=== PATIENT | male | born 1960 | race Caucasian/White ===

== ENCOUNTER 2020-05-31 16:30 | Inpatient (IN) | payer MEDICAID, SELFPAY ==
[2020-05-31] VITALS (10 sets, daily range): BP systolic 100–115; BP diastolic 76–90; PULSE 117–142; RESP 16–27; TEMP 36.3–36.6; O2SAT 93–97; BMI 29.7
--- NOTE | 2020-05-31 17:10 | W.ED.EPISTAX ---
Documented by User: MARIANELA Teran 05/31/20 21:16 HPI - Epistaxis General: Chief complaint: Epistaxis Stated complaint: EPISTAXIS Time Seen by Provider: 05/31/20 16:52 History of Present Illness: HPI Narrative: Patient is a 59-year-old male who comes to the ED with epistaxis. Patient has a past medical history of COPD, hypertension, hyperlipidemia. Patient is on oxygen 2 L at home as needed. Patient says he has been dealing with this nosebleed for little over 2 days. He saw his PCP 2 days ago and they put a nasal packing. He then went back to the PCP yesterday and had nasal packing removed and bleeding continued. He has been able to get the bleeding to stop momentarily but then it starts back up again. Denies any head injury or trauma to cause nosebleed. Patient says bleeding just occurred randomly. Denies any history of bleeding disorders and patient is not on a blood thinner and takes a daily aspirin. Patient is also having tremors in both right and left upper extremities that started today. Patient did say that he is a daily alcohol drinker and says that he has not had any alcohol today. He usually has over 3 mixed drinks with vodka daily. Patient says he has never tried to detox from alcohol in the past so he is never experienced withdrawal symptoms. Patient is also complaining of having some shortness of breath that started within the last 2 days as well. Denies any chest pain, fevers, chills, abdominal pain, vomiting, bladder or bowel symptoms. Associated symptoms: Deny fever(s), headache(s) or vomiting Review of Systems Const: Denies: fever(s), chills or fatigue Eyes: Denies: change in vision or eye discomfort ENMT: Reports: epistaxis; Denies: throat pain, odynophagia, nasal discharge or nasal congestion Card: Denies: chest pain, palpitations, edema, swelling of feet/ankles, dyspnea on exertion or orthopnea Resp: Reports: dyspnea; Denies: productive cough or non-productive cough GI: Denies: abdominal pain, nausea, vomiting, diarrhea, constipation or hematochezia : Denies: flank pain, difficulty urinating, dysuria or hematuria Musc: Denies: neck pain, back pain or extremity swelling Skin/Breast: Denies: rash or new lesions Neuro: Reports: involuntary movements (Tremors in upper extremities bilaterally.); Denies: headache(s), numbness in extremities or weakness in extremities PFSH ED PFSH: Medical History COPD (chronic obstructive pulmonary disease) Coronary artery disease Heart failure HTN (hypertension) Hyperlipidemia PVD (peripheral vascular disease) Surgical History S/P coronary angioplasty Coronary disease 2 stents, 2015 S/P hernia repair Family History Father Cancer Mother Cancer Other CAD (coronary artery disease) Social History (Updated 05/31/20 @ 22:33 by Zoe Platt MD) Smoking and tobacco status: current every day smoker cigarettes [ Other cigarette details: Half a pack a day ] Alcohol intake: current Alcohol use comment: Half a pint of vodka every day Household members: spouse Housing: House History of recent travel: No Physical Exam Const: COMMON NORMALS: no acute distress, patient oriented x3 and alert GENERAL APPEARANCE: cooperative and comfortable HENMT: COMMON NORMALS: normocephalic HEAD & SCALP: normocephalic NOSE: Epistaxis present bilaterally (No septal hematoma seen. Bleeding source is septum. No active bleeding upon exam.) anterior source, dried blood present and clots present MOUTH: Normal oral and palatal mucosa present THROAT: posterior oropharynx normal and uvula midline OTHER: After I performed exam approximately 2 to 3 minutes later patient started bleeding out of left nare again. Clamp was placed back on. Neck/C-Spine: COMMON NORMALS: supple GENERAL: Yes normal visual inspection Resp: COMMON NORMALS: normal respiratory effort, No retractions and No use of accessory muscles AUSCULTATION: wheezes expiratory wheezes, inspiratory wheezes and throughout Cardio: COMMON NORMALS: regular rate, regular rhythm, S1 normal heart sound present, S2 normal heart sound present, No gallops present (Cardio), No clicks present (Cardio), No murmurs present (Cardio) and Peripheral pulses 2+ throughout RATE: regular rate RHYTHM: regular rhythm HEART SOUNDS: S1 normal heart sound present and S2 normal heart sound present PERIPHERAL PULSES: Peripheral pulses 2+ throughout GI: COMMON NORMALS: Normal to inspection, nondistended, normoactive bowel sounds present, Soft to palpation, non-tender and no masses PALPATION: Yes Soft to palpation : COMMON NORMALS: Yes no CVA tenderness BLADDER/KIDNEY EXAM: Yes no CVA tenderness Back/Pelvis: COMMON NORMALS: no CVA tenderness Extremity: COMMON NORMALS: normal to inspection Neuro: COMMON NORMALS: patient oriented x3 and moves all extremities SENSORIUM/ORIENTATION: Yes alert SPEECH: speech normal MOTOR EXAM: Tremors during motor activity present intention tremor bialteral upper extremity Skin: OTHER: Patient skin was moist and clammy. Course ED course: I talked with Dr. Johnston and he will be taking over patient case due to acuity. Patient has been tachycardic and tachypnea upon arrival. Nosebleed still not controlled. Patient's lungs had inspiratory and expiratory wheezing throughout. Patient also is a heavy daily alcohol user states he has not had any alcohol today and has started developing bilateral upper extremity tremors, anxiety and skin was moist and clammy. Patient was given IV fluids and then a dose of Ativan due to patient's withdrawal symptoms. Patient care transferred over to Dr. Johnston. Reevaluation(s): Reevaluation #1: After I performed exam approximately 2 to 3 minutes later patient started bleeding out of left nare again. Clamp was placed back on. Vital Signs: Vital signs: Vital Signs Temperature 97.8 F 06/03/20 18:35 Pulse Rate 98 06/03/20 18:35 Respiratory Rate 17 06/03/20 18:35 Blood Pressure 125/83 06/03/20 18:35 Pulse Oximetry 93 06/03/20 18:35 MDM - Epistaxis Lab Data: Attestation: I reviewed the patient's lab results. Labs: Lab Results 05/31/20 05/31/20 05/31/20 Range/Units 17:45 17:45 17:45 WBC 10.7 H (4.0-10.0) 10^3/ uL RBC 2.81 L (4.1-5.3) 10^6/u L Hgb 10.4 L (11.7-16.6) g/dL Hct 30.4 L (42.0-52.0) % MCV 108.2 H (80-94) fL MCH 37.0 H (28.0-34.0) pg MCHC 34.2 (30.0-36.0) g/dL RDW 12.1 (12.1-15.1) % Plt Count 268 (130-400) 10^3/c mm MPV 9.0 (7.4-10.4) fL Neut % (Auto) 71.2 % Lymph % (Auto) 17.8 % [place] % (Auto) 9.3 % Eos % (Auto) 0.4 % Baso % (Auto) 0.6 % Neut # (Auto) 7.63 (1.8-7.7) 10^3/u L Lymph # (Auto) 1.9 (0.8-4.8) 10^3/u L [place] # (Auto) 1.0 H (0.2-0.9) 10^3/u L Eos # (Auto) 0.0 (0.0-0.8) 10^3/u L Baso # (Auto) 0.1 (0.0-0.1) 10^3/u L Nucleated RBC % (a uto) 0 % Nucleated RBCs # 0.0 /100WBC PT 13.50 (12.1-14.9) SECO NDS INR 1.00 (0.8-1.2) APTT 29.1 (23.9-36.7) SECO NDS Specimen Type Sample Site ABG pH (7.35-7.45) ABG pCO2 (35-45) mmHg ABG pO2 (80.0-100.0) mmH g ABG HCO3 (22-26) mmol/L ABG O2 Saturation ABG Base Excess (-2.0-2.0) mmol/ L Pato Test A-a O2 Gradient (5-10) mmHg Hematocrit (42-52) % Hgb O2 Saturation (95-100) % Carboxyhemoglobin (0.4-20.1) %THgb Methemoglobin (0.4-1.5) % Total Hemoglobin (14-18) g/dL Ionized Calcium (1.1-1.4) mmol/L O2 Delivery Device O2 Liters/Min % Manager [employer] ID Sodium 142 (136-145) mmol/L Potassium 3.6 (3.5-5.1) mmol/L Chloride 103 (98-107) mmol/L Carbon Dioxide 27 (22-29) mmol/L Anion Gap 15.6 (5-19) BUN 10 (8-23) mg/dL Creatinine 0.3 L (0.7-1.2) mg/dL GFR Calculation 305.8 H (90-130) mL/min Glucose 118 H (65-115) mg/dL Calculated Osmolal ity 294 (285-295) mOsm/k g Calcium 8.7 (8.5-10.5) mg/dL Phosphorus (2.5-4.5) mg/dL Magnesium (1.7-2.3) mg/dL Total Bilirubin 0.2 (0.15-1.2) mg/dL AST 47 H (0-40) U/L ALT 22 (0-41) U/L Alkaline Phosphata se 89 (40-130) IU/L Troponin T Baselin e (0-15) ng/L Troponin T 120 Min [place] (0-15) ng/L Delta Troponin T (0-10) ABS# Troponin T Hi Sens 6Hr (0-15) ng/L Troponin T Hi Sens 6Hr Delta (0-12) ng/L NT-Pro-B Natriuret Pep (0-125) pg/mL Total Protein 6.2 L (6.6-8.7) g/dL Albumin 3.8 (3.5-5.2) g/dL Globulin 2.4 (1.3-4.6) g/dL Urine Opiates Scre en (Negative) ng/mL Ur Barbiturates Sc reen (Negative) ng/mL Ur Phencyclidine S crn (Negative) ng/mL Ur Amphetamines Sc reen (Negative) ng/mL U Benzodiazepines Scrn (Negative) ng/mL Urine Cocaine Scre en (Negative) ng/mL U Marijuana (THC) Screen (Negative) ng/mL Ethyl Alcohol (0-10) mg/dL 05/31/20 05/31/20 05/31/20 Range/Units 17:45 17:45 17:45 WBC (4.0-10.0) 10^3/ uL RBC (4.1-5.3) 10^6/u L Hgb (11.7-16.6) g/dL Hct (42.0-52.0) % MCV (80-94) fL MCH (28.0-34.0) pg MCHC (30.0-36.0) g/dL RDW (12.1-15.1) % Plt Count (130-400) 10^3/c mm MPV (7.4-10.4) fL Neut % (Auto) % Lymph % (Auto) % [place] % (Auto) % Eos % (Auto) % Baso % (Auto) % Neut # (Auto) (1.8-7.7) 10^3/u L Lymph # (Auto) (0.8-4.8) 10^3/u L [place] # (Auto) (0.2-0.9) 10^3/u L Eos # (Auto) (0.0-0.8) 10^3/u L Baso # (Auto) (0.0-0.1) 10^3/u L Nucleated RBC % (a uto) % Nucleated RBCs # /100WBC PT (12.1-14.9) SECO NDS INR (0.8-1.2) APTT (23.9-36.7) SECO NDS Specimen Type Sample Site ABG pH (7.35-7.45) ABG pCO2 (35-45) mmHg ABG pO2 (80.0-100.0) mmH g ABG HCO3 (22-26) mmol/L ABG O2 Saturation ABG Base Excess (-2.0-2.0) mmol/ L Pato Test A-a O2 Gradient (5-10) mmHg Hematocrit (42-52) % Hgb O2 Saturation (95-100) % Carboxyhemoglobin (0.4-20.1) %THgb Methemoglobin (0.4-1.5) % Total Hemoglobin (14-18) g/dL Ionized Calcium (1.1-1.4) mmol/L O2 Delivery Device O2 Liters/Min % Manager [employer] ID Sodium (136-145) mmol/L Potassium (3.5-5.1) mmol/L Chloride (98-107) mmol/L Carbon Dioxide (22-29) mmol/L Anion Gap (5-19) BUN (8-23) mg/dL Creatinine (0.7-1.2) mg/dL GFR Calculation (90-130) mL/min Glucose (65-115) mg/dL Calculated Osmolal ity (285-295) mOsm/k g Calcium (8.5-10.5) mg/dL Phosphorus (2.5-4.5) mg/dL Magnesium (1.7-2.3) mg/dL Total Bilirubin (0.15-1.2) mg/dL AST (0-40) U/L ALT (0-41) U/L Alkaline Phosphata se (40-130) IU/L Troponin T Baselin e 15 (0-15) ng/L Troponin T 120 Min [place] 12.06 (0-15) ng/L Delta Troponin T -2.94 L (0-10) ABS# Troponin T Hi Sens 6Hr (0-15) ng/L Troponin T Hi Sens 6Hr Delta (0-12) ng/L NT-Pro-B Natriuret Pep 33 (0-125) pg/mL Total Protein (6.6-8.7) g/dL Albumin (3.5-5.2) g/dL Globulin (1.3-4.6) g/dL Urine Opiates Scre en (Negative) ng/mL Ur Barbiturates Sc reen (Negative) ng/mL Ur Phencyclidine S crn (Negative) ng/mL Ur Amphetamines Sc reen (Negative) ng/mL U Benzodiazepines Scrn (Negative) ng/mL Urine Cocaine Scre en (Negative) ng/mL U Marijuana (THC) Screen (Negative) ng/mL Ethyl Alcohol 29 H (0-10) mg/dL 05/31/20 06/01/20 06/01/20 Range/Units 18:36 00:02 01:00 WBC 9.6 (4.0-10.0) 10^3/ uL RBC 2.21 L (4.1-5.3) 10^6/u L Hgb 8.0 L (11.7-16.6) g/dL Hct 24.4 L (42.0-52.0) % MCV 110.4 H (80-94) fL MCH 36.2 H (28.0-34.0) pg MCHC 32.8 (30.0-36.0) g/dL RDW 12.2 (12.1-15.1) % Plt Count 245 (130-400) 10^3/c mm MPV 9.3 (7.4-10.4) fL Neut % (Auto) 64.7 % Lymph % (Auto) 20.4 % [place] % (Auto) 14.0 % Eos % (Auto) 0.1 % Baso % (Auto) 0.5 % Neut # (Auto) 6.23 (1.8-7.7) 10^3/u L Lymph # (Auto) 2.0 (0.8-4.8) 10^3/u L [place] # (Auto) 1.4 H (0.2-0.9) 10^3/u L Eos # (Auto) 0.0 (0.0-0.8) 10^3/u L Baso # (Auto) 0.1 (0.0-0.1) 10^3/u L Nucleated RBC % (a uto) 0 % Nucleated RBCs # 0.0 /100WBC PT (12.1-14.9) SECO NDS INR (0.8-1.2) APTT (23.9-36.7) SECO NDS Specimen Type Arterial Sample Site Radial, right ABG pH 7.44 (7.35-7.45) ABG pCO2 45.3 H (35-45) mmHg ABG pO2 93.1 (80.0-100.0) mmH g ABG HCO3 30.4 H (22-26) mmol/L ABG O2 Saturation 98.4 ABG Base Excess 5.4 H (-2.0-2.0) mmol/ L Pato Test Pos A-a O2 Gradient 0.2 L (5-10) mmHg Hematocrit 31.5 L (42-52) % Hgb O2 Saturation 93.5 L (95-100) % Carboxyhemoglobin 4.0 (0.4-20.1) %THgb Methemoglobin 0.9 (0.4-1.5) % Total Hemoglobin 10.3 L (14-18) g/dL Ionized Calcium 1.2 (1.1-1.4) mmol/L O2 Delivery Device Oxy mask O2 Liters/Min 4.0 % Manager [employer] ID Ed Sodium 143.0 (136-145) mmol/L Potassium 3.6 (3.5-5.1) mmol/L Chloride (98-107) mmol/L Carbon Dioxide (22-29) mmol/L Anion Gap (5-19) BUN (8-23) mg/dL Creatinine (0.7-1.2) mg/dL GFR Calculation (90-130) mL/min Glucose 162.0 H (65-115) mg/dL Calculated Osmolal ity (285-295) mOsm/k g Calcium (8.5-10.5) mg/dL Phosphorus (2.5-4.5) mg/dL Magnesium (1.7-2.3) mg/dL Total Bilirubin (0.15-1.2) mg/dL AST (0-40) U/L ALT (0-41) U/L Alkaline Phosphata se (40-130) IU/L Troponin T Baselin e (0-15) ng/L Troponin T 120 Min [place] (0-15) ng/L Delta Troponin T (0-10) ABS# Troponin T Hi Sens 6Hr (0-15) ng/L Troponin T Hi Sens 6Hr Delta (0-12) ng/L NT-Pro-B Natriuret Pep (0-125) pg/mL Total Protein (6.6-8.7) g/dL Albumin (3.5-5.2) g/dL Globulin (1.3-4.6) g/dL Urine Opiates Scre en Negative (Negative) ng/mL Ur Barbiturates Sc reen Negative (Negative) ng/mL Ur Phencyclidine S crn Negative (Negative) ng/mL Ur Amphetamines Sc reen Negative (Negative) ng/mL U Benzodiazepines Scrn Positive H (Negative) ng/mL Urine Cocaine Scre en Negative (Negative) ng/mL U Marijuana (THC) Screen Negative (Negative) ng/mL Ethyl Alcohol (0-10) mg/dL 06/01/20 06/01/20 Range/Units 01:00 01:00 WBC (4.0-10.0) 10^3/ uL RBC (4.1-5.3) 10^6/u L Hgb (11.7-16.6) g/dL Hct (42.0-52.0) % MCV (80-94) fL MCH (28.0-34.0) pg MCHC (30.0-36.0) g/dL RDW (12.1-15.1) % Plt Count (130-400) 10^3/c mm MPV (7.4-10.4) fL Neut % (Auto) % Lymph % (Auto) % [place] % (Auto) % Eos % (Auto) % Baso % (Auto) % Neut # (Auto) (1.8-7.7) 10^3/u L Lymph # (Auto) (0.8-4.8) 10^3/u L [place] # (Auto) (0.2-0.9) 10^3/u L Eos # (Auto) (0.0-0.8) 10^3/u L Baso # (Auto) (0.0-0.1) 10^3/u L Nucleated RBC % (a uto) % Nucleated RBCs # /100WBC PT (12.1-14.9) SECO NDS INR (0.8-1.2) APTT (23.9-36.7) SECO NDS Specimen Type Sample Site ABG pH (7.35-7.45) ABG pCO2 (35-45) mmHg ABG pO2 (80.0-100.0) mmH g ABG HCO3 (22-26) mmol/L ABG O2 Saturation ABG Base Excess (-2.0-2.0) mmol/ L Pato Test A-a O2 Gradient (5-10) mmHg Hematocrit (42-52) % Hgb O2 Saturation (95-100) % Carboxyhemoglobin (0.4-20.1) %THgb Methemoglobin (0.4-1.5) % Total Hemoglobin (14-18) g/dL Ionized Calcium (1.1-1.4) mmol/L O2 Delivery Device O2 Liters/Min % Manager [employer] ID Sodium 140 (136-145) mmol/L Potassium 4.1 (3.5-5.1) mmol/L Chloride 106 (98-107) mmol/L Carbon Dioxide 27 (22-29) mmol/L Anion Gap 11.1 (5-19) BUN 30 H (8-23) mg/dL Creatinine 0.4 L (0.7-1.2) mg/dL GFR Calculation 219.4 H (90-130) mL/min Glucose 155 H (65-115) mg/dL Calculated Osmolal ity 299 H (285-295) mOsm/k g Calcium 8.3 L (8.5-10.5) mg/dL Phosphorus 1.6 L (2.5-4.5) mg/dL Magnesium 2.1 (1.7-2.3) mg/dL Total Bilirubin (0.15-1.2) mg/dL AST (0-40) U/L ALT (0-41) U/L Alkaline Phosphata se (40-130) IU/L Troponin T Baselin e (0-15) ng/L Troponin T 120 Min [place] (0-15) ng/L Delta Troponin T (0-10) ABS# Troponin T Hi Sens 6Hr 12.86 (0-15) ng/L Troponin T Hi Sens 6Hr Delta -2.14 L (0-12) ng/L NT-Pro-B Natriuret Pep (0-125) pg/mL Total Protein (6.6-8.7) g/dL Albumin (3.5-5.2) g/dL Globulin (1.3-4.6) g/dL Urine Opiates Scre en (Negative) ng/mL Ur Barbiturates Sc reen (Negative) ng/mL Ur Phencyclidine S crn (Negative) ng/mL Ur Amphetamines Sc reen (Negative) ng/mL U Benzodiazepines Scrn (Negative) ng/mL Urine Cocaine Scre en (Negative) ng/mL U Marijuana (THC) Screen (Negative) ng/mL Ethyl Alcohol (0-10) mg/dL Imaging Data^: CXR: Attestation: I personally reviewed and interpreted this imaging study as follows: My impression: Chest x-ray showed possible iniltrates of the right and left lower lobe. Discharge Plan Discharge Patient Disposition: Admitted As Inpatient Admit Provider: Zoe Platt Clinical Impression: Alcohol withdrawal Condition: Stable Discharge Diet: Advance as tolerated and Cardiac Discharge Activity: Increase activity as tolerated Coding Level of Care Code ED Logistics Supervisor for Chg Fwd Exam Comprehensive Documented by User: Jersey Lopez MD 06/04/20 08:25 HPI - Epistaxis General: Chief complaint: Epistaxis Stated complaint: EPISTAXIS Time Seen by Provider: 05/31/20 16:52 PFSH ED PFSH: Medical History COPD (chronic obstructive pulmonary disease) Coronary artery disease Heart failure HTN (hypertension) Hyperlipidemia PVD (peripheral vascular disease) Surgical History S/P coronary angioplasty Coronary disease 2 stents, 2015 S/P hernia repair Family History Father Cancer Mother Cancer Other CAD (coronary artery disease) Social History (Updated 05/31/20 @ 22:33 by Zoe Platt MD) Smoking and tobacco status: current every day smoker cigarettes [ Other cigarette details: Half a pack a day ] Alcohol intake: current Alcohol use comment: Half a pint of vodka every day Household members: spouse Housing: House History of recent travel: No Course Vital Signs: Vital signs: Vital Signs Temperature 97.8 F 06/03/20 18:35 Pulse Rate 98 06/03/20 18:35 Respiratory Rate 17 06/03/20 18:35 Blood Pressure 125/83 06/03/20 18:35 Pulse Oximetry 93 06/03/20 18:35 MDM - Epistaxis Lab Data: Labs: Lab Results 05/31/20 05/31/20 05/31/20 Range/Units 17:45 17:45 17:45 WBC 10.7 H (4.0-10.0) 10^3/ uL RBC 2.81 L (4.1-5.3) 10^6/u L Hgb 10.4 L (11.7-16.6) g/dL Hct 30.4 L (42.0-52.0) % MCV 108.2 H (80-94) fL MCH 37.0 H (28.0-34.0) pg MCHC 34.2 (30.0-36.0) g/dL RDW 12.1 (12.1-15.1) % Plt Count 268 (130-400) 10^3/c mm MPV 9.0 (7.4-10.4) fL Neut % (Auto) 71.2 % Lymph % (Auto) 17.8 % [place] % (Auto) 9.3 % Eos % (Auto) 0.4 % Baso % (Auto) 0.6 % Neut # (Auto) 7.63 (1.8-7.7) 10^3/u L Lymph # (Auto) 1.9 (0.8-4.8) 10^3/u L [place] # (Auto) 1.0 H (0.2-0.9) 10^3/u L Eos # (Auto) 0.0 (0.0-0.8) 10^3/u L Baso # (Auto) 0.1 (0.0-0.1) 10^3/u L Nucleated RBC % (a uto) 0 % Nucleated RBCs # 0.0 /100WBC PT 13.50 (12.1-14.9) SECO NDS INR 1.00 (0.8-1.2) APTT 29.1 (23.9-36.7) SECO NDS Specimen Type Sample Site ABG pH (7.35-7.45) ABG pCO2 (35-45) mmHg ABG pO2 (80.0-100.0) mmH g ABG HCO3 (22-26) mmol/L ABG O2 Saturation ABG Base Excess (-2.0-2.0) mmol/ L Pato Test A-a O2 Gradient (5-10) mmHg Hematocrit (42-52) % Hgb O2 Saturation (95-100) % Carboxyhemoglobin (0.4-20.1) %THgb Methemoglobin (0.4-1.5) % Total Hemoglobin (14-18) g/dL Ionized Calcium (1.1-1.4) mmol/L O2 Delivery Device O2 Liters/Min % Manager [employer] ID Sodium 142 (136-145) mmol/L Potassium 3.6 (3.5-5.1) mmol/L Chloride 103 (98-107) mmol/L Carbon Dioxide 27 (22-29) mmol/L Anion Gap 15.6 (5-19) BUN 10 (8-23) mg/dL Creatinine 0.3 L (0.7-1.2) mg/dL GFR Calculation 305.8 H (90-130) mL/min Glucose 118 H (65-115) mg/dL Calculated Osmolal ity 294 (285-295) mOsm/k g Calcium 8.7 (8.5-10.5) mg/dL Phosphorus (2.5-4.5) mg/dL Magnesium (1.7-2.3) mg/dL Total Bilirubin 0.2 (0.15-1.2) mg/dL AST 47 H (0-40) U/L ALT 22 (0-41) U/L Alkaline Phosphata se 89 (40-130) IU/L Troponin T Baselin e (0-15) ng/L Troponin T 120 Min [place] (0-15) ng/L Delta Troponin T (0-10) ABS# Troponin T Hi Sens 6Hr (0-15) ng/L Troponin T Hi Sens 6Hr Delta (0-12) ng/L NT-Pro-B Natriuret Pep (0-125) pg/mL Total Protein 6.2 L (6.6-8.7) g/dL Albumin 3.8 (3.5-5.2) g/dL Globulin 2.4 (1.3-4.6) g/dL Urine Opiates Scre en (Negative) ng/mL Ur Barbiturates Sc reen (Negative) ng/mL Ur Phencyclidine S crn (Negative) ng/mL Ur Amphetamines Sc reen (Negative) ng/mL U Benzodiazepines Scrn (Negative) ng/mL Urine Cocaine Scre en (Negative) ng/mL U Marijuana (THC) Screen (Negative) ng/mL Ethyl Alcohol (0-10) mg/dL 05/31/20 05/31/20 05/31/20 Range/Units 17:45 17:45 17:45 WBC (4.0-10.0) 10^3/ uL RBC (4.1-5.3) 10^6/u L Hgb (11.7-16.6) g/dL Hct (42.0-52.0) % MCV (80-94) fL MCH (28.0-34.0) pg MCHC (30.0-36.0) g/dL RDW (12.1-15.1) % Plt Count (130-400) 10^3/c mm MPV (7.4-10.4) fL Neut % (Auto) % Lymph % (Auto) % [place] % (Auto) % Eos % (Auto) % Baso % (Auto) % Neut # (Auto) (1.8-7.7) 10^3/u L Lymph # (Auto) (0.8-4.8) 10^3/u L [place] # (Auto) (0.2-0.9) 10^3/u L Eos # (Auto) (0.0-0.8) 10^3/u L Baso # (Auto) (0.0-0.1) 10^3/u L Nucleated RBC % (a uto) % Nucleated RBCs # /100WBC PT (12.1-14.9) SECO NDS INR (0.8-1.2) APTT (23.9-36.7) SECO NDS Specimen Type Sample Site ABG pH (7.35-7.45) ABG pCO2 (35-45) mmHg ABG pO2 (80.0-100.0) mmH g ABG HCO3 (22-26) mmol/L ABG O2 Saturation ABG Base Excess (-2.0-2.0) mmol/ L Pato Test A-a O2 Gradient (5-10) mmHg Hematocrit (42-52) % Hgb O2 Saturation (95-100) % Carboxyhemoglobin (0.4-20.1) %THgb Methemoglobin (0.4-1.5) % Total Hemoglobin (14-18) g/dL Ionized Calcium (1.1-1.4) mmol/L O2 Delivery Device O2 Liters/Min % Manager [employer] ID Sodium (136-145) mmol/L Potassium (3.5-5.1) mmol/L Chloride (98-107) mmol/L Carbon Dioxide (22-29) mmol/L Anion Gap (5-19) BUN (8-23) mg/dL Creatinine (0.7-1.2) mg/dL GFR Calculation (90-130) mL/min Glucose (65-115) mg/dL Calculated Osmolal ity (285-295) mOsm/k g Calcium (8.5-10.5) mg/dL Phosphorus (2.5-4.5) mg/dL Magnesium (1.7-2.3) mg/dL Total Bilirubin (0.15-1.2) mg/dL AST (0-40) U/L ALT (0-41) U/L Alkaline Phosphata se (40-130) IU/L Troponin T Baselin e 15 (0-15) ng/L Troponin T 120 Min [place] 12.06 (0-15) ng/L Delta Troponin T -2.94 L (0-10) ABS# Troponin T Hi Sens 6Hr (0-15) ng/L Troponin T Hi Sens 6Hr Delta (0-12) ng/L NT-Pro-B Natriuret Pep 33 (0-125) pg/mL Total Protein (6.6-8.7) g/dL Albumin (3.5-5.2) g/dL Globulin (1.3-4.6) g/dL Urine Opiates Scre en (Negative) ng/mL Ur Barbiturates Sc reen (Negative) ng/mL Ur Phencyclidine S crn (Negative) ng/mL Ur Amphetamines Sc reen (Negative) ng/mL U Benzodiazepines Scrn (Negative) ng/mL Urine Cocaine Scre en (Negative) ng/mL U Marijuana (THC) Screen (Negative) ng/mL Ethyl Alcohol 29 H (0-10) mg/dL 05/31/20 06/01/20 06/01/20 Range/Units 18:36 00:02 01:00 WBC 9.6 (4.0-10.0) 10^3/ uL RBC 2.21 L (4.1-5.3) 10^6/u L Hgb 8.0 L (11.7-16.6) g/dL Hct 24.4 L (42.0-52.0) % MCV 110.4 H (80-94) fL MCH 36.2 H (28.0-34.0) pg MCHC 32.8 (30.0-36.0) g/dL RDW 12.2 (12.1-15.1) % Plt Count 245 (130-400) 10^3/c mm MPV 9.3 (7.4-10.4) fL Neut % (Auto) 64.7 % Lymph % (Auto) 20.4 % [place] % (Auto) 14.0 % Eos % (Auto) 0.1 % Baso % (Auto) 0.5 % Neut # (Auto) 6.23 (1.8-7.7) 10^3/u L Lymph # (Auto) 2.0 (0.8-4.8) 10^3/u L [place] # (Auto) 1.4 H (0.2-0.9) 10^3/u L Eos # (Auto) 0.0 (0.0-0.8) 10^3/u L Baso # (Auto) 0.1 (0.0-0.1) 10^3/u L Nucleated RBC % (a uto) 0 % Nucleated RBCs # 0.0 /100WBC PT (12.1-14.9) SECO NDS INR (0.8-1.2) APTT (23.9-36.7) SECO NDS Specimen Type Arterial Sample Site Radial, right ABG pH 7.44 (7.35-7.45) ABG pCO2 45.3 H (35-45) mmHg ABG pO2 93.1 (80.0-100.0) mmH g ABG HCO3 30.4 H (22-26) mmol/L ABG O2 Saturation 98.4 ABG Base Excess 5.4 H (-2.0-2.0) mmol/ L [place] Test Pos A-a O2 Gradient 0.2 L (5-10) mmHg Hematocrit 31.5 L (42-52) % Hgb O2 Saturation 93.5 L (95-100) % Carboxyhemoglobin 4.0 (0.4-20.1) %THgb Methemoglobin 0.9 (0.4-1.5) % Total Hemoglobin 10.3 L (14-18) g/dL Ionized Calcium 1.2 (1.1-1.4) mmol/L O2 Delivery Device Oxy mask O2 Liters/Min 4.0 % [employer] Sodium 143.0 (136-145) mmol/L Potassium 3.6 (3.5-5.1) mmol/L Chloride (98-107) mmol/L Carbon Dioxide (22-29) mmol/L Anion Gap (5-19) BUN (8-23) mg/dL Creatinine (0.7-1.2) mg/dL GFR Calculation (90-130) mL/min Glucose 162.0 H (65-115) mg/dL Calculated Osmolal ity (285-295) mOsm/k g Calcium (8.5-10.5) mg/dL Phosphorus (2.5-4.5) mg/dL Magnesium (1.7-2.3) mg/dL Total Bilirubin (0.15-1.2) mg/dL AST (0-40) U/L ALT (0-41) U/L Alkaline Phosphata se (40-130) IU/L Troponin T Baselin e (0-15) ng/L Troponin T 120 Min [place] (0-15) ng/L Delta Troponin T (0-10) ABS# Troponin T Hi Sens 6Hr (0-15) ng/L Troponin T Hi Sens 6Hr Delta (0-12) ng/L NT-Pro-B Natriuret Pep (0-125) pg/mL Total Protein (6.6-8.7) g/dL Albumin (3.5-5.2) g/dL Globulin (1.3-4.6) g/dL Urine Opiates Scre en Negative (Negative) ng/mL Ur Barbiturates Sc reen Negative (Negative) ng/mL Ur Phencyclidine S crn Negative (Negative) ng/mL Ur Amphetamines Sc reen Negative (Negative) ng/mL U Benzodiazepines Scrn Positive H (Negative) ng/mL Urine Cocaine Scre en Negative (Negative) ng/mL U Marijuana (THC) Screen Negative (Negative) ng/mL Ethyl Alcohol (0-10) mg/dL 06/01/20 06/01/20 Range/Units 01:00 01:00 WBC (4.0-10.0) 10^3/ uL RBC (4.1-5.3) 10^6/u L Hgb (11.7-16.6) g/dL Hct (42.0-52.0) % MCV (80-94) fL MCH (28.0-34.0) pg MCHC (30.0-36.0) g/dL RDW (12.1-15.1) % Plt Count (130-400) 10^3/c mm MPV (7.4-10.4) fL Neut % (Auto) % Lymph % (Auto) % [place] % (Auto) % Eos % (Auto) % Baso % (Auto) % Neut # (Auto) (1.8-7.7) 10^3/u L Lymph # (Auto) (0.8-4.8) 10^3/u L [place] # (Auto) (0.2-0.9) 10^3/u L Eos # (Auto) (0.0-0.8) 10^3/u L Baso # (Auto) (0.0-0.1) 10^3/u L Nucleated RBC % (a uto) % Nucleated RBCs # /100WBC PT (12.1-14.9) SECO NDS INR (0.8-1.2) APTT (23.9-36.7) SECO NDS Specimen Type Sample Site ABG pH (7.35-7.45) ABG pCO2 (35-45) mmHg ABG pO2 (80.0-100.0) mmH g ABG HCO3 (22-26) mmol/L ABG O2 Saturation ABG Base Excess (-2.0-2.0) mmol/ L Pato Test A-a O2 Gradient (5-10) mmHg Hematocrit (42-52) % Hgb O2 Saturation (95-100) % Carboxyhemoglobin (0.4-20.1) %THgb Methemoglobin (0.4-1.5) % Total Hemoglobin (14-18) g/dL Ionized Calcium (1.1-1.4) mmol/L O2 Delivery Device O2 Liters/Min % Manager Military ID Sodium 140 (136-145) mmol/L Potassium 4.1 (3.5-5.1) mmol/L Chloride 106 (98-107) mmol/L Carbon Dioxide 27 (22-29) mmol/L Anion Gap 11.1 (5-19) BUN 30 H (8-23) mg/dL Creatinine 0.4 L (0.7-1.2) mg/dL GFR Calculation 219.4 H (90-130) mL/min Glucose 155 H (65-115) mg/dL Calculated Osmolal ity 299 H (285-295) mOsm/k g Calcium 8.3 L (8.5-10.5) mg/dL Phosphorus 1.6 L (2.5-4.5) mg/dL Magnesium 2.1 (1.7-2.3) mg/dL Total Bilirubin (0.15-1.2) mg/dL AST (0-40) U/L ALT (0-41) U/L Alkaline Phosphata se (40-130) IU/L Troponin T Baselin e (0-15) ng/L Troponin T 120 Min [place] (0-15) ng/L Delta Troponin T (0-10) ABS# Troponin T Hi Sens 6Hr 12.86 (0-15) ng/L Troponin T Hi Sens 6Hr Delta -2.14 L (0-12) ng/L NT-Pro-B Natriuret Pep (0-125) pg/mL Total Protein (6.6-8.7) g/dL Albumin (3.5-5.2) g/dL Globulin (1.3-4.6) g/dL Urine Opiates Scre en (Negative) ng/mL Ur Barbiturates Sc reen (Negative) ng/mL Ur Phencyclidine S crn (Negative) ng/mL Ur Amphetamines Sc reen (Negative) ng/mL U Benzodiazepines Scrn (Negative) ng/mL Urine Cocaine Scre en (Negative) ng/mL U Marijuana (THC) Screen (Negative) ng/mL Ethyl Alcohol (0-10) mg/dL Discharge Plan Discharge Patient Disposition: Admitted As Inpatient Admit Provider: Zoe Platt Clinical Impression: Alcohol withdrawal Condition: Stable Discharge Diet: Advance as tolerated and Cardiac Discharge Activity: Increase activity as tolerated Coding Level of Care Code ED Logistics Supervisor for Rachel Fwd Exam Comprehensive
--- NOTE | 2020-05-31 17:30 | XR_ITS ---
WS: [id number] PORTABLE CHEST HISTORY: wheezing COMPARISON: 05/21/2018 Lungs are hyperexpanded. Very slight interstitial thickening in the lower lung low is new, greates t on the RIGHT. No dense consolidations. No pleural effusion or pneumothorax. Cardiac size: Normal. Mediastinum/Aorta: Mild atherosclerosis aorta. No osseous abnormality seen. XR/XR chest 1V portable 32014 IMPRESSION: 1. Moderate to severe chronic emphysema. 2. Slight increased amount of interstitial thickening in the lower lung low , greatest on the RIGHT. Superimposed pneumonitis is thought likely.
[2020-05-31 17:58] LABS: Basophils # 0.1 10^3/uL (0.0-0.1); Basophils % 0.6 %; Eosinophils % 0.4 %; Hematocrit 30.4 % (42.0-52.0); Hemoglobin 10.4 g/dL (11.7-16.6); Lymphocytes # 1.9 10^3/uL (0.8-4.8); Lymphocytes % 17.8 %; Mean Corpuscular HGB Conc 34.2 g/dL (30.0-36.0); Mean Corpuscular Volume 108.2 fL (80-94); Monocytes % 9.3 %; Neutrophils # 7.63 10^3/uL (1.8-7.7); Neutrophils % 71.2 %; Nucleated Red Blood Cells % 0 %; Platelet Count 268 10^3/cmm (130-400); Red Blood Count 2.81 10^6/uL (4.1-5.3); Red Cell Distribution Width 12.1 % (12.1-15.1); White Blood Count 10.7 10^3/uL (4.0-10.0)
[2020-05-31] MEDS: LORazepam 2 mg/mL INJ 1 mL IVP (18:08)
[2020-05-31] MEDS: oxymetazoline 0.05% Nasal Spray 15 mL 2 SPRAY NOSTRIL-B (18:10)
[2020-05-31 18:12] LABS: Partial Thromboplastin Time 29.1 SECONDS (23.9-36.7)
[2020-05-31 18:16] LABS: Alanine Aminotransferase 22 U/L (0-41); Albumin Level 3.8 g/dL (3.5-5.2); Alkaline Phosphatase 89 IU/L (40-130); Aspartate Amino Transferase 47 U/L (0-40); Blood Urea Nitrogen 10 mg/dL (8-23); Calcium 8.7 mg/dL (8.5-10.5); Carbon Dioxide 27 mmol/L (22-29); Chloride 103 mmol/L (98-107); Globulin 2.4 g/dL (1.3-4.6); Glomerular Filtration Rate 305.8 mL/min (90-130); Glucose 118 mg/dL (65-115); Osmolality Calculated 294 mOsm/kg (285-295); Sodium 142 mmol/L (136-145); Total Bilirubin 0.2 mg/dL (0.15-1.2); Total Protein 6.2 g/dL (6.6-8.7)
[2020-05-31 18:18] LABS: Anion Gap 15.6 (5-19); Potassium 3.6 mmol/L (3.5-5.1)
--- NOTE | 2020-05-31 18:26 | PC.NURSE ---
pt given ordered IVP ativan and pt immediately began have lower oxygenation with gurgling respirations. PA at bedside. Pt moved to larger room and placed on threat monitoring analyst. PA and ED physician at bedside
--- NOTE | 2020-05-31 18:41 | ECG_ITS ---
[facility] Test Date: 2020-05-31 Pat Name: John Diaz Department: Room: ICU01 Gender: Male Inspector Conveyor Line: : 1960 Requested By: Jersey Lopez Order Number: [id number] Deanna MD: Mckenna Jefferson M.D. Measurements Intervals [place] Rate: 134 P: 37 GA: 131 QRS: 67 QRSD: 104 T: 32 QT: 315 QTc: 471 Interpretive Statements SINUS TACHYCARDIA INFERIOR MYOCARDIAL INFARCTION , PROBABLY OLD [40+ ms Q WAVE AND/OR ST/T ABNORMALITY IN II/aVF] ANTEROLATERAL MYOCARDIAL INFARCTION , OF INDETERMINATE AGE [40+ ms Q WAVE IN I/aVL/V3-V6] Compared to ECG 05/21/2018 16:54:38 Sinus rhythm no longer present Myocardial infarct finding still present Electronically Signed On 05-31-2020 21:43:36 FRENCH BINDING FOLDER by Mckenna Jefferson M.D. [id number]
[2020-05-31 18:47] LABS: ABG PCO2 45.3 mmHg (35-45); ABG PH Result 7.44 (7.35-7.45); Alveolar-Arterial Oxygen Gradi 0.2 mmHg (5-10); Arterial Blood Gas Hematocrit 31.5 % (42-52); Base Excess ABG 5.4 mmol/L (-2.0-2.0); Blood Gas Allen Test Pos; Blood Gas Operator Identificat ED; Blood Gas Sample Site Radial, right; Blood Gas Sample Type Arterial; HCO3 ABG 30.4 mmol/L (22-26); HGB O2 Sat 93.5 % (95-100); Ionized Calcium Level - ABG 1.2 mmol/L (1.1-1.4); Methemoglobin 0.9 % (0.4-1.5); Oxygen Device OXY MASK; Oxygen Saturation ABG 98.4; PO2 ABG 93.1 mmHg (80.0-100.0); Potassium Level - ABG 3.6 mmol/L (3.5-5.0); Total Hemoglobin 10.3 g/dL (14-18)
[2020-05-31 19:01] LABS: Alcohol Level 29 mg/dL (0-10); NT Pro B Type Natriuretic Pept 33 pg/mL (0-125)
[2020-05-31] MEDS: folic acid 1 MG, multivitamin inj 10 ML, thiamine 100 MG in sodium chloride 0.9% 1,000 ML 252.8 MG IV (19:07)
[2020-05-31 19:38] LABS: Troponin(5th) Baseline 15 ng/L (0-15)
--- NOTE | 2020-05-31 20:01 | PM.HP ---
Providers/Chief Complaint Primary Care Provider: Addison Alcaraz DO Chief Complaint: EPISTAXIS History of Present Illness John Diaz is a 59 year old male who has history of alcohol abuse presented today with chief complaint of epistaxis. Patient is stating that for last 48 hours he has been experiencing multiple episodes of epistaxis. He is denying any recent trauma to his nose. He drinks half a pint of vodka every day along 1 pitcher of water, endorses poor p.o. intake. He was constipated for last few days and recently took lactulose and laxatives and experienced diarrhea afterwards. He is denying fever, chest pain shortness of breath, bleeding in his joints, previous history of bleeding. He denies previous history of withdrawal from alcohol. He is not ready to quit at this point. His last alcoholic drink was yesterday. He came to the ER for evaluation of epistaxis. In total he has had 5-6 episodes of profuse epistaxis. Nasal clamp to stop epistaxis, in the ER he was given 2 mg of Ativan which made him very drowsy, he became hypotensive and tachycardic, 1.5 L normal saline bolus was given to increase his blood pressure, by the time I evaluated him he was awake and alert oriented x3 without any neurological deficit, able to protect airways. Nasal clamps were removed had some crusting around his nares. He was tachycardic 130s and systolic blood pressure was 110/48mmhg, there is also concern of aspiration pneumonitis evident on chest x-ray however no signs of sepsis or pneumonia. Chronic anemia noted on CBC, ABG reveals normal pH, alcohol level 29, EKG shows sinus tachycardia Review of Systems Const: Reports: body aches, change in appetite, fatigue and malaise; Denies: fever(s) or chills Eyes: Denies: change in vision ENMT: Reports: bleeding gums, nasal discharge, nasal obstruction and other (Epistaxis) Card: Denies: chest pain Resp: Denies: dyspnea GI: Reports: diarrhea and constipation; Denies: abdominal pain : Denies: flank pain Musc: Denies: neck pain Skin/Breast: Denies: rash Neuro: Denies: headache(s) Psych: Reports: anxiety and depression Endo: Denies: polyuria Mani/Lymph: Reports: easy bleeding; Denies: easy bruising All/Imm: Denies: urticaria Medications/Allergies Home Medications Medication Instructions Recorded Confirmed Last Taken Type albuterol sulfate 2.5 mg INHALATION Q4H PRN 05/19/19 05/30/20 Unknown History albuterol sulfate 90 mcg/actuation 2 puff INHALATION Q6H PRN 05/19/19 05/30/20 Unknown History aerosol inhaler aspirin 81 mg tablet,delayed 81 mg PO DAILY 05/19/19 05/30/20 05/27/20 16:30 History release folic acid 1 mg tablet 1 mg PO DAILY 05/19/19 05/30/20 Unknown History ipratropium 20 mcg-albuterol 100 1 puff INHALATION BID gm 05/19/19 05/30/20 Unknown History mcg/actuation mist for inhalation metoprolol tartrate 25 mg tablet 12.5 mg PO BID #90 tab 12/09/19 05/30/20 Unknown Rx cilostazol 50 mg tablet 50 mg PO BID #180 tab 12/22/19 05/30/20 Unknown Rx ferrous sulfate 325 mg (65 mg 325 mg PO DAILY PRN 12/22/19 05/30/20 Unknown History iron) tablet magnesium oxide 400 mg PO DAILY PRN 12/22/19 05/30/20 Unknown History multivitamin 1 tab PO DAILY PRN 12/22/19 05/30/20 Unknown History thiamine HCl (vitamin B1) 100 mg 100 mg PO DAILY PRN 12/22/19 05/30/20 Unknown History tablet nitroglycerin 0.4 mg sublingual 0.4 mg SUBLINGUAL Q5M PRN #25 tab 04/05/20 05/30/20 Unknown Rx tablet amoxicillin 500 mg capsule 500 mg PO BID 05/28/20 05/30/20 Unknown History bisacodyl 5 mg tablet,delayed 5 mg PO DAILY 05/28/20 05/30/20 Unknown History release guaifenesin 600 mg tablet, 600 mg PO BID 05/28/20 05/30/20 Unknown History extended release 12 hr Allergies Allergy/AdvReac Type Severity Reaction Status Date / Time No Known Allergies Allergy Verified 05/30/20 11:43 PFSH Acute PFSH: Medical History COPD (chronic obstructive pulmonary disease) Coronary artery disease Heart failure HTN (hypertension) Hyperlipidemia PVD (peripheral vascular disease) Surgical History S/P coronary angioplasty Coronary disease 2 stents, 2015 S/P hernia repair Family History Father Cancer Mother Cancer Other CAD (coronary artery disease) Social History (Updated 05/31/20 @ 22:33 by Zoe Platt MD) Smoking and tobacco status: current every day smoker cigarettes [ Other cigarette details: Half a pack a day ] Alcohol intake: current Alcohol use comment: Half a pint of vodka every day Household members: spouse Housing: House History of recent travel: No Vitals/I&O/Wt Last Vital Signs Temp 97.9 F 05/31/20 16:31 Pulse 142 H 05/31/20 19:17 Resp 23 H 05/31/20 19:17 BP 115/90 05/31/20 19:17 Pulse Ox 93 05/31/20 19:17 Weight last 48 hrs Weight 86.183 kg Physical Exam Narrative: EXAM NARRATIVE: Middle-age male who appears more than stated age Unkept appearance, poor hygiene Has clotted blood around his nose Hyperemia around posterior pharyngeal wall No active bleeding or epistaxis Tachycardic systolic blood pressure 120s he is able to protect his airways His sedation has improved No neurological deficit he is awake alert oriented x3 GCS 15 S1, S2 sinus tachycardia no murmur appreciated Abdomen soft nontender bowel sounds present Lower extremity no edema gangrene ulcer No joint swelling or cellulitis of skin Mild tremors noted of upper extremities, CIWA 3-4 Data : 05/31/20 17:45 05/31/20 17:45 A&P Assessment and plan (1) Epistaxis: Acute episodes of recurrent epistaxis in last 48 hours No trauma to his nose No use of anticoagulation No previous history of joint swelling, bleeding petechia purpura Platelet count normal I do suspect heavy alcohol use to be the cause of epistaxis at this point, no need of ENT consult since his bleeding has stopped with nasal clamps, Status: Acute (2) Alcohol withdrawal: CIWA 4, active alcohol withdrawal with tachycardia and hypertension autonomic dysfunction is evident with heavy alcohol abuse, patient drinks half a pint of vodka every day Became hypotensive after getting Ativan, will monitor in ICU for now, he received 1 banana bag in the ER We will keep him on CIWA protocol Uncertain for aspiration pneumonitis watch closely if he develops systemic signs or fever, chest x-ray shows infiltrate right greater than left Status: Acute Additional A&P Information History of coronary artery disease: No active chest pain, EKG without ischemic or infarct changes sinus tachycardia on EKG Full code DVT prophylaxis SCDs avoid anticoagulating agents Cardiac diet Attestations Medical Necessity Statement*: Anticipating discharge in less than 48 hours overnight ICU monitoring because of mild alcohol withdrawal, he became sedated and hypotensive after getting Ativan Time Spent in Patient Care: (>than 50% of time spent in counselling and/or direct pt care on unit). 45mins Coding Level of Care Code Acute Head Of Transport Logistics for Rachel Machado Diagnoses Epistaxis R04.0 Alcohol withdrawal F10.239
[2020-05-31 20:12] LABS: Troponin 5 2HR 12.06 ng/L (0-15)
[2020-05-31 20:27] LABS: Troponin 5 2HR Delta -2.94 ABS# (0-10)
--- NOTE | 2020-05-31 20:41 | ECG_ITS ---
[facility] Test Date: 2020-05-31 Pat Name: John Diaz Department: Room: ICU01 Gender: Male Beauty Therapist: : 1960 Requested By: Jersey Lopez Order Number: [id number] Deanna MD: Mceknna Jefferson M.D. Measurements Intervals [place] Rate: 138 P: 67 VT: 138 QRS: 77 QRSD: 98 T: 43 QT: 318 QTc: 483 Interpretive Statements SINUS TACHYCARDIA PROBABLE INFERIOR MYOCARDIAL INFARCTION , PROBABLY OLD [35 ms Q WAVE IN II/aVF] PROBABLE ANTEROLATERAL MYOCARDIAL INFARCTION , PROBABLY OLD [35 ms Q WAVE IN I/aVL/V3-V6] Compared to ECG 05/31/2020 18:42:27 No significant changes Electronically Signed On 05-31-2020 21:47:02 CARE CLINICIAN by Mckenna Jefferson M.D. [email or web address] ([id number]
--- NOTE | 2020-05-31 23:35 | PC.NURSE ---
MD aware of patient receiving Banana Bag in ED, hold IM injection for thiamine at this time. Order obtained for cardiac diet
[2020-06-01] VITALS (25 sets, daily range): BP systolic 100–133; BP diastolic 67–96; PULSE 107–135; RESP 16–26; TEMP 36.3–37.3; O2SAT 94–100
--- NOTE | 2020-06-01 00:41 | ECG_ITS ---
[facility] Test Date: 2020-06-01 Pat Name: John Diaz Department: Room: ICU01 Gender: Male Physical Therapy Aid: : 1960 Requested By: Jersey Lopez Order Number: [id number] Huerta MD: Isiodro Dubon M.D. Measurements Intervals [place] Rate: 136 P: 57 DE: 123 QRS: 79 QRSD: 101 T: 52 QT: 301 QTc: 454 Interpretive Statements SINUS TACHYCARDIA PROBABLE INFERIOR MYOCARDIAL INFARCTION [35 ms Q WAVE IN II/aVF], PROBABLY OLD Compared to ECG 05/31/2020 21:28:46 No significant changes Electronically Signed On 06-02-2020 16:43:12 HOT BILLET SHEAR OPERATOR by Isidoro Dubon M.D. [id number]
[2020-06-01] MEDS: oxymetazoline 0.05% Nasal Spray 15 mL 2 SPRAY NOSTRIL-B (01:03)
[2020-06-01 01:27] LABS: Amphetamines Screen Urine Negative (Negative); Barbiturates Screen Urine Negative (Negative); Benzodiazepines Screen Urine Positive (Negative); Cocaine Screen Urine Negative (Negative); Opiate Screen Urine Negative (Negative); PCP Screen Urine Negative (Negative); THC Screen Urine Negative (Negative)
[2020-06-01 01:32] LABS: Basophils # 0.1 10^3/uL (0.0-0.1); Basophils % 0.5 %; Eosinophils % 0.1 %; Hematocrit 24.4 % (42.0-52.0); Lymphocytes % 20.4 %; Mean Corpuscular HGB Conc 32.8 g/dL (30.0-36.0); Mean Corpuscular Hemoglobin 36.2 pg (28.0-34.0); Mean Corpuscular Volume 110.4 fL (80-94); Mean Platelet Volume 9.3 fL (7.4-10.4); Monocytes # 1.4 10^3/uL (0.2-0.9); Neutrophils # 6.23 10^3/uL (1.8-7.7); Neutrophils % 64.7 %; Nucleated Red Blood Cells % 0 %; Platelet Count 245 10^3/cmm (130-400); Red Blood Count 2.21 10^6/uL (4.1-5.3); Red Cell Distribution Width 12.2 % (12.1-15.1); White Blood Count 9.6 10^3/uL (4.0-10.0)
[2020-06-01 01:41] LABS: Anion Gap 11.1 (5-19); Blood Urea Nitrogen 30 mg/dL (8-23); Calcium 8.3 mg/dL (8.5-10.5); Carbon Dioxide 27 mmol/L (22-29); Chloride 106 mmol/L (98-107); Glomerular Filtration Rate 219.4 mL/min (90-130); Glucose 155 mg/dL (65-115); Magnesium 2.1 mg/dL (1.7-2.3); Osmolality Calculated 299 mOsm/kg (285-295); Phosphorus 1.6 mg/dL (2.5-4.5); Potassium 4.1 mmol/L (3.5-5.1); Sodium 140 mmol/L (136-145)
[2020-06-01 01:46] LABS: Troponin 5 6HR 12.86 ng/L (0-15)
[2020-06-01 01:59] LABS: Troponin 5 6HR Delta -2.14 ng/L (0-12)
[2020-06-01] MEDS: tranexamic acid 1,000 mg/10mL SDV 500 MG IRRIGATION (02:43)
--- NOTE | 2020-06-01 02:45 | PC.NURSE ---
Dr. Platt to patient's bedside 2314, 2 rhino orders received for TXA if bleeding persists. Dr. Marquez to patient's bedside and removed b/l rhino rockets and replaced one in the left nares. continued bleeding, replce rhino rocket with new rhino rocket laced in TXA per Dr. Platt.
--- NOTE | 2020-06-01 07:02 | PC.NURSE ---
12 mL of Air in Rhino rocket that was placed in left nares
--- NOTE | 2020-06-01 09:22 | PC.CHAP ---
Pastoral Care Encounter/Spiritual Assessment Type of Contact [] Declined aligning inspector visit [] Patient/Family/Request visit [] Outpatient visit [] Follow-up visit [] Physician referral [] Code/Alert [x] Routine visit [] Staff referral [] Actively dying [] Patient sleeping [] Family support [] [] Out of room [] Palliative care [] [] Receiving care in room [] Pre-surgical visit [] Trauma [] Long length of stay [x] ICU visit [] Other: Relational/Emotional Strength [] Patient feels connected with others/family/visitors/staff [] Distress [] Loneliness/isolation [] Abandonment Spirituality of Patient [] Person of Radha [] Attends Sikh of their Radha [] Believes in Prayer [] Reads Bible or Hoahaoism materials [] There are Spiritual issues to be addressed Chief Technician X Ray Interventions [x] Prayer [] Active listening [] Non-anxious presence [] Spiritual/emotional support [] Crisis/trauma care [] Spiritual counseling [] Bereavement support [] Provided bereavement packet [] Provided Bible/devotional materials [] Provided toy/stuffed animal, coloring book to patient or family member [] Provided Communion [] Anointing/[place] [] Salvation [x] Completed spiritual assessment [] Other: Impact on Illness or Injury [] Angry [] Fearful [] Anxious [] Often cries [] Exhaustion [] Unable to work [] Unable to attend jewish [] Unable to walk/stand [] Unable to read [] Unable to drive [] Unable to eat/drink [] Unable to sleep [] Unable to be with family [] Patient intubated [] Other: Summary Time spent with patient
[2020-06-01] MEDS: thiamine 100 mg Tablet PO (09:42)
[2020-06-01] MEDS: sulfamethoxazole-trimeth DS 160-800 mg Tablet 1 TAB PO ×2 (09:43→17:04)
[2020-06-01] MEDS: folic acid 1 mg Tablet PO (09:43)
[2020-06-01] MEDS: multivitamin therapeutic Tablet 1 TAB PO (09:50)
--- NOTE | 2020-06-01 13:27 | PM.PN ---
Subjective Subjective: Interval history: He is little bit short of breath this morning. Otherwise overall is feeling anxious, but no major complaint at this time. No chest pain or pressure. Is not hallucinating. Vitals/I&O/Wt Last Vital Signs Temp 97.3 F L 06/01/20 13:00 Pulse 115 H 06/01/20 13:00 Resp 19 H 06/01/20 13:00 BP 115/84 06/01/20 13:00 Pulse Ox 98 06/01/20 13:00 05/31/20 06/01/20 06/01/20 22:59 06:59 14:59 Output Total 625 / 625 800 / 800 Balance -625 / -625 -800 / -800 Weight last 48 hrs Weight 86.183 kg Physical Exam Const: COMMON NORMALS: no acute distress and patient oriented x3 GENERAL APPEARANCE: anxious OTHER: tremulous HENMT: COMMON NORMALS: oropharynx normal OTHER: L nostril rhino rocket Neck/C-Spine: COMMON NORMALS: no JVD Resp: COMMON NORMALS: normal respiratory effort AUSCULTATION: wheezes Cardio: COMMON NORMALS: no JVD, regular rhythm, S1 normal heart sound present, S2 normal heart sound present and No murmurs present (Cardio) RHYTHM: regular rhythm HEART SOUNDS: S1 normal heart sound present and S2 normal heart sound present GI: COMMON NORMALS: Normal to inspection, nondistended, normoactive bowel sounds present, Soft to palpation and non-tender PALPATION: Yes Soft to palpation Extremity: COMMON NORMALS: no joint enlargement and no pedal edema Neuro: COMMON NORMALS: patient oriented x3 and moves all extremities Skin: COMMON NORMALS: no rashes or lesions noted GENERAL SKIN EXAM: no rashes or lesions noted Data : 06/01/20 01:00 06/01/20 01:00 Micro: Microbiology 06/01/20 11:00 Occult Blood (FIT) - Final Stool Routine Collection A&P Assessment and plan (1) COPD exacerbation: Reports of shortness of breath, cough today. Wheezing on exam. Coughing up in the middle of phlegm, some of this contaminated with cold blood from epistaxis. Given significant wheezing, dyspnea, productive cough will give prednisone, Levaquin, nebs. Sputum culture. Possible pneumonitis noted on x-ray. Discussed with him. Discussed concern for possibility of aspiration resulting in mild pneumonitis. Status: Acute (2) Alcohol withdrawal: Hypotension after Ativan improved. Continue supportive care with Ativan per CIWA protocol. Stabilized around 9. Active alcohol withdrawal with tachycardia and hypertension autonomic dysfunction is evident with heavy alcohol abuse, patient drinks half a pint of vodka every day Continue supplementation of thiamine, folic acid. Case management may try to provide him with some rehabilitation options for after discharge. Status: Acute (3) Epistaxis: Nasal trumpet in place since 05/31. Hb came down to 8, although epistaxis now appears to be better controlled. Reassess hemoglobin. Continue tamponade for now. No trauma to his nose No use of anticoagulation No previous history of joint swelling, bleeding petechia purpura Platelet count normal After discharge follow-up with ENT in office. Status: Acute Additional A&P Information History of coronary artery disease: No active chest pain, EKG without ischemic or infarct changes sinus tachycardia on EKG Attestations Medical Necessity Statement*: Continue admission for assessment of management of COPD exacerbation, alcohol drawl, epistaxis with acute anemia. Coding Level of Care Code Acute Translation Director for [facility] [place] Diagnoses COPD exacerbation J44.1 Alcohol withdrawal F10.239 Epistaxis R04.0
[2020-06-01] MEDS: levoFLOXacin 750 mg Tablet PO (14:19)
[2020-06-01] MEDS: predniSONE 20 mg Tablet 40 MG PO (14:19)
[2020-06-01] MEDS: pantoprazole DR 40 mg Tablet PO (14:19)
[2020-06-01] MEDS: ipratropium-albuterol 3 mL Neb INHALATION ×2 (14:39→20:29)
--- NOTE | 2020-06-01 15:32 | PC.NURSE ---
1545 Report called to Susan on [facility] floor, transfer via w/c to [facility] with all belongings. No c/os.
[2020-06-01] MEDS: LORazepam 2 mg/mL INJ 1 mL IVP ×2 (18:46→20:31)
[2020-06-02] VITALS (23 sets, daily range): BP systolic 92–136; BP diastolic 66–76; PULSE 76–113; RESP 15–24; TEMP 36.3–37.7; O2SAT 92–98
[2020-06-02] MEDS: ipratropium-albuterol 3 mL Neb INHALATION ×4 (03:14→20:06)
[2020-06-02] MEDS: predniSONE 20 mg Tablet 40 MG PO (08:18)
[2020-06-02] MEDS: sulfamethoxazole-trimeth DS 160-800 mg Tablet 1 TAB PO ×2 (08:19→17:43)
[2020-06-02] MEDS: pantoprazole DR 40 mg Tablet PO ×2 (08:19→21:57)
[2020-06-02] MEDS: multivitamin therapeutic Tablet 1 TAB PO (08:19)
[2020-06-02] MEDS: folic acid 1 mg Tablet PO (08:19)
[2020-06-02] MEDS: thiamine 100 mg Tablet PO (08:19)
[2020-06-02] MEDS: phosphorus 250 mg Tablet PO ×2 (08:26→17:43)
[2020-06-02 09:14] LABS: Basophils % 0.2 %; Eosinophils % 0.1 %; Hematocrit 21.9 % (42.0-52.0); Hemoglobin 7.3 g/dL (11.7-16.6); Lymphocytes # 1.9 10^3/uL (0.8-4.8); Lymphocytes % 20.8 %; Mean Corpuscular HGB Conc 33.3 g/dL (30.0-36.0); Mean Corpuscular Hemoglobin 37.2 pg (28.0-34.0); Mean Corpuscular Volume 111.7 fL (80-94); Mean Platelet Volume 9.4 fL (7.4-10.4); Monocytes # 1.2 10^3/uL (0.2-0.9); Monocytes % 12.6 %; Neutrophils # 6.07 10^3/uL (1.8-7.7); Nucleated Red Blood Cells % 0.2 %; Platelet Count 229 10^3/cmm (130-400); Red Blood Count 1.96 10^6/uL (4.1-5.3); Red Cell Distribution Width 12.7 % (12.1-15.1); White Blood Count 9.2 10^3/uL (4.0-10.0)
[2020-06-02 09:29] LABS: Alanine Aminotransferase 14 U/L (0-41); Albumin Level 3.5 g/dL (3.5-5.2); Alkaline Phosphatase 67 IU/L (40-130); Anion Gap 12.3 (5-19); Aspartate Amino Transferase 21 U/L (0-40); Blood Urea Nitrogen 8 mg/dL (8-23); Calcium 8.2 mg/dL (8.5-10.5); Carbon Dioxide 24 mmol/L (22-29); Chloride 106 mmol/L (98-107); Globulin 2.2 g/dL (1.3-4.6); Glomerular Filtration Rate 169.6 mL/min (90-130); Glucose 138 mg/dL (65-115); Osmolality Calculated 289 mOsm/kg (285-295); Potassium 3.3 mmol/L (3.5-5.1); Sodium 139 mmol/L (136-145); Total Bilirubin 0.4 mg/dL (0.15-1.2); Total Protein 5.7 g/dL (6.6-8.7)
--- NOTE | 2020-06-02 10:41 | PC.CHAP ---
Pastoral Care Encounter/Spiritual Assessment Type of Contact [] Declined breast surgeon visit [] Patient/Family/Request visit [] Outpatient visit [] Follow-up visit [] Physician referral [] Code/Alert [x] Routine visit [] Staff referral [] Actively dying [] Patient sleeping [] Family support [] [] Out of room [] Palliative care [] [] Receiving care in room [] Pre-surgical visit [] Trauma [] Long length of stay [] ICU visit [] Other: Relational/Emotional Strength [] Patient feels connected with others/family/visitors/staff [] Distress [] Loneliness/isolation [] Abandonment Spirituality of Patient [x] Person of Radah [] Attends Scientologist of their Radha [] Believes in Prayer [] Reads Bible or Episcopal materials [] There are Spiritual issues to be addressed Apiarist Interventions [x] Prayer [] Active listening [] Non-anxious presence [] Spiritual/emotional support [] Crisis/trauma care [] Spiritual counseling [] Bereavement support [] Provided bereavement packet [] Provided Bible/devotional materials [] Provided toy/stuffed animal, coloring book to patient or family member [] Provided Communion [] Anointing/[place] [] Salvation [x] Completed spiritual assessment [] Other: Impact on Illness or Injury [] Angry [] Fearful x] Anxious [] Often cries [] Exhaustion [] Unable to work [] Unable to attend yarsanism [] Unable to walk/stand [] Unable to read [] Unable to drive [] Unable to eat/drink [] Unable to sleep [] Unable to be with family [] Patient intubated [] Other: S Time spent with patient 10 min
[2020-06-02 11:23] LABS: Glucose Point of Care 139 mg/dL (70-110)
[2020-06-02] MEDS: levoFLOXacin 750 mg Tablet PO (14:40)
[2020-06-02] MEDS: sodium chloride 0.9% (100 ml) 100 ML 150 ML (17:28)
[2020-06-02 19:30] LABS: Hematocrit 24.1 % (42.0-52.0); Hemoglobin 8.2 g/dL (11.7-16.6)
[2020-06-02] MEDS: lanolin oint 7 gm 1 APPLIC TOPICAL (19:59)
[2020-06-02] MEDS: LORazepam 2 mg/mL INJ 1 mL IVP (20:24)
--- NOTE | 2020-06-02 20:33 | PM.PN ---
Subjective Subjective: Interval history: Anxious, jittery, but overall is looking forward to the time when he is able to return home. Denies chest pain. Breathing gradually improving. Vitals/I&O/Wt Last Vital Signs Temp 97.8 F 06/02/20 19:41 Pulse 79 06/02/20 20:10 Resp 18 06/02/20 20:05 BP 100/67 06/02/20 19:41 Pulse Ox 97 06/02/20 20:05 06/02/20 06/02/20 06/02/20 06:59 14:59 22:59 Intake Total 550 / 550 100 / 650 Output Total 450 / 1250 600 / 600 Balance -450 / -1250 -50 / -50 100 / 50 Physical Exam Const: COMMON NORMALS: no acute distress and patient oriented x3 GENERAL APPEARANCE: anxious OTHER: tremulous HENMT: COMMON NORMALS: oropharynx normal OTHER: L nostril rhino rocket Neck/C-Spine: COMMON NORMALS: no JVD Resp: COMMON NORMALS: normal respiratory effort AUSCULTATION: wheezes (Improving wheezing, but still persistent) Cardio: COMMON NORMALS: no JVD, regular rhythm, S1 normal heart sound present, S2 normal heart sound present and No murmurs present (Cardio) RHYTHM: regular rhythm HEART SOUNDS: S1 normal heart sound present and S2 normal heart sound present GI: COMMON NORMALS: Normal to inspection, nondistended, normoactive bowel sounds present, Soft to palpation and non-tender PALPATION: Yes Soft to palpation Extremity: COMMON NORMALS: no joint enlargement and no pedal edema Neuro: COMMON NORMALS: patient oriented x3 and moves all extremities Skin: COMMON NORMALS: no rashes or lesions noted GENERAL SKIN EXAM: no rashes or lesions noted Data : 06/02/20 19:05 06/02/20 08:50 Micro: Microbiology 06/01/20 10:15 Gram Stain - Final Sputum - Expectorated Sputum Sputum Culture - Preliminary A&P Assessment and plan (1) COPD exacerbation: Gradually improving. Dyspneic. He is requiring 2 L nasal oxygen. Still wheezing, but better. On prednisone. Continue Levaquin, nebs. Gram-negative rods, few gram-positive cocci in pairs Coughing up in the middle of phlegm, some of this contaminated with cold blood from epistaxis. Given significant wheezing, dyspnea, productive cough will give prednisone, Levaquin, nebs. Sputum culture. Possible pneumonitis noted on x-ray. Discussed with him. Discussed concern for possibility of aspiration resulting in mild pneumonitis. Status: Acute (2) Acute anemia: Requiring 1 unit PBC transfusion due to decreasing hemoglobin levels. Suspect combination of epistaxis, possible anemia chronic disease. Hemoccult was secondary to swallowed blood from epistaxis. Discussed with him cannot exclude additional gastrointestinal disease. Possible gastritis or PUD with alcohol intake. This may need additional follow-up and evaluation. For now continue PPI, will change to twice daily. Recheck hemoglobin. Status: Acute (3) Alcohol withdrawal: Continues to have withdrawal with anxiety, tremors. May be showing some improvement. Overall is looking forward to going home soon. If continues to improve, perhaps may be will to return in 1-2 days, if anemia stabilizes. Continue Ativan by [facility] protocol. Active alcohol withdrawal with tachycardia and hypertension autonomic dysfunction is evident with heavy alcohol abuse, patient drinks half a pint of vodka every day Continue supplementation of thiamine, folic acid. Case management may try to provide him with some rehabilitation options for after discharge. Status: Acute (4) Epistaxis: Tomorrow would remove nasal packing. No trauma to his nose No use of anticoagulation No previous history of joint swelling, bleeding petechia purpura Platelet count normal After discharge follow-up with ENT in office. Status: Acute Additional A&P Information History of coronary artery disease: No active chest pain, EKG without ischemic or infarct changes sinus tachycardia on EKG Hypokalemia: Replace. Attestations Medical Necessity Statement*: Continue admission for assessment management of acute anemia, epistaxis, alcohol withdrawal. Coding Level of Care Code Acute Senior Benefits Analyst for [facility] [place] Diagnoses COPD exacerbation J44.1 Acute anemia D64.9 Alcohol withdrawal F10.239 Epistaxis R04.0
[2020-06-02] MEDS: potassium chloride ER 20 mEq Tablet PO (21:56)
[2020-06-03] VITALS (13 sets, daily range): BP systolic 99–125; BP diastolic 72–83; PULSE 87–105; RESP 16–20; TEMP 36.6–36.8; O2SAT 91–98
[2020-06-03] MEDS: ipratropium-albuterol 3 mL Neb INHALATION ×3 (03:27→15:24)
[2020-06-03 06:20] LABS: Basophils % 0.3 %; Eosinophils % 0.3 %; Hematocrit 25.6 % (42.0-52.0); Hemoglobin 8.6 g/dL (11.7-16.6); Lymphocytes # 1.7 10^3/uL (0.8-4.8); Lymphocytes % 26.7 %; Mean Corpuscular HGB Conc 33.6 g/dL (30.0-36.0); Mean Corpuscular Hemoglobin 35.5 pg (28.0-34.0); Mean Corpuscular Volume 105.8 fL (80-94); Mean Platelet Volume 9.4 fL (7.4-10.4); Monocytes # 0.8 10^3/uL (0.2-0.9); Monocytes % 13.2 %; Neutrophils # 3.74 10^3/uL (1.8-7.7); Nucleated Red Blood Cells % 0.3 %; Platelet Count 226 10^3/cmm (130-400); Red Blood Count 2.42 10^6/uL (4.1-5.3); Red Cell Distribution Width 18.8 % (12.1-15.1); White Blood Count 6.3 10^3/uL (4.0-10.0)
--- NOTE | 2020-06-03 06:25 | ED_ITS ---
HPI - General Adult General: Chief complaint: Epistaxis Stated complaint: EPISTAXIS Time Seen by Provider: 05/31/20 16:52 History of Present Illness: HPI narrative: I took over care of this patient from the midlevel practitioner who is seeing him for a nosebleed. He placed a nasal clamp on him and began to aspirate some of the blood. He apparently is a severe chronic alcoholic and had a heart rate of 120 with a low alcohol level. He was concerned for alcohol withdrawal syndrome and gave him 2 mg IV Ativan. I removed the nasal clamp as he was aspirating some of the blood and the bleed had spontaneously stopped. After the IV Ativan he was placed in room 10 and he was extremely lethargic but maintaining his airway. Over the course of the next hour his mental status improved back to his baseline and he continued to be tachycardic and was admitted to the ICU for further monitoring for acute alcohol withdrawal syndrome Associated symptoms: Deny chest pain, confusion, dyspnea, headache(s), rash or palpitations Review of Systems General: Reports: 10 or more systems reviewed and unremarkable except in HPI and below Const: Denies: fatigue Eyes: Denies: change in vision, blurry vision or eye redness ENMT: Reports: epistaxis; Denies: throat pain, swelling of lips/tongue, ear or mastoid pain or nasal congestion Card: Denies: chest pain, palpitations, irregular heart rhythm, edema, dyspnea on exertion or orthopnea Resp: Denies: dyspnea, productive cough or non-productive cough GI: Denies: abdominal pain, diarrhea or GI cramping : Denies: flank pain, urinary frequency or urinary urgency Musc: Denies: neck pain, back pain, extremity pain, joint pain, joint redness, limited range of motion or muscle weakness Skin/Breast: Denies: rash, pruritus, erythema, skin pain or skin tenderness Neuro: Denies: headache(s), numbness in extremities, weakness in extremities, sensory changes, difficulty walking, dizziness, confusion or Slurred speech present Psych: Denies: anxiety or depression Endo: Denies: polyuria All/Imm: Denies: urticaria, throat swelling or tongue swelling PFSH ED PFSH: Medical History COPD (chronic obstructive pulmonary disease) Coronary artery disease Heart failure HTN (hypertension) Hyperlipidemia PVD (peripheral vascular disease) Surgical History S/P coronary angioplasty Coronary disease 2 stents, 2015 S/P hernia repair Family History Father Cancer Mother Cancer Other CAD (coronary artery disease) Social History (Updated 05/31/20 @ 22:33 by Zoe Platt MD) Smoking and tobacco status: current every day smoker cigarettes [ Other cigarette details: Half a pack a day ] Alcohol intake: current Alcohol use comment: Half a pint of vodka every day Household members: spouse Housing: House History of recent travel: No Physical Exam Const: EXAM LIMITATIONS: altered mental status GENERAL APPEARANCE: in distress, lethargic and ill appearing ORIENTATION/CONSCIOUSNESS: Yes lethargic HENMT: COMMON NORMALS: normocephalic, external ears normal and Normal external nose present HEAD & SCALP: normal to inspection and normocephalic NOSE: Normal external nose present EXTERNAL EAR: Yes external ears normal MOUTH: Normal oral and palatal mucosa present THROAT: posterior oropharynx normal Eye: COMMON NORMALS: Equal, round and reactive pupils present and EOMs intact bilaterally GENERAL EYE: appearance normal, both eyes and all related structures PUPIL: Yes Equal, round and reactive pupils present Neck/C-Spine: COMMON NORMALS: full ROM, no lymphadenopathy and no JVD GENERAL: Yes normal visual inspection Lymph: LYMPHATIC: no lymphadenopathy noted Chest: COMMONS NORMALS: normal inspection of the chest and normal palpation of entire chest wall Resp: COMMON NORMALS: normal respiratory effort, No retractions and No use of accessory muscles EFFORT & INSPECTION: Yes able to speak in complete sentences OTHER: Mild rhonchi in bilateral lung low. Mild increased work of breathing but no significant respiratory distress. Cardio: COMMON NORMALS: no JVD, regular rate, regular rhythm, S1 normal heart sound present, S2 normal heart sound present and Peripheral pulses 2+ throughout RATE: regular rate RHYTHM: regular rhythm HEART SOUNDS: S1 normal heart sound present and S2 normal heart sound present PERIPHERAL PULSES: Peripheral pulses 2+ throughout GI: COMMON NORMALS: Normal to inspection, nondistended, normoactive bowel sounds present, Soft to palpation, non-tender and no masses INSPECTION: Yes normal to inspection PALPATION: Yes Soft to palpation : COMMON NORMALS: Yes no CVA tenderness BLADDER/KIDNEY EXAM: Yes no CVA tenderness Back/Pelvis: COMMON NORMALS: no CVA tenderness, thoracic and lumbar spine normal to inspection, no thoracic nor lumbar tenderness and thoraco-lumbar ROM normal Extremity: COMMON NORMALS: normal to inspection, full ROM, capillary refill normal, no joint enlargement and no pedal edema GENERAL: Yes normal exam except as noted Neuro: COMMON NORMALS: CN's II-XII intact bilaterally, moves all extremities, no focal motor deficits and no sensory deficits noted SENSORIUM/ORIENTATION: Yes lethargic OTHER: He is lethargic after the Ativan. 1 hour later he is alert and oriented x4 answering questions appropriately. Psych: COMMON NORMALS: mental status grossly normal, Normal thought process present, cooperative, normal affect and speech normal ATTITUDE: Yes calm SPEECH: Yes normal speech THOUGHT PROCESS: Normal thought process present Skin: COMMON NORMALS: no rashes or lesions noted GENERAL SKIN EXAM: no rashes or lesions noted Course Vital Signs: Vital signs: Vital Signs Temperature 98 F 06/03/20 04:00 Pulse Rate 98 06/03/20 04:00 Respiratory Rate 18 06/03/20 04:00 Blood Pressure 99/72 06/03/20 04:00 Pulse Oximetry 91 06/03/20 04:00 MDM - General Adult MDM Narrative: Medical decision making narrative: I took over care of this patient after he was given Ativan for his acute alcohol withdrawal. He became lethargic and was monitored in the ER with improvement of his condition. He was admitted to the ICU for further monitoring. Lab Data: Labs: Lab Results 05/31/20 05/31/20 05/31/20 Range/Units 17:45 17:45 17:45 WBC 10.7 H (4.0-10.0) 10^3/ uL RBC 2.81 L (4.1-5.3) 10^6/u L Hgb 10.4 L (11.7-16.6) g/dL Hct 30.4 L (42.0-52.0) % MCV 108.2 H (80-94) fL MCH 37.0 H (28.0-34.0) pg MCHC 34.2 (30.0-36.0) g/dL RDW 12.1 (12.1-15.1) % Plt Count 268 (130-400) 10^3/c mm MPV 9.0 (7.4-10.4) fL Neut % (Auto) 71.2 % Lymph % (Auto) 17.8 % [place] % (Auto) 9.3 % Eos % (Auto) 0.4 % Baso % (Auto) 0.6 % Neut # (Auto) 7.63 (1.8-7.7) 10^3/u L Lymph # (Auto) 1.9 (0.8-4.8) 10^3/u L [place] # (Auto) 1.0 H (0.2-0.9) 10^3/u L Eos # (Auto) 0.0 (0.0-0.8) 10^3/u L Baso # (Auto) 0.1 (0.0-0.1) 10^3/u L Nucleated RBC % (a uto) 0 % Nucleated RBCs # 0.0 /100WBC PT 13.50 (12.1-14.9) SECO NDS INR 1.00 (0.8-1.2) APTT 29.1 (23.9-36.7) SECO NDS Specimen Type Sample Site ABG pH (7.35-7.45) ABG pCO2 (35-45) mmHg ABG pO2 (80.0-100.0) mmH g ABG HCO3 (22-26) mmol/L ABG O2 Saturation ABG Base Excess (-2.0-2.0) mmol/ L [place] Test A-a O2 Gradient (5-10) mmHg Hematocrit (42-52) % Hgb O2 Saturation (95-100) % Carboxyhemoglobin (0.4-20.1) %THgb Methemoglobin (0.4-1.5) % Total Hemoglobin (14-18) g/dL Ionized Calcium (1.1-1.4) mmol/L O2 Delivery Device O2 Liters/Min % Hemodialysis Lab Technician ID Sodium 142 (136-145) mmol/L Potassium 3.6 (3.5-5.1) mmol/L Chloride 103 (98-107) mmol/L Carbon Dioxide 27 (22-29) mmol/L Anion Gap 15.6 (5-19) BUN 10 (8-23) mg/dL Creatinine 0.3 L (0.7-1.2) mg/dL GFR Calculation 305.8 H (90-130) mL/min Glucose 118 H (65-115) mg/dL Calculated Osmolal ity 294 (285-295) mOsm/k g Calcium 8.7 (8.5-10.5) mg/dL Phosphorus (2.5-4.5) mg/dL Magnesium (1.7-2.3) mg/dL Total Bilirubin 0.2 (0.15-1.2) mg/dL AST 47 H (0-40) U/L ALT 22 (0-41) U/L Alkaline Phosphata se 89 (40-130) IU/L Troponin T Baselin e (0-15) ng/L Troponin T 120 Min [place] (0-15) ng/L Delta Troponin T (0-10) ABS# Troponin T Hi Sens 6Hr (0-15) ng/L Troponin T Hi Sens 6Hr Delta (0-12) ng/L NT-Pro-B Natriuret Pep (0-125) pg/mL Total Protein 6.2 L (6.6-8.7) g/dL Albumin 3.8 (3.5-5.2) g/dL Globulin 2.4 (1.3-4.6) g/dL Urine Opiates Scre en (Negative) ng/mL Ur Barbiturates Sc reen (Negative) ng/mL Ur Phencyclidine S crn (Negative) ng/mL Ur Amphetamines Sc reen (Negative) ng/mL U Benzodiazepines Scrn (Negative) ng/mL Urine Cocaine Scre en (Negative) ng/mL U Marijuana (THC) Screen (Negative) ng/mL Ethyl Alcohol (0-10) mg/dL 05/31/20 05/31/20 05/31/20 Range/Units 17:45 17:45 17:45 WBC (4.0-10.0) 10^3/ uL RBC (4.1-5.3) 10^6/u L Hgb (11.7-16.6) g/dL Hct (42.0-52.0) % MCV (80-94) fL MCH (28.0-34.0) pg MCHC (30.0-36.0) g/dL RDW (12.1-15.1) % Plt Count (130-400) 10^3/c mm MPV (7.4-10.4) fL Neut % (Auto) % Lymph % (Auto) % [place] % (Auto) % Eos % (Auto) % Baso % (Auto) % Neut # (Auto) (1.8-7.7) 10^3/u L Lymph # (Auto) (0.8-4.8) 10^3/u L [place] # (Auto) (0.2-0.9) 10^3/u L Eos # (Auto) (0.0-0.8) 10^3/u L Baso # (Auto) (0.0-0.1) 10^3/u L Nucleated RBC % (a uto) % Nucleated RBCs # /100WBC PT (12.1-14.9) SECO NDS INR (0.8-1.2) APTT (23.9-36.7) SECO NDS Specimen Type Sample Site ABG pH (7.35-7.45) ABG pCO2 (35-45) mmHg ABG pO2 (80.0-100.0) mmH g ABG HCO3 (22-26) mmol/L ABG O2 Saturation ABG Base Excess (-2.0-2.0) mmol/ L [place] Test A-a O2 Gradient (5-10) mmHg Hematocrit (42-52) % Hgb O2 Saturation (95-100) % Carboxyhemoglobin (0.4-20.1) %THgb Methemoglobin (0.4-1.5) % Total Hemoglobin (14-18) g/dL Ionized Calcium (1.1-1.4) mmol/L O2 Delivery Device O2 Liters/Min % Hemodialysis Lab Technician ID Sodium (136-145) mmol/L Potassium (3.5-5.1) mmol/L Chloride (98-107) mmol/L Carbon Dioxide (22-29) mmol/L Anion Gap (5-19) BUN (8-23) mg/dL Creatinine (0.7-1.2) mg/dL GFR Calculation (90-130) mL/min Glucose (65-115) mg/dL Calculated Osmolal ity (285-295) mOsm/k g Calcium (8.5-10.5) mg/dL Phosphorus (2.5-4.5) mg/dL Magnesium (1.7-2.3) mg/dL Total Bilirubin (0.15-1.2) mg/dL AST (0-40) U/L ALT (0-41) U/L Alkaline Phosphata se (40-130) IU/L Troponin T Baselin e 15 (0-15) ng/L Troponin T 120 Min [place] 12.06 (0-15) ng/L Delta Troponin T -2.94 L (0-10) ABS# Troponin T Hi Sens 6Hr (0-15) ng/L Troponin T Hi Sens 6Hr Delta (0-12) ng/L NT-Pro-B Natriuret Pep 33 (0-125) pg/mL Total Protein (6.6-8.7) g/dL Albumin (3.5-5.2) g/dL Globulin (1.3-4.6) g/dL Urine Opiates Scre en (Negative) ng/mL Ur Barbiturates Sc reen (Negative) ng/mL Ur Phencyclidine S crn (Negative) ng/mL Ur Amphetamines Sc reen (Negative) ng/mL U Benzodiazepines Scrn (Negative) ng/mL Urine Cocaine Scre en (Negative) ng/mL U Marijuana (THC) Screen (Negative) ng/mL Ethyl Alcohol 29 H (0-10) mg/dL 05/31/20 06/01/20 06/01/20 Range/Units 18:36 00:02 01:00 WBC 9.6 (4.0-10.0) 10^3/ uL RBC 2.21 L (4.1-5.3) 10^6/u L Hgb 8.0 L (11.7-16.6) g/dL Hct 24.4 L (42.0-52.0) % MCV 110.4 H (80-94) fL MCH 36.2 H (28.0-34.0) pg MCHC 32.8 (30.0-36.0) g/dL RDW 12.2 (12.1-15.1) % Plt Count 245 (130-400) 10^3/c mm MPV 9.3 (7.4-10.4) fL Neut % (Auto) 64.7 % Lymph % (Auto) 20.4 % [place] % (Auto) 14.0 % Eos % (Auto) 0.1 % Baso % (Auto) 0.5 % Neut # (Auto) 6.23 (1.8-7.7) 10^3/u L Lymph # (Auto) 2.0 (0.8-4.8) 10^3/u L [place] # (Auto) 1.4 H (0.2-0.9) 10^3/u L Eos # (Auto) 0.0 (0.0-0.8) 10^3/u L Baso # (Auto) 0.1 (0.0-0.1) 10^3/u L Nucleated RBC % (a uto) 0 % Nucleated RBCs # 0.0 /100WBC PT (12.1-14.9) SECO NDS INR (0.8-1.2) APTT (23.9-36.7) SECO NDS Specimen Type Arterial Sample Site Radial, right ABG pH 7.44 (7.35-7.45) ABG pCO2 45.3 H (35-45) mmHg ABG pO2 93.1 (80.0-100.0) mmH g ABG HCO3 30.4 H (22-26) mmol/L ABG O2 Saturation 98.4 ABG Base Excess 5.4 H (-2.0-2.0) mmol/ L [place] Test Pos A-a O2 Gradient 0.2 L (5-10) mmHg Hematocrit 31.5 L (42-52) % Hgb O2 Saturation 93.5 L (95-100) % Carboxyhemoglobin 4.0 (0.4-20.1) %THgb Methemoglobin 0.9 (0.4-1.5) % Total Hemoglobin 10.3 L (14-18) g/dL Ionized Calcium 1.2 (1.1-1.4) mmol/L O2 Delivery Device Oxy mask O2 Liters/Min 4.0 % Hemodialysis Lab Technician ID Ed Sodium 143.0 (136-145) mmol/L Potassium 3.6 (3.5-5.1) mmol/L Chloride (98-107) mmol/L Carbon Dioxide (22-29) mmol/L Anion Gap (5-19) BUN (8-23) mg/dL Creatinine (0.7-1.2) mg/dL GFR Calculation (90-130) mL/min Glucose 162.0 H (65-115) mg/dL Calculated Osmolal ity (285-295) mOsm/k g Calcium (8.5-10.5) mg/dL Phosphorus (2.5-4.5) mg/dL Magnesium (1.7-2.3) mg/dL Total Bilirubin (0.15-1.2) mg/dL AST (0-40) U/L ALT (0-41) U/L Alkaline Phosphata se (40-130) IU/L Troponin T Baselin e (0-15) ng/L Troponin T 120 Min [place] (0-15) ng/L Delta Troponin T (0-10) ABS# Troponin T Hi Sens 6Hr (0-15) ng/L Troponin T Hi Sens 6Hr Delta (0-12) ng/L NT-Pro-B Natriuret Pep (0-125) pg/mL Total Protein (6.6-8.7) g/dL Albumin (3.5-5.2) g/dL Globulin (1.3-4.6) g/dL Urine Opiates Scre en Negative (Negative) ng/mL Ur Barbiturates Sc reen Negative (Negative) ng/mL Ur Phencyclidine S crn Negative (Negative) ng/mL Ur Amphetamines Sc reen Negative (Negative) ng/mL U Benzodiazepines Scrn Positive H (Negative) ng/mL Urine Cocaine Scre en Negative (Negative) ng/mL U Marijuana (THC) Screen Negative (Negative) ng/mL Ethyl Alcohol (0-10) mg/dL 06/01/20 06/01/20 Range/Units 01:00 01:00 WBC (4.0-10.0) 10^3/ uL RBC (4.1-5.3) 10^6/u L Hgb (11.7-16.6) g/dL Hct (42.0-52.0) % MCV (80-94) fL MCH (28.0-34.0) pg MCHC (30.0-36.0) g/dL RDW (12.1-15.1) % Plt Count (130-400) 10^3/c mm MPV (7.4-10.4) fL Neut % (Auto) % Lymph % (Auto) % [place] % (Auto) % Eos % (Auto) % Baso % (Auto) % Neut # (Auto) (1.8-7.7) 10^3/u L Lymph # (Auto) (0.8-4.8) 10^3/u L [place] # (Auto) (0.2-0.9) 10^3/u L Eos # (Auto) (0.0-0.8) 10^3/u L Baso # (Auto) (0.0-0.1) 10^3/u L Nucleated RBC % (a uto) % Nucleated RBCs # /100WBC PT (12.1-14.9) SECO NDS INR (0.8-1.2) APTT (23.9-36.7) SECO NDS Specimen Type Sample Site ABG pH (7.35-7.45) ABG pCO2 (35-45) mmHg ABG pO2 (80.0-100.0) mmH g ABG HCO3 (22-26) mmol/L ABG O2 Saturation ABG Base Excess (-2.0-2.0) mmol/ L [place] Test A-a O2 Gradient (5-10) mmHg Hematocrit (42-52) % Hgb O2 Saturation (95-100) % Carboxyhemoglobin (0.4-20.1) %THgb Methemoglobin (0.4-1.5) % Total Hemoglobin (14-18) g/dL Ionized Calcium (1.1-1.4) mmol/L O2 Delivery Device O2 Liters/Min % Hemodialysis Lab Technician ID Sodium 140 (136-145) mmol/L Potassium 4.1 (3.5-5.1) mmol/L Chloride 106 (98-107) mmol/L Carbon Dioxide 27 (22-29) mmol/L Anion Gap 11.1 (5-19) BUN 30 H (8-23) mg/dL Creatinine 0.4 L (0.7-1.2) mg/dL GFR Calculation 219.4 H (90-130) mL/min Glucose 155 H (65-115) mg/dL Calculated Osmolal ity 299 H (285-295) mOsm/k g Calcium 8.3 L (8.5-10.5) mg/dL Phosphorus 1.6 L (2.5-4.5) mg/dL Magnesium 2.1 (1.7-2.3) mg/dL Total Bilirubin (0.15-1.2) mg/dL AST (0-40) U/L ALT (0-41) U/L Alkaline Phosphata se (40-130) IU/L Troponin T Baselin e (0-15) ng/L Troponin T 120 Min [place] (0-15) ng/L Delta Troponin T (0-10) ABS# Troponin T Hi Sens 6Hr 12.86 (0-15) ng/L Troponin T Hi Sens 6Hr Delta -2.14 L (0-12) ng/L NT-Pro-B Natriuret Pep (0-125) pg/mL Total Protein (6.6-8.7) g/dL Albumin (3.5-5.2) g/dL Globulin (1.3-4.6) g/dL Urine Opiates Scre en (Negative) ng/mL Ur Barbiturates Sc reen (Negative) ng/mL Ur Phencyclidine S crn (Negative) ng/mL Ur Amphetamines Sc reen (Negative) ng/mL U Benzodiazepines Scrn (Negative) ng/mL Urine Cocaine Scre en (Negative) ng/mL U Marijuana (THC) Screen (Negative) ng/mL Ethyl Alcohol (0-10) mg/dL Critical Care Time Critical Care Time: Critical Care Time: Yes Total Critical Care Time: 60 Attestation: Monitoring a lethargic patient in acute alcohol withdrawal syndrome. Discharge Plan Discharge Patient Disposition: Admitted As Inpatient Admit Provider: Zoe Platt Clinical Impression: Alcohol withdrawal Condition: Stable Coding Level of Care Code ED Manager [employer] for Rachel Machado
[2020-06-03 06:36] LABS: Alanine Aminotransferase 13 U/L (0-41); Albumin Level 3.4 g/dL (3.5-5.2); Alkaline Phosphatase 68 IU/L (40-130); Anion Gap 10.8 (5-19); Aspartate Amino Transferase 20 U/L (0-40); Blood Urea Nitrogen 7 mg/dL (8-23); Calcium 8.4 mg/dL (8.5-10.5); Carbon Dioxide 24 mmol/L (22-29); Chloride 105 mmol/L (98-107); Globulin 2.2 g/dL (1.3-4.6); Glomerular Filtration Rate 219.4 mL/min (90-130); Glucose 93 mg/dL (65-115); Osmolality Calculated 280 mOsm/kg (285-295); Potassium 3.8 mmol/L (3.5-5.1); Sodium 136 mmol/L (136-145); Total Bilirubin 0.5 mg/dL (0.15-1.2); Total Protein 5.6 g/dL (6.6-8.7)
[2020-06-03] MEDS: pantoprazole DR 40 mg Tablet PO ×2 (08:57→17:29)
[2020-06-03] MEDS: thiamine 100 mg Tablet PO (08:57)
[2020-06-03] MEDS: multivitamin therapeutic Tablet 1 TAB PO (08:57)
[2020-06-03] MEDS: folic acid 1 mg Tablet PO (08:57)
[2020-06-03] MEDS: predniSONE 20 mg Tablet 40 MG PO (08:57)
[2020-06-03] MEDS: phosphorus 250 mg Tablet PO ×2 (08:57→17:29)
[2020-06-03] MEDS: sulfamethoxazole-trimeth DS 160-800 mg Tablet 1 TAB PO ×2 (08:57→17:29)
[2020-06-03] MEDS: levoFLOXacin 750 mg Tablet PO (15:12)
--- NOTE | 2020-06-03 18:34 | PC.NURSE ---
Discharge instructions given to patient. All questions answered. Patient in stable condition. IV removed cath tip intact. Patient discharged in the care of and son.
--- NOTE | 2020-06-03 22:51 | P.DS_ITS ---
Discharge Providers Date of Admission: 06/01/20 16:04 Date of Discharge: June 03, 2020 Attending Provider at Admission: Zoe Platt MD Attending Provider at Discharge: Doyle Astorga Primary Care Provider: Addison Alcaraz DO Diagnoses at Discharge Discharge Diagnosis (1) COPD exacerbation: Status: Acute (2) Acute anemia: Status: Acute (3) Alcohol withdrawal: Status: Acute (4) Epistaxis: Status: Acute Reason for Visit Reason for Visit: EPISTAXIS Hospital Course Hospital Course Very pleasant 59-year-old gentleman with past history of COPD, CAD, CHF, HTN, HLD, PVD, current smoker, with daily intake of half ninth of vodka was admitted with chief complaint of epistaxis, of which he experienced multiple episodes over 48 hours without any trauma. Has had poor p.o. intake of food, but continued having a pint of vodka and a pitcher of water daily. He feels that he can stop at any time, and that he has been drinking to help him with sleep. Does not feel he needs any assistance in stopping. Concerns regarding excessive alcohol consumption were discussed with him at length, as well as arising risks. Had an episode of diarrhea after taking some laxatives for constipation. In ER noted with active epistaxis, became hypotensive after receiving Ativan for alcohol withdrawal. Initially had nasal clamp placed on his nose. However, with recurrence had to have nasal tamponade placed and inflated. This remained in place for 48 hours and was removed today, without rebleeding at removal and after several hours of observation. He is asked to hold his aspirin for now, but will need to resume it due to coronary disease. Since he requires continued antiplatelet therapy going forward, please refer him for additional evaluation by ENT. While in the hospital also with noted alcohol withdrawal. No DT. No seizure. Received thiamine, folic acid supplementation. Multivitamin. Was supported with Ativan by [facility] protocol. Alcohol withdrawal gradually improved. Alcohol cessation was discussed with him at length. He is also advised to quit smoking. Please revisit with him at next appointment. Due to acute anemia he was also started on twice daily PPI with consideration for possibly alcohol induced and/or aspirin induced gastritis or PUD. Please reassess anemia in office. Please consider timing of referral for additional assessment by endoscopy. During the hospitalization he was also treated for COPD exacerbation, with dyspnea, productive cough, wheezing, transiently requiring nasal cannula oxygen support. Hypoxia resolved. Breathing improved. Wheezing resolved. Today he is feeling much better. He asked to go home, and is discharged with request for outpatient follow-up. Physical Exam Const: COMMON NORMALS: no acute distress, patient oriented x3 and alert GENERAL APPEARANCE: cooperative ORIENTATION/CONSCIOUSNESS: Yes awake OTHER: tremulous HENMT: COMMON NORMALS: oropharynx normal OTHER: L nostril rhino rocket removed. No active bleeding. Neck/C-Spine: COMMON NORMALS: no JVD Resp: COMMON NORMALS: normal respiratory effort AUSCULTATION: no wheezes Cardio: COMMON NORMALS: no JVD, regular rhythm, S1 normal heart sound present, S2 normal heart sound present and No murmurs present (Cardio) RHYTHM: regular rhythm HEART SOUNDS: S1 normal heart sound present and S2 normal heart sound present GI: COMMON NORMALS: Normal to inspection, nondistended, normoactive bowel sounds present, Soft to palpation and non-tender PALPATION: Yes Soft to palpation Extremity: COMMON NORMALS: no joint enlargement and no pedal edema Neuro: COMMON NORMALS: patient oriented x3 and moves all extremities SENSORIUM/ORIENTATION: Yes alert Skin: COMMON NORMALS: no rashes or lesions noted GENERAL SKIN EXAM: no rashes or lesions noted Discharge Data Data Completed and Pending: Completed Studies During Hospitalization Category Date Time Status XR chest 1V nely ble [id number] Stat Exams 05/31/20 17:30 Completed Labs from last 24 hours 06/03/20 06/03/20 05:33 05:33 WBC 6.3 RBC 2.42 L Hgb 8.6 L Hct 25.6 L MCV 105.8 H D MCH 35.5 H MCHC 33.6 RDW 18.8 H Plt Count 226 MPV 9.4 Neut % (Auto) 59.0 Lymph % (Auto) 26.7 Overton % (Auto) 13.2 Eos % (Auto) 0.3 Baso % (Auto) 0.3 Neut # (Auto) 3.74 Lymph # (Auto) 1.7 Overton # (Auto) 0.8 Eos # (Auto) 0.0 Baso # (Auto) 0.0 Nucleated RBC % (a uto) 0.3 Nucleated RBCs # 0.0 Sodium 136 Potassium 3.8 Chloride 105 Carbon Dioxide 24 Anion Gap 10.8 BUN 7 L Creatinine 0.4 L GFR Calculation 219.4 H Glucose 93 Calculated Osmolal ity 280 L Calcium 8.4 L Magnesium 2.0 Total Bilirubin 0.5 AST 20 ALT 13 Alkaline Phosphata se 68 Total Protein 5.6 L Albumin 3.4 L Globulin 2.2 Vitals: Last Vital Signs Temp 97.8 F 06/03/20 18:35 Pulse 98 06/03/20 18:35 Resp 17 06/03/20 18:35 BP 125/83 06/03/20 18:35 Pulse Ox 93 06/03/20 18:35 Discharge Plan Discharge Patient Disposition: Home Condition: Stable Prescriptions: New pantoprazole 40 mg Tablet,Delayed Release (Dr/Ec) 40 mg PO BID Qty: 60 RF: 0 atorvastatin 40 mg tablet 40 mg PO DAILY Qty: 30 RF: 0 prednisone 10 mg tablet 40 mg PO DAILY Qty: 10 RF: 0 levofloxacin 750 mg Tablet 750 mg PO Q24H Qty: 5 RF: 0 Continued guaifenesin [Mucinex] 600 mg tablet extended release 12hr 600 mg PO BID RF: 0 bisacodyl 5 mg tablet,delayed release (DR/EC) 5 mg PO DAILY RF: 0 folic acid 1 mg tablet 1 mg PO DAILY RF: 0 Combivent Respimat 20-100 mcg/actuation mist 1 puff INHALATION BID RF: 0 albuterol sulfate 2.5 mg /3 mL (0.083 %) solution for nebulization 2.5 mg INHALATION Q4H PRN (Reason: Shortness Of Breath) RF: 0 albuterol sulfate [ProAir HFA] 90 mcg/actuation HFA aerosol inhaler 2 puff INHALATION Q6H PRN (Reason: Shortness Of Breath) RF: 0 ferrous sulfate 325 mg (65 mg iron) tablet 325 mg PO DAILY RF: 0 magnesium oxide 400 mg magnesium capsule 400 mg PO DAILY RF: 0 multivitamin Tablet 1 tab PO DAILY RF: 0 thiamine HCl (vitamin B1) 100 mg tablet 100 mg PO DAILY RF: 0 cilostazol 50 mg tablet 50 mg PO BID Qty: 180 RF: 3 metoprolol tartrate 25 mg tablet 12.5 mg PO BID Qty: 90 RF: 3 nitroglycerin [Nitrostat] 0.4 mg tablet, sublingual 0.4 mg SUBLINGUAL Q5M PRN (Reason: chest pain) Qty: 25 RF: 6 Symbicort 160-4.5 mcg/actuation Hfa Aerosol Inhaler 2 puff INHALATION BID RF: 0 Held aspirin [Adult Low Dose Aspirin] 81 mg tablet,delayed release (DR/EC) 81 mg PO DAILY RF: 0 Hold Instructions: Resume on 06/10/20. Discontinued amoxicillin 500 mg capsule 500 mg PO BID RF: 0 Discharge Orders: Discharge Order (Routine); Ordered 06/03/20 Ordered By: Doyle Astorga Referrals: Addison Alcaraz, [Primary Care Provider] - 4-7 days Discharge Diet: Advance as tolerated and Cardiac Discharge Activity: Increase activity as tolerated Patient Instructions: Prednisone (By mouth), Atorvastatin (By mouth), Levofloxacin (By mouth), Pantoprazole (By mouth), How to Stop Smoking (GEN), Gastritis (GEN), Epistaxis (GEN), Cigarette Smoking and Your Health (GEN), Chronic Obstructive Pulmonary Disease (GEN), Abuse of Alcohol (GEN), Alcohol W ithdrawal (GEN) Activity Restrictions/Additional Instructions: Avoid blowing your nose and inserting any objects for 3-4 days. Follow-up with your primary care doctor. Please discuss referral to ear nose throat doctor given long-term you will need to continue on aspirin for your heart. Aspirin may promote bleeding. For now hold your aspirin for the next week, subsequently resume for your coronary disease to reduce risk of heart attack after discussion with your primary doctor. In case of recurrence of bleeding from your nose, can forward, apply pressure from the outside 5-10 minutes with your fingers. Avoid blowing your nose. Avoid putting any objects or tissues in your nose. Please have your primary care doctor also follow-up on anemia. With suspected gastritis, continue acid kaci medications (pantoprazole). In case of any persistent anemia, or any symptoms of dyspepsia with abdominal discomfort, nausea, poor appetite, please discuss with your primary care doctor referral for additional evaluation by endoscopy to exclude more dangerous causes of GI bleed including cancer. Please avoid any alcohol as it may worsen bleeding issues, may lead to inflammation in your stomach, ulcers, other problems including pancreatitis, risk of cancer, liver cirrhosis and additional risks including withdrawal. Consider seeking rehabilitation in case you need assistance stopping alcohol use. Please seek medical attention in case you ever experience symptoms of withdrawal which in some cases may be life-threatening. Please stop smoking. Discharge Attestations Time Spent in Discharge Care*: greater than 30 min Quality Metrics Clinical Quality Measures During this hospital stay, did patient experience: None Coding Level of Care Code Acute [employer] for [employer] Diagnoses COPD exacerbation J44.1 Acute anemia D64.9 Alcohol withdrawal F10.239 Epistaxis R04.0
== END 2020-06-03 18:37 | disposition home or self-care (01) | DRG 191 ==
LOC: ER 20:04 → ICU 06-01 08:01 → MEDSURG 06-01 16:03
PROVIDERS: Physician Assistant; Admitting Provider Internal Medicine; Emergency Provider Family Medicine; PCP Family Medicine; Visit Provider Internal Medicine
DX: J44.1 Chronic obstructive pulmonary disease with (acute) exacerbation (principal); F10.139 Alcohol abuse with withdrawal, unspecified; R04.0 Epistaxis; I95.9 Hypotension, unspecified; D63.8 Anemia in other chronic diseases classified elsewhere; I25.10 Atherosclerotic heart disease of native coronary artery without angina pectoris; Z95.5 Presence of coronary angioplasty implant and graft; I11.0 Hypertensive heart disease with heart failure; I50.9 Heart failure, unspecified; E78.5 Hyperlipidemia, unspecified; I73.9 Peripheral vascular disease, unspecified; F17.210 Nicotine dependence, cigarettes, uncomplicated; K29.20 Alcoholic gastritis without bleeding; K29.70 Gastritis, unspecified, without bleeding; T39.015A Adverse effect of aspirin, initial encounter; Z79.51 Long term (current) use of inhaled steroids
CPT/HCPCS: 36415; 36416; 36430; 36600; 71045; 80048; 80051; 80053; 80306; 80307; 82274; 82330; 82805; 82962; 83735; 83880; 84100; 84484; 85014; 85018; 85025; 85610; 85730; 86850; 86900; 86920; 87070; 87205; 90471; 90686; 93005; 94640; 96365; 96366; 96375; 99285; G0378; J2060; J3411; J3490; J7030; J7512; P9040

== ENCOUNTER → 2020-07-12 14:30 | Outpatient (BNVA) | payer MEDICAID, SELFPAY | PROVIDERS: PCP Family Medicine; Visit Provider Internal Medicine | DX: D50.0 Iron deficiency anemia secondary to blood loss (chronic) (principal) | CPT/HCPCS: 82607; 82746; 84443; 85025; 85045 ==

== ENCOUNTER 2020-11-21 07:46 | Outpatient (CLI) | payer MEDICAID, SELFPAY ==
--- NOTE | 2020-11-21 08:00 | CT_ITS ---
WS: [id number] CT ANGIOGRAPHY OF THE ABDOMINAL AORTA WITH RUNOFF TO THE ANKLES HISTORY: I73.9 - Peripheral vascular disease, unspecified TECHNIQUE: Arterial injection is performed during imaging to evaluate the aorta and runoff vessels to the ankles. MIP and volume rendering imaging has also been performed. All images are reviewed. All C T scans at [facility] use at least one of these dose optimization techniques: automated ex posure control; mA and/or kV adjustment per patient size (includes targeted exams where dose is match ed to clinical indication); or iterative reconstruction. Contrast: Omnipaque 350; 190 mL IV. DLP: 2698.77 mGycm COMPARISON: None available. Abdominal aorta: Scattered atherosclerotic plaque becomes nearly contiguous within the infrarenal aor ta. No aneurysm. Focal calcified plaque at the origins of the celiac axis and SMA but no high-grade s tenosis. Renal arteries are both patent. CB is patent with calcified plaque at the origin. RIGHT lower extremity arterial system: Common iliac artery with mild atherosclerosis. High-grade sten osis proximal internal iliac artery. Heavy calcification in the external iliac artery. Multifocal are as of significant stenosis. Greater than 50% stenosis in the proximal external iliac artery. 80% sten osis distal external iliac artery. Focal calcified plaque continues into the femoral artery. 50% sten osis femoral artery over the femoral head. Proximal SFA is occluded. Complete SFA occlusion with david nstitution at the popliteal artery. Calcified plaque in the deep profunda with stenosis just under 50 %. Popliteal artery is patent. Calcified plaque in the proximal anterior tibial artery with stenosis at 80%. Focal calcified plaque in the peroneal and posterior tibial arteries. Very small caliber vess els to the ankle. LEFT lower extremity arterial system: Mild atherosclerosis with no high-grade obstruction common fe c artery. Heavy calcification continues into the internal and external iliac arteries. 70% stenosis d istal external iliac artery and high-grade stenosis in the proximal internal iliac artery. Femoral ar jeromy atherosclerotic plaque. High-grade stenosis proximal SFA of 80%. Multifocal areas of stenosis in the proximal SFA and mid SFA of greater than 70%. Dense calcified plaque causing obscuration of the lumen distally. There may be complete occlusion at Maury's canal. Heavy calcified plaque in the popl iteal artery and involving the proximal tibioperoneal trunk and posterior tibial artery. Small calibe r runoff to the ankles. Emphysematous changes at the lung bases. Mild pleural thickening on the RIGHT. Heart size is normal. Suspect cirrhosis. No splenic enlargement. Mild thickening of each adrenal gland are probably represe nting small adenomas. Similar to the prior study of 05/21/2018. Gallbladder and pancreas are negative. No bile duct dilatation. No adenopathy or ascites. No renal obstruction. Sclerotic line in the LEFT femoral head from avascular necrosis. CT/CT angio abd aorta runof [id number] IMPRESSION: 1. Complete occlusion RIGHT SFA with reconstitution at the popliteal artery. 2. High-grade stenosis proximal RIGHT internal iliac artery. 3. Multifocal areas of significant stenosis RIGHT external iliac artery into t he common femoral artery. 4. High-grade stenosis proximal RIGHT anterior tibial artery. 5. High-grade stenosis LEFT internal and external iliac arteries. 6. Proximal LEFT SFA stenosis 80% with additional multi focal areas of signifi cant stenosis. Lumen is being partially obscured by the dense calcification thr oughout the SFA and popliteal artery. 7. Possible complete occlusion of the LEFT distal SFA at Maury's canal. Lumen is being obscured by heavy calcified plaque. 8. Significant calcified plaque through the LEFT popliteal artery and the prox imal tibioperoneal trunk and posterior tibial artery with small caliber runoff to the ankles.
[2020-11-21 08:39] LABS: Blood Urea Nitrogen 6 mg/dL (8-23)
[2020-11-21] MEDS: iohexol 350 mg/mL 100 mL Btl IV (09:00)
== END 2020-11-21 07:47 | disposition home or self-care (01) ==
PROVIDERS: Radiology Diagnostic Radiology; PCP Family Medicine; Visit Provider Internal Medicine Cardiovascular Disease
DX: I73.9 Peripheral vascular disease, unspecified (principal); I70.8 Atherosclerosis of other arteries
CPT/HCPCS: 75635; 82565; 84520; Q9967

== ENCOUNTER → 2020-12-06 11:02 | Outpatient (BNVA) | payer MEDICAID, SELFPAY | PROVIDERS: PCP Family Medicine; Visit Provider Internal Medicine Cardiovascular Disease | DX: I73.9 Peripheral vascular disease, unspecified (principal); Z01.818 Encounter for other preprocedural examination; Z20.822 Contact with and (suspected) exposure to COVID-19 | CPT/HCPCS: 80048; 85025; 85610; 87635 ==

== ENCOUNTER 2020-12-12 07:23 | Outpatient (CLI) | payer MEDICAID, SELFPAY ==
[2020-12-12] VITALS (53 sets, daily range): BP systolic 112–170; BP diastolic 72–115; PULSE 84–114; RESP 11–33; TEMP 36.3–36.8; O2SAT 91–95; BMI 23.5
--- NOTE | 2020-12-12 07:30 | XACV_ITS ---
Ht: 170 cm Wt: 68 kg BSA: 1.80 m2 Gender: Male : 1960 Any Known Allergies: No known allergies Exam Priority: Routine Procedure(s): Procedure Description: Diagnostic procedure Procedure Description: Peripheral Cath Diagnostic Procedure Procedure Description: Abdominal aortic angiography Procedure Description: Peripheral vascular Intervention Procedure Description: PV Balloon Procedure Description: PV Atherectomy Procedure Description: Lower Extremity Graft Angiography Diagnostic Cath Status: Elective Diagnostic Findings * No disease noted in the Left Main, Left Anterior Descending, Right, or Circumflex coronary arteries. * Coronary angiography shows right dominance. Interventional Findings * Using a right common femoral approach after somewhat difficulty we were able to cross the left external iliac artery high-grade stenosis 60 mmHg gradient was noted across the lesion. After difficulty we were able to cross into left SFA with the help of seeker and Glidewire, balloon angioplasty of the left external iliac artery was performed which reduced gradient significantly. Multiple lesions were crossed in the left SFA into the popliteal and then into left anterior tibial vessel. Viper wire was exchanged with a Glidewire. Using 2.0 CSI atherectomy crown multiple runs were performed in proximal to distal SFA followed by multiple balloon angioplasties, excellent angiographic result and left common iliac, left external and internal iliac, left common femoral, left profunda and SFA, left popliteal artery and tibioperoneal trunk, good three-vessel runoff including anterior and posterior tibial and peroneal artery was observed.. Conclusions Reason for peripheral angiogram: Lifestyle limiting claudication Abdominal aortogram: Normal bilateral renal arteries: Normal right common iliac arteries has luminal irregularity, right external iliac artery has distal moderate stenosis, left common iliac artery has luminal irregularity left proximal external iliac artery has high-grade stenosis with gradient more than 60 mmHg, left internal iliac artery has luminal irregularity. Bilateral common femoral artery has luminal irregularity, left profunda femoral artery has diffuse luminal irregularity, left SFA has highly calcified moderate to severe lesion in the proximal and severe lesion in the mid to distal SFA. Right profunda femoral has luminal irregularity, Right SFA is chronically occluded in proximal to distal segment reconstitute at the popliteal segment with two-vessel runoff below the right knee.. No disease noted in the Left Main, Left Anterior Descending, Right, or Circumflex coronary arteries. Recommendations 1-Return to inpatient for close monitoring and routine cath care2-Risk factor modification for secondary prevention3-Statin and aspirin 81 mg life--long, if tolerated4-Continue Plavix 75mg p.o. daily for at least three months5-Continue optimal medical management, staged percutaneous angioplasty of the right SFA for chronic occlusion and lifestyle limiting claudication in 3 to 4 weeks.6-Follow up with Dr. London in four weeks and your primary care in 10 days. Pressures Phase:Rest AO : 84 / 62 ( 72 ) @ 9:37:00 AM 74 / 53 ( 63 ) @ 9:42:00 AM 96 / 71 ( 82 ) @ 9:58:00 AM 81 / 66 ( 73 ) @ 10:01:00 AM 112 / 71 ( 87 ) @ 10:01:00 AM 126 / 75 ( 93 ) @ 10:02:00 AM 130 / 78 ( 97 ) @ 10:02:00 AM 150 / 89 ( 117 ) @ 10:10:00 AM 140 / 93 ( 113 ) @ 10:10:00 AM 133 / 86 ( 106 ) @ 10:11:00 AM 135 / 86 ( 108 ) @ 10:11:00 AM 132 / 71 ( 94 ) @ 10:12:00 AM 115 / 66 ( 85 ) @ 10:17:00 AM Hemodynamic Data Phase:Rest AO : 84.0 / 62.0 ( 72.0 ) @ 9:37:00 AM 74.0 / 53.0 ( 63.0 ) @ 9:42:00 AM 96.0 / 71.0 ( 82.0 ) @ 9:58:00 AM 81.0 / 66.0 ( 73.0 ) @ 10:01:00 AM 112.0 / 71.0 ( 87.0 ) @ 10:01:00 AM 126.0 / 75.0 ( 93.0 ) @ 10:02:00 AM 130.0 / 78.0 ( 97.0 ) @ 10:02:00 AM 150.0 / 89.0 ( 117.0 ) @ 10:10:00 AM 140.0 / 93.0 ( 113.0 ) @ 10:10:00 AM 133.0 / 86.0 ( 106.0 ) @ 10:11:00 AM 135.0 / 86.0 ( 108.0 ) @ 10:11:00 AM 132.0 / 71.0 ( 94.0 ) @ 10:12:00 AM 115.0 / 66.0 ( 85.0 ) @ 10:17:00 AM Clinical Evaluation EBL: 5mL-10mL Procedural Details Pre-Procedure Time Out. Identified patient by full name and date of as verbalized by the patient/guarantor. Does the consent match the physician's order: Yes. Accurate & Complete Informed Consent: Yes. Inpatient/Outpatient History & Physical on Chart: Yes. If H&P is completed, is and addenduem needed: Yes; If yes, is the addendum complete: Yes. Visualize and Verify Site with Patient/Guarantor: N/A. Relevant Radiology Images available: Yes. Pre-op teaching completed and patient verbalized understanding. The risks, benefits, and alternatives of sedation and/or procedure were discussed by physician. The patient agrees to continue. Procedure started. Correct patient, site and procedure confirmed by cath team. PERRLA. Strong, equal hand armature and rotor winder bilaterally. Lungs clear x 5 lobes. IV Site on Arrival: 20 gauge in the right wrist. IV Fluids: 0.9% NaCl at KVO. 0 mL infused prior to manager cath lab. Pre Procedural Pulses: bilateral dorsalis pedis was Doppled. Pre Procedural Pulses: bilateral posterior tibial was Doppled. Oxygen started at 2liters/min via nasal canula. bilateral groins was prepped with chloroprep then draped in the usual sterile fashion. Physician notified. Shefali Renee RN circulating. Baseline sample Acquired. HR: 131 BPM. Baseline sample Acquired. HR: 99 BPM. Physician arrived. Physician scrubbed in. Immediate Pre-Procedure Time Out. Correct Patient: Yes; Correct Procedure: Yes; Correct Site: Yes; Correct Patient Position: Yes; Correct Supplies: Yes; Dried Flammable Prep: Yes; Blood Products Available: N/A;. Lidocaine 1% infiltrated to the right groin. Arterial access obtained with micropuncture set. A 5Fr UF catheter in over wire. Abdominal aortogram performed in AP @ 10 mL/sec for a total of 30 mL. glidewire inserted through the catheter and advanced to the left SFA. catheter out OTW. Sheath upsized to a 6 Fr. Flexor. seeker inserted OTW. glidewire out. Viperwire inserted through the seeker catheter. 2.0 murali prepped and inserted OTW and advanced to the left SFA. Athrectomy performed. murali removed OTW. seeker inserted OTW. Viperwire removed. Glidewire inserted and advanced to the left SFA. Inflation number : 1 A AB Haskins [employer] Catheter [id number] was prepped and advanced across the Superficial Femoral, Left , then inflated to 6 RENETTA for 2:03 seconds. Inflation number: 2 The AB Haskins [employer] EM[employer]OYMENT ATT[employer]NEY Catheter [id number] was reinflated across the Superficial Femoral, Left, to 6 RENETTA for 0:24 seconds. Inflation number: 3 The AB Haskins [employer] EMPLOYMENT ATT[employer]NEY Catheter [id number] was reinflated across the Superficial Femoral, Left, to 6 RENETTA for 1:20 seconds. Inflation number: 4 The AB Haskins [employer] EMPLOYMENT ATT[employer]NEY Catheter [id number] was reinflated across the Superficial Femoral, Left, to 6 RENETTA for 2:00 seconds. Balloon out over wire. Sheath pulled back to measure a gradient across the left iliac. Inflation number : 1 A AB ARMADA 35 OTW [id number] was prepped and advanced across the External Iliac, Left , then inflated to 6 RENETTA for 2:00 seconds. Inflation number: 2 The AB ARMADA 35 OTW [id number] was reinflated across the External Iliac, Left, to 6 RENETTA for 1:04 seconds. Balloon out over wire. Results checked. Flexor sheath exchanged for a short 6FR sheath. Sheath injected in Right common femoral artery and runoff performed. Sheath(s) sutured into position with 2-0 silk and sterile 4x4's and Op-site applied over the site. No oozing or signs and symptoms of hematoma noted. Arterial sheath flushed and connected to tranducer and pressure bag with heparinized saline. Post Procedure: Pulses reassessed and unchanged. PERRLA. Strong, equal hand armature and rotor winder bilaterally. No VTE prophylaxis required. Medication's Wasted: Nitro = 49.3 mg. Medication's Wasted: Heparin = 4000 units. Total IV fluids: 134 mL. Contrast type used: Visipaque 320 mgI/mL, 500 mL bottle. Complications: None. Estimated blood loss: 5mL-10mL. Procedure completed. Patient transferred by bed to 1st floor. Vital chart was stopped. Access Site Site: Right Femoral artery Sheath Size: 6 Fr Hemostasis Success: Unsuccessful Procedure Medications Start: 10:13 AM Stop: 10:13 AM Medication: Versed 1 mg and Fentanyl 25 mcg Amount: 1 Route: I.V. Start: 10:22 AM Stop: 10:22 AM Medication: Versed Amount: 1 mg Route: I.V. Start: 10:35 AM Stop: 10:35 AM Medication: Heparin Amount: 5000 units Route: I.V. Start: 10:44 AM Stop: 10:44 AM Medication: Fentanyl Amount: 50 mcg Route: I.V. Start: 10:48 AM Stop: 10:48 AM Medication: Versed Amount: 1 mg Route: I.V. Start: 10:53 AM Stop: 10:53 AM Medication: Heparin Amount: 2000 units Route: I.V. Start: 10:57 AM Stop: 10:57 AM Medication: Fentanyl Amount: 25 mcg Route: I.V. Start: 10:59 AM Stop: 10:59 AM Medication: Nitrogylcerin Amount: 400 mcg Route: I.A. Start: 11:09 AM Stop: 11:09 AM Medication: Versed Amount: 1 mg Route: I.V. Start: 11:11 AM Stop: 11:11 AM Medication: Nitrogylcerin Amount: 400 mcg Route: I.A. I, the attending physician, have reviewed and verified all procedure medications. Yes, all medications given per verbal order History/Risk Factors Hypertension: Yes Dyslipidemia: Yes Peripheral Arterial Disease (PAD): Yes Myocardial Infarction (CA): No Obesity: No Renal Disease: No Tobacco Use: Current/Recent(w/in 1 year) Prior Interventions PCI: Yes CABG: No Valve Surgery: No Report Signatures Finalized by Zoe London MD on 12/22/2020 09:44 PM
[2020-12-12] MEDS: diphenhydrAMINE 50 mg Capsule PO (09:12)
--- NOTE | 2020-12-12 10:12 | P.HP_ITS ---
Same Day Surgery H&P Indication for Procedure/HPI DATE OF PROCEDURE: December 12, 2020 CHIEF COMPLAINT/INDICATIONFOR SURGICAL PROCEDURE: Lifestyle limiting claudication of the both hips more left at the PREOP DIAGNOSIS: Worsening claudication with severe peripheral arterial disease PLANNED PROCEDRUE: Operation Date: 12/12/20 08:30 Proposed Procedures p Peripheral Diagnostic(Bilateral) - Zoe London MD 60-year-old male past medical history significant for coronary disease hypertension hyperlipidemia severe peripheral arterial disease for lifestyle limiting claudication abnormal ABIs/CTA after failing conservative management with walking exercise and cilostazol, he is here for a peripheral angiogram and percutaneous angioplasty if indicated of the left lower leg. He understand risk benefit and already for the procedure he understand risk for bleeding hematoma major minor surgery, vascular surgery, acute limb threatening ischemia leg and rotation and worse case scenario . He understand the risk for contrast- induced nephropathy leading to permanent or transient damage. He would like to proceed with it. IMPRESSION: 1. Complete occlusion RIGHT SFA with reconstitution at the popliteal artery. 2. High-grade stenosis proximal RIGHT internal iliac artery. 3. Multifocal areas of significant stenosis RIGHT external iliac artery into the common femoral artery. 4. High-grade stenosis proximal RIGHT anterior tibial artery. 5. High-grade stenosis LEFT internal and external iliac arteries. 6. Proximal LEFT SFA stenosis 80% with additional multi focal areas of significant stenosis. Lumen is being partially obscured by the dense calcification throughout the SFA and popliteal artery. 7. Possible complete occlusion of the LEFT distal SFA at Maury's canal. Lumen is being obscured by heavy calcified plaque. 8. Significant calcified plaque through the LEFT popliteal artery and the proximal tibioperoneal trunk and posterior tibial artery with small caliber runoff to the ankles. Medications/Allergies* Home Medications Medication Instructions Recorded Confirmed Type albuterol sulfate 2.5 mg INHALATION Q4H PRN 05/19/19 12/22/20 History albuterol sulfate 90 mcg/actuation 2 puff INHALATION Q6H PRN 05/19/19 12/22/20 History aerosol inhaler aspirin 81 mg tablet,delayed 81 mg PO DAILY 05/19/19 12/22/20 History release folic acid 1 mg tablet 1 mg PO DAILY 05/19/19 12/22/20 History ipratropium 20 mcg-albuterol 100 1 puff INHALATION BID gm 05/19/19 12/22/20 History mcg/actuation mist for inhalation multivitamin 1 tab PO DAILY 12/22/19 12/22/20 History thiamine HCl (vitamin B1) 100 mg 100 mg PO DAILY 12/22/19 12/22/20 History tablet bisacodyl 5 mg tablet,delayed 15 mg PO DAILY PRN tab 07/13/20 12/22/20 History release guaifenesin 600 mg tablet, 600 mg PO BID PRN 07/13/20 12/22/20 History extended release 12 hr Allergies/Adverse Reactions Allergy/AdvReac Type Severity Reaction Status Date / Time No Known Allergies Allergy Verified 12/22/20 15:15 Pertinent History/Comorbid Conditions* Medical History (Updated 09/07/20 @ 11:34 by Scooby Leigh MD) COPD (chronic obstructive pulmonary disease) Coronary artery disease Heart failure HTN (hypertension) Hyperlipidemia PVD (peripheral vascular disease) Recurrent epistaxis Surgical History (Updated 05/31/20 @ 22:25 by Zoe Platt MD) S/P coronary angioplasty Coronary disease 2 stents, 2014 S/P hernia repair Family History (Updated 05/19/19 @ 10:01 by Anne Rebollar LPN) CAD (coronary artery disease) Cancer Father Mother Social History Smoking and tobacco status: current every day smoker cigarettes Packs smoked per day: 0.5 Years cigarettes smoked: 45 [ Other cigarette details: Half a pack a day ] Alcohol intake: current Household members: spouse Housing: House History of recent travel: No Pertinent Exam Findings alert, oriented x 3 and clear to auscultation bilaterally Recommendations Surgery/Procedure today Coding Level of Care Code Acute Supply Cataloguer for Rachel Machado
[2020-12-12] MEDS: sodium chloride 0.9% 1,000 ML 100 ML IV (11:30)
--- NOTE | 2020-12-12 11:30 | PC.NURSE ---
from laboratory secretary received pt via bed. asleep but arousable post mod sedation. Denies any pain or discomfort. Right groin 6 Fr sheath attached to pressure bag. right groin site assessed. no hematoma, swelling or bleeding. pedal pulses are +2, slightly diminished to the touch on right leg. Pulses are heard using doppler. skin is warm. left leg pulses 3+ palpable to the touch. skin is warm. Insutructed pt on bedrest and avoidance of movement to right leg and hip. Pt verbalizes understanding. call light provided.
[2020-12-12] MEDS: clopidogrel 300 mg Tablet PO (12:23)
[2020-12-12] MEDS: aspirin 81 mg EC Tablet PO (12:23)
[2020-12-12] MEDS: atorvastatin 40 mg Tablet PO (12:23)
[2020-12-12 14:05] LABS: Partial Thromboplastin Time 65.6 SECONDS (23.9-36.7)
[2020-12-12 16:01] LABS: Partial Thromboplastin Time 30.6 SECONDS (23.9-36.7)
[2020-12-12] MEDS: albuterol 8 gm MDI 2 PUFF INHALATION (16:36)
[2020-12-12] MEDS: ALPRAZolam 0.5 mg Tablet 0.25 MG PO (17:08)
[2020-12-12] MEDS: fentaNYL 50 mcg/mL INJ 2mL IVP (17:09)
--- NOTE | 2020-12-12 17:15 | PC.NURSE ---
Sheath pulled Explained procedure to pt. Pre-medicated w/ fentanyl and xanax as ordered. Right femoral artery felt. sheath removed in roght groin. Manual firm,direct pressure held for 20 mins. no hematoma, bleeding or swelling noted. hemostasis achieved. pedal pulses are palpable +2-+3. Sited cleanse and applied 2x2 dressing. covered w/tegaderm. neurovascular and v/s monitored.
[2020-12-12] MEDS: pantoprazole DR 40 mg Tablet PO (18:30)
[2020-12-12] MEDS: HYDROcodone-acetaminophen 5-325 mg Tablet 1 TAB PO (18:30)
[2020-12-12] MEDS: metoprolol tartrate 25 mg Tablet 12.5 MG PO (18:31)
[2020-12-12] MEDS: cilostazol 100 mg Tablet 50 MG PO (18:32)
--- NOTE | 2020-12-13 00:41 | PC.NURSE ---
Patient ambulated with nurse. Right groin site/dressing and vital signs WNL. Distal pulses and skin WNL. Will monitor.
[2020-12-13 03:25] VITALS: BP 150/94; PULSE 94; PULSE 95; RESP 16; TEMP 36.8; O2SAT 95
[2020-12-13 03:52] LABS: Basophils % 0.4 %; Eosinophils % 0.4 %; Hematocrit 41.3 % (42.0-52.0); Hemoglobin 14.1 g/dL (11.7-16.6); Lymphocytes # 1.3 10^3/uL (0.8-4.8); Lymphocytes % 14.8 %; Mean Corpuscular HGB Conc 34.1 g/dL (30.0-36.0); Mean Corpuscular Hemoglobin 36.1 pg (28.0-34.0); Mean Corpuscular Volume 105.6 fl (80-94); Mean Platelet Volume 9.8 fL (7.4-10.4); Monocytes # 1.3 10^3/uL (0.2-0.9); Monocytes % 14.2 %; Neutrophils # 6.22 10^3/uL (1.8-7.7); Neutrophils % 69.9 %; Nucleated Red Blood Cells % 0 %; Platelet Count 198 10^3/cmm (130-400); Red Blood Count 3.91 10^6/uL (4.1-5.3); Red Cell Distribution Width 11.6 % (12.1-15.1); White Blood Count 8.9 10^3/uL (4.0-10.0)
[2020-12-13 04:14] LABS: Anion Gap 16.3 (5-19); Blood Urea Nitrogen 8 mg/dL (8-23); Calcium 8.1 mg/dL (8.5-10.5); Carbon Dioxide 22 mmol/L (22-29); Chloride 105 mmol/L (98-107); Glomerular Filtration Rate 304.8 mL/min (90-130); Glucose 74 mg/dL (65-115); Osmolality Calculated 287 mOsm/kg (285-295); Potassium 3.3 mmol/L (3.5-5.1); Sodium 140 mmol/L (136-145)
--- NOTE | 2020-12-13 04:50 | PC.NURSE ---
Shift Note Frequent safety and comfort rounds continue. Orders and/or nursing care completed as indicated. Patient monitored for response to intervention and treatment(s). Education provided includes post-cath activity restrictions and care. Patient and/or business services representative verbalized understanding. Will continue to monitor.
--- NOTE | 2020-12-13 06:09 | PM.DCS ---
Discharge Providers Date of Admission: 12/12/20 11:45 Date of Discharge: December 13, 2020 Attending Provider at Admission: Zoe London MD Attending Provider at Discharge: Zoe London MD Primary Care Provider: Addison Alcaraz DO Reason for Visit Reason for Visit: 49648 I73.9 Hospital Course Hospital Course 60-year-old male past medical history significant for coronary disease hypertension hyperlipidemia severe peripheral arterial disease for lifestyle limiting claudication abnormal ABIs/CTA after failing conservative management with walking exercise and cilostazol underwent peripheral angiogram through right common femoral approach. He was noted to have significant gradient in the mid left external iliac which was treated with balloon angioplasty 50 mmHg gradient was reduced to 15 mmHg. Left proximal to distal SFA was treated with CSI atherectomy using 2.0 bur. Multiple balloon angioplasty using 6.0x250 [place] balloon. Excellent angiographic result of left external iliac, left SFA with below the knee three-vessel runoff was noted. Overnight no significant event noted. No complication noted. Right groin looks good no bleeding no hematoma. He is stable vital rankin. He is moving around. He will be discharged home. Patient also has occluded right SFA which reconstitutes in the distal segment through collaterals. Since he continues to have lifestyle limiting claudication on the right leg as well therefore we will bring him back in 3 to 4 weeks for possible below the knee approach through tibial vessel intervention. Physical Exam Narrative: EXAM NARRATIVE: GENERAL: Patient is alert, awake and oriented x3. NECK: No jugular vein distension. HEENT: No cyanosis. No icterus. No pallor. HEART: Regular S1 and S2. No murmur, rub or gallop. LUNGS: Clear to auscultate bilaterally. ABDOMEN: Soft, nontender and nondistended. Positive bowel sounds. No guarding, rebound or tenderness. CENTRAL NERVOUS SYSTEM: Grossly nonfocal. EXTREMITIES: Lower extremities without edema bilaterally. Pulses palpable in the nleft lower extremities, both dorsalis pedis and posterior tibial. No groin hematoma, left foot looks good warm moist and pinkish with anterior posterior tibial pulse dopplerable Discharge Data Data Completed and Pending: Pending at discharge Category Date Time Status ASSEMBLY HAND request for service Routin e Exams 12/12/20 07:30 Taken Labs from last 24 hours 12/13/20 12/13/20 12/12/20 03:09 03:09 15:38 WBC 8.9 RBC 3.91 L Hgb 14.1 Hct 41.3 L MCV 105.6 H MCH 36.1 H MCHC 34.1 RDW 11.6 L Plt Count 198 MPV 9.8 Neut % (Auto) 69.9 Lymph % (Auto) 14.8 Antelope % (Auto) 14.2 Eos % (Auto) 0.4 Baso % (Auto) 0.4 Neut # (Auto) 6.22 Lymph # (Auto) 1.3 Antelope # (Auto) 1.3 H Eos # (Auto) 0.0 Baso # (Auto) 0.0 Nucleated RBC % (a uto) 0 Nucleated RBCs # 0.0 APTT 30.6 D Sodium 140 Potassium 3.3 L Chloride 105 Carbon Dioxide 22 Anion Gap 16.3 BUN 8 Creatinine 0.3 L GFR Calculation 304.8 H Glucose 74 Calculated Osmolal ity 287 Calcium 8.1 L 12/12/20 13:34 WBC RBC Hgb Hct MCV MCH MCHC RDW Plt Count MPV Neut % (Auto) Lymph % (Auto) Antelope % (Auto) Eos % (Auto) Baso % (Auto) Neut # (Auto) Lymph # (Auto) Antelope # (Auto) Eos # (Auto) Baso # (Auto) Nucleated RBC % (a uto) Nucleated RBCs # APTT 65.6 H Sodium Potassium Chloride Carbon Dioxide Anion Gap BUN Creatinine GFR Calculation Glucose Calculated Osmolal ity Calcium Vitals: Last Vital Signs Temp 98.3 F 12/13/20 03:25 Pulse 94 12/13/20 03:25 Resp 16 12/13/20 03:25 BP 150/94 12/13/20 03:25 Pulse Ox 95 12/13/20 03:25 Discharge Plan Discharge Patient Disposition: Home Prescriptions: New clopidogrel 75 mg tablet 75 mg PO DAILY Qty: 90 RF: 0 Continued amlodipine 5 mg tablet 5 mg PO DAILY Qty: 90 RF: 3 bisacodyl 5 mg tablet,delayed release (DR/EC) 15 mg PO DAILY PRN (Reason: constipation) RF: 0 guaifenesin [Mucinex] 600 mg tablet extended release 12hr 600 mg PO BID PRN (Reason: Congestion) RF: 0 Linzess 290 mcg capsule 290 mcg PO DAILY Qty: 90 RF: 3 folic acid 1 mg tablet 1 mg PO DAILY RF: 0 Combivent Respimat 20-100 mcg/actuation mist 1 puff INHALATION BID RF: 0 albuterol sulfate 2.5 mg /3 mL (0.083 %) solution for nebulization 2.5 mg INHALATION Q4H PRN (Reason: Shortness Of Breath) RF: 0 aspirin [Adult Low Dose Aspirin] 81 mg tablet,delayed release (DR/EC) 81 mg PO DAILY RF: 0 Hold Instructions: Resume on 06/10/20. albuterol sulfate [ProAir HFA] 90 mcg/actuation HFA aerosol inhaler 2 puff INHALATION Q6H PRN (Reason: Shortness Of Breath) RF: 0 multivitamin Tablet 1 tab PO DAILY RF: 0 thiamine HCl (vitamin B1) 100 mg tablet 100 mg PO DAILY RF: 0 magnesium oxide 500 mg tablet 500 mg PO BID Qty: 180 RF: 8 metoprolol tartrate 25 mg tablet 12.5 mg PO BID Qty: 90 RF: 3 nitroglycerin [Nitrostat] 0.4 mg tablet, sublingual 0.4 mg SUBLINGUAL Q5M PRN (Reason: chest pain) Qty: 25 RF: 6 pantoprazole 40 mg Tablet,Delayed Release (Dr/Ec) 40 mg PO BID Qty: 60 RF: 0 atorvastatin 40 mg tablet 40 mg PO DAILY Qty: 30 RF: 0 Discontinued cilostazol 50 mg tablet 50 mg PO BID Qty: 180 RF: 3 Discharge Orders: Discharge Order (Routine); Ordered 12/13/20 Ordered By: Zoe London Diet: Cardiac Activity: Increase activity as tolerated Patient Instructions: Peripheral Vascular Stent Placement (DC), Peripheral Vascular Angioplasty (DC), Opioid Safety Activity Restrictions/Additional Instructions: Follow-up with Ms. Mayra Hunter in 7 days. Follow-up with Dr. London in 4 weeks. Discharge Date/Time: 12/13/20 08:15 Discharge Attestations Time Spent in Discharge Care*: greater than 30 min Specific Discharge Activities: educating patient Quality Metrics Clinical Quality Measures During this hospital stay, did patient experience: None Coding Level of Care Code Established Pt Acute Chg FW DC note Patient Type Established History Detailed Exam Detailed Medical Decision Making Moderate Complexity
[2020-12-13 06:44] VITALS: BP 150/94; PULSE 94; RESP 16; TEMP 36.8; O2SAT 95
[2020-12-13 08:00] VITALS: BP 111/84; PULSE 72; RESP 20; TEMP 36.9; O2SAT 95
--- NOTE | 2020-12-13 08:28 | PC.CHAP ---
Pastoral Care Encounter/Spiritual Assessment Type of Contact [] Declined mill hand visit [] Patient/Family/Request visit [] Outpatient visit [] Follow-up visit [] Physician referral [] Code/Alert [x] Routine visit [] Staff referral [] Actively dying [] Patient sleeping [] Family support [] [] Out of room [] Palliative care [] [] Receiving care in room [] Pre-surgical visit [] Trauma [] Long length of stay [] ICU visit [] Other: Relational/Emotional Strength [] Patient feels connected with others/family/visitors/staff [] Distress [] Loneliness/isolation [] Abandonment Spirituality of Patient [] Person of Radha [] Attends [employer] of their Radha [] Believes in Prayer [] Reads Bible or Yarsanism materials [] There are Spiritual issues to be addressed Carrier Blower Interventions [x] Prayer [] Active listening [] Non-anxious presence [] Spiritual/emotional support [] Crisis/trauma care [] Spiritual counseling [] Bereavement support [] Provided bereavement packet [] Provided Bible/devotional materials [] Provided toy/stuffed animal, coloring book to patient or family member [] Provided Communion [] Anointing/[place] [] Salvation [x] Completed spiritual assessment [] Other: Impact on Illness or Injury [] Angry [] Fearful [] Anxious [] Often cries [] Exhaustion [] Unable to work [] Unable to attend holiness [] Unable to walk/stand [] Unable to read [] Unable to drive [] Unable to eat/drink [] Unable to sleep [] Unable to be with family [] Patient intubated [] Other: Summary Time spent with patient
--- NOTE | 2020-12-13 08:37 | PC.NURSE ---
Discharge Note Patient discharged to Home via private vehicle accompanied by spouse. Discharge instructions reviewed with patient and/or insurance healthcare representative. Mobile pharmacy medications and/or prescriptions provided. Belongings/home medications returned. Follow up appointments will be made By heart care services and patient will be notified
== END 2020-12-13 08:15 | disposition home or self-care (01) ==
LOC: CCL 07:26 → CSU 12-13 06:08
PROVIDERS: PCP Family Medicine; Visit Provider Internal Medicine Cardiovascular Disease
DX: I70.228 Atherosclerosis of native arteries of extremities with rest pain, other extremity (principal); I25.10 Atherosclerotic heart disease of native coronary artery without angina pectoris; E78.5 Hyperlipidemia, unspecified; J44.9 Chronic obstructive pulmonary disease, unspecified; I11.0 Hypertensive heart disease with heart failure; I50.9 Heart failure, unspecified; Z95.5 Presence of coronary angioplasty implant and graft; Z82.49 Family history of ischemic heart disease and other diseases of the circulatory system; F17.210 Nicotine dependence, cigarettes, uncomplicated
CPT/HCPCS: 36415; 37220; 37225; 75625; 75716; 80048; 85025; 85730; 94640; C1724; C1725; C1769; C1887; C1894; G0378; J1644; J2250; J3010; J3490; J3535; J7030; Q0163; Q9967

== ENCOUNTER 2021-01-13 09:15 | Outpatient (CLI) | payer MEDICAID, SELFPAY ==
--- NOTE | 2021-01-13 09:59 | CT_ITS ---
WS: [id number] CT ABDOMEN PELVIS TECHNIQUE: Contrast-enhanced CT of the abdomen and pelvis with coronal and sagittal reformatted image s. CLINICAL INFORMATION: SEVERE CHANGE IN BOWEL HABIT COMPARISON: CTA November 2020 DLP: [id number] scans at [facility] use at least one of these dose optimization techniques: automated e xposure control; mA and/or kV adjustment per patient size (includes targeted exams where dose is matc hed to clinical indication); or iterative reconstruction. FINDINGS: Diffuse fatty infiltration of the liver. Cirrhotic configuration to the liver. Recommend correlation with liver function tests. Normal portal vein and splenic vein. Splenic granulomas. Normal GE junctio n. Lung bases are well aerated. Normal renal parenchymal enhancement. No intrahepatic biliary ductal dilatation. Adrenal glands are n ormal. Tiny bilateral adrenal adenomas. Normal renal parenchymal enhancement. No hydronephrosis. Norm al caliber abdominal aorta. Aortic calcification. Normal sigmoid colon. Colon is decompressed. No evidence of high-grade small or large bowel obstructi on. No abdominal or pelvic lymphadenopathy. No pelvic lymphadenopathy.Serpiginous sclerosis involving the left femoral head consistent with avascular necrosis. Recommend correlation for left hip pain. T his can be further evaluated with MRI. CT/CT abdomen pelvis w con* [id number] IMPRESSION: 1. Diffuse fatty infiltration of the liver with cirrhotic configuration. Recom mend correlation with liver function tests. 2. Gallbladder appears normal. 3. Normal sigmoid colon. No evidence of high-grade small or large bowel obstru ction. Colon is decompressed. 4. No abdominal or pelvic lymphadenopathy. 5. Normal caliber abdominal aorta. Aortic calcification. 6. Serpiginous sclerosis involving the left femoral head consistent with avasc ular necrosis. Recommend correlation for left hip pain. This can be further ev aluated with MRI.
[2021-01-13] MEDS: iohexol 300 mg/mL 100 mL Btl IV (11:09)
[2021-01-13] MEDS: iohexol 300 mg/mL 50 mL Btl PO (11:10)
== END 2021-01-13 09:16 | disposition home or self-care (01) ==
PROVIDERS: PCP Family Medicine; Visit Provider Internal Medicine
DX: R63.4 Abnormal weight loss (principal); K76.0 Fatty (change of) liver, not elsewhere classified
CPT/HCPCS: 74177; Q9967

== ENCOUNTER 2021-01-18 19:08 | Emergency (ER) | payer MEDICAID, SELFPAY ==
[2021-01-18 19:09] VITALS: BP 89/57; RESP 24; TEMP 36.7; BMI 25.8
--- NOTE | 2021-01-18 19:09 | W.ED.FALL ---
HPI - Fall General: Chief Complaint: Fall Stated Complaint: FALL Time Seen by Provider: 01/18/21 19:09 History of Present Illness: HPI Narrative: Mr. Diaz is a 60-year-old gentleman with history of hypertension, hyperlipidemia, CAD, peripheral vascular disease who presents emergency department due to left lower extremity pain secondary to fall. He reports being at his baseline health and reportedly fell from bed last night at midnight, again at 1215, and again at 2 PM. The patient himself does not recall these falls and therefore it is unclear whether there was any associated symptoms, provoking, exacerbating, relieving factors to these. Since that time he however he has had gradually worsening left knee pain. There is no associated numbness or tingling. Symptoms are moderate at rest however severe with range of motion. He otherwise denies changes in health. Patient does endorse daily alcohol consumption which he attributes to the reason that he does not recall the falls i.e. he was drunk. Review of Systems General: Reports: 10 or more systems reviewed and unremarkable except in HPI and below PFSH ED PFSH: Medical History Acute anemia Blood loss anemia Likely related to epistaxis and etoh intake. He is current on his colonoscopy. Chronic idiopathic constipation COPD (chronic obstructive pulmonary disease) Coronary artery disease Foreign body sensation in right ear canal Heart failure HTN (hypertension) Hyperlipidemia PVD (peripheral vascular disease) Recurrent epistaxis Surgical History S/P coronary angioplasty Coronary disease 2 stents, 2015 S/P hernia repair Family History Father Cancer Mother Cancer Other CAD (coronary artery disease) Social History Smoking and tobacco status: current every day smoker cigarettes Packs smoked per day: 0.5 Years cigarettes smoked: 45 [ Other cigarette details: Half a pack a day ] Alcohol intake: current Household members: spouse Housing: House History of recent travel: No Physical Exam Narrative: EXAM NARRATIVE: GENERAL/CONSTITUTIONAL - well-appearing. No acute distress. Eyes - PERRL, no conjunctival injection ENMT - Atraumatic external nose and ears. Moist mucous membranes NECK - supple. trachea midline CARDIOVASCULAR - regular rate and rhythm. Peripheral pulses 2+ and equal RESPIRATORY -clear to auscultation bilaterally. No retractions or accessory muscle use. ABDOMEN/GI - Nontender/Nondistended. MSK - Extremities without obvious deformity. Left knee tender to palpation. SKIN - Warm, Dry NEURO - alert and appropriately oriented. Cranial nerves II through XII intact. Strength and sensation intact. Moves all extremities equally. PSYCH - Appropriate mood and affect Course ED course: - Patient was seen and evaluated by me at bedside - Patient placed on cardiac monitors, IV access obtained - Initial evaluation notable for no acute distress, nontoxic appearance. Left knee tender to palpation without visible deformity noted. Distal CMS intact. - Labs notable for no acute abnormality to explain recurrent falls. Mild transaminitis. Delta troponin negative. - Imaging notable for no evidence of acute bony injury - Upon serial reexamination after treatment the patient was similar, he continued to have pain. Analgesia given. Patient will be prescribed crutches as large do not fit and placed in a brace for PCP follow-up - Based on patient history, evaluation, labs, and imaging as interpreted the most likely cause of the patient's condition is acute knee pain without obvious bony abnormality. - The results of ED evaluation were discussed with the patient including prescriptions and/or symptomatic cares (if applicable) including appropriate and responsible use, followup plan, and return precautions. The patient verbalized understanding and felt safe for discharge. - Patient discharged in satisfactory condition. Vital Signs: Vital signs: Vital Signs Temperature 98.0 F 01/18/21 19:09 Pulse Rate 90 01/18/21 23:32 Respiratory Rate 18 01/18/21 23:32 Blood Pressure 154/96 01/18/21 23:32 Pulse Oximetry 94 01/18/21 23:32 MDM - Fall Medical Records: Attestation: I reviewed the patient's medical records. Lab Data: Attestation: I reviewed the patient's lab results. Labs: Lab Results 01/18/21 01/18/21 01/18/21 21:09 21:09 21:09 WBC 10.8 10^3/uL H 10 ^3/uL (4.0-10.0) RBC 4.64 10^6/uL 10^6 /uL (4.1-5.3) Hgb 16.5 g/dL g/dL (11.7-16.6) Hct 49.1 % % (42.0-52.0) MCV 105.8 fl H fl (80-94) MCH 35.6 pg H pg (28.0-34.0) MCHC 33.6 g/dL g/dL (30.0-36.0) RDW 11.6 % L % (12.1-15.1) Plt Count 212 10^3/cmm 10^3 /cmm (130-400) MPV 9.4 fL fL (7.4-10.4) Neut % (Auto) 69.2 % % Lymph % (Auto) 19.2 % % [place] % (Auto) 10.3 % % Eos % (Auto) 0.4 % % Baso % (Auto) 0.4 % % Neut # (Auto) 7.49 10^3/uL 10^3 /uL (1.8-7.7) Lymph # (Auto) 2.1 10^3/uL 10^3/ uL (0.8-4.8) [place] # (Auto) 1.1 10^3/uL H 10^ 3/uL (0.2-0.9) Eos # (Auto) 0.0 10^3/uL 10^3/ uL (0.0-0.8) Baso # (Auto) 0.0 10^3/uL 10^3/ uL (0.0-0.1) Nucleated RBC % (a uto) 0 % % Nucleated RBCs # 0.0 /100WBC /100W BC PT 12.40 SECONDS SEC ONDS (12.1-14.9) INR 0.89 (0.8-1.2) Sodium 145 mmol/L mmol/L (136-145) Potassium 4.1 mmol/L mmol/L (3.5-5.1) Chloride 103 mmol/L mmol/L (98-107) Carbon Dioxide 27 mmol/L mmol/L (22-29) Anion Gap 19.1 H (5-19) BUN 6 mg/dL L mg/dL (8-23) Creatinine 0.4 mg/dL L mg/dL (0.7-1.2) GFR Calculation 218.7 mL/min H mL /min (90-130) Glucose 87 mg/dL mg/dL (65-115) Calculated Osmolal ity 297 mOsm/kg H mOs m/kg (285-295) Calcium 9.4 mg/dL mg/dL (8.5-10.5) Total Bilirubin 0.3 mg/dL mg/dL (0.15-1.2) AST 63 U/L H U/L (0-40) ALT 52 U/L H U/L (0-41) Alkaline Phosphata se 136 IU/L H IU/L (40-130) Troponin T Baselin e NT-Pro-B Natriuret Pep 76 pg/mL pg/mL (0-125) Total Protein 7.5 g/dL g/dL (6.6-8.7) Albumin 4.7 g/dL g/dL (3.5-5.2) Globulin 2.8 g/dL g/dL (1.3-4.6) TSH 1.04 uIU/mL uIU/m L (0.27-4.20) 01/18/21 21:09 WBC RBC Hgb Hct MCV MCH MCHC RDW Plt Count MPV Neut % (Auto) Lymph % (Auto) [place] % (Auto) Eos % (Auto) Baso % (Auto) Neut # (Auto) Lymph # (Auto) [place] # (Auto) Eos # (Auto) Baso # (Auto) Nucleated RBC % (a uto) Nucleated RBCs # PT INR Sodium Potassium Chloride Carbon Dioxide Anion Gap BUN Creatinine GFR Calculation Glucose Calculated Osmolal ity Calcium Total Bilirubin AST ALT Alkaline Phosphata se Troponin T Baselin e 14 ng/L ng/L (0-15) NT-Pro-B Natriuret Pep Total Protein Albumin Globulin TSH EKG Data^: EKG 1: Attestation: I personally reviewed and interpreted this EKG as follows: EKG interpretation date: 01/18/21 EKG interpretation time: 21:23 Interpretation: Twelve-lead EKG shows a regular rhythm at a rate of 75. NC interval 169. QRS duration 112. QTc 429. Normal Ventress. Interpretation: Sinus rhythm. Discharge Plan Discharge Patient Disposition: Home Clinical Impression: Falls, Acute knee pain Condition: Stable Prescriptions: No Action amlodipine 5 mg tablet 5 mg PO DAILY Qty: 90 RF: 3 bisacodyl 5 mg tablet,delayed release (DR/EC) 15 mg PO DAILY PRN (Reason: constipation) RF: 0 guaifenesin [Mucinex] 600 mg tablet extended release 12hr 600 mg PO BID PRN (Reason: Congestion) RF: 0 Linzess 290 mcg capsule 290 mcg PO DAILY Qty: 90 RF: 3 folic acid 1 mg tablet 1 mg PO DAILY RF: 0 Combivent Respimat 20-100 mcg/actuation mist 1 puff INHALATION BID RF: 0 albuterol sulfate 2.5 mg /3 mL (0.083 %) solution for nebulization 2.5 mg INHALATION Q4H PRN (Reason: Shortness Of Breath) RF: 0 aspirin [Adult Low Dose Aspirin] 81 mg tablet,delayed release (DR/EC) 81 mg PO DAILY RF: 0 Hold Instructions: Resume on 06/10/20. albuterol sulfate [ProAir HFA] 90 mcg/actuation HFA aerosol inhaler 2 puff INHALATION Q6H PRN (Reason: Shortness Of Breath) RF: 0 multivitamin Tablet 1 tab PO DAILY RF: 0 thiamine HCl (vitamin B1) 100 mg tablet 100 mg PO DAILY RF: 0 magnesium oxide 500 mg tablet 500 mg PO BID Qty: 180 RF: 8 clopidogrel 75 mg tablet 75 mg PO DAILY 30 Days Qty: 30 RF: 0 nitroglycerin [Nitrostat] 0.4 mg tablet, sublingual 0.4 mg SUBLINGUAL Q5M PRN (Reason: chest pain) Qty: 25 RF: 6 metoprolol tartrate 25 mg tablet 12.5 mg PO BID Qty: 90 RF: 0 pantoprazole 40 mg Tablet,Delayed Release (Dr/Ec) 40 mg PO BID Qty: 60 RF: 0 atorvastatin 40 mg tablet 40 mg PO DAILY Qty: 30 RF: 0 Discharge Orders: Discharge ED (Routine); Ordered 01/18/21 Ordered By: Elia Ya Referrals: Addison Alcaraz, [Primary Care Provider] - Discharge Diet: Usual diet Discharge Activity: Resume usual activity and Increase activity as tolerated Patient Instructions: Abuse of Alcohol (ED), Knee Pain (ED), Fall Prevention (ED) Activity Restrictions/Additional Instructions: Thank you for visiting the emergency department. You were seen and evaluated for knee pain after fall. The exact cause of your symptoms is unclear, no broken bones was identified so you likely just have contusion. It is concerning that you fall frequently and I am concerned that this is related to alcohol misuse. Please follow-up with your primary care provider. Please return the emergency department for worsening symptoms or anything else that you are concerned about and feel needs emergency department evaluation. Coding Level of Care Code ED Samples And Repairs Preparer for Rachel Machado
--- NOTE | 2021-01-18 19:41 | CTR_ITS ---
PROCEDURE INFORMATION: Exam: CT Cervical Spine Without Contrast Exam date and time: 01/18/2021 7:41 PM Age: 60 years old Clinical indication: Injury or trauma; Fall; Blunt trauma; Additional info: Fall, AMS TECHNIQUE: Imaging protocol: Computed tomography images of the cervical spine without contrast. Radiation optimization: All CT scans at this facility use at least one of these dose optimization techniques: automated exposure control; mA and/or kV adjustment per patient size (includes targeted exams where dose is matched to clinical indication); or iterative reconstruction. COMPARISON: CT head wo con* [id number] 01/18/2021 7:48 PM RADIATION DOSE METRICS: Total DLP (mGy-cm): 605.03 FINDINGS: Bones/joints: No acute fracture. Normal alignment. Discs/Spinal canal/Neural foramina: Multilevel bilateral foraminal stenosis. Lungs: Lung apices are normal. Vasculature: Severe calcified carotid artery disease. Soft tissues: Unremarkable. CT/CT cervical spin wo con* [id number] IMPRESSION: No acute C-spine findings. Radiation Dose CTDIVOL = (mGy): DLP = 605.03 (mGy-cm)
--- NOTE | 2021-01-18 19:41 | XRR_ITS ---
PROCEDURE INFORMATION: Exam: XR Chest Exam date and time: 01/18/2021 7:41 PM Age: 60 years old Clinical indication: Prior surgery; Surgery type: Stent; Patient HX: Syncope, multiple falls TECHNIQUE: Imaging protocol: XR of the chest. Views: 1 view. COMPARISON: CR XR chest 1V portable [id number] 05/31/2020 5:33 PM FINDINGS: Lungs: Unremarkable. No consolidation. Pleural spaces: Unremarkable. No pleural effusion. No pneumothorax. Heart/Mediastinum: Unremarkable. No cardiomegaly. Bones/joints: Unremarkable. XR/XR chest 1V portable [id number] IMPRESSION: No acute findings. Radiation Dose CTDIVOL = (mGy): DLP = (mGy-cm)
--- NOTE | 2021-01-18 19:41 | XRR_ITS ---
PROCEDURE INFORMATION: Exam: XR Left Foot Exam date and time: 01/18/2021 7:41 PM Age: 60 years old Clinical indication: Pain; Foot; Left; Patient HX: Multiple falls; Additional info: 5th toe pain TECHNIQUE: Imaging protocol: XR Left foot. Views: 1 or 2 views. COMPARISON: CR (LOW EXM, ) 01/18/2021 8:02 PM FINDINGS: Bones/joints: Demineralized bones. No displaced fractures. Joint spaces are aligned. No significant arthritis. No bone erosion. Soft tissues: Normal. XR/XR foot LT 2V [id number] IMPRESSION: No acute findings identified. Radiation Dose CTDIVOL = (mGy): DLP = (mGy-cm)
--- NOTE | 2021-01-18 19:41 | CTR_ITS ---
PROCEDURE INFORMATION: Exam: CT Head Without Contrast Exam date and time: 01/18/2021 7:41 PM Age: 60 years old Clinical indication: Injury or trauma; Fall; Blunt trauma (contusions or hematomas); With loss of consciousness; Altered mental status/memory loss; Additional info: Fall, AMS TECHNIQUE: Imaging protocol: Computed tomography of the head without contrast. Radiation optimization: All CT scans at this facility use at least one of these dose optimization techniques: automated exposure control; mA and/or kV adjustment per patient size (includes targeted exams where dose is matched to clinical indication); or iterative reconstruction. COMPARISON: No relevant prior studies available. RADIATION DOSE METRICS: Total DLP (mGy-cm): 1607.3 FINDINGS: Brain: Pantera cisterna magna which is a normal variant. Mild cerebral atrophy and ischemic leukoencephalopathy. Cerebral ventricles: No ventriculomegaly. Paranasal sinuses: Visualized sinuses are unremarkable. No fluid levels. Mastoid air cells: Visualized mastoid air cells are well aerated. Vasculature: Severe calcified intracranial atherosclerotic vessel disease. Bones/joints: Unremarkable. No acute fracture. Soft tissues: Unremarkable. CT/CT head wo con* [id number] IMPRESSION: No acute intracranial findings. Radiation Dose CTDIVOL = (mGy): DLP = 1607.3 (mGy-cm)
--- NOTE | 2021-01-18 19:41 | XRR_ITS ---
PROCEDURE INFORMATION: Exam: XR Left Knee Exam date and time: 01/18/2021 7:41 PM Age: 60 years old Clinical indication: Patient HX: Left knee pain, multiple falls; Additional info: Pain, fall TECHNIQUE: Imaging protocol: XR Left knee. Views: 3 views. COMPARISON: No relevant prior studies available. FINDINGS: Bones/joints: Demineralized bones. No fractures. Unremarkable joint space alignment. Negative for joint effusion. No lytic bone lesion. Soft tissues: Normal. Vasculature: Diffuse atherosclerosis. XR/XR knee LT 3V* [id number] IMPRESSION: Negative for acute knee joint abnormality. Radiation Dose CTDIVOL = (mGy): DLP = (mGy-cm)
[2021-01-18 21:10] VITALS: BP 106/67; BP 92/67; BP 98/57; PULSE 78; PULSE 83; PULSE 85
[2021-01-18 21:17] VITALS: BP 112/76; PULSE 87; RESP 16; O2SAT 91
[2021-01-18 21:38] LABS: Basophils % 0.4 %; Eosinophils % 0.4 %; Hematocrit 49.1 % (42.0-52.0); Hemoglobin 16.5 g/dL (11.7-16.6); Lymphocytes # 2.1 10^3/uL (0.8-4.8); Lymphocytes % 19.2 %; Mean Corpuscular HGB Conc 33.6 g/dL (30.0-36.0); Mean Corpuscular Hemoglobin 35.6 pg (28.0-34.0); Mean Corpuscular Volume 105.8 fl (80-94); Mean Platelet Volume 9.4 fL (7.4-10.4); Monocytes # 1.1 10^3/uL (0.2-0.9); Monocytes % 10.3 %; Neutrophils # 7.49 10^3/uL (1.8-7.7); Neutrophils % 69.2 %; Nucleated Red Blood Cells % 0 %; Platelet Count 212 10^3/cmm (130-400); Red Blood Count 4.64 10^6/uL (4.1-5.3); Red Cell Distribution Width 11.6 % (12.1-15.1); White Blood Count 10.8 10^3/uL (4.0-10.0)
--- NOTE | 2021-01-18 21:42 | ECG_ITS ---
[facility] Test Date: 2021-01-18 Pat Name: John Diaz Department: Room: Gender: Male [employer]: : 1960 Requested By: Elia Ya Order Number: [id number] Deanna MD: Paco Gallegos M.D. Measurements Intervals [place] Rate: 75 P: 71 NV: 169 QRS: 79 QRSD: 112 T: 54 QT: 400 QTc: 449 Interpretive Statements SINUS RHYTHM POSSIBLE INFERIOR MYOCARDIAL INFARCTION , PROBABLY OLD [30 ms Q WAVE IN II/aVF] Poor R wave progression Compared to ECG 06/01/2020 00:52:48 Sinus tachycardia no longer present Myocardial infarct finding still present Electronically Signed On 01-18-2021 23:08:53 CDT by Paco Gallegos M.D. [id number]
[2021-01-18] MEDS: lactated ringers 1,000 ML 999 ML IV (21:48)
[2021-01-18 21:56] LABS: INR 0.89 (0.8-1.2)
[2021-01-18 22:05] LABS: Troponin(5th) Baseline 14 ng/L (0-15)
[2021-01-18 22:07] VITALS: BP 99/62; PULSE 77; RESP 12; O2SAT 95
[2021-01-18 22:15] LABS: Alanine Aminotransferase 52 U/L (0-41); Albumin Level 4.7 g/dL (3.5-5.2); Alkaline Phosphatase 136 IU/L (40-130); Anion Gap 19.1 (5-19); Aspartate Amino Transferase 63 U/L (0-40); Blood Urea Nitrogen 6 mg/dL (8-23); Calcium 9.4 mg/dL (8.5-10.5); Carbon Dioxide 27 mmol/L (22-29); Chloride 103 mmol/L (98-107); Globulin 2.8 g/dL (1.3-4.6); Glomerular Filtration Rate 218.7 mL/min (90-130); Glucose 87 mg/dL (65-115); NT Pro B Type Natriuretic Pept 76 pg/mL (0-125); Osmolality Calculated 297 mOsm/kg (285-295); Potassium 4.1 mmol/L (3.5-5.1); Sodium 145 mmol/L (136-145); Thyroid Stimulating Hormone 1.04 uIU/mL (0.27-4.20); Total Bilirubin 0.3 mg/dL (0.15-1.2); Total Protein 7.5 g/dL (6.6-8.7)
[2021-01-18] MEDS: folic acid 1 mg Tablet PO (22:18)
[2021-01-18] MEDS: acetaminophen 500 mg Tablet PO (23:08)
[2021-01-18] MEDS: ketorolac 30 mg/mL INJ 15 MG IVP (23:08)
[2021-01-18 23:32] VITALS: BP 154/96; PULSE 90; RESP 18; O2SAT 94
== END 2021-01-18 23:35 | disposition home or self-care (01) ==
PROVIDERS: Emergency Provider Emergency Medicine; PCP Family Medicine
DX: M25.562 Pain in left knee (principal); R29.6 Repeated falls; Z79.82 Long term (current) use of aspirin; Z79.02 Long term (current) use of antithrombotics/antiplatelets; J44.9 Chronic obstructive pulmonary disease, unspecified; I25.10 Atherosclerotic heart disease of native coronary artery without angina pectoris; I10 Essential (primary) hypertension; E78.5 Hyperlipidemia, unspecified; Z98.61 Coronary angioplasty status; F17.210 Nicotine dependence, cigarettes, uncomplicated
CPT/HCPCS: 70450; 71045; 72125; 73562; 73620; 80053; 83880; 84443; 84484; 85025; 85610; 93005; 96361; 96374; 96375; 99284; J1885; J3411

== ENCOUNTER 2021-02-14 13:44 | Outpatient (CLI) | payer MEDICAID, SELFPAY ==
--- NOTE | 2021-02-14 14:00 | CT_ITS ---
WS: [id number] CT ANGIOGRAPHY abdomen and pelvis HISTORY: Severe vasculopath with severe postprandial abdominal pain. TECHNIQUE: CT angiogram is performed during IV injection. Reformation images reviewed. All CT scans a [employer] use at least one of these dose optimization techniques: automated exposure contro l; mA and/or kV adjustment per patient size (includes targeted exams where dose is matched to clinica l indication); or iterative reconstruction. CONTRAST: Omnipaque 350; 95 mL IV. DLP: 867.53 mGycm COMPARISON: 01/13/2021 Lung bases are clear. Normal size heart with a small pericardial effusion anteriorly versus pericardi al thickening. Small hiatal hernia. Diffuse low attenuation throughout the liver from hepatic steatosis. Area of enhancement in the infer ior RIGHT lobe of liver is probably a small hemangioma. Surface of the liver is irregular lobulated. No bile duct dilatation. Unremarkable spleen, gallbladder and pancreas. Bilateral adrenal adenomas. N ormal early arterial enhancement of the kidneys. No obstruction. No ascites or adenopathy within the upper abdomen. Abdominal aorta: Atherosclerotic plaque scattered throughout the abdominal aorta. No aneurysm. Very s light narrowing of the lumen of the aorta but no significant stenosis. Moderate calcified plaque cont inues into the common, internal and external iliac arteries. Complete occlusion of the distal RIGHT c ommon femoral artery. There also appears to be a very small short segment dissection in the more prox imal RIGHT common femoral artery. Heavy calcified plaque at the origin of the celiac axis. Stenosis e stimated at approximately 65%. Approximately 50% stenosis of the proximal SFA. Bilateral main renal a rteries are still patent with no significant stenosis. Accessory renal artery on the RIGHT. Inferior mesenteric artery is also patent. No GI tract obstruction. No adenopathy or fluid. Inguinal canals are patent bilaterally. No osteoblastic or osteolytic bone disease. Again noted is avascular necrosis involving a large porti on of the LEFT femoral head. Similar to the prior study. No fragmentation. CT/CT angio abdomen pelvis [id number] IMPRESSION: 1. Moderate atherosclerotic plaque throughout the abdominal aorta. Lumen is na rrowed but no significant stenosis. 2. Complete occlusion RIGHT common femoral artery. Additional proximal very sh ort segment femoral artery dissection. 3. Moderate stenosis involving the celiac axis to 65%. Approximately 50% steno sis proximal SFA. 4. Hepatic steatosis with hepatomegaly changes of cirrhosis. 5. Stable LEFT femoral head osteonecrosis.
[2021-02-14] MEDS: iohexol 350 mg/mL 100 mL Btl IV (14:16)
== END 2021-02-14 13:45 | disposition home or self-care (01) ==
PROVIDERS: PCP Family Medicine; Visit Provider Internal Medicine
DX: R10.9 Unspecified abdominal pain (principal); R14.0 Abdominal distension (gaseous); M87.9 Osteonecrosis, unspecified; K76.0 Fatty (change of) liver, not elsewhere classified; R16.0 Hepatomegaly, not elsewhere classified; I77.4 Celiac artery compression syndrome; I70.8 Atherosclerosis of other arteries
CPT/HCPCS: 74174; Q9967

== ENCOUNTER 2021-03-08 21:42 | Emergency (ER) | payer MEDICAID, SELFPAY ==
[2021-03-08 21:54] VITALS: BP 144/81; PULSE 87; RESP 16; TEMP 36.4; O2SAT 95; BMI 23.9
[2021-03-08 22:12] VITALS: BP 123/93; PULSE 90; RESP 18; O2SAT 93
--- NOTE | 2021-03-08 22:15 | W.ED.EPISTAX ---
HPI - Epistaxis General: Chief complaint: Epistaxis Stated complaint: Nose Bleeding Time Seen by Provider: 03/08/21 22:05 History of Present Illness: HPI Narrative: Patient is a 60-year-old male comes to the ED with epistaxis. Patient is a past medical history of hypertension, hyperlipidemia, CAD, COPD. Patient is on 2 L of oxygen at home. Patient was taking Plavix, but contacted his doctor today and he stopped taking Plavix today due to nosebleed. Patient says the last time he had a nosebleed he continued to bleed for close to 6 days and he ended up have to be hospitalized and have blood transfusion done. He states that this current nosebleed started yesterday. There is no acute trauma or injury to cause bleed. They were able to control it some yesterday with a nasal clamp. The bleeding has been on and off for the last 24 hours. He states that it bled for a good hour and a half a couple hours ago today then it stopped. Then before coming to the ED bleeding started up again. Denies any other symptoms, such as fatigue, nausea/vomiting, chest pain, abdominal pain, bladder or bowel symptoms. Patient does have some chronic shortness of breath due to his COPD but denies any acute change in that. MD complaint: epistaxis Associated symptoms: Deny fever(s), headache(s) or vomiting Review of Systems Const: Denies: fever(s), chills or fatigue Eyes: Denies: change in vision or eye discomfort ENMT: Reports: epistaxis; Denies: throat pain, odynophagia, nasal discharge or nasal congestion Card: Denies: chest pain, palpitations, edema, swelling of feet/ankles, dyspnea on exertion or orthopnea Resp: Denies: dyspnea, productive cough or non-productive cough GI: Denies: abdominal pain, nausea, vomiting, diarrhea, constipation or hematochezia : Denies: flank pain, difficulty urinating, dysuria or hematuria Musc: Denies: neck pain, back pain or extremity swelling Skin/Breast: Denies: rash or new lesions Neuro: Denies: headache(s), numbness in extremities or weakness in extremities PFS ED PFSH: Medical History Acute anemia Blood loss anemia Likely related to epistaxis and etoh intake. He is current on his colonoscopy. Chronic idiopathic constipation COPD (chronic obstructive pulmonary disease) Coronary artery disease Foreign body sensation in right ear canal Heart failure HTN (hypertension) Hyperlipidemia PVD (peripheral vascular disease) Recurrent epistaxis Surgical History S/P coronary angioplasty Coronary disease 2 stents, 2015 S/P hernia repair Family History Father Cancer Mother Cancer Other CAD (coronary artery disease) Social History Alcohol intake: current Household members: spouse Housing: House History of recent travel: No Physical Exam Const: COMMON NORMALS: no acute distress, patient oriented x3 and alert GENERAL APPEARANCE: cooperative and comfortable HENMT: COMMON NORMALS: normocephalic HEAD & SCALP: normocephalic NOSE: Normal septum present (No septal hematoma noted) and Epistaxis present on the right anterior source MOUTH: Normal oral and palatal mucosa present THROAT: posterior oropharynx normal and uvula midline Neck/C-Spine: COMMON NORMALS: supple GENERAL: Yes normal visual inspection Resp: COMMON NORMALS: normal respiratory effort, No retractions and No use of accessory muscles AUSCULTATION: wheezes expiratory wheezes and throughout Cardio: COMMON NORMALS: regular rate, regular rhythm, S1 normal heart sound present, S2 normal heart sound present, No gallops present (Cardio), No clicks present (Cardio), No murmurs present (Cardio) and Peripheral pulses 2+ throughout RATE: regular rate RHYTHM: regular rhythm HEART SOUNDS: S1 normal heart sound present and S2 normal heart sound present PERIPHERAL PULSES: Peripheral pulses 2+ throughout GI: COMMON NORMALS: Normal to inspection, nondistended, normoactive bowel sounds present, Soft to palpation, non-tender and no masses PALPATION: Yes Soft to palpation : COMMON NORMALS: Yes no CVA tenderness BLADDER/KIDNEY EXAM: Yes no CVA tenderness Back/Pelvis: COMMON NORMALS: no CVA tenderness Extremity: COMMON NORMALS: normal to inspection Neuro: COMMON NORMALS: patient oriented x3 and moves all extremities SENSORIUM/ORIENTATION: Yes alert Skin: GENERAL SKIN EXAM: dry skin Procedures Epistaxis Control Time Out Performed: Yes Nostril: right Nose Prepped With: oxymetazoline Direct Inspection: yes and anterior source identified Clots Removed by: manually Device Inserted: nasal tampon (Rhino Rocket inserted in right nare.) Patient Tolerated Procedure: well Complications: continued epistaxis (Patient had some mild episodes of bleeding finally resolved after inflating rocket more) Course Reevaluation(s): Reevaluation #1: After Rhino Rocket was inserted bleeding was controlled. While waiting on lab results he had a little bit of reoccurred bleeding. I inflated the nasal rocket a little bit more and bleeding stopped. Time: 23:40 Reevaluation #2: We continued watching patient for reoccurring nosebleeds and he was having some minimal recurrence of bleeding. I then put some more air in the Rhino Rocket to help with bleeding and bleeding stopped. I talked with Dr. Marquez and he thought we can watch patient for another hour and then reevaluate. After watching for an hour patient had no more reoccurring bleeding and was ready to be discharged home. Time: 01:32 Vital Signs: Vital signs: Vital Signs Temperature 97.5 F L 03/08/21 21:54 Pulse Rate 90 03/08/21 22:45 Respiratory Rate 18 03/08/21 22:42 Blood Pressure 123/93 03/08/21 22:12 Pulse Oximetry 94 03/08/21 22:42 MDM - Epistaxis MDM Narrative: Medical decision making narrative: Patient is a 60-year-old male comes to the ED with epistaxis. Past medical history of hypertension, COPD, hyperlipidemia, CAD. Patient is on oxygen at home and has nebulizer breathing treatments as well. Patient also just stopped taking Plavix today due to bleeding per his doctor's instructions. Symptoms started yesterday and they were able to control it using a nasal clamp. Today patient had another episode of nosebleeding and came here to be evaluated. Patient has a history of nosebleeds the last time he had a bad nosebleed he ended up getting blood transfusion. Vital stable. Exam of patient showed some right nare anterior source of bleeding. He also had some wheezing throughout his lungs upon auscultation. I placed an order for patient to get a DuoNeb breathing treatment here in the ED and it helped his wheezing symptoms. Oxymetazoline was sprayed in both nares and then a Rhino Rocket was placed in right nare and bulb was inflated. Patient still had some brief episodes of bleeding so we continue to watch patient and monitor bleeding. CBC and hemoglobin looked good. I inflated the Rhino Rocket a little more to help with bleeding and his epistaxis stopped. Patient was then watched for another hour and he had no more reoccurring bleeding episodes. I placed an order with sample case porter patient be referred to ENT specialist. He was discharged home with a prescription for cephalexin. Return to ED precautions given. I told patient that sample case porter will contact him the next several days set up an appointment with ENT. Patient understood and agree with plan. Lab Data: Attestation: I reviewed the patient's lab results. Labs: Lab Results 03/08/21 03/08/21 03/08/21 23:16 23:16 23:16 WBC 9.7 10^3/uL 10^3/ uL (4.0-10.0) RBC 4.28 10^6/uL 10^6 /uL (4.1-5.3) Hgb 15.1 g/dL g/dL (11.7-16.6) Hct 44.4 % % (42.0-52.0) MCV 103.7 fl H fl (80-94) MCH 35.3 pg H pg (28.0-34.0) MCHC 34.0 g/dL g/dL (30.0-36.0) RDW 11.4 % L % (12.1-15.1) Plt Count 274 10^3/cmm 10^3 /cmm (130-400) MPV 9.3 fL fL (7.4-10.4) Neut % (Auto) 60.9 % % Lymph % (Auto) 26.7 % % [place] % (Auto) 10.5 % % Eos % (Auto) 1.2 % % Baso % (Auto) 0.4 % % Neut # (Auto) 5.89 10^3/uL 10^3 /uL (1.8-7.7) Lymph # (Auto) 2.6 10^3/uL 10^3/ uL (0.8-4.8) [place] # (Auto) 1.0 10^3/uL H 10^ 3/uL (0.2-0.9) Eos # (Auto) 0.1 10^3/uL 10^3/ uL (0.0-0.8) Baso # (Auto) 0.0 10^3/uL 10^3/ uL (0.0-0.1) Nucleated RBC % (a uto) 0 % % Nucleated RBCs # 0.0 /100WBC /100W BC PT 13.20 SECONDS SEC ONDS (12.1-14.9) INR 0.97 (0.8-1.2) APTT 31.8 SECONDS SECO NDS (23.9-36.7) Sodium 136 mmol/L mmol/L (136-145) Potassium 3.9 mmol/L mmol/L (3.5-5.1) Chloride 97 mmol/L L mmol/ L (98-107) Carbon Dioxide 22 mmol/L mmol/L (22-29) Anion Gap 20.9 H (5-19) BUN 4 mg/dL L mg/dL (8-23) Creatinine 0.4 mg/dL L mg/dL (0.7-1.2) GFR Calculation 218.7 mL/min H mL /min (90-130) Glucose 99 mg/dL mg/dL (65-115) Calculated Osmolal ity 279 mOsm/kg L mOs m/kg (285-295) Calcium 8.9 mg/dL mg/dL (8.5-10.5) Total Bilirubin 0.5 mg/dL mg/dL (0.15-1.2) AST 27 U/L U/L (0-40) ALT 29 U/L U/L (0-41) Alkaline Phosphata se 163 IU/L H IU/L (40-130) Total Protein 7.2 g/dL g/dL (6.6-8.7) Albumin 4.3 g/dL g/dL (3.5-5.2) Globulin 2.9 g/dL g/dL (1.3-4.6) Discharge Plan Discharge Patient Disposition: Home Clinical Impression: Epistaxis Condition: Stable Prescriptions: New cephalexin 500 mg capsule 500 mg PO Q6H 7 Days Qty: 28 RF: 0 No Action amlodipine 5 mg tablet 5 mg PO DAILY Qty: 90 RF: 3 bisacodyl 5 mg tablet,delayed release (DR/EC) 15 mg PO DAILY PRN (Reason: constipation) RF: 0 guaifenesin [Mucinex] 600 mg tablet extended release 12hr 600 mg PO BID PRN (Reason: Congestion) RF: 0 Linzess 290 mcg capsule 290 mcg PO DAILY Qty: 90 RF: 3 thiamine HCl (vitamin B1) 100 mg tablet 50 mg PO DAILY RF: 0 (DME) oxygen-air delivery systems Device See Rx Instructions .Route RF: 0 Spiriva Respimat 2.5 mcg/actuation mist 2 puff inhalation DAILY Qty: 4 RF: 3 isosorbide mononitrate 30 mg tablet extended release 24 hr 15 mg PO BID Qty: 90 RF: 3 folic acid 1 mg tablet 1 mg PO DAILY RF: 0 Combivent Respimat 20-100 mcg/actuation mist 1 puff INHALATION BID RF: 0 albuterol sulfate 2.5 mg /3 mL (0.083 %) solution for nebulization 2.5 mg INHALATION Q4H PRN (Reason: Shortness Of Breath) RF: 0 aspirin [Adult Low Dose Aspirin] 81 mg tablet,delayed release (DR/EC) 81 mg PO DAILY RF: 0 Hold Instructions: Resume on 06/10/20. albuterol sulfate [ProAir HFA] 90 mcg/actuation HFA aerosol inhaler 2 puff INHALATION Q6H PRN (Reason: Shortness Of Breath) RF: 0 multivitamin Tablet 1 tab PO DAILY RF: 0 magnesium oxide 500 mg tablet 500 mg PO BID Qty: 180 RF: 8 nitroglycerin [Nitrostat] 0.4 mg tablet, sublingual 0.4 mg SUBLINGUAL Q5M PRN (Reason: chest pain) Qty: 25 RF: 6 metoprolol tartrate 25 mg tablet 12.5 mg PO BID Qty: 90 RF: 0 pantoprazole 40 mg Tablet,Delayed Release (Dr/Ec) 40 mg PO BID Qty: 60 RF: 0 atorvastatin 40 mg tablet 40 mg PO DAILY Qty: 30 RF: 0 Discharge Orders: Discharge ED (Routine); Ordered 03/08/21 Ordered By: Eduardo Serrano Referrals: Addison Alcaraz, [Primary Care Provider] - Discharge Diet: Regular Discharge Activity: Resume usual activity Patient Instructions: Nosebleed (ED) Activity Restrictions/Additional Instructions: Follow-up with medical provider as directed. Case management should be contacting you the next several days set up an appointment with senior research associate. Take medications as prescribed. Return to the ER or your medical provider if condition worsens. Please read and understand discharge instructions. Thank you for choosing [facility] for your healthcare needs today. Please realize this is an emergency room and that we are providing you with a medical screening exam and this may not be complete and all inclusive of all the testing and or work up that you may need to determine your ailment or severity of your illness. It is very important that you follow up as instructed or that you return to the Emergency Department should you have concerns or if your condition changes or worsens in any way. Coding Level of Care Code ED Massage Coordinator for Rachel Machado Exam Comprehensive
[2021-03-08 22:42] VITALS: PULSE 85; RESP 18; O2SAT 94
[2021-03-08 22:45] VITALS: PULSE 90
[2021-03-08 23:22] LABS: Basophils % 0.4 %; Eosinophils # 0.1 10^3/uL (0.0-0.8); Eosinophils % 1.2 %; Hematocrit 44.4 % (42.0-52.0); Hemoglobin 15.1 g/dL (11.7-16.6); Lymphocytes # 2.6 10^3/uL (0.8-4.8); Lymphocytes % 26.7 %; Mean Corpuscular Hemoglobin 35.3 pg (28.0-34.0); Mean Corpuscular Volume 103.7 fl (80-94); Mean Platelet Volume 9.3 fL (7.4-10.4); Monocytes % 10.5 %; Neutrophils # 5.89 10^3/uL (1.8-7.7); Neutrophils % 60.9 %; Nucleated Red Blood Cells % 0 %; Platelet Count 274 10^3/cmm (130-400); Red Blood Count 4.28 10^6/uL (4.1-5.3); Red Cell Distribution Width 11.4 % (12.1-15.1); White Blood Count 9.7 10^3/uL (4.0-10.0)
[2021-03-08] MEDS: cephALEXin 500 mg Capsule PO (23:31)
[2021-03-08 23:34] LABS: INR 0.97 (0.8-1.2)
[2021-03-08 23:35] LABS: Partial Thromboplastin Time 31.8 SECONDS (23.9-36.7)
[2021-03-08 23:45] LABS: Alanine Aminotransferase 29 U/L (0-41); Albumin Level 4.3 g/dL (3.5-5.2); Alkaline Phosphatase 163 IU/L (40-130); Anion Gap 20.9 (5-19); Aspartate Amino Transferase 27 U/L (0-40); Blood Urea Nitrogen 4 mg/dL (8-23); Calcium 8.9 mg/dL (8.5-10.5); Carbon Dioxide 22 mmol/L (22-29); Chloride 97 mmol/L (98-107); Globulin 2.9 g/dL (1.3-4.6); Glomerular Filtration Rate 218.7 mL/min (90-130); Glucose 99 mg/dL (65-115); Osmolality Calculated 279 mOsm/kg (285-295); Potassium 3.9 mmol/L (3.5-5.1); Sodium 136 mmol/L (136-145); Total Bilirubin 0.5 mg/dL (0.15-1.2); Total Protein 7.2 g/dL (6.6-8.7)
--- NOTE | 2021-03-14 05:57 | DCPLANNER ---
account manager sales representative had message to schedule a follow up appointment for patient with [facility]. account manager sales representative emailed patients information to both Hilda and Olivia at [facility] General Surgery / ENT clinic. Patients information will be printed and reviewed. Clinic will call patient with appointment information.
== END 2021-03-09 01:40 | disposition home or self-care (01) ==
PROVIDERS: Emergency Provider Physician Assistant; PCP Family Medicine
DX: R04.0 Epistaxis (principal); Z79.82 Long term (current) use of aspirin; E78.5 Hyperlipidemia, unspecified; I25.10 Atherosclerotic heart disease of native coronary artery without angina pectoris; I11.0 Hypertensive heart disease with heart failure; J44.9 Chronic obstructive pulmonary disease, unspecified
CPT/HCPCS: 30901; 80053; 85025; 85610; 85730; 94640; 99283

== ENCOUNTER 2021-03-12 00:06 | Emergency (ER) | payer MEDICAID, SELFPAY ==
[2021-03-12 00:15] VITALS: BP 97/82; PULSE 106; RESP 24; TEMP 36.2; O2SAT 95; BMI 24.3
[2021-03-12 00:45] LABS: Basophils % 0.3 %; Eosinophils # 0.1 10^3/uL (0.0-0.8); Eosinophils % 0.8 %; Hematocrit 41.1 % (42.0-52.0); Hemoglobin 14.1 g/dL (11.7-16.6); Lymphocytes # 2.1 10^3/uL (0.8-4.8); Lymphocytes % 21.3 %; Mean Corpuscular HGB Conc 34.3 g/dL (30.0-36.0); Mean Corpuscular Hemoglobin 35.1 pg (28.0-34.0); Mean Corpuscular Volume 102.2 fl (80-94); Mean Platelet Volume 9.5 fL (7.4-10.4); Monocytes # 1.3 10^3/uL (0.2-0.9); Monocytes % 13.3 %; Neutrophils # 6.41 10^3/uL (1.8-7.7); Neutrophils % 64.1 %; Nucleated Red Blood Cells % 0 %; Platelet Count 255 10^3/cmm (130-400); Red Blood Count 4.02 10^6/uL (4.1-5.3); Red Cell Distribution Width 11.8 % (12.1-15.1)
--- NOTE | 2021-03-12 00:55 | ED_ITS ---
Documented by User: DANIEL Portillo 03/12/21 02:03 HPI - Epistaxis General: Chief complaint: Epistaxis Stated complaint: Nose Bleed (5) days Time Seen by Provider: 03/12/21 00:23 History of Present Illness: HPI Narrative: Patient with intermittent nosebleed over the last 5 days. Patient pulled his Rhino Rocket out 2 days after being seen here in the ER and that occurred at night by accident. Patient's had intermittent nosebleeds since then. Has been using Afrin but not nasal saline. Nosebleed is out of the right naris. MD complaint: epistaxis Location: right nostril Onset (ago): day(s) Duration: intermittent Context: history of previous Associated symptoms: Reports no associated symptoms; Deny fever(s), headache(s) or vomiting Treatment prior to arrival: nose pinching Review of Systems Const: Denies: fever(s), chills or body aches Eyes: Denies: change in vision or blurry vision ENMT: Reports: epistaxis; Denies: throat pain or nasal congestion Card: Denies: chest pain or dyspnea on exertion Resp: Denies: dyspnea, productive cough or non-productive cough GI: Denies: abdominal pain, nausea or vomiting : Denies: difficulty urinating Musc: Denies: extremity pain Skin/Breast: Denies: rash Neuro: Denies: headache(s) Psych: Denies: anxiety or depression Mani/Lymph: Denies: easy bruising PFSH ED PFSH: Medical History Acute anemia Blood loss anemia Likely related to epistaxis and etoh intake. He is current on his colonoscopy. Chronic idiopathic constipation COPD (chronic obstructive pulmonary disease) Coronary artery disease Foreign body sensation in right ear canal Heart failure HTN (hypertension) Hyperlipidemia PVD (peripheral vascular disease) Recurrent epistaxis Surgical History S/P coronary angioplasty Coronary disease 2 stents, 2015 S/P hernia repair Family History Father Cancer Mother Cancer Other CAD (coronary artery disease) Social History Alcohol intake: current Household members: spouse Housing: House History of recent travel: No Physical Exam Const: COMMON NORMALS: no acute distress GENERAL APPEARANCE: cooperative HENMT: NOSE: Epistaxis present on the right Resp: AUSCULTATION: diminished lung sounds bilateral Psych: COMMON NORMALS: mental status grossly normal Course Vital Signs: Vital signs: Vital Signs Temperature 97.2 F L 03/12/21 00:15 Pulse Rate 84 03/12/21 01:41 Respiratory Rate 18 03/12/21 01:41 Blood Pressure 150/104 03/12/21 01:41 Pulse Oximetry 95 03/12/21 01:41 MDM - Epistaxis MDM Narrative: Medical decision making narrative: Rhino Rocket was introduced to the right naris with 10 cc of saline. Patient tolerated the procedure fairly well. Nosebleed was stopped. Labs appear normal his hemoglobin dropped 1 from 15.1-14.1 over the last 5 days platelets are normal. Patient was again given a stat consult to see ear nose throat doc. Patient instructed to leave the Rhino Rocket in this time and use nasal saline 6-8 times a day throughout the winter months. Patient tolerated medication well procedure well and will follow up as directed. Lab Data: Labs: Lab Results 03/12/21 03/12/21 03/12/21 00:38 00:38 00:38 WBC 10.0 10^3/uL 10^3 /uL (4.0-10.0) RBC 4.02 10^6/uL L 10 ^6/uL (4.1-5.3) Hgb 14.1 g/dL g/dL (11.7-16.6) Hct 41.1 % L % (42.0-52.0) MCV 102.2 fl H fl (80-94) MCH 35.1 pg H pg (28.0-34.0) MCHC 34.3 g/dL g/dL (30.0-36.0) RDW 11.8 % L % (12.1-15.1) Plt Count 255 10^3/cmm 10^3 /cmm (130-400) MPV 9.5 fL fL (7.4-10.4) Neut % (Auto) 64.1 % % Lymph % (Auto) 21.3 % % [place] % (Auto) 13.3 % % Eos % (Auto) 0.8 % % Baso % (Auto) 0.3 % % Neut # (Auto) 6.41 10^3/uL 10^3 /uL (1.8-7.7) Lymph # (Auto) 2.1 10^3/uL 10^3/ uL (0.8-4.8) [place] # (Auto) 1.3 10^3/uL H 10^ 3/uL (0.2-0.9) Eos # (Auto) 0.1 10^3/uL 10^3/ uL (0.0-0.8) Baso # (Auto) 0.0 10^3/uL 10^3/ uL (0.0-0.1) Nucleated RBC % (a uto) 0 % % Nucleated RBCs # 0.0 /100WBC /100W BC Sodium 135 mmol/L L mmol /L (136-145) Potassium 4.3 mmol/L mmol/L (3.5-5.1) Chloride 97 mmol/L L mmol/ L (98-107) Carbon Dioxide 22 mmol/L mmol/L (22-29) Anion Gap 20.3 H (5-19) BUN 10 mg/dL mg/dL (8-23) Creatinine 0.4 mg/dL L mg/dL (0.7-1.2) GFR Calculation 218.7 mL/min H mL /min (90-130) Glucose 121 mg/dL H mg/dL (65-115) Calculated Osmolal ity 280 mOsm/kg L mOs m/kg (285-295) Calcium 8.8 mg/dL mg/dL (8.5-10.5) Blood Type O Positive Rho(D) Type Positive Antibody Screen Negative Discharge Plan Discharge Patient Disposition: Home Clinical Impression: Epistaxis Condition: Stable Prescriptions: New hydrocodone-acetaminophen 5-325 mg tablet 1 tab PO TID PRN (Reason: pain) Qty: 14 RF: 0 No Action amlodipine 5 mg tablet 5 mg PO DAILY Qty: 90 RF: 3 bisacodyl 5 mg tablet,delayed release (DR/EC) 15 mg PO DAILY PRN (Reason: constipation) RF: 0 guaifenesin [Mucinex] 600 mg tablet extended release 12hr 600 mg PO BID PRN (Reason: Congestion) RF: 0 Linzess 290 mcg capsule 290 mcg PO DAILY Qty: 90 RF: 3 thiamine HCl (vitamin B1) 100 mg tablet 50 mg PO DAILY RF: 0 (DME) oxygen-air delivery systems Device See Rx Instructions .Route RF: 0 Spiriva Respimat 2.5 mcg/actuation mist 2 puff inhalation DAILY Qty: 4 RF: 3 isosorbide mononitrate 30 mg tablet extended release 24 hr 15 mg PO BID Qty: 90 RF: 3 folic acid 1 mg tablet 1 mg PO DAILY RF: 0 Combivent Respimat 20-100 mcg/actuation mist 1 puff INHALATION BID RF: 0 albuterol sulfate 2.5 mg /3 mL (0.083 %) solution for nebulization 2.5 mg INHALATION Q4H PRN (Reason: Shortness Of Breath) RF: 0 aspirin [Adult Low Dose Aspirin] 81 mg tablet,delayed release (DR/EC) 81 mg PO DAILY RF: 0 Hold Instructions: Resume on 06/10/20. albuterol sulfate [ProAir HFA] 90 mcg/actuation HFA aerosol inhaler 2 puff INHALATION Q6H PRN (Reason: Shortness Of Breath) RF: 0 multivitamin Tablet 1 tab PO DAILY RF: 0 magnesium oxide 500 mg tablet 500 mg PO BID Qty: 180 RF: 8 nitroglycerin [Nitrostat] 0.4 mg tablet, sublingual 0.4 mg SUBLINGUAL Q5M PRN (Reason: chest pain) Qty: 25 RF: 6 metoprolol tartrate 25 mg tablet 12.5 mg PO BID Qty: 90 RF: 0 pantoprazole 40 mg Tablet,Delayed Release (Dr/Ec) 40 mg PO BID Qty: 60 RF: 0 atorvastatin 40 mg tablet 40 mg PO DAILY Qty: 30 RF: 0 cephalexin 500 mg capsule 500 mg PO Q6H 7 Days Qty: 28 RF: 0 Discharge Orders: Discharge ED (Routine); Ordered 03/12/21 Ordered By: Aleksey Jackman Referrals: Addison Alcaraz, [Primary Care Provider] - Discharge Diet: Usual diet Discharge Activity: Increase activity as tolerated Patient Instructions: Nosebleed (ED) Activity Restrictions/Additional Instructions: Make sure that you use medication as prescribed. Make sure that you squirt Erhard Ciales, nasal saline up to the nose at least 6-8 times a day. Stop Afrin use right now leave nasal device in nose until follow-up with ear nose throat doctor. Hospital should contact you Ye[place] with appointment for ear nose throat doctor. Follow-up with worsening symptoms. Coding Level of Care Code ED Rewinder Operator Helper for Chg Fwd Exam Expanded Problem Focused Documented by User: Benito Quintana DO 03/12/21 03:09 HPI - Epistaxis General: Chief complaint: Epistaxis Stated complaint: Nose Bleed (5) days Time Seen by Provider: 03/12/21 00:23 PFSH ED PFSH: Medical History Acute anemia Blood loss anemia Likely related to epistaxis and etoh intake. He is current on his colonoscopy. Chronic idiopathic constipation COPD (chronic obstructive pulmonary disease) Coronary artery disease Foreign body sensation in right ear canal Heart failure HTN (hypertension) Hyperlipidemia PVD (peripheral vascular disease) Recurrent epistaxis Surgical History S/P coronary angioplasty Coronary disease 2 stents, 2015 S/P hernia repair Family History Father Cancer Mother Cancer Other CAD (coronary artery disease) Social History Alcohol intake: current Household members: spouse Housing: House History of recent travel: No Course Vital Signs: Vital signs: Vital Signs Temperature 97.2 F L 03/12/21 00:15 Pulse Rate 84 03/12/21 01:41 Respiratory Rate 18 03/12/21 01:41 Blood Pressure 150/104 03/12/21 01:41 Pulse Oximetry 95 03/12/21 01:41 MDM - Epistaxis MDM Narrative: Medical decision making narrative: This patient was originally seen by DANIEL Johnson. I agree with his history, evaluation, and treatment. Lab Data: Labs: Lab Results 03/12/21 03/12/21 03/12/21 00:38 00:38 00:38 WBC 10.0 10^3/uL 10^3 /uL (4.0-10.0) RBC 4.02 10^6/uL L 10 ^6/uL (4.1-5.3) Hgb 14.1 g/dL g/dL (11.7-16.6) Hct 41.1 % L % (42.0-52.0) MCV 102.2 fl H fl (80-94) MCH 35.1 pg H pg (28.0-34.0) MCHC 34.3 g/dL g/dL (30.0-36.0) RDW 11.8 % L % (12.1-15.1) Plt Count 255 10^3/cmm 10^3 /cmm (130-400) MPV 9.5 fL fL (7.4-10.4) Neut % (Auto) 64.1 % % Lymph % (Auto) 21.3 % % [place] % (Auto) 13.3 % % Eos % (Auto) 0.8 % % Baso % (Auto) 0.3 % % Neut # (Auto) 6.41 10^3/uL 10^3 /uL (1.8-7.7) Lymph # (Auto) 2.1 10^3/uL 10^3/ uL (0.8-4.8) [place] # (Auto) 1.3 10^3/uL H 10^ 3/uL (0.2-0.9) Eos # (Auto) 0.1 10^3/uL 10^3/ uL (0.0-0.8) Baso # (Auto) 0.0 10^3/uL 10^3/ uL (0.0-0.1) Nucleated RBC % (a uto) 0 % % Nucleated RBCs # 0.0 /100WBC /100W BC Sodium 135 mmol/L L mmol /L (136-145) Potassium 4.3 mmol/L mmol/L (3.5-5.1) Chloride 97 mmol/L L mmol/ L (98-107) Carbon Dioxide 22 mmol/L mmol/L (22-29) Anion Gap 20.3 H (5-19) BUN 10 mg/dL mg/dL (8-23) Creatinine 0.4 mg/dL L mg/dL (0.7-1.2) GFR Calculation 218.7 mL/min H mL /min (90-130) Glucose 121 mg/dL H mg/dL (65-115) Calculated Osmolal ity 280 mOsm/kg L mOs m/kg (285-295) Calcium 8.8 mg/dL mg/dL (8.5-10.5) Blood Type O Positive Rho(D) Type Positive Antibody Screen Negative Discharge Plan Discharge Patient Disposition: Home Clinical Impression: Epistaxis Condition: Stable Prescriptions: New hydrocodone-acetaminophen 5-325 mg tablet 1 tab PO TID PRN (Reason: pain) Qty: 14 RF: 0 No Action amlodipine 5 mg tablet 5 mg PO DAILY Qty: 90 RF: 3 bisacodyl 5 mg tablet,delayed release (DR/EC) 15 mg PO DAILY PRN (Reason: constipation) RF: 0 guaifenesin [Mucinex] 600 mg tablet extended release 12hr 600 mg PO BID PRN (Reason: Congestion) RF: 0 Linzess 290 mcg capsule 290 mcg PO DAILY Qty: 90 RF: 3 thiamine HCl (vitamin B1) 100 mg tablet 50 mg PO DAILY RF: 0 (DME) oxygen-air delivery systems Device See Rx Instructions .Route RF: 0 Spiriva Respimat 2.5 mcg/actuation mist 2 puff inhalation DAILY Qty: 4 RF: 3 isosorbide mononitrate 30 mg tablet extended release 24 hr 15 mg PO BID Qty: 90 RF: 3 folic acid 1 mg tablet 1 mg PO DAILY RF: 0 Combivent Respimat 20-100 mcg/actuation mist 1 puff INHALATION BID RF: 0 albuterol sulfate 2.5 mg /3 mL (0.083 %) solution for nebulization 2.5 mg INHALATION Q4H PRN (Reason: Shortness Of Breath) RF: 0 aspirin [Adult Low Dose Aspirin] 81 mg tablet,delayed release (DR/EC) 81 mg PO DAILY RF: 0 Hold Instructions: Resume on 06/10/20. albuterol sulfate [ProAir HFA] 90 mcg/actuation HFA aerosol inhaler 2 puff INHALATION Q6H PRN (Reason: Shortness Of Breath) RF: 0 multivitamin Tablet 1 tab PO DAILY RF: 0 magnesium oxide 500 mg tablet 500 mg PO BID Qty: 180 RF: 8 nitroglycerin [Nitrostat] 0.4 mg tablet, sublingual 0.4 mg SUBLINGUAL Q5M PRN (Reason: chest pain) Qty: 25 RF: 6 metoprolol tartrate 25 mg tablet 12.5 mg PO BID Qty: 90 RF: 0 pantoprazole 40 mg Tablet,Delayed Release (Dr/Ec) 40 mg PO BID Qty: 60 RF: 0 atorvastatin 40 mg tablet 40 mg PO DAILY Qty: 30 RF: 0 cephalexin 500 mg capsule 500 mg PO Q6H 7 Days Qty: 28 RF: 0 Discharge Orders: Discharge ED (Routine); Ordered 03/12/21 Ordered By: Aleksey Jackman Referrals: Addison Alcaraz DO [Primary Care Provider] - Discharge Diet: Usual diet Discharge Activity: Increase activity as tolerated Patient Instructions: Nosebleed (ED) Activity Restrictions/Additional Instructions: Make sure that you use medication as prescribed. Make sure that you squirt Erhard Ciales, nasal saline up to the nose at least 6-8 times a day. Stop Afrin use right now leave nasal device in nose until follow-up with ear nose throat doctor. Hospital should contact you Saturday with appointment for ear nose throat doctor. Follow-up with worsening symptoms. Coding Level of Care Code ED Rewinder Operator Helper for Chg Fwd Exam Expanded Problem Focused
[2021-03-12] MEDS: HYDROcodone-acetaminophen 5-325 mg Tablet 1 TAB PO (00:58)
[2021-03-12] MEDS: LORazepam 2 mg/mL INJ 1 mL 1 MG IVP (00:58)
[2021-03-12 01:01] VITALS: BP 107/88; PULSE 108; RESP 18; O2SAT 92
[2021-03-12 01:01] LABS: Blood Urea Nitrogen 10 mg/dL (8-23); Calcium 8.8 mg/dL (8.5-10.5); Carbon Dioxide 22 mmol/L (22-29); Chloride 97 mmol/L (98-107); Glomerular Filtration Rate 218.7 mL/min (90-130); Glucose 121 mg/dL (65-115); Osmolality Calculated 280 mOsm/kg (285-295); Sodium 135 mmol/L (136-145)
[2021-03-12 01:04] LABS: Anion Gap 20.3 (5-19); Potassium 4.3 mmol/L (3.5-5.1)
[2021-03-12 01:41] VITALS: BP 150/104; PULSE 84; RESP 18; O2SAT 95
--- NOTE | 2021-03-15 07:33 | DCPLANNER ---
Patient has a follow up appointment scheduled for , March 16, 2021 at 9:[address] Espitia at [facility]. Clinic will call patient with appointment information.
--- NOTE | 2021-04-13 13:36 | DCPLANNER ---
Patient had a follow up appointment scheduled with ENT - patient did attend appointment.
== END 2021-03-12 01:42 | disposition home or self-care (01) ==
PROVIDERS: Emergency Provider Nurse Practitioner Family; PCP Family Medicine
DX: R04.0 Epistaxis (principal); Z79.82 Long term (current) use of aspirin; J44.9 Chronic obstructive pulmonary disease, unspecified; I25.10 Atherosclerotic heart disease of native coronary artery without angina pectoris; I10 Essential (primary) hypertension; E78.5 Hyperlipidemia, unspecified; Z95.5 Presence of coronary angioplasty implant and graft
CPT/HCPCS: 80048; 85025; 86850; 86900; 96374; 99284; J2060

== ENCOUNTER 2021-03-16 09:53 | Outpatient (CLI) | payer MEDICAID, SELFPAY ==
--- NOTE | 2021-03-16 10:06 | CT_ITS ---
WS: [id number] LDCT LUNG CANCER SCREENING TECHNIQUE: Noncontrast CT of the chest with coronal and sagittal reformatted images. CLINICAL INFORMATION: lung screening COMPARISON: CTA chest 2019 . DLP: 56.56 mGy.cm DIvol: 1.[address] scans at [facility] use at least one of these dose optimization techniques: automat ed exposure control; mA and/or kV adjustment per patient size (includes targeted exams where dose is matched to clinical indication); or iterative reconstruction. FINDINGS: Advanced chronic emphysematous changes. No acute pulmonary infiltrates. No focal pneumonia or pleural fluid. No suspicious pulmonary parenchymal normalities. A few calcified granulomas. Mild aortic calcification. Coronary calcification. No mediastinal or mariia r lymphadenopathy. Splenic granulomas. Adrenal glands are normal CT/CT lung screening [id number] IMPRESSION: LUNG-RADS: 2-Benign Appearance or Behavior FOLLOW UP: 12 Month: Continue annual screening with LDCT
== END 2021-03-16 09:54 | disposition home or self-care (01) ==
LOC: CT 09:55
PROVIDERS: PCP Family Medicine; Visit Provider Internal Medicine Pulmonary Disease
DX: Z12.2 Encounter for screening for malignant neoplasm of respiratory organs (principal); F17.210 Nicotine dependence, cigarettes, uncomplicated; I70.0 Atherosclerosis of aorta
CPT/HCPCS: 71271

== ENCOUNTER → 2021-03-23 15:24 | Outpatient (BNVA) | payer MEDICAID, SELFPAY | PROVIDERS: PCP Family Medicine; Visit Provider Otolaryngology | DX: Z20.822 Contact with and (suspected) exposure to COVID-19 (principal); R04.0 Epistaxis | CPT/HCPCS: 87635 ==

== ENCOUNTER 2021-03-28 12:53 | Outpatient (CLI) | payer MEDICAID, SELFPAY ==
--- NOTE | 2021-03-28 13:40 | PFTS_ITS ---
Date of Study:03/28/21 Date of Dictation: 03/31/21 MECHANICS: Postbronchodilator forced vital capacity (FVC) is reduced . Postbronchodilator forced expiratory volume in one second (FEV1) is severely reduced to 38% reduced. FEV1/FVC is reduced. There is no significant response to bronchodilators. FLOW VOLUME LOOP: Severe slanting of expiratory limb suggestive of airway obstruction . LUNG VOLUMES: Total lung capacity (TLC) is normal. Residual volume (RV) is increased suggestive of severe air trapping. DIFFUSING CAPACITY FOR CARBON MONOXIDE: Severely reduced 35% . INTERPRETATION: The spirometry shows severe obstruction. Lung volumes suggestive of severe air trapping. There is severe gas transfer defect. Constellation of findings consistent with obstructive ventilatory disease with gas transfer defect likely emphysema. Clinical correlation recommended. MTDD
== END 2021-03-28 12:54 | disposition home or self-care (01) ==
LOC: RT 12:54
PROVIDERS: PCP Family Medicine; Visit Provider Internal Medicine Pulmonary Disease
DX: R06.00 Dyspnea, unspecified (principal)
CPT/HCPCS: 94060; 94618; 94726; 94729

== ENCOUNTER → 2021-06-30 11:01 | Outpatient (BNVA) | payer MEDICAID, SELFPAY | PROVIDERS: PCP Family Medicine; Visit Provider Internal Medicine Pulmonary Disease | DX: R06.00 Dyspnea, unspecified (principal); I25.10 Atherosclerotic heart disease of native coronary artery without angina pectoris; F17.210 Nicotine dependence, cigarettes, uncomplicated; J44.9 Chronic obstructive pulmonary disease, unspecified; Z71.6 Tobacco abuse counseling; I10 Essential (primary) hypertension; E78.5 Hyperlipidemia, unspecified; I73.9 Peripheral vascular disease, unspecified; K59.04 Chronic idiopathic constipation | CPT/HCPCS: 99214 ==

== ENCOUNTER → 2021-08-07 10:30 | Outpatient (BNVA) | payer MEDICAID, SELFPAY | PROVIDERS: PCP Family Medicine; Visit Provider Otolaryngology | DX: H91.93 Unspecified hearing loss, bilateral (principal); F17.210 Nicotine dependence, cigarettes, uncomplicated | CPT/HCPCS: 99213 ==

== ENCOUNTER → 2021-08-29 13:04 | Outpatient (BNVA) | payer MEDICAID, SELFPAY | PROVIDERS: PCP Family Medicine; Visit Provider Nurse Practitioner Family | DX: I25.10 Atherosclerotic heart disease of native coronary artery without angina pectoris (principal); F17.210 Nicotine dependence, cigarettes, uncomplicated | CPT/HCPCS: 99214 ==

== ENCOUNTER 2021-08-29 14:03 | Emergency (ER) | payer MEDICAID, SELFPAY ==
--- NOTE | 2021-08-29 14:30 | ECG_ITS ---
[facility] Test Date: 2021-08-29 Pat Name: John Diaz Department: Room: Gender: Male All Source Analyst: : 1960 Requested By: Darrell Wilson Order Number: [id number] Huerta MD: Isidoro Dubon M.D. Measurements Intervals [place] Rate: 83 P: 62 FL: 154 QRS: 67 QRSD: 114 T: 55 QT: 367 QTc: 433 Interpretive Statements SINUS RHYTHM PROBABLE INFERIOR MYOCARDIAL INFARCTION , PROBABLY OLD [35 ms Q WAVE IN II/aVF] Compared to ECG 01/18/2021 21:15:23 Poor R-wave progression no longer present Myocardial infarct finding still present Electronically Signed On 08-29-2021 17:08:56 CDT by Isidoro Dubon M.D. [id number]
--- NOTE | 2021-08-29 14:30 | XRR_ITS ---
PROCEDURE INFORMATION: Exam: XR Chest Exam date and time: 08/29/2021 2:53 PM Age: 61 years old Clinical indication: Dyspnea TECHNIQUE: Imaging protocol: XR of the chest. Views: 1 view. COMPARISON: CR XR chest 1V portable [id number] 01/18/2021 8:00 PM FINDINGS: Lungs: Small focal ill-defined opacities at the lung bases, right greater than left. Pleural spaces: Unremarkable. No pleural effusion. No pneumothorax. Heart/Mediastinum: Unremarkable. No cardiomegaly. Bones/joints: Unremarkable. XR/XR chest 1V portable [id number] IMPRESSION: Small focal ill-defined opacity at the lung bases, right greater than left. This could represent multifocal pneumonia in the appropriate clinical context.
[2021-08-29 14:40] VITALS: BP 114/77; PULSE 89; RESP 24; TEMP 36.9; O2SAT 95
[2021-08-29 16:07] VITALS: BP 122/79; PULSE 93; RESP 24; O2SAT 97
--- NOTE | 2021-08-29 16:19 | W.ED.SOB ---
Documented by User: Ananth MonteDO 08/29/21 17:58 HPI - SOB/Dyspnea General: Chief Complaint: Shortness of Breath/Dyspnea Stated Complaint: SOB Time Seen by Provider: 08/29/21 18:04 Source: patient Mode of arrival: ambulatory Limitations: no limitations History of Present Illness: HPI Narrative: 61-year-old male presents emergency room complaining of abdominal pain that has had for well over a year has been evaluated extensively with Dr. Leigh and surgery did not had any significant findings or anything that we will correct. In addition that he has a history of COPD is having increasing shortness of breath and difficulty breathing recently. He has not had any fevers or chills has increasing cough of productive cough he has a known history of COPD and he is on maintenance inhalers but has not been using them because of side effects he was previously on an anticholinergic and then on a LABA inhaled corticosteroid combination but he stopped both of those he is just been relying on DuoNeb and albuterol recently. Is not having any chest tightness radiates to his neck or arms. No history of coronary disease. His oxygen sats remain in the mid and upper 90s on room air MD elicited complaint: shortness of breath and cough Pertinent past history: COPD Onset (ago): day(s) Severity: moderate Exacerbating factors: exertion and coughing Relieving factors: rest and bronchodilators Known history of: COPD Associated symptoms: Reports abdominal pain (Chronic), chest congestion and cough; Deny chest pain, diaphoresis, dizziness, extremity pain, fever(s), hemoptysis, lightheadedness, myalgias, nausea, orthopnea, palpitations, paresthesias, polydipsia, polyuria, rash, sense of impending doom, syncope or vomiting Treatment prior to arrival: none Review of Systems Const: Reports: chills, body aches and change in appetite; Denies: fever(s) or diaphoresis ENMT: Denies: throat pain, ear or mastoid pain, nasal discharge or nasal congestion Card: Denies: chest pain, palpitations, lightheadedness, syncope or orthopnea Resp: Reports: dyspnea, productive cough, wheezing and chest congestion; Denies: hemoptysis GI: Reports: abdominal pain (Chronic); Denies: nausea or vomiting : Denies: flank pain, dysuria, urinary frequency or urinary urgency Musc: Denies: extremity pain Skin/Breast: Denies: rash or pruritus Neuro: Denies: dizziness Endo: Denies: polyuria or polydipsia PFSH ED PFSH: Medical History Acute anemia Blood loss anemia Likely related to epistaxis and etoh intake. He is current on his colonoscopy. Chronic idiopathic constipation COPD (chronic obstructive pulmonary disease) Coronary artery disease Foreign body sensation in right ear canal Heart failure HTN (hypertension) Hyperlipidemia Intestinal angina PVD (peripheral vascular disease) Recurrent epistaxis Surgical History S/P coronary angioplasty Coronary disease 2 stents, 2014 S/P hernia repair Family History Father Cancer Mother Cancer Other CAD (coronary artery disease) Social History Smoking and tobacco status: current every day smoker (5 cigarettes per day) cigarettes Packs smoked per day: 0.5 Years cigarettes smoked: 45 [ Other cigarette details: Half a pack a day, started at age 12 years] Alcohol intake: current Alcohol intake frequency: 3 or more drinks per day Alcohol type: beer Household members: spouse Housing: House History of recent travel: No Physical Exam Const: GENERAL APPEARANCE: cooperative and comfortable ORIENTATION/CONSCIOUSNESS: Yes awake HENMT: COMMON NORMALS: normocephalic, atraumatic and hearing grossly normal bilaterally HEAD & SCALP: normocephalic and atraumatic Neck/C-Spine: COMMON NORMALS: no JVD Resp: AUSCULTATION: rhonchi and wheezes Cardio: COMMON NORMALS: no JVD, regular rate, regular rhythm and No murmurs present (Cardio) RATE: regular rate RHYTHM: regular rhythm GI: COMMON NORMALS: No hepatosplenomegaly present AUSCULTATION: Yes normoactive bowel sounds PALPATION: Yes Tenderness to palpation present (GI) Details: RLQ (Chronic), No Guarding due to palpation present (GI) and Yes No hepatosplenomegaly present Extremity: COMMON NORMALS: normal to inspection, capillary refill normal, no clubbing, cyanosis or edema, no calf tenderness and no pedal edema Skin: COMMON NORMALS: no rashes or lesions noted GENERAL SKIN EXAM: no rashes or lesions noted Course Vital Signs: Vital signs: Vital Signs Temperature 98.4 F 08/29/21 14:40 Pulse Rate 93 08/29/21 19:15 Respiratory Rate 20 H 08/29/21 19:15 Blood Pressure 169/95 08/29/21 19:15 Pulse Oximetry 94 08/29/21 19:15 MDM - SOB/Dyspnea Medical Decision Making Care signed out to Dr. Ya at change of shift. See final notes for diagnosis and disposition. Medical Records I reviewed the patient's medical records. Lab Data I reviewed the patient's lab results. : 08/29/21 16:10 08/29/21 16:10 Labs/Radiology: Radiology Impressions Chest X-Ray 08/29/21 14:30 IMPRESSION: Small focal ill-defined opacity at the lung bases, right greater than left. This could represent multifocal pneumonia in the appropriate clinical context. Laboratory Results WBC 9.9 10^3/uL (4.0-10.0) 08/29/21 16:10 RBC 5.05 10^6/uL (4.1-5.3) 08/29/21 16:10 Hgb 12.2 g/dL (11.7-16.6) 08/29/21 16:10 Hct 40.4 % (42.0-52.0) L 08/29/21 16:10 MCV 80.0 fl (80-94) 08/29/21 16:10 MCH 24.2 pg (28.0-34.0) L 08/29/21 16:10 MCHC 30.2 g/dL (30.0-36.0) 08/29/21 16:10 RDW 19.5 % (12.1-15.1) H 08/29/21 16:10 Plt Count 592 10^3/cmm (130-400) H 08/29/21 16:10 MPV 9.1 fL (7.4-10.4) 08/29/21 16:10 Neut % (Auto) 66.7 % 08/29/21 16:10 Lymph % (Auto) 21.8 % 08/29/21 16:10 [place] % (Auto) 10.0 % 08/29/21 16:10 Eos % (Auto) 0.6 % 08/29/21 16:10 Baso % (Auto) 0.5 % 08/29/21 16:10 Neut # (Auto) 6.61 10^3/uL (1.8-7.7) 08/29/21 16:10 Lymph # (Auto) 2.2 10^3/uL (0.8-4.8) 08/29/21 16:10 [place] # (Auto) 1.0 10^3/uL (0.2-0.9) H 08/29/21 16:10 Eos # (Auto) 0.1 10^3/uL (0.0-0.8) 08/29/21 16:10 Baso # (Auto) 0.1 10^3/uL (0.0-0.1) 08/29/21 16:10 Nucleated RBC % (auto) 0 % 08/29/21 16:10 Nucleated RBCs # 0.0 /100WBC 08/29/21 16:10 Specimen Type Arterial 08/29/21 16:17 Sample Site Radial, left 08/29/21 16:17 ABG pH 7.49 (7.35-7.45) H 08/29/21 16:17 ABG pCO2 33.7 mmHg (35-45) L 08/29/21 16:17 ABG pO2 69.0 mmHg (80.0-100.0) L 08/29/21 16:17 ABG HCO3 25.4 mmol/L (22-26) 08/29/21 16:17 ABG O2 Saturation 94.5 08/29/21 16:17 ABG Base Excess 2.3 mmol/L (-2.0-2.0) H 08/29/21 16:17 Pato Test Pos 08/29/21 16:17 A-a O2 Gradient 5.0 mmHg (5-10) 08/29/21 16:17 Hematocrit 36.8 % (42-52) L 08/29/21 16:17 Hgb O2 Saturation 90.9 % (95-100) L 08/29/21 16:17 Carboxyhemoglobin 2.9 %THgb (0.4-20.1) 08/29/21 16:17 Methemoglobin 0.9 % (0.4-1.5) 08/29/21 16:17 Total Hemoglobin 12.0 g/dL (14-18) L 08/29/21 16:17 Sodium 146.0 mmol/L (131-143) H 08/29/21 16:17 Potassium 3.9 mmol/L (3.5-5.0) 08/29/21 16:17 Glucose 111.0 mg/dL (70-115) 08/29/21 16:17 Ionized Calcium 1.2 mmol/L (1.1-1.4) 08/29/21 16:17 O2 Delivery Device Room air 08/29/21 16:17 FiO2 21.0 % 08/29/21 16:17 Ripening Room Hand ID Cak 08/29/21 16:17 Sodium 140 mmol/L (136-145) 08/29/21 16:10 Potassium 4.1 mmol/L (3.5-5.1) 08/29/21 16:10 Chloride 100 mmol/L (98-107) 08/29/21 16:10 Carbon Dioxide 24 mmol/L (22-29) 08/29/21 16:10 Anion Gap 20.1 (5-19) H 08/29/21 16:10 BUN 7 mg/dL (8-23) L 08/29/21 16:10 Creatinine 0.4 mg/dL (0.7-1.2) L 08/29/21 16:10 GFR Calculation 218.0 mL/min (90-130) H 08/29/21 16:10 Glucose 108 mg/dL (65-115) 08/29/21 16:10 Calculated Osmolality 289 mOsm/kg (285-295) 08/29/21 16:10 Calcium 8.5 mg/dL (8.5-10.5) 08/29/21 16:10 Troponin T Baseline 12 ng/L (0-15) 08/29/21 16:10 Troponin T 120 Minute 10.72 ng/L (0-15) 08/29/21 17:54 Delta Troponin T -1.28 ABS# (0-10) L 08/29/21 17:54 Discharge Plan Discharge Patient Disposition: Home Clinical Impression: Acute exacerbation of chronic obstructive airways disease, Pneumonia, Abdominal pain Condition: Stable Prescriptions: New amoxicillin-pot clavulanate 875-125 mg tablet 1 tab PO BID Qty: 19 0RF albuterol sulfate 90 mcg/actuation HFA aerosol inhaler 2 inh inhalation Q4H Qty: 8.5 0RF Rx Instructions: 2 puffs every 4 hr for 1 daythen 2 puffs every 6 hr for 1 day then 2 puffs every 8 hr for 1 day. Then normal schedule. No Action bisacodyl 5 mg tablet,delayed release (DR/EC) 15 mg PO DAILY PRN (Reason: constipation) 0RF guaifenesin [Mucinex] 600 mg tablet extended release 12hr 600 mg PO BID PRN (Reason: Congestion) 0RF thiamine HCl (vitamin B1) 100 mg tablet 50 mg PO DAILY 0RF (DME) oxygen-air delivery systems Device See Rx Instructions .Route 0RF Rx Instructions: As directed isosorbide mononitrate 30 mg tablet extended release 24 hr 15 mg PO BID Qty: 90 3RF folic acid 1 mg tablet 1 mg PO DAILY 0RF albuterol sulfate 2.5 mg /3 mL (0.083 %) solution for nebulization 2.5 mg INHALATION Q4H PRN (Reason: Shortness Of Breath) 0RF aspirin [Adult Low Dose Aspirin] 81 mg tablet,delayed release (DR/EC) 81 mg PO DAILY 0RF Hold Instructions: Resume on 06/10/20. albuterol sulfate [ProAir HFA] 90 mcg/actuation HFA aerosol inhaler 2 puff INHALATION Q6H PRN (Reason: Shortness Of Breath) 0RF multivitamin Tablet 1 tab PO DAILY 0RF magnesium oxide 500 mg tablet 500 mg PO BID Qty: 180 8RF [place] Saline 0.65 % aerosol,spray 1 spray intranasal BID PRN (Reason: Nasal Congestion) 0RF oxymetazoline [Afrin (oxymetazoline)] 0.05 % spray,non-aerosol 2 spray intranasal Q12H PRN (Reason: Nasal Congestion) 0RF Linzess 290 mcg capsule 290 mcg PO .PRN 0RF Combivent Respimat 20-100 mcg/actuation mist 1 puff INHALATION BID Qty: 4 5RF nitroglycerin [Nitrostat] 0.4 mg tablet, sublingual 0.4 mg SUBLINGUAL Q5M PRN (Reason: chest pain) Qty: 25 6RF metoprolol tartrate 25 mg tablet 12.5 mg PO BID Qty: 90 3RF amlodipine 5 mg tablet 5 mg PO DAILY Qty: 90 1RF pantoprazole 40 mg Tablet,Delayed Release (Dr/Ec) 40 mg PO BID Qty: 60 0RF atorvastatin 40 mg tablet 40 mg PO DAILY Qty: 30 0RF Discharge Orders: Discharge ED (Routine); Ordered 08/29/21 Ordered By: Elia Ya Referrals: Addison Alcaraz DO [Referring] - Discharge Diet: Usual diet Discharge Activity: Increase activity as tolerated Patient Instructions: COPD (Chronic Obstructive Pulmonary Disease) (ED), Community Acquired Pneumonia (ED), Abdominal Pain (ED) Activity Restrictions/Additional Instructions: Thank you for visiting the emergency department. You were seen and evaluated for abdominal pain as well as cough. The exact cause of your abdominal pain is unclear, additional imaging was offered which she declined, most likely the cause is related to her chronic pain and known conditions including vascular insufficiency. You are found to have pneumonia and likely exacerbation of underlying COPD. This will be treated with steroids, antibiotics, and use albuterol inhaler as discussed. Please follow-up with your primary care provider and Dr. Leigh. Please return to the emergency department for worsening symptoms or anything else that you are concerned about and feel needs emergency department evaluation. Sign Out Sign Out Data: Patient Sign Out occurred on 08/29/21 at 18:04. Patient's care was discussed, and care was transferred from to Elia Ya MD. Coding Level of Care Code ED Shoeshiner for Chg Fwd Exam Comprehensive Documented by User: Elia Ya MD 09/03/21 03:04 HPI - SOB/Dyspnea General: Chief Complaint: Shortness of Breath/Dyspnea Stated Complaint: SOB Time Seen by Provider: 08/29/21 18:04 [facility] ED PFSH: Medical History Acute anemia Blood loss anemia Likely related to epistaxis and etoh intake. He is current on his colonoscopy. Chronic idiopathic constipation COPD (chronic obstructive pulmonary disease) Coronary artery disease Foreign body sensation in right ear canal Heart failure HTN (hypertension) Hyperlipidemia Intestinal angina PVD (peripheral vascular disease) Recurrent epistaxis Surgical History S/P coronary angioplasty Coronary disease 2 stents, 2015 S/P hernia repair Family History Father Cancer Mother Cancer Other CAD (coronary artery disease) Social History Smoking and tobacco status: current every day smoker (5 cigarettes per day) cigarettes Packs smoked per day: 0.5 Years cigarettes smoked: 45 [ Other cigarette details: Half a pack a day, started at age 12 years] Alcohol intake: current Alcohol intake frequency: 3 or more drinks per day Alcohol type: beer Household members: spouse Housing: House History of recent travel: No Course Vital Signs: Vital signs: Vital Signs Temperature 98.4 F 08/29/21 14:40 Pulse Rate 93 08/29/21 19:15 Respiratory Rate 20 H 08/29/21 19:15 Blood Pressure 169/95 08/29/21 19:15 Pulse Oximetry 94 08/29/21 19:15 MDM - SOB/Dyspnea Medical Decision Making Care signed out to Dr. Ya at change of shift. See final notes for diagnosis and disposition. Patient care handoff received from Dr. Monte pending completion of ED evaluation. Laboratory studies notable for no leukocytosis, hemoglobin normal. Mild thrombocytosis of unclear etiology. ABG without evidence of significant respiratory failure. Metabolic panel without acute derangement requiring intervention. Delta troponin negative. Chest x-ray reviewed with mild ill-defined opacities which could represent pneumonia. Results of ED evaluation were discussed with the patient. He does have frustration regarding not having an answer for his abdominal pain however is comfortable with outpatient follow-up. He will be prescribed antibiotics for pneumonia. Elia Ya MD Emergency Medicine Lab Data : 08/29/21 16:10 08/29/21 16:10 Labs/Radiology: Radiology Impressions Chest X-Ray 08/29/21 14:30
[2021-08-29 16:22] LABS: Basophils # 0.1 10^3/uL (0.0-0.1); Basophils % 0.5 %; Eosinophils # 0.1 10^3/uL (0.0-0.8); Eosinophils % 0.6 %; Hematocrit 40.4 % (42.0-52.0); Hemoglobin 12.2 g/dL (11.7-16.6); Lymphocytes # 2.2 10^3/uL (0.8-4.8); Lymphocytes % 21.8 %; Mean Corpuscular HGB Conc 30.2 g/dL (30.0-36.0); Mean Corpuscular Hemoglobin 24.2 pg (28.0-34.0); Mean Platelet Volume 9.1 fL (7.4-10.4); Neutrophils # 6.61 10^3/uL (1.8-7.7); Neutrophils % 66.7 %; Nucleated Red Blood Cells % 0 %; Platelet Count 592 10^3/cmm (130-400); Red Blood Count 5.05 10^6/uL (4.1-5.3); Red Cell Distribution Width 19.5 % (12.1-15.1); White Blood Count 9.9 10^3/uL (4.0-10.0)
[2021-08-29 16:28] LABS: ABG PCO2 33.7 mmHg (35-45); ABG PH Result 7.49 (7.35-7.45); Arterial Blood Gas Hematocrit 36.8 % (42-52); Base Excess ABG 2.3 mmol/L (-2.0-2.0); Blood Gas Allen Test Pos; Blood Gas Operator Identificat CAK; Blood Gas Sample Site Radial, left; Blood Gas Sample Type Arterial; Carboxyhemoglobin 2.9 %THgb (0.4-20.1); HCO3 ABG 25.4 mmol/L (22-26); HGB O2 Sat 90.9 % (95-100); Ionized Calcium Level - ABG 1.2 mmol/L (1.1-1.4); Methemoglobin 0.9 % (0.4-1.5); Oxygen Device ROOM AIR; Oxygen Saturation ABG 94.5; Potassium Level - ABG 3.9 mmol/L (3.5-5.0)
--- NOTE | 2021-08-29 16:30 | ECG_ITS ---
[facility] Test Date: 2021-08-29 Pat Name: John Diaz Department: Room: Gender: Male Campus Manager: : 1960 Requested By: Darrell Wilson Order Number: [id number] Deanna MD: Isidoro Dubon M.D. Measurements Intervals [place] Rate: 107 P: -13 CA: 124 QRS: 76 QRSD: 106 T: 53 QT: 342 QTc: 457 Interpretive Statements SINUS TACHYCARDIA PROBABLE INFERIOR MYOCARDIAL INFARCTION , PROBABLY OLD [35 ms Q WAVE IN II/aVF] Compared to ECG 08/29/2021 15:49:05 Sinus rhythm no longer present Myocardial infarct finding still present Electronically Signed On 08-29-2021 22:03:05 CDT by Isidoro Dubon M.D. [email or web address].Ambient [email or web address] baptist medical centerUlterius Technologies.[employer]/store/[id number]
[2021-08-29 16:42] LABS: Troponin(5th) Baseline 12 ng/L (0-15)
[2021-08-29 16:46] LABS: Anion Gap 20.1 (5-19); Blood Urea Nitrogen 7 mg/dL (8-23); Calcium 8.5 mg/dL (8.5-10.5); Carbon Dioxide 24 mmol/L (22-29); Chloride 100 mmol/L (98-107); Glucose 108 mg/dL (65-115); Osmolality Calculated 289 mOsm/kg (285-295); Potassium 4.1 mmol/L (3.5-5.1); Sodium 140 mmol/L (136-145)
[2021-08-29 17:42] VITALS: PULSE 102; RESP 22; O2SAT 96
[2021-08-29] MEDS: ipratropium-albuterol 3 mL Neb INHALATION (17:52)
[2021-08-29 18:00] VITALS: BP 168/102; PULSE 98; RESP 14; O2SAT 97
[2021-08-29 18:34] LABS: Troponin 5 2HR 10.72 ng/L (0-15)
[2021-08-29 19:04] LABS: Troponin 5 2HR Delta -1.28 ABS# (0-10)
[2021-08-29 19:15] VITALS: BP 169/95; PULSE 93; RESP 20; O2SAT 94
[2021-08-29] MEDS: amoxicillin-clav 875-125 mg Tablet 1 TAB PO (19:15)
== END 2021-08-29 19:17 | disposition home or self-care (01) ==
PROVIDERS: Emergency Medicine; Family Medicine; Emergency Provider Emergency Medicine
DX: J44.1 Chronic obstructive pulmonary disease with (acute) exacerbation (principal); J18.9 Pneumonia, unspecified organism; R10.9 Unspecified abdominal pain; I25.10 Atherosclerotic heart disease of native coronary artery without angina pectoris; I11.0 Hypertensive heart disease with heart failure; I50.9 Heart failure, unspecified
CPT/HCPCS: 36600; 71045; 80048; 80051; 82330; 82805; 84484; 85025; 93005; 94640; 96374; 99285; J2930

== ENCOUNTER → 2021-09-29 11:04 | Outpatient (BNVA) | payer MEDICAID, SELFPAY | PROVIDERS: Visit Provider Internal Medicine Pulmonary Disease | DX: R06.00 Dyspnea, unspecified (principal); J44.9 Chronic obstructive pulmonary disease, unspecified; J22 Unspecified acute lower respiratory infection; Z71.6 Tobacco abuse counseling; F17.210 Nicotine dependence, cigarettes, uncomplicated; I10 Essential (primary) hypertension; E78.5 Hyperlipidemia, unspecified | CPT/HCPCS: 71046; 99214 ==

== ENCOUNTER 2021-11-14 10:06 | Inpatient (IN) | payer MEDICAID, SELFPAY ==
[2021-11-14] VITALS (21 sets, daily range): BP systolic 102–173; BP diastolic 71–100; PULSE 80–118; RESP 14–23; TEMP 36.5–36.7; O2SAT 90–99; BMI 25.2
--- NOTE | 2021-11-14 10:08 | XRR_ITS ---
PROCEDURE INFORMATION: Exam: XR Chest Exam date and time: 11/14/2021 10:35 AM Age: 61 years old Clinical indication: Angina pectoris; Patient HX: Chest and abdomen pain; Additional info: Chest pain TECHNIQUE: Imaging protocol: Radiologic exam of the chest. Views: 1 view. COMPARISON: CR XR chest 2V* [id number] 09/29/2021 12:24 PM FINDINGS: Lungs: Unremarkable. No consolidation. Pleural spaces: Unremarkable. No pleural effusion. No pneumothorax. Heart/Mediastinum: Unremarkable. No cardiomegaly. Bones/joints: Unremarkable. XR/XR chest 1V portable [id number] IMPRESSION: No acute findings.
--- NOTE | 2021-11-14 10:08 | ECG_ITS ---
[facility] Test Date: 2021-11-14 Pat Name: John Diaz Department: Room: Gender: Male Generator Repairer: : 1960 Requested By: Gina De Luna Order Number: [id number] Huerta MD: Paco Gallegos M.D. Measurements Intervals [place] Rate: 77 P: 67 RI: 176 QRS: 76 QRSD: 109 T: 59 QT: 404 QTc: 458 Interpretive Statements SINUS RHYTHM POSSIBLE INFERIOR MYOCARDIAL INFARCTION , PROBABLY OLD [30 ms Q WAVE IN II/aVF] Compared to ECG 08/29/2021 17:46:30 Sinus tachycardia no longer present Myocardial infarct finding still present Electronically Signed On 11-14-2021 21:10:19 CDT by Paco Gallegos M.D. [id number]
--- NOTE | 2021-11-14 10:24 | ED_ITS ---
Documented by User: MARIANELA Edwards 11/15/21 07:13 HPI - Chest Pain General: Chief Complaint: Chest Pain Stated Complaint: CHEST PAIN Time Seen by Provider: 11/14/21 10:08 Source: patient and EMS Mode of arrival: EMS Limitations: no limitations History of Present Illness: Patient is a 61-year-old male with a history of COPD, CAD with stents, heart failure, hypertension, PVD, and anemia here for complaints of abdominal and chest pain. Patient states he has a longstanding history of abdominal pain and tells me he was told this is secondary to clogged arteries . He reportedly sees Dr. Leigh for this issue. 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 CTA in February of 2021 did show hepatic steatosis with hepatomegaly changes of cirrhosis. Dr. Leigh has recommended cardiology intervention regarding the celiac findings however nothing has been done in regards to this. He feels like the pressure/bloating in his abdomen is now causing him to feel short of breath and have pain in his upper abdominal/chest region. Patient is an everyday heavy drinker stating he drinks about 8-10 beers daily. MD complaint: chest pain and other (abdominal pain/bloating) Pertinent past history: coronary artery disease and other (COPD) [facility] ED PFSH: Medical History Acute anemia Blood loss anemia Likely related to epistaxis and etoh intake. He is current on his colonoscopy. Chronic idiopathic constipation COPD (chronic obstructive pulmonary disease) Coronary artery disease Foreign body sensation in right ear canal Heart failure HTN (hypertension) Hyperlipidemia Intestinal angina PVD (peripheral vascular disease) Recurrent epistaxis Surgical History S/P coronary angioplasty Coronary disease 2 stents, 2015 S/P hernia repair Family History Father Cancer Mother Cancer Other CAD (coronary artery disease) Social History Smoking and tobacco status: current every day smoker (5 cigarettes per day) cigarettes Packs smoked per day: 0.5 Years cigarettes smoked: 45 [ Other cigarette details: Half a pack a day, started at age 12 years] Alcohol intake: current Alcohol intake frequency: 3 or more drinks per day Alcohol type: beer Household members: spouse Housing: House History of recent travel: No Physical Exam Const: COMMON NORMALS: no acute distress, patient oriented x3, no limitations and alert GENERAL APPEARANCE: cooperative ORIENTATION/CONSCIOUSNESS: Yes awake, Yes oriented to person, Yes oriented to place and Yes oriented to time HENMT: COMMON NORMALS: normocephalic and atraumatic HEAD & SCALP: normal to inspection, normocephalic and atraumatic Eye: GENERAL EYE: appearance normal, both eyes and all related structures Neck/C-Spine: COMMON NORMALS: full ROM, no lymphadenopathy and no meningeal signs Chest: COMMONS NORMALS: normal inspection of the chest and normal palpation of entire chest wall Resp: COMMON NORMALS: normal respiratory effort EFFORT & INSPECTION: Yes able to speak in complete sentences AUSCULTATION: wheezes Cardio: COMMON NORMALS: regular rate and regular rhythm RATE: regular rate RHYTHM: regular rhythm GI: COMMON NORMALS: Normal to inspection, nondistended, normoactive bowel sounds present, Soft to palpation, No hepatosplenomegaly present and no masses INSPECTION: Yes normal to inspection, Yes scar and Yes other (distention) PALPATION: Yes Soft to palpation, Yes Tenderness to palpation present (GI) (throughout upper abdomen), No Guarding due to palpation present (GI), No Rigid due to palpation and Yes No hepatosplenomegaly present : COMMON NORMALS: Yes no CVA tenderness BLADDER/KIDNEY EXAM: Yes no CVA tenderness Back/Pelvis: COMMON NORMALS: no CVA tenderness, thoracic and lumbar spine nor mal to inspection, no thoracic nor lumbar tenderness and thoraco-lumbar ROM normal Extremity: COMMON NORMALS: normal to inspection GENERAL: Yes normal exam except as noted Neuro: FRANCISCO COMA SCALE: document GCS findings Francisco coma scale eye opening: Spontaneous [place] coma scale verbal response: Orientated Francisco coma scale motor response: Obey commands Francisco coma scale total score: 15 COMMON NORMALS: patient oriented x3, moves all extremities, no focal motor deficits and no sensory deficits noted SENSORIUM/ORIENTATION: Yes alert, Yes oriented to person, Yes oriented to place and Yes oriented to time MENINGEAL SIGNS: Yes no meningeal signs Skin: COMMON NORMALS: no rashes or lesions noted GENERAL SKIN EXAM: no rashes or lesions noted Course Vital Signs: Vital signs: Vital Signs Temperature 98.0 F 11/15/21 03:50 Pulse Rate 103 H 11/15/21 06:00 Respiratory Rate 18 11/15/21 03:50 Blood Pressure 118/80 11/15/21 03:50 Pulse Oximetry 95 11/15/21 03:50 Oxygen Delivery Me thod 11/15/21 02:17 Oxygen Flow Rate 2 11/15/21 02:17 MDM - Chest Pain Medical Decision Making Patient is a nice 61-year-old male here for upper abdominal pain that he felt like was causing some shortness of breath and chest pain. On exam he is tender to his upper abdomen. Patient is an every day heavy alcohol drinker. Labs notable for lipase of roughly 360. He does have some elevated LFTs with this however these seem to be chronic for patient related to his liver cirrhosis. Gallbladder looks normal on CT imaging. He was noted to be hypoxic at 88% on room air. He was initially placed on 2L. When he ambulated to the bathroom he further de-satted and required an additional liter. CXR is normal. COVID is negative. D-dimer is currently pending. Patient will need to be admitted for his acute hypoxia-could be related to COPD exacerbation, acute pancreatitis, and high risk for alcohol withdrawal. Dr. Wilson has seen/evaluated patient and will speak to hospitalist. Lab Data : 11/15/21 04:55 11/15/21 04:55 Radiology Impressions Abdomen/Pelvis CT 11/14/21 11:22 IMPRESSION: 1. Findings suspicious for acute pancreatitis involving the pancreatic head as described above. No drainable fluid collections. 2. No other significant changes compared to the prior examinations. 3. Cirrhotic configuration to the liver with fatty infiltration. 4. No hydronephrosis in either kidney. 5. Avascular necrosis LEFT femoral head. 6. No other remarkable findings. Chest X-Ray 11/14/21 14:13 IMPRESSION: No acute findings. Chest CTA 11/14/21 15:50 IMPRESSION: 1. Negative for pulmonary embolism. 2. Negative for right heart strain. 3. Negative for aortic aneurysm or dissection 4. Bilateral adrenal adenomas 5. Hepatic steatosis 6. Heavy coronary artery calcifications Laboratory Results WBC 8.7 10^3/uL (4.0-10.0) 11/14/21 10:55 RBC 5.20 10^6/uL (4.1-5.3) 11/14/21 10:55 Hgb 11.7 g/dL (11.7-16.6) 11/14/21 10:55 Hct 39.3 % (42.0-52.0) L 11/14/21 10:55 MCV 75.6 fl (80-94) L 11/14/21 10:55 MCH 22.5 pg (28.0-34.0) L 11/14/21 10:55 MCHC 29.8 g/dL (30.0-36.0) L 11/14/21 10:55 RDW 20.9 % (12.1-15.1) H 11/14/21 10:55 Plt Count 314 10^3/cmm (130-400) 11/14/21 10:55 MPV 9.4 fL (7.4-10.4) 11/14/21 10:55 Neut % (Auto) 68.2 % 11/14/21 10:55 Lymph % (Auto) 18.9 % 11/14/21 10:55 Dixie % (Auto) 11.0 % 11/14/21 10:55 Eos % (Auto) 0.8 % 11/14/21 10:55 Baso % (Auto) 0.8 % 11/14/21 10:55 Neut # (Auto) 5.94 10^3/uL (1.8-7.7) 11/14/21 10:55 Lymph # (Auto) 1.7 10^3/uL (0.8-4.8) 11/14/21 10:55 Dixie # (Auto) 1.0 10^3/uL (0.2-0.9) H 11/14/21 10:55 Eos # (Auto) 0.1 10^3/uL (0.0-0.8) 11/14/21 10:55 Baso # (Auto) 0.1 10^3/uL (0.0-0.1) 11/14/21 10:55 Nucleated RBC % (auto) 0 % 11/14/21 10:55 Nucleated RBCs # 0.0 /100WBC 11/14/21 10:55 D-Dimer 3.28 ug/mIFEU (0-0.59) H 11/14/21 10:55 Specimen Type Arterial 11/14/21 14:13 Sample Site Brachial, left 11/14/21 14:13 ABG pH 7.45 (7.35-7.45) 11/14/21 14:13 ABG pCO2 33.4 mmHg (35-45) L 11/14/21 14:13 ABG pO2 64.9 mmHg (80.0-100.0) L 11/14/21 14:13 ABG HCO3 23.3 mmol/L (22-26) 11/14/21 14:13 ABG O2 Saturation 92.5 11/14/21 14:13 ABG Base Excess -0.3 mmol/L (-2.0-2.0) 11/14/21 14:13 Pato Test Pos 11/14/21 14:13 A-a O2 Gradient 13.9 mmHg (5-10) H 11/14/21 14:13 Hematocrit 33.4 % (42-52) L 11/14/21 14:13 Hgb O2 Saturation 90.2 % (95-100) L 11/14/21 14:13 Carboxyhemoglobin 2.2 %THgb (0.4-20.1) 11/14/21 14:13 Methemoglobin 0.2 % (0.4-1.5) L 11/14/21 14:13 Total Hemoglobin 10.9 g/dL (14-18) L 11/14/21 14:13 Sodium 144.0 mmol/L (131-143) H 11/14/21 14:13 Potassium 3.8 mmol/L (3.5-5.0) 11/14/21 14:13 Glucose 94.0 mg/dL (70-115) 11/14/21 14:13 Ionized Calcium 1.1 mmol/L (1.1-1.4) 11/14/21 14:13 O2 Delivery Device Nc 11/14/21 14:13 O2 Liters/Min 2.5 % 11/14/21 14:13 FiO2 30.0 % 11/14/21 14:13 Graphics Production Specialist ID Monro 11/14/21 14:13 Sodium 141 mmol/L (136-145) 11/14/21 10:55 Potassium 4.1 mmol/L (3.5-5.1) 11/14/21 10:55 Chloride 99 mmol/L (98-107) 11/14/21 10:55 Carbon Dioxide 24 mmol/L (22-29) 11/14/21 10:55 Anion Gap 22.1 (5-19) H 11/14/21 10:55 BUN 6 mg/dL (8-23) L 11/14/21 10:55 Creatinine 0.4 mg/dL (0.7-1.2) L 11/14/21 10:55 GFR Calculation 218.0 mL/min (90-130) H 11/14/21 10:55 Glucose 95 mg/dL (65-115) 11/14/21 10:55 Calculated Osmolality 289 mOsm/kg (285-295) 11/14/21 10:55 Calcium 8.8 mg/dL (8.5-10.5) 11/14/21 10:55 Total Bilirubin 0.3 mg/dL (0.15-1.2) 11/14/21 10:55 AST 101 U/L (0-40) H 11/14/21 10:55 ALT 53 U/L (0-41) H 11/14/21 10:55 Alkaline Phosphatase 203 IU/L (40-130) H 11/14/21 10:55 Troponin T Baseline 17 ng/L (0-15) H 11/14/21 10:55 Troponin T 120 Minute 14.00 ng/L (0-15) 11/14/21 12:32 Delta Troponin T -3.0 ABS# (0-10) L 11/14/21 12:32 NT-Pro-B Natriuret Pep 47 pg/mL (0-125) 11/14/21 14:02 Total Protein 7.2 g/dL (6.6-8.7) 11/14/21 10:55 Albumin 4.1 g/dL (3.5-5.2) 11/14/21 10:55 Globulin 3.1 g/dL (1.3-4.6) 11/14/21 10:55 Lipase 374 U/L (13-60) H 11/14/21 13:34 Procalcitonin 0.09 ng/mL (0-0.5) 11/14/21 10:55 Coronavirus 229E (PCR) Not detected (NOT DETECT) 11/14/21 12:20 SARS-CoV-2 (PCR) Not detected (NOT DETECT) 11/14/21 12:20 Discharge Plan Discharge Patient Disposition: Admitted As Inpatient Admit Provider: Bernabe Meyers Clinical Impression: Acute respiratory distress, COPD with acute exacerbation, Chronic alcohol use Acute alcoholic pancreatitis Qualifiers: Acute pancreatitis complication: no infection or necrosis Qualified Code(s): K 85.20 - Alcohol induced acute pancreatitis without necrosis or infection Condition: Stable Sign Out Sign Out Data: Patient Sign Out occurred on 11/14/21 at 16:28. Patient's care was discussed, and care was transferred from to Darrell Wilson MD. Coding Level of Care Code ED Supervisor Wound for Chg Fwd Exam Comprehensive Documented by User: Darrell Wilson MD 11/14/21 17:03 HPI - Chest Pain General: Chief Complaint: Chest Pain Stated Complaint: CHEST PAIN Time Seen by Provider: 11/14/21 10:08 PFSH ED PFSH: Medical History Acute anemia Blood loss anemia Likely related to epistaxis and etoh intake. He is current on his colonoscopy. Chronic idiopathic constipation COPD (chronic obstructive pulmonary disease) Coronary artery disease Foreign body sensation in right ear canal Heart failure HTN (hypertension) Hyperlipidemia Intestinal angina PVD (peripheral vascular disease) Recurrent epistaxis Surgical History S/P coronary angioplasty Coronary disease 2 stents, 2015 S/P hernia repair Family History Father Cancer Mother Cancer Other CAD (coronary artery disease) Social History Smoking and tobacco status: current every day smoker (5 cigarettes per day) cigarettes Packs smoked per day: 0.5 Years cigarettes smoked: 45 [ Other cigarette details: Half a pack a day, started at age 12 years] Alcohol intake: current Alcohol intake frequency: 3 or more drinks per day Alcohol type: beer Household members: spouse Housing: House History of recent travel: No Physical Exam Neuro: FRANCISCO COMA SCALE: document GCS findings Francisco coma scale total score: 15 Course Vital Signs: Vital signs: Vital Signs Temperature 98.0 F 11/15/21 03:50 Pulse Rate 103 H 11/15/21 06:00 Respiratory Rate 18 11/15/21 03:50 Blood Pressure 118/80 11/15/21 03:50 Pulse Oximetry 95 11/15/21 03:50 Oxygen Delivery Me thod 11/15/21 02:17 Oxygen Flow Rate 2 11/15/21 02:17 MDM - Chest Pain Medical Decision Making Patient is a nice 61-year-old male here for upper abdominal pain that he felt like was causing some shortness of breath and chest pain. On exam he is tender to his upper abdomen. Patient is an every day heavy alcohol drinker. Labs notable for lipase of roughly 360. He does have some elevated LFTs with this however these seem to be chronic for patient related to his liver cirrhosis. Gallbladder looks normal on CT imaging. He was noted to be hypoxic at 88% on room air. He was initially placed on 2L. When he ambulated to the bathroom he further de-satted and required an additional liter. CXR is normal. COVID is negative. D-dimer is currently pending. Patient will need to be admitted for his acute hypoxia-could be related to COPD exacerbation, acute pancreatitis, and high risk for alcohol withdrawal. Dr. Wilson has seen/evaluated patient and will speak to hospitalist. Dr. Howell?D-dimer appears to be elevated. CT is negative for any large PEs. CT read pending. Patient will be admitted to hospital for hypoxemia, shortness of breath, and lipase elevation. Disposition: admission Lab Data : 11/15/21 04:55 11/15/21 04:55 Radiology Impressions Abdomen/Pelvis CT 11/14/21 11:22 IMPRESSION: 1. Findings suspicious for acute pancreatitis involving the pancreatic head as described above. No drainable fluid collections. 2. No other significant changes compared to the prior examinations. 3. Cirrhotic configuration to the liver with fatty infiltration. 4. No hydronephrosis in either kidney. 5. Avascular necrosis LEFT femoral head. 6. No other remarkable findings. Chest X-Ray 11/14/21 14:13 IMPRESSION: No acute findings. Chest CTA 11/14/21 15:50 IMPRESSION: 1. Negative for pulmonary embolism. 2. Negative for right heart strain. 3. Negative for aortic aneurysm or dissection 4. Bilateral adrenal adenomas 5. Hepatic steatosis 6. Heavy coronary artery calcifications Laboratory Results WBC 8.7 10^3/uL (4.0-10.0) 11/14/21 10:55 RBC 5.20 10^6/uL (4.1-5.3) 11/14/21 10:55 Hgb 11.7 g/dL (11.7-16.6) 11/14/21 10:55 Hct 39.3 % (42.0-52.0) L 11/14/21 10:55 MCV 75.6 fl (80-94) L 11/14/21 10:55 MCH 22.5 pg (28.0-34.0) L 11/14/21 10:55 MCHC 29.8 g/dL (30.0-36.0) L 11/14/21 10:55 RDW 20.9 % (12.1-15.1) H 11/14/21 10:55 Plt Count 314 10^3/cmm (130-400) 11/14/21 10:55 MPV 9.4 fL (7.4-10.4) 11/14/21 10:55 Neut % (Auto) 68.2 % 11/14/21 10:55 Lymph % (Auto) 18.9 % 11/14/21 10:55 Dixie % (Auto) 11.0 % 11/14/21 10:55 Eos % (Auto) 0.8 % 11/14/21 10:55 Baso % (Auto) 0.8 % 11/14/21 10:55 Neut # (Auto) 5.94 10^3/uL (1.8-7.7) 11/14/21 10:55 Lymph # (Auto) 1.7 10^3/uL (0.8-4.8) 11/14/21 10:55 Dixie # (Auto) 1.0 10^3/uL (0.2-0.9) H 11/14/21 10:55 Eos # (Auto) 0.1 10^3/uL (0.0-0.8) 11/14/21 10:55 Baso # (Auto) 0.1 10^3/uL (0.0-0.1) 11/14/21 10:55 Nucleated RBC % (auto) 0 % 11/14/21 10:55 Nucleated RBCs # 0.0 /100WBC 11/14/21 10:55 D-Dimer 3.28 ug/mIFEU (0-0.59) H 11/14/21 10:55 Specimen Type Arterial 11/14/21 14:13 Sample Site Brachial, left 11/14/21 14:13 ABG pH 7.45 (7.35-7.45) 11/14/21 14:13 ABG pCO2 33.4 mmHg (35-45) L 11/14/21 14:13 ABG pO2 64.9 mmHg (80.0-100.0) L 11/14/21 14:13 ABG HCO3 23.3 mmol/L (22-26) 11/14/21 14:13 ABG O2 Saturation 92.5 11/14/21 14:13 ABG Base Excess -0.3 mmol/L (-2.0-2.0) 11/14/21 14:13 Pato Test Pos 11/14/21 14:13 A-a O2 Gradient 13.9 mmHg (5-10) H 11/14/21 14:13 Hematocrit 33.4 % (42-52) L 11/14/21 14:13 Hgb O2 Saturation 90.2 % (95-100) L 11/14/21 14:13 Carboxyhemoglobin 2.2 %THgb (0.4-20.1) 11/14/21 14:13 Methemoglobin 0.2 % (0.4-1.5) L 11/14/21 14:13 Total Hemoglobin 10.9 g/dL (14-18) L 11/14/21 14:13 Sodium 144.0 mmol/L (131-143) H 11/14/21 14:13 Potassium 3.8 mmol/L (3.5-5.0) 11/14/21 14:13 Glucose 94.0 mg/dL (70-115) 11/14/21 14:13 Ionized Calcium 1.1 mmol/L (1.1-1.4) 11/14/21 14:13 O2 Delivery Device Nc 11/14/21 14:13 O2 Liters/Min 2.5 % 11/14/21 14:13 FiO2 30.0 % 11/14/21 14:13 Graphics Production Specialist ID Monro 11/14/21 14:13 Sodium 141 mmol/L (136-145) 11/14/21 10:55 Potassium 4.1 mmol/L (3.5-5.1) 11/14/21 10:55 Chloride 99 mmol/L (98-107) 11/14/21 10:55 Carbon Dioxide 24 mmol/L (22-29) 11/14/21 10:55 Anion Gap 22.1 (5-19) H 11/14/21 10:55 BUN 6 mg/dL (8-23) L 11/14/21 10:55 Creatinine 0.4 mg/dL (0.7-1.2) L 11/14/21 10:55 GFR Calculation 218.0 mL/min (90-130) H 11/14/21 10:55 Glucose 95 mg/dL (65-115) 11/14/21 10:55 Calculated Osmolality 289 mOsm/kg (285-295) 11/14/21 10:55 Calcium 8.8 mg/dL (8.5-10.5) 11/14/21 10:55 Total Bilirubin 0.3 mg/dL (0.15-1.2) 11/14/21 10:55 AST 101 U/L (0-40) H 11/14/21 10:55 ALT 53 U/L (0-41) H 11/14/21 10:55 Alkaline Phosphatase 203 IU/L (40-130) H 11/14/21 10:55 Troponin T Baseline 17 ng/L (0-15) H 11/14/21 10:55 Troponin T 120 Minute 14.00 ng/L (0-15) 11/14/21 12:32 Delta Troponin T -3.0 ABS# (0-10) L 11/14/21 12:32 NT-Pro-B Natriuret Pep 47 pg/mL (0-125) 11/14/21 14:02 Total Protein 7.2 g/dL (6.6-8.7) 11/14/21 10:55 Albumin 4.1 g/dL (3.5-5.2) 11/14/21 10:55 Globulin 3.1 g/dL (1.3-4.6) 11/14/21 10:55 Lipase 374 U/L (13-60) H 11/14/21 13:34 Procalcitonin 0.09 ng/mL (0-0.5) 11/14/21 10:55 Coronavirus 229E (PCR) Not detected (NOT DETECT) 11/14/21 12:20 SARS-CoV-2 (PCR) Not detected (NOT DETECT) 11/14/21 12:20 Discharge Plan Discharge Patient Disposition: Admitted As Inpatient Admit Provider: Bernabe Meyers Clinical Impression: Acute respiratory distress, COPD with acute exacerbation, Chronic alcohol use Acute alcoholic pancreatitis Qualifiers: Acute pancreatitis complication: no infection or necrosis Qualified Code(s): K85.20 - Alcohol induced acute pancreatitis without necrosis or infection Condition: Stable Sign Out Sign Out Data: Patient Sign Out occurred on 11/14/21 at 16:28. Patient's care was discussed, and care was transferred from to Darrell Wilson MD. Coding Level of Care Code ED Supervisor Wound for [place] Fwd Exam Comprehensive
[2021-11-14 11:08] LABS: Basophils # 0.1 10^3/uL (0.0-0.1); Basophils % 0.8 %; Eosinophils # 0.1 10^3/uL (0.0-0.8); Eosinophils % 0.8 %; Hematocrit 39.3 % (42.0-52.0); Hemoglobin 11.7 g/dL (11.7-16.6); Lymphocytes # 1.7 10^3/uL (0.8-4.8); Lymphocytes % 18.9 %; Mean Corpuscular HGB Conc 29.8 g/dL (30.0-36.0); Mean Corpuscular Hemoglobin 22.5 pg (28.0-34.0); Mean Corpuscular Volume 75.6 fl (80-94); Mean Platelet Volume 9.4 fL (7.4-10.4); Neutrophils # 5.94 10^3/uL (1.8-7.7); Neutrophils % 68.2 %; Nucleated Red Blood Cells % 0 %; Platelet Count 314 10^3/cmm (130-400); Red Cell Distribution Width 20.9 % (12.1-15.1); White Blood Count 8.7 10^3/uL (4.0-10.0)
--- NOTE | 2021-11-14 11:16 | PC.PHAR ---
PT STS HIS TAKES CARE OF HIS MEDICATIONS- UNABLE TO REACH - PT HAD ALL CURRENT PRESCRIPTIONS WITH HIM AND STATES THAT IS ALL HE CURRENTLY IS TAKING- PT DOES NOT HAVE AMLODIPINE WITH HIM BUT IT WAS LAST FILLED 11/01/21 30DS - PT UNSURE IF HE IS STILL TAKING.
--- NOTE | 2021-11-14 11:22 | CT_ITS ---
WS: [id number] CT ABDOMEN PELVIS TECHNIQUE: Noncontrast CT of the abdomen and pelvis with coronal and sagittal reformatted images. CLINICAL INFORMATION: abdominal pain, bloating, distention COMPARISON: CT 02/14/2021 and 01/13/2021 DLP: 639.[address] scans at [facility] use at least one of these dose optimization techniques: automated e xposure control; mA and/or kV adjustment per patient size (includes targeted exams where dose is matc hed to clinical indication); or iterative reconstruction. FINDINGS: Edema with inflammatory stranding involving the head of the pancreas compatible with acute pancreatit is. A few reactive lymph nodes.No drainable fluid collections. Recommend correlation with pancreatic enzymes. Cirrhotic configuration to the liver with diffuse fatty infiltration portal vein and splenic vein toya ear patent. Normal GE junction. Tiny fat-containing umbilical hernia. Lung bases are well aerated. Adrenal glands are normal. Small RIGHT adrenal adenoma.. This measures 1 1 mm. No hydronephrosis in either kidney. Mild renal cortical atrophy. No hydronephrosis in the kidne y. No obstructing renal or ureteral calculi. Moderate aortic calcification. No evidence of high-grade small or large bowel obstruction. Normal sigmoid colon. No free fluid in th e abdomen or pelvis. CT/CT abdomen pelvis con [id number] IMPRESSION: 1. Findings suspicious for acute pancreatitis involving the pancreatic head as described above. No drainable fluid collections. 2. No other significant changes compared to the prior examinations. 3. Cirrhotic configuration to the liver with fatty infiltration. 4. No hydronephrosis in either kidney. 5. Avascular necrosis LEFT femoral head. 6. No other remarkable findings.
[2021-11-14 11:23] LABS: Alanine Aminotransferase 53 U/L (0-41); Albumin Level 4.1 g/dL (3.5-5.2); Alkaline Phosphatase 203 IU/L (40-130); Anion Gap 22.1 (5-19); Aspartate Amino Transferase 101 U/L (0-40); Blood Urea Nitrogen 6 mg/dL (8-23); Calcium 8.8 mg/dL (8.5-10.5); Carbon Dioxide 24 mmol/L (22-29); Chloride 99 mmol/L (98-107); Globulin 3.1 g/dL (1.3-4.6); Glucose 95 mg/dL (65-115); Osmolality Calculated 289 mOsm/kg (285-295); Potassium 4.1 mmol/L (3.5-5.1); Sodium 141 mmol/L (136-145); Total Bilirubin 0.3 mg/dL (0.15-1.2); Total Protein 7.2 g/dL (6.6-8.7); Troponin(5th) Baseline 17 ng/L (0-15)
[2021-11-14] MEDS: levalbuterol 1.25 mg/3 mL Neb INHALATION (11:49)
[2021-11-14 11:51] LABS: Procalcitonin 0.09 ng/mL (0-0.5)
--- NOTE | 2021-11-14 12:08 | ECG_ITS ---
[facility] Test Date: 2021-11-14 Pat Name: John Diaz Department: Room: Gender: Male Coat Padder: : 1960 Requested By: Gina De Luna Order Number: [id number] Deanna MD: Paco Gallegos M.D. Measurements Intervals [place] Rate: 81 P: 63 IN: 165 QRS: 74 QRSD: 114 T: 45 QT: 381 QTc: 444 Interpretive Statements SINUS RHYTHM LOW QRS VOLTAGE IN PRECORDIAL LEADS [QRS DEFLECTION < 1.0 mV IN CHEST LEADS] PROBABLE INFERIOR MYOCARDIAL INFARCTION , PROBABLY OLD [35 ms Q WAVE IN II/aVF] Compared to ECG 11/14/2021 10:57:39 Low QRS voltage now present Myocardial infarct finding now present Electronically Signed On 11-15-2021 6:44:47 CDT by Paco Gallegos M.D. [id number]
[2021-11-14] MEDS: fentaNYL 50 mcg/mL INJ 2mL IVP ×2 (12:54→15:36)
[2021-11-14 13:58] LABS: Lipase 374 U/L (13-60)
--- NOTE | 2021-11-14 14:13 | XRR_ITS ---
PROCEDURE INFORMATION: Exam: XR Chest Exam date and time: 11/14/2021 2:40 PM Age: 61 years old Clinical indication: Other: Hypoxia; Additional info: Repeat cxr; Hypoxia TECHNIQUE: Imaging protocol: Radiologic exam of the chest. Views: 1 view. COMPARISON: CR XR chest 1V portable [id number] 11/14/2021 10:35 AM FINDINGS: Lungs: Unremarkable. No consolidation. Pleural spaces: Unremarkable. No pleural effusion. No pneumothorax. Heart/Mediastinum: Unremarkable. No cardiomegaly. Bones/joints: Unremarkable. XR/XR chest 1V portable [id number] IMPRESSION: No acute findings.
[2021-11-14 14:26] LABS: NT Pro B Type Natriuretic Pept 47 pg/mL (0-125)
[2021-11-14 14:27] LABS: ABG PCO2 33.4 mmHg (35-45); ABG PH Result 7.45 (7.35-7.45); Alveolar-Arterial Oxygen Gradi 13.9 mmHg (5-10); Arterial Blood Gas Hematocrit 33.4 % (42-52); Base Excess ABG -0.3 mmol/L (-2.0-2.0); Blood Gas Allen Test Pos; Blood Gas LPM 2.5 %; Blood Gas Operator Identificat MONRO; Blood Gas Sample Site Brachial, left; Blood Gas Sample Type Arterial; Carboxyhemoglobin 2.2 %THgb (0.4-20.1); HCO3 ABG 23.3 mmol/L (22-26); HGB O2 Sat 90.2 % (95-100); Ionized Calcium Level - ABG 1.1 mmol/L (1.1-1.4); Methemoglobin 0.2 % (0.4-1.5); Oxygen Device NC; Oxygen Saturation ABG 92.5; PO2 ABG 64.9 mmHg (80.0-100.0); Potassium Level - ABG 3.8 mmol/L (3.5-5.0); Total Hemoglobin 10.9 g/dL (14-18)
[2021-11-14 14:58] LABS: Adenovirus Not Detected (NOT DETECT); Chlamydia Pneumoniae Not Detected (NOT DETECT); Coronavirus 229E,HKU1,NL63,OC4 Not Detected (NOT DETECT); Human Metapneumovirus Not Detected (NOT DETECT); Human Rhinovirus/Enterovirus Not Detected (NOT DETECT); Influenza A Not Detected (NOT DETECT); Influenza A H1 Not Detected (NOT DETECT); Influenza A H1-2009 Not Detected (NOT DETECT); Influenza A H3 Not Detected (NOT DETECT); Influenza B Not Detected (NOT DETECT); Mycoplasma Pneumoniae Not Detected (NOT DETECT); Parainfluenza Virus Type 1 Not Detected (NOT DETECT); Parainfluenza Virus Type 2 Not Detected (NOT DETECT); Parainfluenza Virus Type 3 Not Detected (NOT DETECT); Parainfluenza Virus Type 4 Not Detected (NOT DETECT); Respiratory Syncytial Virus A Not Detected (NOT DETECT); Respiratory Syncytial Virus B Not Detected (NOT DETECT); SARS-COV-2 Not Detected (NOT DETECT)
[2021-11-14] MEDS: LORazepam 1 mg Tablet PO (15:35)
[2021-11-14 15:44] LABS: D Dimer 3.28 ug/mIFEU (0-0.59)
--- NOTE | 2021-11-14 15:50 | CTR_ITS ---
PROCEDURE INFORMATION: Exam: CTA Chest With Contrast Exam date and time: 11/14/2021 4:39 PM Age: 61 years old Clinical indication: Cough and shortness of breath; Smoker's cough; Chest wall pain; Additional info: Dyspnea, hypoxemia, abdomen pain sudden onset TECHNIQUE: Imaging protocol: Computed tomographic angiography of the chest with contrast. 3D rendering (Not supervised by radiologist): MIP and/or 3D reconstructed images were created by the technologist. Radiation optimization: All CT scans at this facility use at least one of these dose optimization techniques: automated exposure control; mA and/or kV adjustment per patient size (includes targeted exams where dose is matched to clinical indication); or iterative reconstruction. Contrast material: OMNIPAQUE 350; Contrast volume: 75 ml; Contrast route: INTRAVENOUS (IV); COMPARISON: CTA Chest-Pulmonary Emb [id number] 05/21/2018 8:00 PM RADIATION DOSE METRICS: Total DLP (mGy-cm): 357.33 FINDINGS: Pulmonary arteries: There is optimal contrast density within the pulmonary arteries. There are no filling defects present. No pulmonary emboli. Aorta: Unremarkable. No aortic aneurysm. No aortic dissection. The ascending thoracic aorta measures 3.5 cm in AP diameter at the level of the right pulmonary artery Lungs: Unremarkable. No consolidation. No masses. Pleural spaces: Unremarkable. No pneumothorax. No pleural effusion. Heart: There is heavy coronary artery calcifications seen. No cardiomegaly. No pericardial effusion. Negative for right heart strain. Lymph nodes: Unremarkable. No enlarged lymph nodes. Gallbladder and bile ducts: The gallbladder is incompletely visible and shows a diffuse increased density which may reflect sludge. Adrenal glands: The adrenal glands show show enlargement the right measures 12 mm by 23 mm and the left measures 15 mm x 26 mm. These findings may reflect adrenal adenomas Bones/joints: Unremarkable. No acute fracture. Soft tissues: There is diffuse hepatic lucency seen consistent with steatosis. CT/CT angio chest PE protcl [id number] IMPRESSION: 1. Negative for pulmonary embolism. 2. Negative for right heart strain. 3. Negative for aortic aneurysm or dissection 4. Bilateral adrenal adenomas 5. Hepatic steatosis 6. Heavy coronary artery calcifications
--- NOTE | 2021-11-14 16:08 | ECG_ITS ---
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 Measurements Intervals [place] Rate: 78 P: 71 MI: 173 QRS: 82 QRSD: 108 T: 70 QT: 385 QTc: 439 Interpretive Statements SINUS RHYTHM Compared to ECG 11/14/2021 10:22:42 Myocardial infarct finding no longer present Electronically Signed On 11-15-2021 6:44:02 CDT by Paco Gallegos M.D. [id number]
[2021-11-14] MEDS: sodium chloride 0.9% 1,000 ML 150 ML IV (17:33)
[2021-11-14] MEDS: albuterol 8 gm MDI 1 PUFF INHALATION (17:43)
--- NOTE | 2021-11-14 17:50 | P.HP_ITS ---
Providers/Chief Complaint Admitting Physician: Bernabe Meyers MD Chief Complaint: CHEST PAIN History of Present Illness John Diaz Jr is a 61 year old male with past medical history of 30 pack years of tobacco abuse, coronary artery disease status post stent to LAD in September 2014,? PAD,? Hypertension , intestinal angina hyperlipidemia.? Came in with chief complaint of generalized abdominal pain, particularly epigastric, going on for the last couple of days, Patient has history of longstanding chronic abdominal pain, and carries a diagnosis of intestinal angina. He has denied any nausea vomiting, chest pains, because of the abdominal pain he says that he has difficulty with breathing. Upon arrival in the ER he was worked up for above-mentioned complaint. Pertinent imaging studies: CT abdomen pelvis wo con?: Edema with inflammatory stranding involving the head of the pancreas compatible with acute pancreatitis. Cirrhotic configuration to the liver with diffuse fatty infiltration portal vein and splenic vein appear patent. Normal GE junction. Tiny fat-containing umbilical hernia.Avascular necrosis LEFT femoral head. CT angio chest PE protcl?:Negative for pulmonary embolism. Negative for right heart strain.Negative for aortic aneurysm or dissection. Bilateral adrenal adenomas Hepatic steatosis. Pertinent labs: WBC 8.7, H&H 11/39 , plt : 314 , sodium 141 potassium 4.1 BUN serum creatinine: 6/0.4 , anion gap 22, random blood sugar 95 , AST 101 ALT 53 ALP 203 , lipase 374, Procalcitonin:0.09 Troponin:17,14, D-dimer 3.28 Review of Systems General: Reports: 10 or more systems reviewed and unremarkable except in HPI a nd below Const: Denies: fever(s), chills, body aches, change in appetite or diaphoresis Card: Denies: palpitations, edema, swelling of feet/ankles, orthopnea or leg pain with exertion Resp: Denies: productive cough, wheezing or pain on inspiration GI: Denies: nausea, vomiting, diarrhea or constipation : Denies: flank pain or difficulty urinating Musc: Denies: back pain, extremity pain or extremity swelling Neuro: Denies: headache(s), difficulty walking or confusion Medications/Allergies Home Medications Medication Instructions Recorded Confirmed Last Taken Type aspirin 81 mg tablet,delayed 81 mg PO DAILY 05/19/19 11/14/21 11/14/21 History release (Adult Low Dose Aspirin) folic acid 1 mg tablet 1 mg PO DAILY 05/19/19 11/14/21 11/14/21 History multivitamin 1 tab PO DAILY 12/22/19 11/14/21 11/14/21 History nitroglycerin 0.4 mg sublingual 0.4 mg sublingual Q5M PRN chest 04/05/20 11/14/21 11/14/21 Rx tablet (Nitrostat) pain #25 tabs atorvastatin 40 mg tablet 40 mg PO DAILY #30 tabs 06/03/20 11/14/21 11/13/21 Rx bisacodyl 5 mg tablet,delayed 15 mg PO DAILY PRN constipation 07/13/20 11/14/21 Unknown History release guaifenesin 600 mg tablet, 600 mg PO BID PRN Congestion 07/13/20 11/14/21 11/14/21 History extended release 12 hr (Mucinex) magnesium oxide 500 mg tablet 500 mg PO BID #180 tabs 10/05/20 11/14/21 11/14/21 Rx oxygen-air delivery systems 02/02/21 11/14/21 Unknown History thiamine HCl (vitamin B1) 100 mg 50 mg PO DAILY 02/02/21 11/14/21 11/14/21 History tablet linaclotide 290 mcg capsule 290 mcg PO DAILY 03/29/21 11/14/21 Unknown History (Linzess) metoprolol tartrate 25 mg tablet 12.5 mg PO BID #90 tabs 03/29/21 11/14/21 11/14/21 Rx ipratropium 20 mcg-albuterol 100 1 puff inhalation BID #4 grams 06/30/21 11/14/21 11/14/21 Rx mcg/actuation mist for inhalation (Combivent Respimat) amlodipine 5 mg tablet 5 mg PO DAILY #90 tabs 07/10/21 11/14/21 08/29/21 Rx oxymetazoline 0.05 % nasal spray 2 spray intranasal Q12H PRN Nasal 07/27/21 11/14/21 Unknown History (Afrin (oxymetazoline)) Congestion sodium chloride 0.65 % nasal spray 1 spray intranasal BID PRN Nasal 07/27/21 11/14/21 Unknown History aerosol ([place] Saline) Congestion albuterol sulfate 90 mcg/actuation 2 inh inhalation Q4H #8.5 grams 08/29/21 11/14/2122 Rx aerosol inhaler ipratropium 0.5 mg-albuterol 3 mg 3 ml inhalation Q4H PRN wheezing 09/29/21 11/14/21 11/14/21 Rx (2.5 mg base)/3 mL nebulization #90 mL soln mucus clearing device #1 ea 09/29/21 11/14/21 Unknown Rx isosorbide mononitrate 60 mg 60 mg PO DAILY #90 tabs 10/10/21 11/14/21 11/14/21 Rx tablet,extended release 24 hr pantoprazole 40 mg tablet,delayed 40 mg PO QAM #90 tabs 10/10/21 11/14/21 11/14/21 Rx release Allergies Allergy/AdvReac Type Severity Reaction Status Date / Time No Known Allergies Allergy Verified 11/14/21 11:20 PFSH Acute PFSH: Medical History Acute anemia Blood loss anemia Likely related to epistaxis and etoh intake. He is current on his colonoscopy. Chronic idiopathic constipation COPD (chronic obstructive pulmonary disease) Coronary artery disease Foreign body sensation in right ear canal Heart failure HTN (hypertension) Hyperlipidemia Intestinal angina PVD (peripheral vascular disease) Recurrent epistaxis Surgical History S/P coronary angioplasty Coronary disease 2 stents, 2014 S/P hernia repair Family History Father Cancer Mother Cancer Other CAD (coronary artery disease) Social History Smoking and tobacco status: current every day smoker (5 cigarettes per day) cigarettes Packs smoked per day: 0.5 Years cigarettes smoked: 45 [ Other cigarette details: Half a pack a day, started at age 12 years] Alcohol intake: current Alcohol intake frequency: 3 or more drinks per day Alcohol type: beer Household members: spouse Housing: House History of recent travel: No Vitals/I&O/Wt Last Vital Signs Temp 98.0 F 11/14/21 17:36 Pulse 103 H 11/14/21 17:45 Resp 22 H 11/14/21 17:45 BP 164/88 11/14/21 17:30 Pulse Ox 93 11/14/21 17:45 O2 Del Method 11/14/21 17:45 O2 Flow Rate 2 11/14/21 17:45 Weight last 48 hrs Weight 73.028 kg Physical Exam Const: COMMON NORMALS: patient oriented x3 HENMT: COMMON NORMALS: normocephalic and atraumatic HEAD & SCALP: normocephalic and atraumatic Resp: OTHER: Bilateral wheezing present in both lower lung field Cardio: COMMON NORMALS: regular rate, regular rhythm, S1 normal heart sound present, S2 normal heart sound present, No gallops present (Cardio), No murmurs present (Cardio), No rub (Cardio) and Peripheral pulses 2+ throughout RATE: regular rate RHYTHM: regular rhythm HEART SOUNDS: S1 normal heart sound present and S2 normal heart sound present PERIPHERAL PULSES: Peripheral pulses 2+ throughout GI: AUSCULTATION: Yes normoactive bowel sounds RECTAL EXAM: Yes deferred OTHER: Distended abdomen , epigastric abdominal tenderness present, mild guarding no rigidity no rebound tenderness Extremity: COMMON NORMALS: no clubbing, cyanosis or edema and no pedal edema Neuro: COMMON NORMALS: patient oriented x3 Data : 11/14/21 10:55 11/14/21 10:55 A&P Assessment and plan (1) Acute alcoholic pancreatitis: Status: Acute Qualifiers: Acute pancreatitis complication: no infection or necrosis Qualified Code(s): K85.20 - Alcohol induced acute pancreatitis without necrosis or infection (2) Chronic alcohol use: Status: Acute (3) HTN (hypertension): Status: Acute Qualifiers: Hypertension type: essential hypertension Qualified Code(s): I10 - Essential (primary) hypertension (4) PVD (peripheral vascular disease): Status: Acute (5) Coronary artery disease: Status: Acute Qualifiers: Associated angina: without angina Coronary Disease-Associated Artery/Lesion type: [place] artery [place] vs. transplanted heart: [place] heart Qualified Code(s): I25.10 - Atherosclerotic heart disease of [place] coronary artery without angina pectoris Plan 61 year old male with past medical history of 30 pack years of tobacco abuse, coronary artery disease status post stent to LAD in September 2014,? PAD,? Hypertension , intestinal angina hyperlipidemia.?,COPD Came in with chief complaint of generalized abdominal pain, particularly epigastric, going on for the last couple of days, Patient has history of longstanding chronic abdominal pain, and carries a diagnosis of intestinal angina. He has denied any nausea vomiting, chest pains, because of the abdominal pain he says that he has difficulty with breathing. Assessment: Acute pancreatitis: Likely secondary to alcohol abuse Transaminitis : Likely secondary to alcohol abuse Alcohol abuse Monitor for alcohol withdrawal Coronary artery disease Hypertension PAD History of intestinal angina History of tobacco abuse COPD Likely starvation ketoacidosis Plan: Pain control Continue IV hydration On CIWA protocol Clear liquid diets, advance as tolerated DuoNebs Continue chronic home medications CODE STATUS: Full code DVT prophylaxis: On Lovenox Attestations Medical Necessity Statement*: Patient is in hospital for management acute pancreatitis. Anticipated length of stay greater than 2 midnights Coding Level of Care Code Acute Obstetrics Nurse for [facility] Fwd Exam Detailed Diagnoses Acute alcoholic pancreatitis K85.20 Acute pancreatitis complication: no infection or necrosis Chronic alcohol use Z72.89 HTN (hypertension) I10 Hypertension type: essential hypertension PVD (peripheral vascular disease) I73.9 Coronary artery disease I25.10 Associated angina: without angina Coronary Disease-Associated Artery/Lesion type: [place] artery [place] vs. transplanted heart: [place] heart
[2021-11-14] MEDS: ipratropium-albuterol 3 mL Neb INHALATION (20:12)
[2021-11-14 20:18] LABS: Troponin 5 6HR 11.85 ng/L (0-15)
[2021-11-14 20:28] LABS: Troponin 5 6HR Delta -5.15 ng/L (0-12)
[2021-11-14] MEDS: metoprolol tartrate 25 mg Tablet 12.5 MG PO (21:26)
[2021-11-14] MEDS: guaiFENesin 600 mg Tablet PO (21:27)
[2021-11-15] VITALS (12 sets, daily range): BP systolic 97–118; BP diastolic 69–86; PULSE 93–104; RESP 16–20; TEMP 36.5–36.9; O2SAT 88–96
[2021-11-15] MEDS: dextrose 5%-sod chloride 0.9% 1,000 ML 75 ML IV (00:25)
[2021-11-15] MEDS: ipratropium-albuterol 3 mL Neb INHALATION ×2 (02:17→08:32)
[2021-11-15 05:29] LABS: Basophils % 0.4 %; Hematocrit 35.1 % (42.0-52.0); Hemoglobin 10.3 g/dL (11.7-16.6); Lymphocytes # 0.8 10^3/uL (0.8-4.8); Lymphocytes % 8.1 %; Mean Corpuscular HGB Conc 29.3 g/dL (30.0-36.0); Mean Corpuscular Hemoglobin 22.1 pg (28.0-34.0); Mean Corpuscular Volume 75.2 fl (80-94); Mean Platelet Volume 10.1 fL (7.4-10.4); Monocytes # 1.6 10^3/uL (0.2-0.9); Monocytes % 14.9 %; Neutrophils # 7.94 10^3/uL (1.8-7.7); Neutrophils % 76.2 %; Nucleated Red Blood Cells % 0 %; Platelet Count 246 10^3/cmm (130-400); Red Blood Count 4.67 10^6/uL (4.1-5.3); Red Cell Distribution Width 20.4 % (12.1-15.1); White Blood Count 10.4 10^3/uL (4.0-10.0)
[2021-11-15 05:40] LABS: INR 1.03 (0.8-1.2)
[2021-11-15 05:58] LABS: Alanine Aminotransferase 48 U/L (0-41); Albumin Level 3.9 g/dL (3.5-5.2); Alkaline Phosphatase 195 IU/L (40-130); Aspartate Amino Transferase 91 U/L (0-40); Blood Urea Nitrogen 6 mg/dL (8-23); Calcium 8.7 mg/dL (8.5-10.5); Carbon Dioxide 25 mmol/L (22-29); Chloride 100 mmol/L (98-107); Globulin 2.8 g/dL (1.3-4.6); Glucose 129 mg/dL (65-115); Osmolality Calculated 287 mOsm/kg (285-295); Phosphorus 2.2 mg/dL (2.5-4.5); Sodium 139 mmol/L (136-145); Total Bilirubin 0.6 mg/dL (0.15-1.2); Total Protein 6.7 g/dL (6.6-8.7)
[2021-11-15 06:02] LABS: Anion Gap 17.8 (5-19); Potassium 3.8 mmol/L (3.5-5.1)
[2021-11-15] MEDS: pantoprazole DR 40 mg Tablet PO (08:36)
[2021-11-15] MEDS: atorvastatin 40 mg Tablet PO (08:36)
[2021-11-15] MEDS: multivitamin therapeutic Tablet 1 TAB PO (08:38)
[2021-11-15] MEDS: amlodipine 5 mg Tablet PO (08:38)
[2021-11-15] MEDS: thiamine 100 mg Tablet PO (08:38)
[2021-11-15] MEDS: isosorbide mononitrate ER 60 mg Tablet PO (08:38)
[2021-11-15] MEDS: folic acid 1 mg Tablet PO (08:38)
[2021-11-15] MEDS: aspirin 81 mg EC Tablet PO (08:38)
[2021-11-15] MEDS: metoprolol tartrate 25 mg Tablet 12.5 MG PO (08:39)
--- NOTE | 2021-11-15 10:28 | PC.CHAP ---
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 [] Patient/Family/Request visit [] Outpatient visit [] Follow-up visit [] Physician referral [] Code/Alert [x] Routine visit [] Staff referral [] Actively dying [] Patient sleeping [] Family support [] [] Out of room [] Palliative care [] [] Receiving care in room [] Pre-surgical visit [] Trauma [] Long length of stay [] ICU visit [] Other: Relational/Emotional Strength x[] Patient feels connected with others/family/visitors/staff [] Distress [] Loneliness/isolation [] Abandonment Spirituality of Patient [x] Person of Radha [] Attends Caodaism of their Radha [x] Believes in Prayer [] Reads Bible or Uatsdin materials [] There are Spiritual issues to be addressed Security Flex Utility Officer Interventions [x] Prayer []x Active listening [] Non-anxious presence [] Spiritual/emotional support [] Crisis/trauma care [] Spiritual counseling [] Bereavement support [] Provided bereavement packet [] Provided Bible/devotional materials [] Provided toy/stuffed animal, coloring book to patient or family member [] Provided Communion [] Anointing/[place] [] Salvation [x] Completed spiritual assessment [] Other: Impact on Illness or Injury [] Angry [] Fearful [] Anxious [] Often cries [] Exhaustion [] Unable to work [] Unable to attend yarsani [] Unable to walk/stand [] Unable to read [] Unable to drive [] Unable to eat/drink [] Unable to sleep [] Unable to be with family [] Patient intubated [] Other: Summary Time spent with patient 10 min
--- NOTE | 2021-11-15 16:10 | PM.DCS ---
Discharge Providers Date of Admission: 11/14/21 16:50 Date of Discharge: November 15, 2021 Attending Provider at Admission: Bernabe Meyers MD Attending Provider at Discharge: Bernabe Meyers MD Diagnoses at Discharge Discharge Diagnosis (1) Acute alcoholic pancreatitis: Status: Acute Qualifiers: Acute pancreatitis complication: no infection or necrosis Qualified Code(s): K85.20 - Alcohol induced acute pancreatitis without necrosis or infection (2) Chronic alcohol use: Status: Acute (3) HTN (hypertension): Status: Acute Qualifiers: Hypertension type: essential hypertension Qualified Code(s): I10 - Essential (primary) hypertension (4) PVD (peripheral vascular disease): Status: Acute (5) Coronary artery disease: Status: Acute Qualifiers: Associated angina: without angina Coronary Disease-Associated Artery/Lesion type: [place] artery [place] vs. transplanted heart: [place] heart Qualified Code(s): I25.10 - Atherosclerotic heart disease of [place] coronary artery without angina pectoris Reason for Visit Reason for Visit: CHEST PAIN Hospital Course Hospital Course HPI: John Diaz Jr is a 61 year old male with past medical history of?30 pack years of tobacco abuse, coronary artery disease status post stent to LAD in September 2014,? PAD,? Hypertension , intestinal angina hyperlipidemia.? Came in with chief complaint of generalized abdominal pain, particularly epigastric, going on for the last couple of days, Patient has history of longstanding chronic abdominal pain, and carries a diagnosis of intestinal angina. He has denied any nausea vomiting, chest pains, because of the abdominal pain he says that he has difficulty with breathing. Upon arrival in the ER he was worked up for above-mentioned complaint. Pertinent imaging studies: CT abdomen pelvis wo con?: Edema with inflammatory stranding involving the head of the pancreas compatible with acute pancreatitis. Cirrhotic configuration to the liver with diffuse fatty infiltration portal vein and splenic vein appear patent. Normal GE junction. Tiny fat-containing umbilical hernia.Avascular necrosis LEFT femoral head. CT angio chest PE protcl?:Negative for pulmonary embolism. Negative for right heart strain.Negative for aortic aneurysm or dissection. Bilateral adrenal adenomas? Hepatic steatosis. Pertinent labs: WBC 8.7, H&H 11/39 , plt : 314 , sodium 141 potassium 4.1 BUN serum creatinine: 6/0.4? , anion gap 22, random blood sugar 95 , AST 101 ALT 53 ALP 203 , lipase 374, Procalcitonin:0.09 Troponin:17,14, D-dimer 3.28 Hospital course: Was admitted for management of Acute pancreatitis: Likely secondary to alcohol abuse , Transaminitis : Likely secondary to alcohol abuse , Alcohol abuse , Monitor for alcohol withdrawal , Coronary artery disease Hypertension, PAD, History of intestinal angina, History of tobacco abuse, COPD, Likely starvation ketoacidosis. He was kept on IV hydration pain control CIWA protocol, initially on clear liquids diet, patient responded well to above medical management, at the time of discharge his abdominal pain had significantly improved, he was tolerating clear liquid diets, plan was to advance the diet, but patient said that he felt well, and want to go to home. He was discharged stable condition to home, he will follow with his primary care physician. Physical Exam Const: COMMON NORMALS: patient oriented x3 HENMT: COMMON NORMALS: normocephalic and atraumatic HEAD & SCALP: normocephalic and atraumatic Resp: OTHER: Bilateral wheezing present in both lower lung field Cardio: COMMON NORMALS: regular rate, regular rhythm, S1 normal heart sound present, S2 normal heart sound present, No gallops present (Cardio), No murmurs present (Cardio), No rub (Cardio) and Peripheral pulses 2+ throughout RATE: regular rate RHYTHM: regular rhythm HEART SOUNDS: S1 normal heart sound present and S2 normal heart sound present PERIPHERAL PULSES: Peripheral pulses 2+ throughout GI: AUSCULTATION: Yes normoactive bowel sounds RECTAL EXAM: Yes deferred OTHER: Distended abdomen , epigastric abdominal tenderness present, mild guarding no rigidity no rebound tenderness Extremity: COMMON NORMALS: no clubbing, cyanosis or edema and no pedal edema Neuro: COMMON NORMALS: patient oriented x3 Discharge Data Studies Completed and Pending Completed Studies During Hospitalization Category Date Time Status CT abdomen pelvis wo con [id number] Urgent Cat Scan 11/14/21 11:22 Completed CTA chest [CT angio chest PE protcl [id number]] Urgent Cat Scan 11/14/21 15:50 Completed XR chest 1V portable [id number] Urgent Exams 11/14/21 10:08 Completed XR chest 1V portable [id number] Urgent Exams 11/14/21 14:13 Completed Pending at discharge Category Date Time Status Complete Blood Count w/Auto AM LABS Lab 11/16/21 04:00 Ordered Complete Blood Count w/Auto AM LABS Lab 11/17/21 04:00 Ordered Comprehensive Metabolic Panel AM LABS Lab 11/16/21 04:00 Ordered Comprehensive Metabolic Panel AM LABS Lab 11/17/21 04:00 Ordered Radiology Impressions Abdomen/Pelvis CT 11/14/21 11:22 IMPRESSION: 1. Findings suspicious for acute pancreatitis involving the pancreatic head as described above. No drainable fluid collections. 2. No other significant changes compared to the prior examinations. 3. Cirrhotic configuration to the liver with fatty infiltration. 4. No hydronephrosis in either kidney. 5. Avascular necrosis LEFT femoral head. 6. No other remarkable findings. Chest X-Ray 11/14/21 14:13 IMPRESSION: No acute findings. Chest CTA 11/14/21 15:50 IMPRESSION: 1. Negative for pulmonary embolism. 2. Negative for right heart strain. 3. Negative for aortic aneurysm or dissection 4. Bilateral adrenal adenomas 5. Hepatic steatosis 6. Heavy coronary artery calcifications Laboratory Results WBC 10.4 10^3/uL (4.0-10.0) H 11/15/21 04:55 RBC 4.67 10^6/uL (4.1-5.3) 11/15/21 04:55 Hgb 10.3 g/dL (11.7-16.6) L 11/15/21 04:55 Hct 35.1 % (42.0-52.0) L 11/15/21 04:55 MCV 75.2 fl (80-94) L 11/15/21 04:55 MCH 22.1 pg (28.0-34.0) L 11/15/21 04:55 MCHC 29.3 g/dL (30.0-36.0) L 11/15/21 04:55 RDW 20.4 % (12.1-15.1) H 11/15/21 04:55 Plt Count 246 10^3/cmm (130-400) 11/15/21 04:55 MPV 10.1 fL (7.4-10.4) 11/15/21 04:55 Neut % (Auto) 76.2 % 11/15/21 04:55 Lymph % (Auto) 8.1 % 11/15/21 04:55 Coles % (Auto) 14.9 % 11/15/21 04:55 Eos % (Auto) 0.0 % 11/15/21 04:55 Baso % (Auto) 0.4 % 11/15/21 04:55 Neut # (Auto) 7.94 10^3/uL (1.8-7.7) H 11/15/21 04:55 Lymph # (Auto) 0.8 10^3/uL (0.8-4.8) 11/15/21 04:55 [place]es # (Auto) 1.6 10^3/uL (0.2-0.9) H 11/15/21 04:55 Eos # (Auto) 0.0 10^3/uL (0.0-0.8) 11/15/21 04:55 Baso # (Auto) 0.0 10^3/uL (0.0-0.1) 11/15/21 04:55 Nucleated RBC % (auto) 0 % 11/15/21 04:55 Nucleated RBCs # 0.0 /100WBC 11/15/21 04:55 PT 13.80 SECONDS (12.1-14.9) 11/15/21 04:55 INR 1.03 (0.8-1.2) 11/15/21 04:55 D-Dimer 3.28 ug/mIFEU (0-0.59) H 11/14/21 10:55 Specimen Type Arterial 11/14/21 14:13 Sample Site Brachial, left 11/14/21 14:13 ABG pH 7.45 (7.35-7.45) 11/14/21 14:13 ABG pCO2 33.4 mmHg (35-45) L 11/14/21 14:13 ABG pO2 64.9 mmHg (80.0-100.0) L 11/14/21 14:13 ABG HCO3 23.3 mmol/L (22-26) 11/14/21 14:13 ABG O2 Saturation 92.5 11/14/21 14:13 ABG Base Excess -0.3 mmol/L (-2.0-2.0) 11/14/21 14:13 Pato Test Pos 11/14/21 14:13 A-a O2 Gradient 13.9 mmHg (5-10) H 11/14/21 14:13 Hematocrit 33.4 % (42-52) L 11/14/21 14:13 Hgb O2 Saturation 90.2 % (95-100) L 11/14/21 14:13 Carboxyhemoglobin 2.2 %THgb (0.4-20.1) 11/14/21 14:13 Methemoglobin 0.2 % (0.4-1.5) L 11/14/21 14:13 Total Hemoglobin 10.9 g/dL (14-18) L 11/14/21 14:13 Sodium 144.0 mmol/L (131-143) H 11/14/21 14:13 Potassium 3.8 mmol/L (3.5-5.0) 11/14/21 14:13 Glucose 94.0 mg/dL (70-115) 11/14/21 14:13 Ionized Calcium 1.1 mmol/L (1.1-1.4) 11/14/21 14:13 O2 Delivery Device Nc 11/14/21 14:13 O2 Liters/Min 2.5 % 11/14/21 14:13 FiO2 30.0 % 11/14/21 14:13 Fraud Manager ID [place] 11/14/21 14:13 Sodium 139 mmol/L (136-145) 11/15/21 04:55 Potassium 3.8 mmol/L (3.5-5.1) 11/15/21 04:55 Chloride 100 mmol/L (98-107) 11/15/21 04:55 Carbon Dioxide 25 mmol/L (22-29) 11/15/21 04:55 Anion Gap 17.8 (5-19) 11/15/21 04:55 BUN 6 mg/dL (8-23) L 11/15/21 04:55 Creatinine 0.4 mg/dL (0.7-1.2) L 11/15/21 04:55 GFR Calculation 218.0 mL/min (90-130) H 11/15/21 04:55 Glucose 129 mg/dL (65-115) H 11/15/21 04:55 Calculated Osmolality 287 mOsm/kg (285-295) 11/15/21 04:55 Calcium 8.7 mg/dL (8.5-10.5) 11/15/21 04:55 Phosphorus 2.2 mg/dL (2.5-4.5) L 11/15/21 04:55 Magnesium 2.0 mg/dL (1.7-2.3) 11/15/21 04:55 Total Bilirubin 0.6 mg/dL (0.15-1.2) 11/15/21 04:55 AST 91 U/L (0-40) H 11/15/21 04:55 ALT 48 U/L (0-41) H 11/15/21 04:55 Alkaline Phosphatase 195 IU/L (40-130) H 11/15/21 04:55 Troponin T Baseline 17 ng/L (0-15) H 11/14/21 10:55 Troponin T 120 Minute 14.00 ng/L (0-15) 11/14/21 12:32 Delta Troponin T -3.0 ABS# (0-10) L 11/14/21 12:32 Troponin T Hi Sens 6Hr 11.85 ng/L (0-15) 11/14/21 19:41 Troponin T Hi Sens 6Hr Delta -5.15 ng/L (0-12) L 11/14/21 19:41 NT-Pro-B Natriuret Pep 47 pg/mL (0-125) 11/14/21 14:02 Total Protein 6.7 g/dL (6.6-8.7) 11/15/21 04:55 Albumin 3.9 g/dL (3.5-5.2) 11/15/21 04:55 Globulin 2.8 g/dL (1.3-4.6) 11/15/21 04:55 Lipase 374 U/L (13-60) H 11/14/21 13:34 Procalcitonin 0.09 ng/mL (0-0.5) 11/14/21 10:55 Coronavirus 229E (PCR) Not detected (NOT DETECT) 11/14/21 12:20 SARS-CoV-2 (PCR) Not detected (NOT DETECT) 11/14/21 12:20 Vitals Last Vital Signs Temp 97.7 F 11/15/21 15:39 Pulse 101 H 11/15/21 15:39 Resp 18 11/15/21 15:39 BP 115/77 11/15/21 15:39 Pulse Ox 94 11/15/21 15:39 O2 Del Method 11/15/21 15:39 O2 Flow Rate 2 11/15/21 14:17 Discharge Plan Discharge Patient Disposition: Home Condition: Stable Prescriptions: Continued bisacodyl 5 mg tablet,delayed release (DR/EC) 15 mg PO DAILY PRN (Reason: constipation) guaifenesin [Mucinex] 600 mg tablet extended release 12hr 600 mg PO BID PRN (Reason: Congestion) thiamine HCl (vitamin B1) 100 mg tablet 50 mg PO DAILY (DME) oxygen-air delivery systems Device See Rx Instructions .Route Rx Instructions: As directed folic acid 1 mg tablet 1 mg PO DAILY aspirin [Adult Low Dose Aspirin] 81 mg tablet,delayed release (DR/EC) 81 mg PO DAILY Hold Instructions: Resume on 06/10/20. multivitamin Tablet 1 tab PO DAILY magnesium oxide 500 mg tablet 500 mg PO BID Qty: 180 8RF [place] Saline 0.65 % aerosol,spray 1 spray intranasal BID PRN (Reason: Nasal Congestion) oxymetazoline [Afrin (oxymetazoline)] 0.05 % spray,non-aerosol 2 spray intranasal Q12H PRN (Reason: Nasal Congestion) Linzess 290 mcg capsule 290 mcg PO DAILY Combivent Respimat 20-100 mcg/actuation mist 1 puff INHALATION BID Qty: 4 5RF isosorbide mononitrate 60 mg tablet extended release 24 hr 60 mg PO DAILY Qty: 90 3RF pantoprazole 40 mg tablet,delayed release (DR/EC) 40 mg PO QAM Qty: 90 3RF ipratropium-albuterol 0.5 mg-3 mg(2.5 mg base)/3 mL solution for nebulization 3 ml inhalation Q4H PRN (Reason: wheezing) Qty: 90 3RF (DME) mucus clearing device Device See Rx Instructions .Route Qty: 1 0RF Rx Instructions: A[place]ella Device nitroglycerin [Nitrostat] 0.4 mg tablet, sublingual 0.4 mg SUBLINGUAL Q5M PRN (Reason: chest pain) Qty: 25 6RF metoprolol tartrate 25 mg tablet 12.5 mg PO BID Qty: 90 3RF amlodipine 5 mg tablet 5 mg PO DAILY Qty: 90 1RF atorvastatin 40 mg tablet 40 mg PO DAILY Qty: 30 0RF albuterol sulfate 90 mcg/actuation HFA aerosol inhaler 2 inh inhalation Q4H Qty: 8.5 0RF Discharge Orders: Discharge Order (Routine); Ordered 11/15/21 Ordered By: Bernabe Meyers Referrals: Lexa Coates PA [Nurse Practitioner] - 7-10 days Discharge Diet: Regular Patient Instructions: Pancreatitis (DC), COPD Stoplight, Opioid Safety Discharge Attestations Time Spent in Discharge Care*: less than 30 min Quality Metrics Clinical Quality Measures [ No reported AMI, CVA or VTE this stay] Coding Level of Care Code Acute Chg FW DC note Diagnoses Acute alcoholic pancreatitis K85.20 Acute pancreatitis complication: no infection or necrosis Chronic alcohol use Z72.89 HTN (hypertension) I10 Hypertension type: essential hypertension PVD (peripheral vascular disease) I73.9 Coronary artery disease I25.10 Associated angina: without angina Coronary Disease-Associated Artery/Lesion type: [place] artery [place] vs. transplanted heart: [place] heart
--- NOTE | 2021-11-15 16:53 | PC.NURSE ---
Discharge Note Patient discharged to home via private vehicle accompanied by . Discharge instructions reviewed with patient and/or client representative. Mobile pharmacy medications and/or prescriptions provided. Belongings/home medications returned.
== END 2021-11-15 16:30 | disposition home or self-care (01) | DRG 439 ==
LOC: ER 16:28 → MEDSURG 17:22
PROVIDERS: Physician Assistant; Admitting Provider Internal Medicine; Emergency Provider Emergency Medicine; Visit Provider Internal Medicine
DX: K85.20 Alcohol induced acute pancreatitis without necrosis or infection (principal); E87.2 Acidosis; F10.10 Alcohol abuse, uncomplicated; F17.210 Nicotine dependence, cigarettes, uncomplicated; I25.10 Atherosclerotic heart disease of native coronary artery without angina pectoris; Z95.5 Presence of coronary angioplasty implant and graft; I73.9 Peripheral vascular disease, unspecified; I10 Essential (primary) hypertension; E78.5 Hyperlipidemia, unspecified; D35.02 Benign neoplasm of left adrenal gland; D35.01 Benign neoplasm of right adrenal gland; K76.0 Fatty (change of) liver, not elsewhere classified; K59.04 Chronic idiopathic constipation; J44.9 Chronic obstructive pulmonary disease, unspecified; Z79.51 Long term (current) use of inhaled steroids; Z79.82 Long term (current) use of aspirin
CPT/HCPCS: 36415; 36600; 71045; 71275; 74176; 80051; 80053; 82330; 82805; 83690; 83735; 83880; 84100; 84145; 84484; 85025; 85378; 85610; 87635; 93005; 94640; 94760; 96361; 96374; 96376; 99285; J3010; J3535; J7030; J7614; Q9967

== ENCOUNTER 2021-11-17 06:35 | Outpatient (CLI) | payer MEDICAID, SELFPAY ==
--- NOTE | 2021-11-17 07:00 | USCV_ITS ---
John Diaz Age: 61 Gender: M : 1960 Exam Date: 11/17/2021 06:53 Ordering Phys: Mckenna Jefferson MD ([email or web address]) Technologist: MONI Exam Location: [facility] [place] Indication: Shortness of breath BP: 115 / 77 HR: 93 Rhythm: Sinus Technical Quality: adequate MEASUREMENTS (Male / Female) Normal Values 2D ECHO LV Diastolic Diameter PLAX 4.0 cm 4.2 - 5.9 / 3.9 - 5.3 cm LV Systolic Diameter PLAX 2.9 cm IVS Diastolic Thickness 1.3 cm 0.6 - 1.0 / 0.6 - 0.9 cm IVS Systolic Thickness 1.5 cm LVPW Diastolic Thickness 1.3 cm 0.6 - 1.0 / 0.6 - 0.9 cm LVPW Systolic Thickness 1.7 cm LVOT Diameter 2.0 cm LV Ejection Fraction 2D Teich 53.0 % LV Ejection Fraction MOD 2C 66.0 % LV Ejection Fraction 2C AL 66.1 % LA Diameter 3.4 cm RA Width 3.1 cm RA Height 4.3 cm Aorta at Sinotubular Diameter 2.7 cm M-MODE Aortic Annulus Diameter 3.3 cm LA Ao Ratio MM 1.1 MV E Point Septal Separation 0.3 cm DOPPLER AV Peak Velocity 120.0 cm/s LVOT Peak Velocity 104.0 cm/s AV Area Cont Eq vti 2.8 cm squared AV Area Cont Eq pk 2.8 cm squared MV Area PHT 3.6 cm squared Mitral E to A Ratio 0.8 MV E' Velocity 37.5 cm/s Mitral E to MV E' Ratio 8.2 Mitral E to LV E' Lateral Ratio 7.8 Mitral E to LV E' Septal Ratio 8.7 TR Peak Velocity 149.3 cm/s TR Peak Gradient 8.9 mmHg Right Atrial Pressure 5.0 mmHg Pulmonary Artery Systolic Pressu 13.9 mmHg PV Peak Velocity 97.0 cm/s FINDINGS Left Ventricle Normal left ventricular size, systolic function and wall thickness, with no regional wall motion abnormalities. Left ventricular ejection fraction is estimated at 67 %. Normal diastolic function. Right Ventricle Normal right ventricular size and systolic function. Right ventricular systolic pressure 13.9 mmHg. Right Atrium Normal right atrial size. Left Atrium Normal left atrial size. Mitral Valve Structurally normal mitral valve. No mitral valve stenosis. No mitral valve regurgitation. Aortic Valve Structurally normal trileaflet aortic valve. No aortic valve stenosis. Trace aortic valve regurgitation. Tricuspid Valve Structurally normal tricuspid valve. No tricuspid valve stenosis. Pulmonic Valve Pulmonic valve not well visualized. Pericardium No pericardial effusion. Prominent epicardial fat. Aorta Normal size aortic root and proximal ascending aorta. IVC Inferior vena cava not visualized. CONCLUSIONS 1. Normal left ventricular size, systolic function and wall thickness, with no regional wall motion abnormalities. Left ventricular ejection fraction is estimated at 67 %. Normal diastolic function. 2. No significant valvular abnormality. 3. No significant change when compared to report dated 09/21/2014. Mckenna Jefferson MD (Electronically Signed) Final Date: 19 November 2021 10:05 S
== END 2021-11-17 06:36 | disposition home or self-care (01) ==
LOC: RAD 06:36
PROVIDERS: Visit Provider Internal Medicine Cardiovascular Disease
DX: R06.02 Shortness of breath (principal)
CPT/HCPCS: 93306

== ENCOUNTER → 2021-11-30 10:00 | Outpatient (BNVA) | payer MEDICAID, SELFPAY | PROVIDERS: Visit Provider Internal Medicine Pulmonary Disease | DX: R06.09 Other forms of dyspnea (principal); J44.9 Chronic obstructive pulmonary disease, unspecified; Z71.6 Tobacco abuse counseling; I95.9 Hypotension, unspecified; Z72.89 Other problems related to lifestyle; K55.9 Vascular disorder of intestine, unspecified; F17.210 Nicotine dependence, cigarettes, uncomplicated; Z99.81 Dependence on supplemental oxygen; Z95.5 Presence of coronary angioplasty implant and graft; Z91.19 Patient's noncompliance with other medical treatment and regimen | CPT/HCPCS: 99214 ==

== ENCOUNTER → 2021-12-01 11:26 | Outpatient (BNVA) | payer MEDICAID, SELFPAY | PROVIDERS: Visit Provider Internal Medicine Pulmonary Disease | DX: I95.9 Hypotension, unspecified (principal) | CPT/HCPCS: 85025 ==

== ENCOUNTER → 2021-12-04 11:27 | Outpatient (BNVA) | payer MEDICAID, SELFPAY | PROVIDERS: Visit Provider Internal Medicine Pulmonary Disease | DX: I95.9 Hypotension, unspecified (principal) | CPT/HCPCS: 85025 ==

== ENCOUNTER 2021-12-24 18:42 | Emergency (ER) | payer MEDICAID, SELFPAY ==
[2021-12-24 18:50] VITALS: BP 125/78; PULSE 84; RESP 20; TEMP 36.6; O2SAT 96; BMI 25.0
--- NOTE | 2021-12-24 19:55 | CTR_ITS ---
PROCEDURE INFORMATION: Exam: CT Abdomen And Pelvis With Contrast Exam date and time: 12/24/2021 9:12 PM Age: 61 years old Clinical indication: Abdominal pain; Generalized; Prior surgery; Surgery date: 6+ months; Surgery type: Hernia repair, coronary angioplasty; Additional info: Abd pain TECHNIQUE: Imaging protocol: Computed tomography of the abdomen and pelvis with contrast. Radiation optimization: All CT scans at this facility use at least one of these dose optimization techniques: automated exposure control; mA and/or kV adjustment per patient size (includes targeted exams where dose is matched to clinical indication); or iterative reconstruction. Contrast material: OMNI 350; Contrast volume: 80 ml; Contrast route: INTRAVENOUS (IV); COMPARISON: CT abdomen pelvis wo con [id number] 11/14/2021 12:59 PM RADIATION DOSE METRICS: Total DLP (mGy-cm): 585.56 FINDINGS: Heart: Severe calcified coronary artery disease. Liver: Stable calcified hepatic granulomas. Markedly severe fatty infiltration of the liver measuring 12 Hounsfield units. Gallbladder and bile ducts: Normal. No calcified stones. No ductal dilation. Pancreas: Moderate inflammation surrounding the head of the pancreas and portions of the C-loop of the duodenum with extension inferiorly consistent with moderate radiographic pancreatitis. Spleen: Stable calcified splenic granulomas. Adrenal glands: Increased size of 2.3 cm right adrenal lesion measuring 27 Hounsfield units. Correlation with non-emergent MRI is recommended to rule out malignant neoplasm versus benign adrenal adenoma. Kidneys and ureters: See Vasculature finding. Stomach and bowel: Mild colonic diverticulosis. Appendix: No evidence of appendicitis. Intraperitoneal space: Unremarkable. No free air. No significant fluid collection. Vasculature: Calcification of the abdominal aorta and/or iliac arteries consistent with atherosclerotic vessel disease. Small vessel arterial calcifications in the renal mariia bilaterally which are often associated with chronic renal failure. One or more calcified pelvic phleboliths. Lymph nodes: Unremarkable. No enlarged lymph nodes. Urinary bladder: Unremarkable as visualized. Reproductive: Unremarkable as visualized. Bones/joints: Unremarkable. No acute fracture. Soft tissues: Unremarkable. CT/CT abdomen pelvis w con* [id number] IMPRESSION: 1. Markedly severe fatty infiltration of the liver measuring 12 Hounsfield units. 2. Moderate inflammation surrounding the head of the pancreas and portions of the C-loop of the duodenum with extension inferiorly consistent with moderate radiographic pancreatitis. 3. Increased size of 2.3 cm right adrenal lesion measuring 27 Hounsfield units. Correlation with non-emergent MRI is recommended to rule out malignant neoplasm versus benign adrenal adenoma.
--- NOTE | 2021-12-24 20:43 | W.ED.GENADLT ---
HPI - General Adult General: Chief complaint: Abdominal Pain Stated complaint: sob, abd pain Time Seen by Provider: 12/24/21 19:34 History of Present Illness: Patient is a 61-year-old male with history of chronic pancreatitis, chronic alcohol use, COPD, hypertension who presents the emergency room for evaluation of worsening abdominal pain. Patient tells me that he has been having abdominal pain for last few month and has noticed abdominal swelling. However in the last 2 weeks, patient has had worsening diffuse abdominal pain. Patient was told that he does not have ascites and does not need paracentesis. Patient denies any fever/chills, cough, runny nose sore throat, history of renal colic, UTI or urinary complaints. Patient denies any new penile discharge. Denies any melena/hematochezia or hematemesis. Onset: worsening x few months Duration:ongoing Location:home Severity:moderate Associated symptoms: Deny chest pain, dyspnea, nausea, rash, palpitations or vomiting Review of Systems Const: Denies: fever(s) or chills Eyes: Denies: change in vision ENMT: Denies: mouth pain Card: Denies: chest pain or palpitations Resp: Denies: dyspnea or non-productive cough GI: Denies: abdominal pain, nausea, vomiting or diarrhea : Denies: dysuria Musc: Denies: extremity pain Skin/Breast: Denies: rash or new lesions Neuro: Denies: weakness in extremities Psych: Reports: other (Normal mood) Mani/Lymph: Denies: easy bruising PFSH ED PFSH: Medical History Acute alcoholic pancreatitis Acute anemia Acute respiratory distress Blood loss anemia Likely related to epistaxis and etoh intake. He is current on his colonoscopy. Chronic alcohol use Chronic idiopathic constipation COPD (chronic obstructive pulmonary disease) COPD with acute exacerbation Coronary artery disease Foreign body sensation in right ear canal Heart failure HTN (hypertension) Hyperlipidemia Intestinal angina PVD (peripheral vascular disease) Recurrent epistaxis Surgical History S/P coronary angioplasty Coronary disease 2 stents, 2015 S/P hernia repair Family History Father Cancer Mother Cancer Other CAD (coronary artery disease) Social History Smoking and tobacco status: current every day smoker cigarettes Packs smoked per day: 0.5 Years cigarettes smoked: 45 [ Other cigarette details: Half a pack a day, started at age 12 years] Alcohol intake: current Alcohol intake frequency: 3 or more drinks per day Alcohol type: beer Household members: spouse Housing: House History of recent travel: No Physical Exam Const: COMMON NORMALS: alert HENMT: COMMON NORMALS: atraumatic HEAD & SCALP: atraumatic MOUTH: moist mucous membranes not abnormal Eye: COMMON NORMALS: EOMs intact bilaterally and conjunctivae normal CONJUNCTIVA: Yes conjunctivae normal Neck/C-Spine: COMMON NORMALS: full ROM and supple Resp: COMMON NORMALS: normal respiratory effort and clear to auscultation bilaterally AUSCULTATION: clear to auscultation bilaterally Cardio: COMMON NORMALS: regular rate RATE: regular rate GI: COMMON NORMALS: Soft to palpation PALPATION: Yes Soft to palpation OTHER: +mild diffuse discomfort to palpation. No focal TTP. NO guarding rebound, guarding, rigidity. No CVA tenderness to percussion. Neg Zapata/Neg McBurney's point tenderness, no suprabupic tenderness to palpation. Extremity: COMMON NORMALS: full ROM Neuro: SENSORIUM/ORIENTATION: Yes alert MOTOR EXAM: No Abnormal motor strength present and Other motor observations present (no focal motor deficits) Psych: COMMON NORMALS: speech normal SPEECH: Yes normal speech MOOD & AFFECT: Yes euthymic mood Course Vital Signs: Vital signs: Vital Signs Temperature 97.9 F 12/24/21 18:50 Pulse Rate 84 12/24/21 18:50 Respiratory Rate 20 H 12/24/21 18:50 Blood Pressure 125/78 12/24/21 18:50 Pulse Oximetry 96 12/24/21 18:50 Oxygen Delivery Me thod 12/24/21 18:50 MDM - General Adult Medical Decision Making Patient is a 61-year-old male with history of chronic pancreatitis, chronic alcohol use, COPD, hypertension who presents the emergency room for evaluation of worsening abdominal pain. Patient is hemodynamically stable in no acute distress. Patient has mild discomfort to palpation diffusely in the abdomen. Patient has no focal tenderness palpation. No guarding no rebound tenderness. WBC of 7.1. Hemoglobin 10.6 similar to baseline. Rest of labs within normal limit. CT abdomen pelvis showed pancreatitis with severe liver infiltration. Incidental findings of adrenal mass and liver infiltration discussed extensively with patient. Patient received a copy of the CT report with the documented findings. Patient is instructed to follow up urgently with specialists. He reports pain appears to be controlled at this time. He has not had any significant nausea or vomiting. Lipase of 550 today which appears to be elevated compared to previous evaluation 11/14/2021. At the present time, suspect chronic pancreatitis likely due to chronic alcohol abuse. I have instructed patient that he needs to quit drinking alcohol in order for him to have improvement in his abdominal pain. I discussed with patient that he is at risk for having liver failure with his drinking. Patient verbalized understanding and plans to follow-up with his primary care provider to follow up with his prior chronic pancreatitis and to quit drinking alcohol. Disposition: Discharge. Patient counseled regarding diagnostic impression, treatment plan. Patient given ED strict return precautions to return for continuation, worsening, or development of new symptoms. Instructed to f/u w/ PCP regarding symptoms today. Patient verbalized understanding. Lab Data : 12/24/21 20:50 12/24/21 20:50 Radiology Impressions Abdomen/Pelvis CT 12/24/21 19:55 IMPRESSION: 1. Markedly severe fatty infiltration of the liver measuring 12 Hounsfield units. 2. Moderate inflammation surrounding the head of the pancreas and portions of the C-loop of the duodenum with extension inferiorly consistent with moderate radiographic pancreatitis. 3. Increased size of 2.3 cm right adrenal lesion measuring 27 Hounsfield units. Correlation with non-emergent MRI is recommended to rule out malignant neoplasm versus benign adrenal adenoma. Laboratory Results WBC 7.1 10^3/uL (4.0-10.0) 12/24/21 20:50 Corrected WBC Cancelled 12/24/21 20:10 RBC 4.66 10^6/uL (4.1-5.3) 12/24/21 20:50 Hgb 10.6 g/dL (11.7-16.6) L 12/24/21 20:50 Hct 34.7 % (42.0-52.0) L 12/24/21 20:50 MCV 74.5 fl (80-94) L 12/24/21 20:50 MCH 22.7 pg (28.0-34.0) L 12/24/21 20:50 MCHC 30.5 g/dL (30.0-36.0) 12/24/21 20:50 RDW 21.7 % (12.1-15.1) H 12/24/21 20:50 Plt Count 164 10^3/cmm (130-400) 12/24/21 20:50 MPV 9.2 fL (7.4-10.4) 12/24/21 20:50 Gran % Cancelled 12/24/21 20:10 Neut % (Auto) 68.0 % 12/24/21 20:50 Lymph % (Auto) 18.4 % 12/24/21 20:50 [place] % (Auto) 11.9 % 12/24/21 20:50 Eos % (Auto) 0.7 % 12/24/21 20:50 Baso % (Auto) 0.6 % 12/24/21 20:50 Neut # (Auto) 4.84 10^3/uL (1.8-7.7) 12/24/21 20:50 Lymph # (Auto) 1.3 10^3/uL (0.8-4.8) 12/24/21 20:50 [place] # (Auto) 0.9 10^3/uL (0.2-0.9) 12/24/21 20:50 Eos # (Auto) 0.1 10^3/uL (0.0-0.8) 12/24/21 20:50 Baso # (Auto) 0.0 10^3/uL (0.0-0.1) 12/24/21 20:50 Absolute Gran (auto) Cancelled 12/24/21 20:10 Nucleated RBC % (auto) 0 % 12/24/21 20:50 Nucleated RBCs # 0.0 /100WBC 12/24/21 20:50 Sodium 137 mmol/L (136-145) 12/24/21 20:50 Potassium 3.7 mmol/L (3.5-5.1) 12/24/21 20:50 Chloride 97 mmol/L (98-107) L 12/24/21 20:50 Carbon Dioxide 25 mmol/L (22-29) 12/24/21 20:50 Anion Gap 18.7 (5-19) 12/24/21 20:50 BUN 4 mg/dL (8-23) L 12/24/21 20:50 Creatinine 0.4 mg/dL (0.7-1.2) L 12/24/21 20:50 GFR Calculation 218.0 mL/min (90-130) H 12/24/21 20:50 Glucose 92 mg/dL (65-115) 12/24/21 20:50 Calculated Osmolality 281 mOsm/kg (285-295) L 12/24/21 20:50 Calcium 8.7 mg/dL (8.5-10.5) 12/24/21 20:50 Total Bilirubin 0.4 mg/dL (0.15-1.2) 12/24/21 20:50 AST 127 U/L (0-40) H 12/24/21 20:50 ALT 79 U/L (0-41) H 12/24/21 20:50 Alkaline Phosphatase 285 U/L (40-130) H 12/24/21 20:50 Total Protein 6.7 g/dL (6.6-8.7) 12/24/21 20:50 Albumin 3.7 g/dL (3.5-5.2) 12/24/21 20:50 Globulin 3.0 g/dL (1.3-4.6) 12/24/21 20:50 Lipase 552 U/L (13-60) H 12/24/21 20:50 Imaging Data Other Imaging: Radiologist's impression: [address] [address] [address] Scan Report Signed Patient: John Diaz Unit #: [id number] : 1960 Age/Sex: 61 / M ADM Date: 12/24/21 Loc: ER Room/Bed: Attending Dr: Ordering Provider/Ordering MD: Darrell Wilson MD Date of Service: 12/24/21 Procedure(s): CT abdomen pelvis w con* [id number] Accession Number(s): [id number] Report Number: [id number] PROCEDURE INFORMATION: Exam: CT Abdomen And Pelvis With Contrast Exam date and time: 12/24/2021 9:12 PM Age: 61 years old Clinical indication: Abdominal pain; Generalized; Prior surgery; Surgery date: 6+ months; Surgery type: Hernia repair, coronary angioplasty; Additional info: Abd pain TECHNIQUE: Imaging protocol: Computed tomography of the abdomen and pelvis with contrast. Radiation optimization: All CT scans at this facility use at least one of these dose optimization techniques: automated exposure control; mA and/or kV adjustment per patient size (includes targeted exams where dose is matched to clinical indication); or iterative reconstruction. Contrast material: OMNI 350; Contrast volume: 80 ml; Contrast route: INTRAVENOUS (IV);? COMPARISON: CT abdomen pelvis wo con [id number] 11/14/2021 12:59 PM RADIATION DOSE METRICS: Total DLP (mGy-cm): 585.56 FINDINGS: Heart: Severe calcified coronary artery disease. Liver: Stable calcified hepatic granulomas. Markedly severe fatty infiltration of the liver measuring 12 Hounsfield units. Gallbladder and bile ducts: Normal. No calcified stones. No ductal dilation. Pancreas: Moderate inflammation surrounding the head of the pancreas and portions of the C-loop of the duodenum with extension inferiorly consistent with moderate radiographic pancreatitis. Spleen: Stable calcified splenic granulomas. Adrenal glands: Increased size of 2.3 cm right adrenal lesion measuring 27 Hounsfield units. Correlation with non-emergent MRI is recommended to rule out malignant neoplasm versus benign adrenal adenoma. Kidneys and ureters: See Vasculature finding. Stomach and bowel: Mild colonic diverticulosis. Appendix: No evidence of appendicitis. Intraperitoneal space: Unremarkable. No free air. No significant fluid collection. Vasculature: Calcification of the abdominal aorta and/or iliac arteries consistent with atherosclerotic vessel disease. Small vessel arterial calcifications in the renal mariia bilaterally which are often associated with chronic renal failure. One or more calcified pelvic phleboliths. Lymph nodes: Unremarkable. No enlarged lymph nodes. Urinary bladder: Unremarkable as visualized. Reproductive: Unremarkable as visualized. Bones/joints: Unremarkable. No acute fracture. Soft tissues: Unremarkable. CT/CT abdomen pelvis w con* [id number] IMPRESSION: 1. Markedly severe fatty infiltration of the liver measuring 12 Hounsfield units. 2. Moderate inflammation surrounding the head of the pancreas and portions of the C-loop of the duodenum with extension inferiorly consistent with moderate radiographic pancreatitis. 3. Increased size of 2.3 cm right adrenal lesion measuring 27 Hounsfield units. Correlation with non-emergent MRI is recommended to rule out malignant neoplasm versus benign adrenal adenoma. ? Dictated By: Addison Whyte MD Signed By: Addison Whyte MD Signed Date/Time: 12/24/212140 DD/ 11 Discharge Plan Discharge Patient Disposition: Home Clinical Impression: Chronic pancreatitis, Abdominal pain, Alcohol abuse Condition: Stable Prescriptions: No Action bisacodyl 5 mg tablet,delayed release (DR/EC) 15 mg PO DAILY PRN (Reason: constipation) guaifenesin [Mucinex] 600 mg tablet extended release 12hr 600 mg PO BID PRN (Reason: Congestion) thiamine HCl (vitamin B1) 100 mg tablet 50 mg PO DAILY (DME) oxygen-air delivery systems Device See Rx Instructions .Route Rx Instructions: As directed folic acid 1 mg tablet 1 mg PO DAILY aspirin [Adult Low Dose Aspirin] 81 mg tablet,delayed release (DR/EC) 81 mg PO DAILY Hold Instructions: Resume on 06/10/20. multivitamin Tablet 1 tab PO DAILY magnesium oxide 500 mg tablet 500 mg PO BID Qty: 180 8RF Mooers Saline 0.65 % aerosol,spray 1 spray intranasal BID PRN (Reason: Nasal Congestion) oxymetazoline [Afrin (oxymetazoline)] 0.05 % spray,non-aerosol 2 spray intranasal Q12H PRN (Reason: Nasal Congestion) Linzess 290 mcg capsule 290 mcg PO DAILY PRN Combivent Respimat 20-100 mcg/actuation mist 1 puff INHALATION BID Qty: 4 5RF budesonide 0.5 mg/2 mL suspension for nebulization 0.5 mg inhalation BID Qty: 60 11RF formoterol fumarate 20 mcg/2 mL solution for nebulization 2 ml inhalation BID Qty: 120 11RF revefenacin 175 mcg/3 mL solution for nebulization 175 mcg inhalation DAILY Qty: 90 11RF isosorbide mononitrate 60 mg tablet extended release 24 hr 60 mg PO DAILY Qty: 90 3RF pantoprazole 40 mg tablet,delayed release (DR/EC) 40 mg PO QAM Qty: 90 3RF ipratropium-albuterol 0.5 mg-3 mg(2.5 mg base)/3 mL solution for nebulization 3 ml inhalation Q4H PRN (Reason: wheezing) Qty: 90 3RF (DME) mucus clearing device Device See Rx Instructions .Route Qty: 1 0RF Rx Instructions: Acapella Device nitroglycerin [Nitrostat] 0.4 mg tablet, sublingual 0.4 mg SUBLINGUAL Q5M PRN (Reason: chest pain) Qty: 25 6RF metoprolol tartrate 25 mg tablet 12.5 mg PO BID Qty: 90 3RF amlodipine 5 mg tablet 5 mg PO DAILY Qty: 90 1RF atorvastatin 40 mg tablet 40 mg PO DAILY Qty: 30 0RF albuterol sulfate 90 mcg/actuation HFA aerosol inhaler 2 inh inhalation Q4H Qty: 8.5 0RF Discharge Orders: Discharge ED (Routine); Ordered 12/24/21 Ordered By: Darrell Wilson Discharge Diet: Advance as tolerated Discharge Activity: Increase activity as tolerated Patient Instructions: Abdominal Pain (ED) Activity Restrictions/Additional Instructions: Please come back if you have any worsening abdominal pain, fever or chills, nausea or vomiting, diarrhea, blood in the stool, inability hold down liquid or solids, or any new concerning complaints. You need to quit drinking alcohol. Please follow-up with your primary care provider to get resources for quitting drinking alcohol. Your liver injury and pancreatitis are related to drinking alcohol. Please stay with the liquid diet for the next 48 hours. Come back to the emergency room any fever chills, worsening pain or any new concerning complaints. Here's a copy of your CT report. Please follow up with 2.3 right adrenal mass [place] [address] CT Scan Report Signed Patient: John Diaz Unit #: [id number] : 1960 Age/Sex: 61 / M ADM Date: 12/24/21 Loc: ER Room/Bed: Attending Dr: Ordering Provider/Ordering MD: Darrell Wilson MD Date of Service: 12/24/21 Procedure(s): CT abdomen pelvis w con* [id number] Accession Number(s): [id number] Report Number: [id number] PROCEDURE INFORMATION: Exam: CT Abdomen And Pelvis With Contrast Exam date and time: 12/24/2021 9:12 PM Age: 61 years old Clinical indication: Abdominal pain; Generalized; Prior surgery; Surgery date: 6+ months; Surgery type: Hernia repair, coronary angioplasty; Additional info: Abd pain TECHNIQUE: Imaging protocol: Computed tomography of the abdomen and pelvis with contrast. Radiation optimization: All CT scans at this facility use at least one of these dose optimization techniques: automated exposure control; mA and/or kV adjustment per patient size (includes targeted exams where dose is matched to clinical indication); or iterative reconstruction. Contrast material: OMNI 350; Contrast volume: 80 ml; Contrast route: INTRAVENOUS (IV);? COMPARISON: CT abdomen pelvis wo con [id number] 11/14/2021 12:59 PM RADIATION DOSE METRICS: Total DLP (mGy-cm): 585.56 FINDINGS: Heart: Severe calcified coronary artery disease. Liver: Stable calcified hepatic granulomas. Markedly severe fatty infiltration of the liver measuring 12 Hounsfield units. Gallbladder and bile ducts: Normal. No calcified stones. No ductal dilation. Pancreas: Moderate inflammation surrounding the head of the pancreas and portions of the C-loop of the duodenum with extension inferiorly consistent with moderate radiographic pancreatitis. Spleen: Stable calcified splenic granulomas. Adrenal glands: Increased size of 2.3 cm right adrenal lesion measuring 27 Hounsfield units. Correlation with non-emergent MRI is recommended to rule out malignant neoplasm versus benign adrenal adenoma. Kidneys and ureters: See Vasculature finding. Stomach and bowel: Mild colonic diverticulosis. Appendix: No evidence of appendicitis. Intraperitoneal space: Unremarkable. No free air. No significant fluid collection. Vasculature: Calcification of the abdominal aorta and/or iliac arteries consistent with atherosclerotic vessel disease. Small vessel arterial calcifications in the renal mariia bilaterally which are often associated with chronic renal failure. One or more calcified pelvic phleboliths. Lymph nodes: Unremarkable. No enlarged lymph nodes. Urinary bladder: Unremarkable as visualized. Reproductive: Unremarkable as visualized. Bones/joints: Unremarkable. No acute fracture. Soft tissues: Unremarkable. CT/CT abdomen pelvis w con* [id number] IMPRESSION: 1. Markedly severe fatty infiltration of the liver measuring 12 Hounsfield units. 2. Moderate inflammation surrounding the head of the pancreas and portions of the C-loop of the duodenum with extension inferiorly consistent with moderate radiographic pancreatitis. 3. Increased size of 2.3 cm right adrenal lesion measuring 27 Hounsfield units. Correlation with non-emergent MRI is recommended to rule out malignant neoplasm versus benign adrenal adenoma. ? Dictated By: Addison Whyte MD Signed By: Addison Whyte MD Signed Date/Time: 12/24/212140 DD/ 11 Coding Level of Care Code ED Senior Ios Developer for Chg Fwd Exam Comprehensive
[2021-12-24 20:53] LABS: Basophils % 0.6 %; Eosinophils # 0.1 10^3/uL (0.0-0.8); Eosinophils % 0.7 %; Hematocrit 34.7 % (42.0-52.0); Hemoglobin 10.6 g/dL (11.7-16.6); Lymphocytes # 1.3 10^3/uL (0.8-4.8); Lymphocytes % 18.4 %; Mean Corpuscular HGB Conc 30.5 g/dL (30.0-36.0); Mean Corpuscular Hemoglobin 22.7 pg (28.0-34.0); Mean Corpuscular Volume 74.5 fl (80-94); Mean Platelet Volume 9.2 fL (7.4-10.4); Monocytes # 0.9 10^3/uL (0.2-0.9); Monocytes % 11.9 %; Neutrophils # 4.84 10^3/uL (1.8-7.7); Nucleated Red Blood Cells % 0 %; Platelet Count 164 10^3/cmm (130-400); Red Blood Count 4.66 10^6/uL (4.1-5.3); Red Cell Distribution Width 21.7 % (12.1-15.1); White Blood Count 7.1 10^3/uL (4.0-10.0)
[2021-12-24 21:16] LABS: Alanine Aminotransferase 79 U/L (0-41); Albumin Level 3.7 g/dL (3.5-5.2); Alkaline Phosphatase 285 U/L (40-130); Anion Gap 18.7 (5-19); Aspartate Amino Transferase 127 U/L (0-40); Blood Urea Nitrogen 4 mg/dL (8-23); Calcium 8.7 mg/dL (8.5-10.5); Carbon Dioxide 25 mmol/L (22-29); Chloride 97 mmol/L (98-107); Glucose 92 mg/dL (65-115); Osmolality Calculated 281 mOsm/kg (285-295); Potassium 3.7 mmol/L (3.5-5.1); Sodium 137 mmol/L (136-145); Total Bilirubin 0.4 mg/dL (0.15-1.2); Total Protein 6.7 g/dL (6.6-8.7)
[2021-12-24] MEDS: iohexol 350 mg/mL 100 mL Btl 80 ML IV (21:17)
[2021-12-24 21:25] LABS: Lipase 552 U/L (13-60)
[2021-12-24 21:47] LABS: Add Urine Microscopic? NO; Charge for UA Resulting for Rev
[2021-12-24 22:21] LABS: Bilirubin Urine Neg (Negative); Blood Urine Neg (Negative); Glucose Urine UA Norm (Normal); Ketones Urine 1+ (Negative); Leukocyte Esterase Urine Negative (Negative); Nitrate Urine Negative (Negative); Protein Urine Neg (Negative); Urine Appearance Clear (CLEAR); Urine Color Yellow (Yellow); Urobilinogen Urine Neg (Negative); pH Urine 5 (5-7)
[2021-12-24 22:40] VITALS: BP 106/67; PULSE 87; RESP 24; O2SAT 93
== END 2021-12-24 22:30 | disposition home or self-care (01) ==
PROVIDERS: Emergency Provider Emergency Medicine
DX: K85.90 Acute pancreatitis without necrosis or infection, unspecified (principal); R10.9 Unspecified abdominal pain; F10.10 Alcohol abuse, uncomplicated
CPT/HCPCS: 74177; 80053; 81003; 83690; 85025; 99285; Q9967

== ENCOUNTER 2022-01-24 11:16 | Emergency (ER) | payer MEDICAID, SELFPAY ==
[2022-01-24 11:41] VITALS: BP 135/83; PULSE 90; RESP 24; TEMP 36.3; O2SAT 96; BMI 24.7
--- NOTE | 2022-01-24 12:18 | PC.NURSE ---
Patient rounded on in the waiting room by this nurse. No changes and no further needs at this time.
[2022-01-24 12:49] LABS: Basophils # 0.1 10^3/uL (0.0-0.1); Eosinophils % 0.4 %; Hematocrit 41.6 % (42.0-52.0); Hemoglobin 12.8 g/dL (11.7-16.6); Lymphocytes # 1.3 10^3/uL (0.8-4.8); Lymphocytes % 16.1 %; Mean Corpuscular HGB Conc 30.8 g/dL (30.0-36.0); Mean Corpuscular Volume 81.3 fl (80-94); Mean Platelet Volume 9.8 fL (7.4-10.4); Monocytes % 12.3 %; Neutrophils # 5.64 10^3/uL (1.8-7.7); Neutrophils % 69.8 %; Nucleated Red Blood Cells % 0 %; Platelet Count 572 10^3/cmm (130-400); Red Blood Count 5.12 10^6/uL (4.1-5.3); Red Cell Distribution Width 26.1 % (12.1-15.1); White Blood Count 8.1 10^3/uL (4.0-10.0)
[2022-01-24 13:17] LABS: Anion Gap 16.7 (5-19); Blood Urea Nitrogen 5 mg/dL (8-23); Calcium 9.8 mg/dL (8.5-10.5); Carbon Dioxide 29 mmol/L (22-29); Chloride 95 mmol/L (98-107); Glucose 109 mg/dL (65-115); Osmolality Calculated 282 mOsm/kg (285-295); Potassium 3.7 mmol/L (3.5-5.1); Sodium 137 mmol/L (136-145)
== END 2022-01-24 14:45 | disposition left against medical advice (07) ==
PROVIDERS: Emergency Provider Family Medicine; PCP Family Medicine
DX: Z53.21 Procedure and treatment not carried out due to patient leaving prior to being seen by health care provider (principal)
CPT/HCPCS: 80048; 85025

== ENCOUNTER 2022-01-26 13:34 | Emergency (ER) | payer MEDICAID, SELFPAY ==
[2022-01-26 13:43] VITALS: BP 150/77; PULSE 109; RESP 22; O2SAT 97; BMI 24.7
--- NOTE | 2022-01-26 13:55 | XR_ITS ---
WS: [id number] Portable AP upright chest, 01/26/2022 Clinical Data: cough Comparison: Portable chest, 11/14/2021. Findings: No nodules, masses or effusions are seen. The heart is normal. The pulmonary vascularity is not increased. No pneumonia or pneumothorax is seen. Monitor leads are on the chest wall. XR/XR chest 1V portable [id number] Impression: Negative chest.
--- NOTE | 2022-01-26 14:11 | PC.NURSE ---
PT PLACED ON CONTINUOUS NIBP, SPO2, AND CM
--- NOTE | 2022-01-26 14:12 | W.ED.SOB ---
HPI - SOB/Dyspnea General: Chief Complaint: Shortness of Breath/Dyspnea Stated Complaint: SOB, abn labs Time Seen by Provider: 01/26/22 13:53 History of Present Illness: HPI Narrative: 61-year-old male with history of COPD current everyday smoker presenting today with worsening shortness of breath. Patient notes he had worsening shortness of breath over 2 weeks since being admitted at [facility]. Notes he was admitted there for pneumonia. While he was inpatient he received antibiotics and [id number] therapies. After being discharged he notes that he has had worsening shortness of breath. He is on 2 L of oxygen at home all the time. He denies new pain or swelling in his lower extremities. Denies history of blood clots. He takes an aspirin. He denies fevers or chills. He denies nausea or vomiting. Has dyspnea on exertion. This has been gradually worsening over the last several days. No prior history of CHF. Review of Systems General: Reports: 10 or more systems reviewed and unremarkable except in HPI and below PFSH ED PFSH: Medical History Acute alcoholic pancreatitis Acute anemia Acute respiratory distress Blood loss anemia Likely related to epistaxis and etoh intake. He is current on his colonoscopy. Chronic alcohol use Chronic idiopathic constipation COPD (chronic obstructive pulmonary disease) COPD with acute exacerbation Coronary artery disease Foreign body sensation in right ear canal Heart failure HTN (hypertension) Hyperlipidemia Intestinal angina PVD (peripheral vascular disease) Recurrent epistaxis Surgical History S/P coronary angioplasty Coronary disease 2 stents, 2015 S/P hernia repair Family History Father Cancer Mother Cancer Other CAD (coronary artery disease) Social History Smoking and tobacco status: current every day smoker cigarettes Packs smoked per day: 0.5 Years cigarettes smoked: 45 [ Other cigarette details: Half a pack a day, started at age 12 years] Alcohol intake: current Alcohol intake frequency: 3 or more drinks per day Alcohol type: beer Household members: spouse Housing: House History of recent travel: No Physical Exam Const: COMMON NORMALS: no acute distress, patient oriented x3 and alert GENERAL APPEARANCE: cooperative ORIENTATION/CONSCIOUSNESS: Yes awake, Yes oriented to person, Yes oriented to place and Yes oriented to time HENMT: COMMON NORMALS: normocephalic, atraumatic, external ears normal, Normal external nose present and moist oral mucous membranes HEAD & SCALP: normal to inspection, normocephalic and atraumatic NOSE: Normal external nose present GENERAL EAR: hearing grossly impaired EXTERNAL EAR: Yes external ears normal Eye: COMMON NORMALS: Equal, round and reactive pupils present, EOMs intact bilaterally, conjunctivae normal and no scleral icterus GENERAL EYE: appearance normal, both eyes and all related structures EYELID: eyelids normal CONJUNCTIVA: Yes conjunctivae normal SCLERA: sclerae normal PUPIL: Yes Equal, round and reactive pupils present Neck/C-Spine: COMMON NORMALS: full ROM, supple and no JVD GENERAL: Yes normal visual inspection Lymph: LYMPHATIC: no lymphadenopathy noted and no lymphedema noted Chest: COMMONS NORMALS: normal inspection of the chest Resp: COMMON NORMALS: normal respiratory effort, No retractions and No use of accessory muscles; negative for clear to auscultation bilaterally (Diffuse expiratory wheezing in all low. Minor.) AUSCULTATION: not clear to auscultation bilaterally (Diffuse expiratory wheezing in all low. Minor.) Cardio: COMMON NORMALS: no JVD, regular rate and regular rhythm RATE: regular rate RHYTHM: regular rhythm GI: COMMON NORMALS: Normal to inspection, nondistended, normoactive bowel sounds present : COMMON NORMALS: Yes no CVA tenderness BLADDER/KIDNEY EXAM: Yes no CVA tenderness Back/Pelvis: COMMON NORMALS: no CVA tenderness and thoracic and lumbar spine normal to inspection Extremity: COMMON NORMALS: normal to inspection, full ROM and capillary refill normal GENERAL: Yes normal exam except as noted Neuro: COMMON NORMALS: patient oriented x3, CN's II-XII intact bilaterally, moves all extremities, no focal motor deficits, no sensory deficits noted and gait normal SENSORIUM/ORIENTATION: Yes alert, Yes oriented to person, Yes oriented to place and Yes oriented to time Psych: COMMON NORMALS: mental status grossly normal, Normal thought process present, cooperative and normal affect THOUGHT PROCESS: Normal thought process present Skin: COMMON NORMALS: no rashes or lesions noted and no wounds GENERAL SKIN EXAM: no rashes or lesions noted Course Vital Signs: Vital signs: Vital Signs Pulse Rate 109 H 10/14/22 13:43 Respiratory Rate 22 H 01/26/22 13:43 Blood Pressure 150/77 01/26/22 13:43 Pulse Oximetry 97 01/26/22 13:43 Oxygen Delivery Me thod 01/26/22 13:43 MDM - SOB/Dyspnea Medical Decision Making 61-year-old male presenting today with shortness of breath. Known history of COPD. Vitals within normal limits. CBC is unremarkable except for thrombocytosis. CMP is unremarkable. D-dimer is elevated. CTPA performed. Without evidence of pulmonary embolism. We will treat as a COPD exacerbation using prednisone and azithromycin. Patient was given strict return precautions and recommended routine outpatient follow-up. Lab Data : 01/26/22 14:05 01/26/22 14:05 Labs/Radiology: Radiology Impressions Chest X-Ray 01/26/22 13:55 Impression: Negative chest. Chest CTA 01/26/22 14:44 IMPRESSION: 1. No acute findings. No evidence of pulmonary embolism to the segmental level. Motion limits evaluation of the lung bases and subsegmental emboli are not entirely excluded. 2. Bilateral small lipid rich adrenal adenomas again noted. 3. Nodular liver, correlate for hepatic parenchymal disease. Laboratory Results WBC 10.5 10^3/uL (4.0-10.0) H 01/26/22 14:05 RBC 4.79 10^6/uL (4.1-5.3) 01/26/22 14:05 Hgb 11.8 g/dL (11.7-16.6) 01/26/22 14:05 Hct 39.6 % (42.0-52.0) L 01/26/22 14:05 MCV 82.7 fl (80-94) 01/26/22 14:05 MCH 24.6 pg (28.0-34.0) L 01/26/22 14:05 MCHC 29.8 g/dL (30.0-36.0) L 01/26/22 14:05 RDW 25.8 % (12.1-15.1) H 01/26/22 14:05 Plt Count 550 10^3/cmm (130-400) H 01/26/22 14:05 MPV 9.6 fL (7.4-10.4) 01/26/22 14:05 Neut % (Auto) 71.0 % 01/26/22 14:05 Lymph % (Auto) 17.1 % 01/26/22 14:05 [place] % (Auto) 10.0 % 01/26/22 14:05 Eos % (Auto) 1.0 % 01/26/22 14:05 Baso % (Auto) 0.5 % 01/26/22 14:05 Neut # (Auto) 7.43 10^3/uL (1.8-7.7) 01/26/22 14:05 Lymph # (Auto) 1.8 10^3/uL (0.8-4.8) 01/26/22 14:05 [place] # (Auto) 1.0 10^3/uL (0.2-0.9) H 01/26/22 14:05 Eos # (Auto) 0.1 10^3/uL (0.0-0.8) 01/26/22 14:05 Baso # (Auto) 0.1 10^3/uL (0.0-0.1) 01/26/22 14:05 Nucleated RBC % (auto) 0 % 01/26/22 14:05 Nucleated RBCs # 0.0 /100WBC 01/26/22 14:05 D-Dimer 1.09 ug/mIFEU (0-0.59) H 01/26/22 14:05 Sodium 139 mmol/L (136-145) 01/26/22 14:05 Potassium 4.3 mmol/L (3.5-5.1) 01/26/22 14:05 Chloride 97 mmol/L (98-107) L 01/26/22 14:05 Carbon Dioxide 26 mmol/L (22-29) 01/26/22 14:05 Anion Gap 20.3 (5-19) H 01/26/22 14:05 BUN 7 mg/dL (8-23) L 01/26/22 14:05 Creatinine 0.4 mg/dL (0.7-1.2) L 01/26/22 14:05 GFR Calculation 218.0 mL/min (90-130) H 01/26/22 14:05 Glucose 109 mg/dL (65-115) 01/26/22 14:05 Calculated Osmolality 287 mOsm/kg (285-295) 01/26/22 14:05 Calcium 9.5 mg/dL (8.5-10.5) 01/26/22 14:05 Total Bilirubin 0.4 mg/dL (0.15-1.2) 01/26/22 14:05 AST 65 U/L (0-40) H 01/26/22 14:05 ALT 56 U/L (0-41) H 01/26/22 14:05 Alkaline Phosphatase 448 U/L (40-130) H 01/26/22 14:05 Troponin T Baseline 11 ng/L (0-15) 01/26/22 14:05 Total Protein 7.4 g/dL (6.6-8.7) 01/26/22 14:05 Albumin 3.7 g/dL (3.5-5.2) 01/26/22 14:05 Globulin 3.7 g/dL (1.3-4.6) 01/26/22 14:05 Discharge Plan Discharge Patient Disposition: Home Clinical Impression: COPD (chronic obstructive pulmonary disease) Condition: Stable Prescriptions: New azithromycin [Zithromax Z-Ming] 250 mg tablet See Rx Instructions .ROUTE .COMPLEX Qty: 6 0RF Rx Instructions: For 250 mg dose pack: take 500 mg today (day 1), then 250 mg for 4 days (days 2-5) prednisone 50 mg tablet 50 mg PO DAILY 5 Days Qty: 5 0RF No Action bisacodyl 5 mg tablet,delayed release (DR/EC) 15 mg PO DAILY PRN (Reason: constipation) thiamine HCl (vitamin B1) 100 mg tablet 50 mg PO DAILY (DME) oxygen-air delivery systems Device See Rx Instructions .Route Rx Instructions: As directed aspirin [Adult Low Dose Aspirin] 81 mg tablet,delayed release (DR/EC) 81 mg PO DAILY Hold Instructions: Resume on 06/10/20. [place] Saline 0.65 % aerosol,spray 1 spray intranasal BID PRN (Reason: Nasal Congestion) oxymetazoline [Afrin (oxymetazoline)] 0.05 % spray,non-aerosol 2 spray intranasal Q12H PRN (Reason: Nasal Congestion) Combivent Respimat 20-100 mcg/actuation mist 1 puff INHALATION BID Qty: 4 5RF budesonide 0.5 mg/2 mL suspension for nebulization 0.5 mg inhalation BID Qty: 60 11RF formoterol fumarate 20 mcg/2 mL solution for nebulization 2 ml inhalation BID Qty: 120 11RF ipratropium-albuterol 0.5 mg-3 mg(2.5 mg base)/3 mL solution for nebulization 3 ml inhalation Q4H PRN (Reason: wheezing) Qty: 90 3RF (DME) mucus clearing device Device See Rx Instructions .Route Qty: 1 0RF Rx Instructions: Acapella Device nitroglycerin [Nitrostat] 0.4 mg tablet, sublingual 0.4 mg SUBLINGUAL Q5M PRN (Reason: chest pain) Qty: 25 6RF metoprolol tartrate 25 mg tablet 12.5 mg PO BID Qty: 90 3RF amlodipine 5 mg tablet 5 mg PO DAILY Qty: 90 1RF albuterol sulfate 90 mcg/actuation HFA aerosol inhaler 2 inh inhalation Q4H Qty: 8.5 0RF sucralfate 1 gram tablet 1 g PO TID Tylenol 325 mg Capsule 650 mg PO QID PRN (Reason: Pain) magnesium oxide 400 mg magnesium Capsule 400 mg PO BID atorvastatin 40 mg tablet 40 mg PO BEDTIME pantoprazole 40 mg tablet,delayed release (DR/EC) 40 mg PO BID Discharge Orders: Discharge ED (Routine); Ordered 01/26/22 Ordered By: Allan Shetty Referrals: Addison Alcaraz DO [Primary Care Provider] - Patient Instructions: COPD (Chronic Obstructive Pulmonary Disease) (ED) Coding Level of Care Code ED Seam Stayer for Chg Fwd Exam Comprehensive
[2022-01-26 14:15] LABS: Basophils # 0.1 10^3/uL (0.0-0.1); Basophils % 0.5 %; Eosinophils # 0.1 10^3/uL (0.0-0.8); Hematocrit 39.6 % (42.0-52.0); Hemoglobin 11.8 g/dL (11.7-16.6); Lymphocytes # 1.8 10^3/uL (0.8-4.8); Lymphocytes % 17.1 %; Mean Corpuscular HGB Conc 29.8 g/dL (30.0-36.0); Mean Corpuscular Hemoglobin 24.6 pg (28.0-34.0); Mean Corpuscular Volume 82.7 fl (80-94); Mean Platelet Volume 9.6 fL (7.4-10.4); Neutrophils # 7.43 10^3/uL (1.8-7.7); Nucleated Red Blood Cells % 0 %; Platelet Count 550 10^3/cmm (130-400); Red Blood Count 4.79 10^6/uL (4.1-5.3); Red Cell Distribution Width 25.8 % (12.1-15.1); White Blood Count 10.5 10^3/uL (4.0-10.0)
[2022-01-26 14:16] VITALS: BP 145/82; PULSE 113; RESP 21; O2SAT 90
--- NOTE | 2022-01-26 14:31 | ECG_ITS ---
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 Measurements Intervals [place] Rate: 92 P: 69 NV: 155 QRS: 80 QRSD: 109 T: 63 QT: 365 QTc: 452 Interpretive Statements SINUS RHYTHM PROBABLE INFERIOR MYOCARDIAL INFARCTION , PROBABLY OLD [35 ms Q WAVE IN II/aVF] POSSIBLE ANTEROLATERAL MYOCARDIAL INFARCTION , OF INDETERMINATE AGE [30 ms Q WAVE IN I/aVL/V3-V6] Compared to ECG 11/14/2021 12:18:44 No significant changes Electronically Signed On 01-26-2022 16:35:00 CDT by Paco Gallegos M.D. [id number]
[2022-01-26 14:37] LABS: Alanine Aminotransferase 56 U/L (0-41); Albumin Level 3.7 g/dL (3.5-5.2); Alkaline Phosphatase 448 U/L (40-130); Blood Urea Nitrogen 7 mg/dL (8-23); Calcium 9.5 mg/dL (8.5-10.5); Carbon Dioxide 26 mmol/L (22-29); Chloride 97 mmol/L (98-107); Globulin 3.7 g/dL (1.3-4.6); Glucose 109 mg/dL (65-115); Osmolality Calculated 287 mOsm/kg (285-295); Sodium 139 mmol/L (136-145); Total Bilirubin 0.4 mg/dL (0.15-1.2); Total Protein 7.4 g/dL (6.6-8.7)
[2022-01-26 14:38] LABS: Anion Gap 20.3 (5-19); Aspartate Amino Transferase 65 U/L (0-40); Potassium 4.3 mmol/L (3.5-5.1)
[2022-01-26 14:40] LABS: D Dimer 1.09 ug/mIFEU (0-0.59)
--- NOTE | 2022-01-26 14:44 | CTR_ITS ---
PROCEDURE INFORMATION: Exam: CTA Chest With Contrast Exam date and time: 01/26/2022 2:57 PM Age: 61 years old Clinical indication: Shortness of breath; Additional info: Pos dimer, SOB TECHNIQUE: Imaging protocol: Computed tomographic angiography of the chest with contrast. 3D rendering (Not supervised by radiologist): MIP and/or 3D reconstructed images were created by the technologist. Radiation optimization: All CT scans at this facility use at least one of these dose optimization techniques: automated exposure control; mA and/or kV adjustment per patient size (includes targeted exams where dose is matched to clinical indication); or iterative reconstruction. Contrast material: OMNIPAQUE 350; Contrast volume: 82 ml; Contrast route: INTRAVENOUS (IV); COMPARISON: CT angio chest PE protcl [id number] 11/14/2021 4:39 PM RADIATION DOSE METRICS: Total DLP (mGy-cm): 375.5 FINDINGS: Pulmonary arteries: No evidence of pulmonary embolism to the segmental level. Evaluation of the lung bases limited by motion and subsegmental lie not tired excluded. Main pulmonary artery normal in caliber. Aorta: Unremarkable. No aortic aneurysm. No aortic dissection. Lungs: Emphysema and scarring. No consolidation. Pleural spaces: Unremarkable. No pneumothorax. No pleural effusion. Heart: No cardiomegaly. Severe coronary artery calcifications. No pericardial effusion. Lymph nodes: Unremarkable. No enlarged lymph nodes. Liver: Nodular liver and calcified splenic granulomas. Adrenal glands: 16 mm lipid rich right adrenal adenoma measuring -14 Hounsfield units. 17 mm left adrenal lipid rich adenoma measuring -5 Hounsfield units. Bones/joints: No acute or aggressive osseous lesion. Soft tissues: Unremarkable. CT/CT angio chest PE protcl [id number] IMPRESSION: 1. No acute findings. No evidence of pulmonary embolism to the segmental level. Motion limits evaluation of the lung bases and subsegmental emboli are not entirely excluded. 2. Bilateral small lipid rich adrenal adenomas again noted. 3. Nodular liver, correlate for hepatic parenchymal disease.
[2022-01-26] MEDS: iohexol 350 mg/mL 100 mL Btl IV (15:02)
[2022-01-26 15:16] VITALS: BP 148/70; PULSE 85; RESP 21; O2SAT 96
[2022-01-26 15:38] LABS: Troponin(5th) Baseline 11 ng/L (0-15)
[2022-01-26 16:00] VITALS: BP 143/96; PULSE 93; RESP 20; O2SAT 91
== END 2022-01-26 16:13 | disposition home or self-care (01) ==
PROVIDERS: Emergency Provider Emergency Medicine; PCP Family Medicine
DX: J44.9 Chronic obstructive pulmonary disease, unspecified (principal); Z79.82 Long term (current) use of aspirin; F17.210 Nicotine dependence, cigarettes, uncomplicated; I25.10 Atherosclerotic heart disease of native coronary artery without angina pectoris; E78.5 Hyperlipidemia, unspecified; I10 Essential (primary) hypertension; Z98.61 Coronary angioplasty status
CPT/HCPCS: 36415; 71045; 71275; 80053; 84484; 85025; 85378; 93005; 99285; Q9967

== ENCOUNTER → 2022-02-01 09:31 | Outpatient (BNVA) | payer MEDICAID, SELFPAY | PROVIDERS: PCP Family Medicine; Visit Provider Internal Medicine Pulmonary Disease | DX: R06.09 Other forms of dyspnea (principal); J44.9 Chronic obstructive pulmonary disease, unspecified; Z71.6 Tobacco abuse counseling; Z72.89 Other problems related to lifestyle; K55.9 Vascular disorder of intestine, unspecified; I95.9 Hypotension, unspecified; F17.210 Nicotine dependence, cigarettes, uncomplicated; I25.10 Atherosclerotic heart disease of native coronary artery without angina pectoris; Z95.5 Presence of coronary angioplasty implant and graft | CPT/HCPCS: 99214 ==

== ENCOUNTER 2022-02-14 20:12 | Emergency (ER) | payer MEDICAID, SELFPAY ==
[2022-02-14] VITALS (8 sets, daily range): BP systolic 96–127; BP diastolic 65–94; PULSE 93–104; RESP 16–24; TEMP 37.1; O2SAT 92–100; BMI 31.4
--- NOTE | 2022-02-14 21:10 | ECG_ITS ---
[facility] Test Date: 2022-02-14 Pat Name: John Diaz Department: Room: Gender: Male Foster Parent: : 1960 Requested By: Jenna Marquez Order Number: [id number] Deanna MD: Mckenna Jefferson M.D. Measurements Intervals [place] Rate: 93 P: 62 IA: 154 QRS: 82 QRSD: 109 T: 40 QT: 359 QTc: 447 Interpretive Statements SINUS RHYTHM LOW QRS VOLTAGE IN PRECORDIAL LEADS [QRS DEFLECTION < 1.0 mV IN CHEST LEADS] POSSIBLE INFERIOR MYOCARDIAL INFARCTION , PROBABLY OLD [30 ms Q WAVE IN II/aVF] Compared to ECG 01/26/2022 14:31:31 Low QRS voltage now present Myocardial infarct finding still present Electronically Signed On 02-15-2022 5:26:29 CDT by Mckenna Jefferson M.D. [id number]
--- NOTE | 2022-02-14 21:10 | XRR_ITS ---
PROCEDURE INFORMATION: Exam: XR Chest Exam date and time: 02/14/2022 9:22 PM Age: 61 years old Clinical indication: Cough and shortness of breath; Additional info: SOB TECHNIQUE: Imaging protocol: Radiologic exam of the chest. Views: 1 view. COMPARISON: CR XR chest 1V portable [id number] 01/26/2022 2:03 PM FINDINGS: Lungs: Unremarkable. No consolidation. Pleural spaces: Unremarkable. No pleural effusion. No pneumothorax. Heart/Mediastinum: Unremarkable. No cardiomegaly. Bones/joints: Unremarkable. XR/XR chest 1V portable [id number] IMPRESSION: No acute findings.
[2022-02-14] MEDS: albuterol 2.5 mg/3 mL Neb INHALATION (21:43)
[2022-02-14] MEDS: ipratropium-albuterol 3 mL Neb INHALATION (21:43)
[2022-02-14 21:45] LABS: Basophils % 0.5 %; Eosinophils # 0.1 10^3/uL (0.0-0.8); Eosinophils % 0.8 %; Hematocrit 37.1 % (42.0-52.0); Hemoglobin 11.4 g/dL (11.7-16.6); Lymphocytes # 2.4 10^3/uL (0.8-4.8); Lymphocytes % 27.9 %; Mean Corpuscular HGB Conc 30.7 g/dL (30.0-36.0); Mean Corpuscular Hemoglobin 25.3 pg (28.0-34.0); Mean Corpuscular Volume 82.4 fl (80-94); Mean Platelet Volume 8.9 fL (7.4-10.4); Neutrophils % 58.4 %; Nucleated Red Blood Cells % 0 %; Platelet Count 180 10^3/cmm (130-400); Red Cell Distribution Width 24.2 % (12.1-15.1); White Blood Count 8.6 10^3/uL (4.0-10.0)
--- NOTE | 2022-02-14 22:07 | W.ED.GENADLT ---
HPI - General Adult General: Chief complaint: General Medical Stated complaint: SOB/ABD PAIN Time Seen by Provider: 02/14/22 20:59 Source: patient and EMS Mode of arrival: EMS Limitations: no limitations History of Present Illness: 61-year-old male who has a long history of COPD states that over the last 2 days had increasing wheezing along with shortness of breath has had a slight cough as well he states he had some abdominal distention he states that is chronic in nature he does have a history of cirrhosis he denies any vomiting diarrhea he denies any fever denies any chest pain. Associated symptoms: Reports dyspnea; Deny chest pain, headache(s), nausea, rash or vomiting Review of Systems Const: Denies: fever(s), chills, body aches or change in appetite Eyes: Denies: blurry vision or eye discomfort ENMT: Denies: throat pain or dental pain Card: Denies: chest pain Resp: Reports: dyspnea and non-productive cough GI: Denies: abdominal pain, nausea, vomiting or diarrhea : Denies: dysuria Musc: Denies: neck pain or back pain Skin/Breast: Denies: rash Neuro: Denies: headache(s) Psych: Denies: depression Mani/Lymph: Denies: easy bruising All/Imm: Denies: urticaria PFSH ED PFSH: Medical History Acute alcoholic pancreatitis Acute anemia Acute respiratory distress Blood loss anemia Likely related to epistaxis and etoh intake. He is current on his colonoscopy. Chronic alcohol use Chronic idiopathic constipation COPD (chronic obstructive pulmonary disease) COPD with acute exacerbation Coronary artery disease Foreign body sensation in right ear canal Heart failure HTN (hypertension) Hyperlipidemia Intestinal angina PVD (peripheral vascular disease) Recurrent epistaxis Surgical History S/P coronary angioplasty Coronary disease 2 stents, 2015 S/P hernia repair Family History Father Cancer Mother Cancer Other CAD (coronary artery disease) Social History Smoking and tobacco status: current every day smoker (4-5 cigarrettes per day) cigarettes Packs smoked per day: 0.5 Years cigarettes smoked: 45 [ Other cigarette details: Half a pack a day, started at age 12 years] Alcohol intake: current Alcohol intake frequency: 3 or more drinks per day Alcohol type: beer Household members: spouse Housing: House History of recent travel: No Physical Exam Const: COMMON NORMALS: no acute distress, patient oriented x3 and healthy appearing HENMT: COMMON NORMALS: normocephalic and atraumatic HEAD & SCALP: normocephalic and atraumatic Eye: COMMON NORMALS: Equal, round and reactive pupils present and EOMs intact bilaterally PUPIL: Yes Equal, round and reactive pupils present Neck/C-Spine: COMMON NORMALS: full ROM and supple Chest: COMMONS NORMALS: normal inspection of the chest and normal palpation of entire chest wall Resp: COMMON NORMALS: normal respiratory effort, No retractions and No use of accessory muscles AUSCULTATION: wheezes Cardio: COMMON NORMALS: regular rate, regular rhythm and No murmurs present (Cardio) RATE: regular rate RHYTHM: regular rhythm GI: COMMON NORMALS: Normal to inspection, nondistended, normoactive bowel sounds present, Soft to palpation, non-tender and no masses PALPATION: Yes Soft to palpation Extremity: COMMON NORMALS: normal to inspection and full ROM Neuro: COMMON NORMALS: patient oriented x3, moves all extremities and no focal motor deficits Psych: COMMON NORMALS: mental status grossly normal, Normal thought process present and cooperative THOUGHT PROCESS: Normal thought process present Skin: COMMON NORMALS: no rashes or lesions noted and no wounds GENERAL SKIN EXAM: no rashes or lesions noted Course Vital Signs: Vital signs: Vital Signs Temperature 98.8 F 02/14/22 20:52 Pulse Rate 95 02/14/22 22:51 Respiratory Rate 16 02/14/22 22:51 Blood Pressure 124/87 02/14/22 22:51 Pulse Oximetry 94 02/14/22 22:51 Oxygen Delivery Me thod 02/14/22 21:41 Oxygen Flow Rate 2 02/14/22 21:41 MDM - General Adult Medical Decision Making Patient presents here with dyspnea likely COPD exacerbation is improved after breathing treatments x-ray is normal blood work is normal he has no signs of pneumonia he is stable for discharge he is to follow-up with PCP and return if worsening. Lab Data : 02/14/22 21:32 02/14/22 21:32 Radiology Impressions Chest X-Ray 02/14/22 21:10 IMPRESSION: No acute findings. Laboratory Results WBC 8.6 10^3/uL (4.0-10.0) 02/14/22 21: RBC 4.50 10^6/uL (4.1-5.3) 02/14/22 21:32 Hgb 11.4 g/dL (11.7-16.6) L 02/14/22 21: Hct 37.1 % (42.0-52.0) L 02/14/22 21: MCV 82.4 fl (80-94) 02/14/22 21: MCH 25.3 pg (28.0-34.0) L 02/14/22 21: MCHC 30.7 g/dL (30.0-36.0) 02/14/22 21: RDW 24.2 % (12.1-15.1) H 02/14/22 21: Plt Count 180 10^3/cmm (130-400) 02/14/22 21: MPV 8.9 fL (7.4-10.4) 02/14/22 21: Neut % (Auto) 58.4 % 02/14/22 21: Lymph % (Auto) 27.9 % 02/14/22 21: [place] % (Auto) 12.0 % 02/14/22 21: Eos % (Auto) 0.8 % 02/14/22: Baso % (Auto) 0.5 % 02/14/22: Neut # (Auto) 5.00 10^3/uL (1.8-7.7) 02/14/22 21: Lymph # (Auto) 2.4 10^3/uL (0.8-4.8) 02/14/22 21: [place] # (Auto) 1.0 10^3/uL (0.2-0.9) H 02/14/22 21: Eos # (Auto) 0.1 10^3/uL (0.0-0.8) 02/14/22 21: Baso # (Auto) 0.0 10^3/uL (0.0-0.1) 02/14/22 21:32 Nucleated RBC % (auto) 0 % 02/14/22 21:32 Nucleated RBCs # 0.0 /100WBC 02/14/22 21:32 Sodium 142 mmol/L (136-145) 02/14/22 21:32 Potassium 3.5 mmol/L (3.5-5.1) 02/14/22 21:32 Chloride 99 mmol/L (98-107) 02/14/22 21:32 Carbon Dioxide 28 mmol/L (22-29) 02/14/22 21:32 Anion Gap 18.5 (5-19) 02/14/22 21:32 BUN 5 mg/dL (8-23) L 02/14/22 21:32 Creatinine 0.3 mg/dL (0.7-1.2) L 02/14/22 21:32 GFR Calculation 303.8 mL/min (90-130) H 02/14/22 21:32 Glucose 95 mg/dL (65-115) 02/14/22 21:32 Calculated Osmolality 291 mOsm/kg (285-295) 02/14/22 21:32 Calcium 8.7 mg/dL (8.5-10.5) 02/14/22 21:32 Total Bilirubin 0.4 mg/dL (0.15-1.2) 02/14/22 21:32 AST 60 U/L (0-40) H 02/14/22 21:32 ALT 26 U/L (0-41) 02/14/22 21:32 Alkaline Phosphatase 247 U/L (40-130) H 02/14/22 21:32 NT-Pro-B Natriuret Pep 68 pg/mL (0-125) 02/14/22 21:32 Total Protein 6.9 g/dL (6.6-8.7) 02/14/22 21:32 Albumin 3.8 g/dL (3.5-5.2) 02/14/22 21:32 Globulin 3.1 g/dL (1.3-4.6) 02/14/22 21:32 EKG Data EKG 1: I personally reviewed and interpreted this EKG as follows: EKG interpretation date: 02/14/22 EKG interpretation time: 21:20 Interpretation: nsr hr [address] or t wave abnormalities qrs 109 qtc 409 Computer generated interpretation: Chest X-Ray 02/14/22 21:10 IMPRESSION: No acute findings. Discharge Plan Discharge Patient Disposition: Home Clinical Impression: Acute exacerbation of chronic obstructive pulmonary disease Condition: Stable Prescriptions: New prednisone 50 mg tablet 50 mg PO DAILY Qty: 5 0RF No Action bisacodyl 5 mg tablet,delayed release (DR/EC) 15 mg PO DAILY PRN (Reason: constipation) thiamine HCl (vitamin B1) 100 mg tablet 50 mg PO DAILY (DME) oxygen-air delivery systems Device See Rx Instructions .Route Rx Instructions: As directed aspirin [Adult Low Dose Aspirin] 81 mg tablet,delayed release (DR/EC) 81 mg PO DAILY Hold Instructions: Resume on 06/10/20. Export Saline 0.65 % aerosol,spray 1 spray intranasal BID PRN (Reason: Nasal Congestion) oxymetazoline [Afrin (oxymetazoline)] 0.05 % spray,non-aerosol 2 spray intranasal Q12H PRN (Reason: Nasal Congestion) Combivent Respimat 20-100 mcg/actuation mist 1 puff INHALATION BID Qty: 4 5RF ipratropium-albuterol 0.5 mg-3 mg(2.5 mg base)/3 mL solution for nebulization 3 ml inhalation Q6H PRN (Reason: wheezing) Qty: 180 11RF azithromycin 250 mg tablet 250 mg PO .every other day Qty: 30 3RF (DME) mucus clearing device Device See Rx Instructions .Route Qty: 1 0RF Rx Instructions: Acapella Device nitroglycerin [Nitrostat] 0.4 mg tablet, sublingual 0.4 mg SUBLINGUAL Q5M PRN (Reason: chest pain) Qty: 25 6RF metoprolol tartrate 25 mg tablet 12.5 mg PO BID Qty: 90 3RF amlodipine 5 mg tablet 5 mg PO DAILY Qty: 90 1RF pantoprazole 40 mg tablet,delayed release (DR/EC) 40 mg PO BID Qty: 60 3RF budesonide 0.5 mg/2 mL suspension for nebulization 0.5 mg inhalation BID Qty: 120 11RF formoterol fumarate 20 mcg/2 mL solution for nebulization 2 ml inhalation BID Qty: 120 11RF revefenacin 175 mcg/3 mL solution for nebulization 175 mcg inhalation DAILY Qty: 90 11RF albuterol sulfate 90 mcg/actuation HFA aerosol inhaler 2 inh inhalation Q4H Qty: 8.5 0RF sucralfate 1 gram tablet 1 g PO TID Tylenol 325 mg Capsule 650 mg PO QID PRN (Reason: Pain) magnesium oxide 400 mg magnesium Capsule 400 mg PO BID atorvastatin 40 mg tablet 40 mg PO BEDTIME Discharge Orders: Discharge ED (Routine); Ordered 02/14/22 Ordered By: Jenna Marquez Referrals: Addison Alcaraz, [Primary Care Provider] - Discharge Diet: Advance as tolerated Discharge Activity: Resume usual activity Patient Instructions: COPD (Chronic Obstructive Pulmonary Disease) (ED) Coding Level of Care Code ED Secondary History Teacher for Chg Fwd Exam Comprehensive
[2022-02-14 22:43] LABS: Alanine Aminotransferase 26 U/L (0-41); Albumin Level 3.8 g/dL (3.5-5.2); Alkaline Phosphatase 247 U/L (40-130); Anion Gap 18.5 (5-19); Aspartate Amino Transferase 60 U/L (0-40); Blood Urea Nitrogen 5 mg/dL (8-23); Calcium 8.7 mg/dL (8.5-10.5); Carbon Dioxide 28 mmol/L (22-29); Chloride 99 mmol/L (98-107); Globulin 3.1 g/dL (1.3-4.6); Glomerular Filtration Rate 303.8 mL/min (90-130); Glucose 95 mg/dL (65-115); NT Pro B Type Natriuretic Pept 68 pg/mL (0-125); Osmolality Calculated 291 mOsm/kg (285-295); Potassium 3.5 mmol/L (3.5-5.1); Sodium 142 mmol/L (136-145); Total Bilirubin 0.4 mg/dL (0.15-1.2); Total Protein 6.9 g/dL (6.6-8.7)
== END 2022-02-14 23:38 | disposition home or self-care (01) ==
PROVIDERS: Emergency Provider Emergency Medicine; PCP Family Medicine
DX: J44.1 Chronic obstructive pulmonary disease with (acute) exacerbation (principal); Z79.82 Long term (current) use of aspirin; I25.10 Atherosclerotic heart disease of native coronary artery without angina pectoris; I11.0 Hypertensive heart disease with heart failure; I50.9 Heart failure, unspecified; E78.5 Hyperlipidemia, unspecified; Z98.61 Coronary angioplasty status; F17.210 Nicotine dependence, cigarettes, uncomplicated
CPT/HCPCS: 71045; 80053; 83880; 85025; 93005; 94640; 96374; 99285; J2930; J7613

== ENCOUNTER 2022-02-16 07:51 | Outpatient (CLI) | payer MEDICAID, SELFPAY ==
[2022-02-16 07:59] VITALS: BMI 25.0
--- NOTE | 2022-02-16 09:17 | NMCV_ITS ---
NM khushbu perf SPECT r/s* [id number] John Diaz Age: 61 Gender: M : 1960 Exam Date: 02/16/2022 09:34 Ordering Phys: Mayra Hunter Technologist: LUIS ALBERTO Lowry Exam Location: [facility] Indications: ATHEROSCLEROTIC HEART DISEASE OF [place] CORONARY ARTERY STRESS TEST Please see separate stress test report [facility] for full findings IMAGE PROTOCOL Rest/Stress 1 Lexiscan Day Radiopharmaceutical Dose (mCi) Administration Site Administered by Rest: Tc-99m 10.7 IV LUIS ALBERTO Limon Sestamibi Stress:Tc-99m 32.7 IV LUIS ALBERTO Limon Sestamibi Rest: 16-Feb-2022 60 Discovery 630 Stress: 16-Feb-2022 30 Discovery 630 0.4mg Lexiscan. Supine position only as patient was unable to lay prone. SPECT RESULTS Technical Quality: Excellent Raw Data Analysis: Normal Image Corrections: No attenuation or motion correction applied Summed Stress Score: 14 Summed Rest Score: 10 Summed Difference Score: 4 PERFUSION FINDINGS Medium size perfusion abnormality of moderate severity of mid to apical inferior, mid to apical inferolateral and mid inferoseptal campos on rest images with subtle reversibility in mid inferolateral and basal to mid inferior campos on stress images. FUNCTIONAL RESULTS (calculated via Gated SPECT) Stress Image LV EF (%): 67 Stress EDV (mL):101 TID: 0.85 Stress ESV (mL):33 FUNCTIONAL FINDINGS: The left ventricle is normal in size. Transient Ischemia Dilatation of 0.85. There is normal left ventricular systolic function. The left ventricular ejection fraction is normal with a value of 67%. There is normal left ventricular wall thickening. Normal end-diastolic and end-systolic volumes. IMPRESSIONS 1. Medium size perfusion abnormality of moderate severity of mid to apical inferior, mid to apical inferolateral and mid inferoseptal campos with mild reversibility in mid inferolateral and basal to mid inferior campos. 2. This may represent old myocardial infarction in right coronary artery and circumflex artery territory with minimal sandhya-infarct ischemia or attenuation artifact in absence of prone imaging. 3. Overall left ventricular systolic function is normal without regional wall motion abnormalities. 4. EKG portion of the study will be reported separately. Mckenna Jefferson MD (Electronically Signed) Final Date: 20 February 2022 18:53 S
--- NOTE | 2022-02-16 09:17 | ECG_ITS ---
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 Interpretive Statements NAME OF STUDY: LEXISCAN SESTAMIBI STRESS TEST INDICATION: Atypical Chest Pain PROCEDURE: At the baseline, the blood pressure was 120/58 mm Hg with a heart rate of 100 bpm. The electrocardiogram showed sinus rhythm, normal axis and possible old septal infarct. The Lexiscan was infused over a period of 20 seconds. A total of 0.4 milligrams of Lexiscan was infused. The stress phase was continued for a total of 5 minutes. Heart rate at the end of the stress phase was 112 bpm with a blood pressure of 154/90 mm Hg. The EKG at the peak infusion revealed sinus rhythm with no significant ST-T wave changes. The study was terminated due to protocol completion. Sestamibi was injected 20 seconds after the Lexiscan infusion. Blood pressure at the end of the recovery phase was 198/84 mm Hg with a heart rate of 107 beats per minute. CONCLUSION: 1. No significant EKG changes with the LexiScan infusion. 2. No LexiScan induced chest pain or cardiac arrhythmia. 3. Normal blood pressure and heart rate response. 4. Sestamibi/sestamibi perfusion scan pending; see separate report. Electronically Signed On 02-26-2022 20:01:22 APPLICATION PROGRAMMER ANALYST by Mckenna Jefferson M.D. [id number]
[2022-02-16 11:05] VITALS: PULSE 109
[2022-02-16] MEDS: regadenoson 0.4 Mg/5 ml Syringe IVP (11:10)
== END 2022-02-16 07:52 | disposition home or self-care (01) ==
LOC: CDL 07:53
PROVIDERS: PCP Family Medicine; Visit Provider Nurse Practitioner Family
DX: R07.9 Chest pain, unspecified (principal); I25.10 Atherosclerotic heart disease of native coronary artery without angina pectoris
CPT/HCPCS: 78452; 93017; A9500; J2785

== ENCOUNTER 2022-03-22 16:15 | Emergency (ER) | payer MEDICAID, SELFPAY ==
[2022-03-22] VITALS (50 sets, daily range): BP systolic 116–158; BP diastolic 79–104; PULSE 76–109; RESP 12–23; TEMP 36.3; O2SAT 93–100; BMI 25.0
--- NOTE | 2022-03-22 17:06 | PC.PHAR ---
pt states his takes care of his medications-pts fifi [phone] states the pt hasnt taken imdur er 60mg daily since feb 13 2022 ext med history shows last filled 03/10/22 30d/s-pts states the pts insurance wont cover the perforomist 2ml inh bid written 02/12/22 and cedrick 175mcg inh daily written 02/12/22-
--- NOTE | 2022-03-22 17:39 | XRR_ITS ---
PROCEDURE INFORMATION: Exam: XR Chest Exam date and time: 03/22/2022 5:57 PM Age: 61 years old Clinical indication: Shortness of breath; Additional info: SOB TECHNIQUE: Imaging protocol: Radiologic exam of the chest. Views: 1 view. COMPARISON: CR (CHEST, ) 02/14/2022 9:22 PM FINDINGS: Lungs: Emphysematous changes of the lungs. No consolidation. Pleural spaces: No pleural effusion. No pneumothorax. Heart/Mediastinum: No cardiomegaly. Bones/joints: Visualized osseous structures are intact. XR/XR chest 1V portable [id number] IMPRESSION: No acute findings.
--- NOTE | 2022-03-22 17:40 | ECG_ITS ---
[facility] Test Date: 2022-03-22 Pat Name: John Diaz Department: Room: Gender: Male Dental Manager: : 1960 Requested By: Brendon Gomez Order Number: [id number] Deanna MD: Mckenna Jefferson M.D. Measurements Intervals [place] Rate: 84 P: 78 CT: 154 QRS: 83 QRSD: 106 T: 69 QT: 376 QTc: 447 Interpretive Statements SINUS RHYTHM POSSIBLE INFERIOR MYOCARDIAL INFARCTION , PROBABLY OLD [30 ms Q WAVE IN II/aVF] Compared to ECG 02/14/2022 21:20:02 No significant changes Electronically Signed On 03-23-2022 13:12:03 LINOLEUM INSTALLER by Mckenna Jefferson M.D. [id number]
--- NOTE | 2022-03-22 17:41 | ED_ITS ---
HPI - SOB/Dyspnea General: Chief Complaint: Shortness of Breath/Dyspnea Stated Complaint: SOB Time Seen by Provider: 03/22/22 16:28 Source: patient and family Mode of arrival: EMS Limitations: no limitations History of Present Illness: HPI Narrative: Patient was transported by EMS to our emergency department because of lower extremity swelling fatigue and shortness of breath and abdominal swelling. Symptoms have been progressing over the past 4 to 5 days. There is a questi onable history of congestive heart failure. Denies any chest pain or fever. He is still drinking alcohol on a daily basis and as well as smoking tobacco. He states that he is had a some mild cough but basically nonproductive. He states his appetite is diminished he will maybe not eat for 2 to 3 days but continues to drink fluids and alcohol. He states that he has not any blood or black tarry stools. Denies any emesis. He states his symptoms are worse with lying flat. did report that she had them put his feet up which improved them temporarily in regards to his swelling. Pertinent past history: COPD Associated symptoms: Deny chest pain, fever(s), nausea, palpitations, polydipsia, polyuria or vomiting Review of Systems Const: Reports: change in appetite; Denies: fever(s) or chills Eyes: Denies: change in vision ENMT: Denies: throat pain, odynophagia, nasal discharge, nasal congestion or nasal obstruction Card: Reports: edema; Denies: chest pain, palpitations or irregular heart rhythm Resp: Reports: dyspnea, non-productive cough and wheezing GI: Reports: early satiety; Denies: nausea, vomiting, hematemesis, hematochezia or melena : Denies: flank pain, difficulty urinating, dysuria or urinary frequency Musc: Denies: neck pain or back pain Skin/Breast: Denies: rash or pruritus Neuro: Denies: headache(s), numbness in extremities or weakness in extremities Endo: Denies: polyuria or polydipsia PFSH ED PFSH: Medical History Acute alcoholic pancreatitis Acute anemia Acute respiratory distress Blood loss anemia Likely related to epistaxis and etoh intake. He is current on his colonoscopy. Chronic alcohol use Chronic idiopathic constipation COPD (chronic obstructive pulmonary disease) COPD with acute exacerbation Coronary artery disease Foreign body sensation in right ear canal Heart failure HTN (hypertension) Hyperlipidemia Intestinal angina PVD (peripheral vascular disease) Recurrent epistaxis Surgical History S/P coronary angioplasty Coronary disease 2 stents, 2015 S/P hernia repair Family History Father Cancer Mother Cancer Other CAD (coronary artery disease) Social History Smoking and tobacco status: current every day smoker (4-5 cigarrettes per day) cigarettes Packs smoked per day: 0.5 Years cigarettes smoked: 45 [ Other cigarette details: Half a pack a day, started at age 12 years] Alcohol intake: current Alcohol intake frequency: 3 or more drinks per day Alcohol type: beer Household members: spouse Housing: House History of recent travel: No Physical Exam Narrative: EXAM NARRATIVE: Is awake and alert makes good eye contact. Speech is goal-directed. Const: COMMON NORMALS: patient oriented x3 GENERAL APPEARANCE: ill appearing, frail appearing and appears older than stated age NUTRITIONAL APPEARANCE: thin HENMT: COMMON NORMALS: normocephalic, Normal nasal mucous membranes and turbinates present, moist oral mucous membranes and oropharynx normal HEAD & SCALP: normocephalic FACE & SINUS: normal facial exam NOSE: Normal nasal mucous membranes and turbinates present Eye: COMMON NORMALS: Equal, round and reactive pupils present, EOMs intact bilaterally, conjunctivae normal and no scleral icterus CONJUNCTIVA: Yes conjunctivae normal PUPIL: Yes Equal, round and reactive pupils present Neck/C-Spine: COMMON NORMALS: full ROM, no JVD and No carotid bruits Chest: COMMONS NORMALS: normal inspection of the chest and normal palpation of entire chest wall Resp: COMMON NORMALS: No retractions and No use of accessory muscles EFFORT & INSPECTION: Yes able to speak in complete sentences AUSCULTATION: rhonchi and wheezes Cardio: COMMON NORMALS: no JVD, regular rate, regular rhythm, No murmurs present (Cardio) and Peripheral pulses 2+ throughout RATE: regular rate RHYTHM: regular rhythm PERIPHERAL PULSES: Peripheral pulses 2+ throughout GI: COMMON NORMALS: Soft to palpation INSPECTION: Yes abdominal distension (Hyperresonant to percussion with shifting dullness) PALPATION: Yes Soft to palpation PERCUSSION: dullness to percussion and tympanic to percussion : COMMON NORMALS: Yes no CVA tenderness BLADDER/KIDNEY EXAM: Yes no CVA tenderness Back/Pelvis: COMMON NORMALS: no CVA tenderness, thoracic and lumbar spine normal to inspection, no thoracic nor lumbar tenderness and straight leg raise negative bilaterally Extremity: COMMON NORMALS: full ROM, capillary refill normal and no calf tenderness NARRATIVE EXTREMITY EXAM: Has pretibial edema bilaterally. Neuro: COMMON NORMALS: patient oriented x3, moves all extremities, no focal motor deficits and no sensory deficits noted CRANIAL NERVES: Yes CN normal except as noted Psych: COMMON NORMALS: mental status grossly normal Skin: COMMON NORMALS: no rashes or lesions noted and no wounds GENERAL SKIN EXAM: no rashes or lesions noted Course Reevaluation(s): Reevaluation #1: Patient remained stable. I reviewed current findings with both he and spouse. He does have chronic pancreatitis albeit very mild at this case given his CT scan and minimal lipase elevation. He does have a borderline troponin however he has no acute EKG changes is not having any ongoing findings to suggest ischemia at this time. He does have several concomitant multiple core morbidities to include his COPD, questionable heart failure, alcohol overindulgence with cirrhosis and probably some abdominal edema related to either portal hypertension and cirrhosis and/or passive congestion. We discussed his lifestyle and the need to make some changes to reduce some of his symptoms. We also will try to mobilize some his fluids and place him on spironolactone and see if we can get him symptomatic relief as well. This was discussed with both he and his spouse. He prefers to be discharged from the hospital this evening rather than continued observation and does agree to return if his symptoms do not improve with the proposed therapy. This was also sup ported by his spouse. Time: 21:32 Vital Signs: Vital signs: Vital Signs Temperature 97.4 F L 03/22/22 16:33 Pulse Rate 98 03/22/22 21:20 Respiratory Rate 12 03/22/22 21:20 Blood Pressure 141/82 03/22/22 21:20 Pulse Oximetry 98 03/22/22 21:20 Oxygen Delivery Me thod 03/22/22 16:45 Oxygen Flow Rate 2 03/22/22 16:45 MDM - SOB/Dyspnea Medical Decision Making Patient with a longstanding history of alcohol consumption, tobacco use, COPD that is oxygen requiring at home. He presents with subjective symptoms of some pedal edema and some abdominal distention as well as subjective shortness of breath. His work-up this evening revealed no acute EKG changes. He did have a borderline troponin elevation but no ongoing ischemia by symptoms and or EKG changes at this time. We discussed options to include continued observation versus a trial of potassium sparing diuretics at home to help mobilize his gut edema as well as perhaps improved what is likely some contributory portal hypertension. He voices understanding and agrees to that plan and desires to be discharged in the hospital. We also discussed return precautions, lifestyle changes to include alcohol and tobacco avoidance etc. Medical Records I reviewed the patient's medical records. Lab Data I reviewed the patient's lab results. 03/22/22 17:46 03/22/22 17:46 Labs/Radiology: Radiology Impressions Chest X-Ray 03/22/22 17:39 IMPRESSION: No acute findings. Abdomen/Pelvis CT 03/22/22 19:59 IMPRESSION: 1. Persistent or recurrent inflammatory changes around the pancreatic head, in a similar location to prior studies, consistent with pancreatitis. 2. Cirrhosis and hepatic steatosis. 3. 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 COMMENTS: Consistent with the [employer]'s Incidental Findings Committee white paper (J Am Geri Radiol 2017): For any incidental adrenal lesion greater than or equal to 1 cm but less than or equal to 4 cm classified in this report as benign, likely benign, or containing fat (including classification as an adenoma or myelolipoma), no follow-up imaging is recommended per consensus recommendations based on imaging criteria. Further lab evaluation could be pursued if warranted based on clinical findings. Laboratory Results WBC 9.7 10^3/uL (4.0-10.0) 03/22/22 17:46 RBC 4.30 10^6/uL (4.1-5.3) 03/22/22 17:46 Hgb 12.0 g/dL (11.7-16.6) 03/22/22 17:46 Hct 38.8 % (42.0-52.0) L 03/22/22 17:46 MCV 90.2 fl (80-94) 03/22/22 17:46 MCH 27.9 pg (28.0-34.0) L 03/22/22 17:46 MCHC 30.9 g/dL (30.0-36.0) 03/22/22 17:46 RDW 21.5 % (12.1-15.1) H 03/22/22 17:46 Plt Count 309 10^3/cmm (130-400) 03/22/22 17:46 MPV 9.8 fL (7.4-10.4) 03/22/22 17:46 Neut % (Auto) 65.4 % 03/22/22 17:46 Lymph % (Auto) 18.3 % 03/22/22 17:46 [place] % (Auto) 14.2 % 03/22/22 17:46 Eos % (Auto) 1.3 % 03/22/22 17:46 Baso % (Auto) 0.4 % 03/22/22 17:46 Neut # (Auto) 6.33 10^3/uL (1.8-7.7) 03/22/22 17:46 Lymph # (Auto) 1.8 10^3/uL (0.8-4.8) 03/22/22 17:46 [place] # (Auto) 1.4 10^3/uL (0.2-0.9) H 03/22/22 17:46 Eos # (Auto) 0.1 10^3/uL (0.0-0.8) 03/22/22 17:46 Baso # (Auto) 0.0 10^3/uL (0.0-0.1) 03/22/22 17:46 Nucleated RBC % (auto) 0 % 03/22/22 17:46 Nucleated RBCs # 0.0 /100WBC 03/22/22 17:46 Sodium 138 mmol/L (136-145) 03/22/22 17:46 Potassium 4.0 mmol/L (3.5-5.1) 03/22/22 17:46 Chloride 96 mmol/L (98-107) L 03/22/22 17:46 Carbon Dioxide 28 mmol/L (22-29) 03/22/22 17:46 Anion Gap 18.0 (5-19) 03/22/22 17:46 BUN 6 mg/dL (8-23) L 03/22/22 17:46 Creatinine 0.3 mg/dL (0.7-1.2) L 03/22/22 17:46 GFR Calculation 303.8 mL/min (90-130) H 03/22/22 17:46 Glucose 97 mg/dL (65-115) 03/22/22 17:46 Calculated Osmolality 284 mOsm/kg (285-295) L 03/22/22 17:46 Calcium 9.0 mg/dL (8.5-10.5) 03/22/22 17:46 Total Bilirubin 0.3 mg/dL (0.15-1.2) 03/22/22 17:46 AST 101 U/L (0-40) H 03/22/22 17:46 ALT 61 U/L (0-41) H 03/22/22 17:46 Alkaline Phosphatase 361 U/L (40-130) H 03/22/22 17:46 Troponin T Baseline 15 ng/L (0-15) 03/22/22 17:46 Troponin T 120 Minute 16.98 ng/L (0-15) H 03/22/22 19:56 Delta Troponin T 1.98 ABS# (0-10) 03/22/22 19:56 NT-Pro-B Natriuret Pep 27 pg/mL (0-125) 03/22/22 17:46 Total Protein 6.6 g/dL (6.6-8.7) 03/22/22 17:46 Albumin 3.3 g/dL (3.5-5.2) L 03/22/22 17:46 Globulin 3.3 g/dL (1.3-4.6) 03/22/22 17:46 Lipase 75 U/L (13-60) H 03/22/22 17:46 Urine Color Yellow (Yellow) 03/22/22 19:20 Urine Appearance Clear (CLEAR) 03/22/22 19:20 Urine pH 6 (5-7) 03/22/22 19:20 Ur Specific [place] 1.015 (1.005-1.030) 03/22/22 19:20 Urine Protein Neg (Negative) 03/22/22 19:20 Urine Glucose (UA) Norm (Normal) 03/22/22 19:20 Urine Ketones 1+ (Negative) H 03/22/22 19:20 Urine Blood 3+ (Negative) H 03/22/22 19:20 Urine Nitrate Negative (Negative) 03/22/22 19:20 Urine Bilirubin Neg (Negative) 03/22/22 19:20 Urine Urobilinogen Neg mg/dL (Negative) 03/22/22 19:20 Ur Leukocyte Esterase Negative (Negative) 03/22/22 19:20 Amorphous Sediment Not Reportable 03/22/22 19:20 EKG Data EKG 1: I personally reviewed and interpreted this EKG as follows: Interpretation: Contemporaneous review of his EKG at 1756 revealed ventricular rate of 84 bpm consistent with sinus rhythm. MT QT interval, QRS duration, QTc are normal. Normal axis. He does have Q waves present in 2 3 and aVF suggestive of possible remote inferior wall GA. This EKG is essentially unchanged from prior tracings within our system. EKG 2: I personally reviewed and interpreted this EKG as follows: Interpretation: Second EKG obtained this visit reveals ventricular rate of 90 bpm. Normal MT interval, QRS duration, QTc. Normal axes. Still consistent with prior electrocardiogram this visit and prior visits without any acute ST-T wave changes. Discharge Plan Discharge Patient Disposition: Home Clinical Impression: Chronic alcohol use, Cirrhosis, Chronic pancreatitis Condition: Stable Prescriptions: New spironolactone 25 mg tablet 25 mg PO QAM Qty: 30 1RF No Action bisacodyl 5 mg tablet,delayed release (DR/EC) 15 mg PO DAILY PRN (Reason: constipation) thiamine HCl (vitamin B1) 100 mg tablet 50 mg PO QAM (DME) oxygen-air delivery systems Device See Rx Instructions .Route Rx Instructions: As directed aspirin [Adult Low Dose Aspirin] 81 mg tablet,delayed release (DR/EC) 81 mg PO QAM Hold Instructions: Resume on 06/10/20. oxymetazoline [Afrin (oxymetazoline)] 0.05 % spray,non-aerosol 2 spray intranasal Q12H PRN (Reason: Nasal Congestion) Combivent Respimat 20-100 mcg/actuation mist 1 puff INHALATION BID Qty: 4 5RF ipratropium-albuterol 0.5 mg-3 mg(2.5 mg base)/3 mL solution for nebulization 3 ml inhalation Q6H PRN (Reason: wheezing) Qty: 180 11RF azithromycin 250 mg tablet 250 mg PO .every other day Qty: 30 3RF (DME) mucus clearing device Device See Rx Instructions .Route Qty: 1 0RF Rx Instructions: Acapella Device budesonide 0.5 mg/2 mL suspension for nebulization 0.5 mg inhalation BID Qty: 120 11RF metoprolol tartrate 25 mg tablet 12.5 mg PO BID Qty: 90 3RF acetaminophen [Tylenol] 325 mg Capsule 650 mg PO QID PRN (Reason: Pain) magnesium oxide 400 mg magnesium Capsule 400 mg PO BID atorvastatin 40 mg tablet 40 mg PO BEDTIME multivitamin Tablet 1 tab PO QAM sucralfate 100 mg/mL suspension 10 ml PO QID Rx Instructions: @04:00,10:00,16:00,22:00 Nitrostat 0.4 mg Tablet, Sublingual 0.4 mg SUBLINGUAL Q5M PRN (Reason: Chest Pain) Rx Instructions: do not exceed 3 doses per episode amlodipine 5 mg tablet 5 mg PO QAM pantoprazole 40 mg tablet,delayed release (DR/EC) 40 mg PO QAM albuterol sulfate 90 mcg/actuation HFA aerosol inhaler 2 inh inhalation Q4H PRN (Reason: Shortness Of Breath) Discharge Orders: Discharge ED (Routine); Ordered 03/22/22 Ordered By: Brendon Gomez Referrals: Addison Alcaraz, [Primary Care Provider] - 1 week Discharge Diet: Low Salt Discharge Activity: Increase activity as tolerated and Oxygen as instructed Patient Instructions: Opioid Safety, Pain Management Activity Restrictions/Additional Instructions: As we discussed you have several conditions which related to some of your lifestyle habits which need to consider stopping. Reducing your alcohol and tobacco use or quitting them entirely may in fact improve some your symptoms. We have also provided a prescription for a diuretic which will help mobilize some your fluids and decrease some of your edema and hopefully improve your shortness of breath. If your symptoms do not improve with this therapy, worsen anytime you develop other concerning symptoms return to this or the nearest emergency department. Otherwise we recommend following up with your regular doctor in 1 to 2 weeks. Coding Level of Care Code ED Field Staff for Rachel Machado Exam Comprehensive
[2022-03-22 18:02] LABS: Basophils % 0.4 %; Eosinophils # 0.1 10^3/uL (0.0-0.8); Eosinophils % 1.3 %; Hematocrit 38.8 % (42.0-52.0); Lymphocytes # 1.8 10^3/uL (0.8-4.8); Lymphocytes % 18.3 %; Mean Corpuscular HGB Conc 30.9 g/dL (30.0-36.0); Mean Corpuscular Hemoglobin 27.9 pg (28.0-34.0); Mean Corpuscular Volume 90.2 fl (80-94); Mean Platelet Volume 9.8 fL (7.4-10.4); Monocytes # 1.4 10^3/uL (0.2-0.9); Monocytes % 14.2 %; Neutrophils # 6.33 10^3/uL (1.8-7.7); Neutrophils % 65.4 %; Nucleated Red Blood Cells % 0 %; Platelet Count 309 10^3/cmm (130-400); Red Cell Distribution Width 21.5 % (12.1-15.1); White Blood Count 9.7 10^3/uL (4.0-10.0)
[2022-03-22 18:26] LABS: Alanine Aminotransferase 61 U/L (0-41); Albumin Level 3.3 g/dL (3.5-5.2); Alkaline Phosphatase 361 U/L (40-130); Blood Urea Nitrogen 6 mg/dL (8-23); Carbon Dioxide 28 mmol/L (22-29); Chloride 96 mmol/L (98-107); Globulin 3.3 g/dL (1.3-4.6); Glomerular Filtration Rate 303.8 mL/min (90-130); Glucose 97 mg/dL (65-115); Lipase 75 U/L (13-60); Osmolality Calculated 284 mOsm/kg (285-295); Sodium 138 mmol/L (136-145); Total Bilirubin 0.3 mg/dL (0.15-1.2); Total Protein 6.6 g/dL (6.6-8.7)
[2022-03-22 18:30] LABS: Aspartate Amino Transferase 101 U/L (0-40); Troponin(5th) Baseline 15 ng/L (0-15)
[2022-03-22 19:38] LABS: NT Pro B Type Natriuretic Pept 27 pg/mL (0-125)
--- NOTE | 2022-03-22 19:40 | ECG_ITS ---
[facility] Test Date: 2022-03-22 Pat Name: John Diaz Department: Room: Gender: Male Web Content Manager: : 1960 Requested By: Brendon Gomez Order Number: [id number] Huerta MD: Mckenna Jefferson M.D. Measurements Intervals [place] Rate: 90 P: 67 LA: 150 QRS: 75 QRSD: 109 T: 55 QT: 361 QTc: 444 Interpretive Statements SINUS RHYTHM PROBABLE INFERIOR MYOCARDIAL INFARCTION , PROBABLY OLD [35 ms Q WAVE IN II/aVF] Compared to ECG 03/22/2022 17:56:56 No significant changes Electronically Signed On 03-23-2022 13:14:48 DIET CONSULTANT by Mckenna Jefferson M.D. [id number]
[2022-03-22 19:55] LABS: Add Urine Microscopic? YES; Bilirubin Urine Neg (Negative); Blood Urine 3+ (Negative); Glucose Urine UA Norm (Normal); Ketones Urine 1+ (Negative); Leukocyte Esterase Urine Negative (Negative); Nitrate Urine Negative (Negative); Protein Urine Neg (Negative); Specific Gravity, Urine 1.015 (1.005-1.030); Urine Appearance Clear (CLEAR); Urine Color Yellow (Yellow); Urobilinogen Urine Neg (Negative); pH Urine 6 (5-7)
--- NOTE | 2022-03-22 19:59 | CTR_ITS ---
PROCEDURE INFORMATION: Exam: CT Abdomen And Pelvis Without Contrast Exam date and time: 03/22/2022 8:11 PM Age: 61 years old Clinical indication: Abdominal pain; Generalized; Prior surgery; Surgery type: Hiatal hernia; Patient HX: C/O abd pain with distention. ; Additional info: Abd distention TECHNIQUE: Imaging protocol: Computed tomography of the abdomen and pelvis without contrast. Radiation optimization: All CT scans at this facility use at least one of these dose optimization techniques: automated exposure control; mA and/or kV adjustment per patient size (includes targeted exams where dose is matched to clinical indication); or iterative reconstruction. COMPARISON: CT abdomen pelvis w con* [id number] 12/24/2021 9:12 PM RADIATION DOSE METRICS: Total DLP (mGy-cm): 541.43 FINDINGS: Liver: Hepatic steatosis of nodular cirrhotic liver morphology. No mass. Gallbladder and bile ducts: Punctate cholelithiasis. No ductal dilation. Pancreas: Inflammatory changes seen around the pancreatic head. Please note, evaluation for pancreatic lesions/mass is limited given noncontrast study. No ductal dilation. Spleen: Normal. No splenomegaly. Adrenal glands: Bilateral adrenal nodules measuring up to 2 cm with imaging characteristics consistent with adenomas. Kidneys and ureters: Renal vascular calcifications noted. No hydronephrosis. Stomach and bowel: Scattered colonic diverticulosis. No obstruction. No mucosal thickening. Appendix: No evidence of appendicitis. Intraperitoneal space: No free air. No significant fluid collection. Vasculature: No abdominal aortic aneurysm. Lymph nodes: Prominent peripancreatic lymph nodes around the pancreatic head which while nonspecific are most likely reactive to the adjacent inflammatory findings. Urinary bladder: Unremarkable as visualized. Reproductive: Unremarkable as visualized. Bones/joints: No acute fracture. 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 Soft tissues: Unremarkable. CT/CT abdomen pelvis wo con [id number] IMPRESSION: 1. Persistent or recurrent inflammatory changes around the pancreatic head, in a similar location to prior studies, consistent with pancreatitis. 2. Cirrhosis and hepatic steatosis. 3. 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 COMMENTS: Consistent with the [employer]'s Incidental Findings Committee white paper (J Am Geri Radiol 2017): For any incidental adrenal lesion greater than or equal to 1 cm but less than or equal to 4 cm classified in this report as benign, likely benign, or containing fat (including classification as an adenoma or myelolipoma), no follow-up imaging is recommended per consensus recommendations based on imaging criteria. Further lab evaluation could be pursued if warranted based on clinical findings.
[2022-03-22 20:45] LABS: Troponin 5 2HR 16.98 ng/L (0-15)
[2022-03-22 20:54] LABS: Troponin 5 2HR Delta 1.98 ABS# (0-10)
[2022-03-22] MEDS: FUROsemide 10 mg/mL SDV 4mL 40 MG IVP (21:45)
[2022-03-22 22:20] LABS: Add Urine Culture? No; Amorphous Sediment Urine 2+ /hpf; Mucus Urine 2+ /hpf; RBC Urine TOO NUMEROUS TO CNT /hpf (0-2); Renal Epithelial Cells Urine 0-2 /hpf; Squamous Epithelial Cell Urine 0-4 /hpf (0-5)
--- NOTE | 2022-03-22 22:41 | PC.NURSE ---
pt attempted to have evert, home oxygen provider, to bring oxygen. Provider was unable to get ahold of on-call circuit worker .
--- NOTE | 2022-03-22 22:47 | PC.NURSE ---
Contact made with ming from [facility] on-call service. Spoke with [facility] about clarification for patient oxygen for transport home. There was some miscommunication in tertiary receipt from patient and family. On-call is still attempting contact with on-call and management. Will return call to staff SENIA Lira.
== END 2022-03-22 23:30 | disposition home or self-care (01) ==
PROVIDERS: Emergency Provider Emergency Medicine; PCP Family Medicine
DX: K74.60 Unspecified cirrhosis of liver (principal); F10.90 Alcohol use, unspecified, uncomplicated; K86.1 Other chronic pancreatitis; Z79.82 Long term (current) use of aspirin; J44.9 Chronic obstructive pulmonary disease, unspecified; I25.10 Atherosclerotic heart disease of native coronary artery without angina pectoris; I11.0 Hypertensive heart disease with heart failure; I50.9 Heart failure, unspecified; E78.5 Hyperlipidemia, unspecified; Z95.5 Presence of coronary angioplasty implant and graft; F17.210 Nicotine dependence, cigarettes, uncomplicated
CPT/HCPCS: 71045; 74176; 80053; 81001; 83690; 83880; 84484; 85025; 93005; 96374; 99285; J1940

== ENCOUNTER 2022-06-20 23:48 | Emergency (ER) | payer MEDICAID, SELFPAY ==
[2022-06-20 23:50] VITALS: BP 136/98; PULSE 114; RESP 18; TEMP 36.9; O2SAT 95; BMI 23.5
[2022-06-21] VITALS (8 sets, daily range): BP systolic 136; BP diastolic 90; PULSE 105–117; RESP 16–20; TEMP 36.6; O2SAT 96–98
--- NOTE | 2022-06-21 00:09 | CTR_ITS ---
PROCEDURE INFORMATION: Exam: CT Abdomen And Pelvis With Contrast Exam date and time: 06/21/2022 1:29 AM Age: 61 years old Clinical indication: Abdominal pain; Prior surgery; Surgery type: Hernia repair. Peritoneal j tube. Coronary angioplasty. Patient HX: C/O severe epigastric pain. Lipase over 1000. History of cirrhosis and alcohol induced pancreatitis. ; Additional info: Emerita TECHNIQUE: Imaging protocol: Computed tomography of the abdomen and pelvis with contrast. Radiation optimization: All CT scans at this facility use at least one of these dose optimization techniques: automated exposure control; mA and/or kV adjustment per patient size (includes targeted exams where dose is matched to clinical indication); or iterative reconstruction. Contrast material: OMNI 350; Contrast volume: 100 ml; Contrast route: INTRAVENOUS (IV); REPORTING DATA: Count of CT and Cardiac NM exams in prior 12 months: This patient has received 6 known CTs and 0 known cardiac nuclear medicine studies in the 12 months prior to the current study. COMPARISON: 1. CT abdomen pelvis wo con [id number] 2022-03-22 20:[address] abdomen pelvis w con* [id number] 2021-12-24 21:12 RADIATION DOSE METRICS: Total DLP (mGy-cm): 1418.93 FINDINGS: Tubes, catheters and devices: Percutaneous gastrostomy jejunostomy tube is in good position. Liver: Mild lobulated liver contour suggesting cirrhosis. Couple dystrophic liver calcifications. Gallbladder and bile ducts: Normal. No calcified stones. No ductal dilation. Pancreas: There is a fluid collection in the pancreatic uncinate process region measuring 2.7 x 3.6 cm. Spleen: Splenic granulomas. Adrenal glands: Normal. No mass. Kidneys and ureters: Normal. No hydronephrosis. Stomach and bowel: Contiguous with the stomach wall. Appendix: No evidence of appendicitis. Intraperitoneal space: Appears to possibly ruptured into the lesser sac. Exuberant inflammation in the lesser sac with fat stranding. Scattered small amounts of fluid in the abdomen and pelvis. No free air. Vasculature: Mild moderate arterial vascular calcifications. Lymph nodes: Unremarkable. No enlarged lymph nodes. Urinary bladder: Unremarkable as visualized. Reproductive: Unremarkable as visualized. Bones/joints: Moderate lumbar spondylosis. Soft tissues: Exuberant inflammation along the lesser curvature of the stomach and involving the pancreatic head and neck region. CT/CT abdomen pelvis w con* [id number] IMPRESSION: 1. Exuberant inflammation along the lesser curvature of the stomach and involving the pancreatic head and neck region. There is a fluid collection in the pancreatic uncinate process region measuring 2.7 x 3.6 cm. Appears to possibly ruptured into the lesser sac. Exuberant inflammation in the lesser sac with fat stranding. Scattered small amounts of fluid in the abdomen and pelvis. Contiguous with the stomach wall. No free air. Presumably acute pancreatitis with peripancreatic inflammation and fluid collections. 2. Mild lobulated liver contour suggesting cirrhosis.
--- NOTE | 2022-06-21 00:13 | ED_ITS ---
HPI - Abdominal Pain General: Chief Complaint: Abdominal Pain Stated Complaint: ABD PAIN Time Seen by Provider: 06/21/22 00:10 Source: patient Mode of arrival: ambulatory Limitations: no limitations History of Present Illness: 61-year-old male states he has chronic abdominal pain he states been having pain for over a month but states that today his pain is worsened is diffuse in nature and states he feels like his abdomen has been distending no vomiting no fevers he rates his pain a 6 out of 10 currently denies any worsening improving factors and denies any radiation of his pain. Associated Symptoms: Denies chills, dysuria and fever(s) Review of Systems Const: Denies: fever(s), chills, body aches or change in appetite Eyes: Denies: blurry vision or eye discomfort ENMT: Denies: throat pain or dental pain Card: Denies: chest pain Resp: Denies: dyspnea GI: Reports: abdominal pain : Denies: dysuria Musc: Denies: neck pain or back pain Skin/Breast: Denies: rash Neuro: Denies: headache(s) Psych: Denies: depression Mani/Lymph: Denies: easy bruising All/Imm: Denies: urticaria PFSH ED PFSH: Medical History Acute alcoholic pancreatitis Acute anemia Acute respiratory distress Blood loss anemia Likely related to epistaxis and etoh intake. He is current on his col onoscopy. Chronic alcohol use Chronic idiopathic constipation COPD (chronic obstructive pulmonary disease) COPD with acute exacerbation Coronary artery disease Foreign body sensation in right ear canal Heart failure HTN (hypertension) Hyperlipidemia Intestinal angina PVD (peripheral vascular disease) Recurrent epistaxis Surgical History S/P coronary angioplasty Coronary disease 2 stents, 2015 S/P hernia repair Family History Father Cancer Mother Cancer Other CAD (coronary artery disease) Social History Smoking and tobacco status: current every day smoker (4-5 cigarrettes per day) cigarettes Packs smoked per day: 0.5 Years cigarettes smoked: 45 [ Other cigarette details: Half a pack a day, started at age 12 years] Alcohol intake: current Alcohol intake frequency: 3 or more drinks per day Alcohol type: beer Household members: spouse Housing: House Physical Exam Const: COMMON NORMALS: no acute distress, patient oriented x3 and healthy appearing HENMT: COMMON NORMALS: normocephalic and atraumatic HEAD & SCALP: normocephalic and atraumatic Eye: COMMON NORMALS: Equal, round and reactive pupils present and EOMs intact bilaterally PUPIL: Yes Equal, round and reactive pupils present Neck/C-Spine: COMMON NORMALS: full ROM and supple Chest: COMMONS NORMALS: normal inspection of the chest and normal palpation of entire chest wall Resp: COMMON NORMALS: normal respiratory effort, No retractions, No use of accessory muscles and clear to auscultation bilaterally AUSCULTATION: clear to auscultation bilaterally Cardio: COMMON NORMALS: regular rate, regular rhythm and No murmurs present (Cardio) RATE: regular rate RHYTHM: regular rhythm GI: COMMON NORMALS: Normal to inspection, nondistended, normoactive bowel sounds present, Soft to palpation and no masses PALPATION: Yes Soft to palpation OTHER: djffuse mild tenderness Extremity: COMMON NORMALS: normal to inspection and full ROM Neuro: COMMON NORMALS: patient oriented x3, moves all extremities and no focal motor deficits Psych: COMMON NORMALS: mental status grossly normal, Normal thought process present and cooperative THOUGHT PROCESS: Normal thought process present Skin: COMMON NORMALS: no rashes or lesions noted and no wounds GENERAL SKIN EXAM: no rashes or lesions noted Course Vital Signs: Vital signs: Vital Signs Temperature 97.9 F 06/21/22 02:53 Pulse Rate 117 H 06/21/22 04:22 Respiratory Rate 20 H 06/21/22 04:22 Blood Pressure 136/90 06/21/22 01:50 Pulse Oximetry 98 06/21/22 04:22 Oxygen Delivery Me thod 06/21/22 04:22 Oxygen Flow Rate 2 06/21/22 04:22 Fraction of Inspir ed Oxygen 97 06/21/22 01:50 MDM - Abdominal Pain Medical Decision Making Patient presents here with abdominal pain he does have a pancreatitis I spoke to physician at [facility] and will transfer there as we have no bed availability here. Lab Data 06/21/22 00:04 06/21/22 00:04 Labs/Radiology: Radiology Impressions Abdomen/Pelvis CT 06/21/22 00:09 IMPRESSION: 1. Exuberant inflammation along the lesser curvature of the stomach and involving the pancreatic head and neck region. There is a fluid collection in the pancreatic uncinate process region measuring 2.7 x 3.6 cm. Appears to possibly ruptured into the lesser sac. Exuberant inflammation in the lesser sac with fat stranding. Scattered small amounts of fluid in the abdomen and pelvis. Contiguous with the stomach wall. No free air. Presumably acute pancreatitis with peripancreatic inflammation and fluid collections. 2. Mild lobulated liver contour suggesting cirrhosis. Chest X-Ray 06/21/22 00:21 IMPRESSION: 1. Emphysematous changes. 2. Bibasilar atelectasis. Laboratory Results WBC 29.3 10^3/uL (4.0-10.0) H 06/21/22 00:04 RBC 4.75 10^6/uL (4.1-5.3) 06/21/22 00:04 Hgb 12.1 g/dL (11.7-16.6) 06/21/22 00:04 Hct 40.6 % (42.0-52.0) L 06/21/22 00:04 MCV 85.5 fl (80-94) 06/21/22 00:04 MCH 25.5 pg (28.0-34.0) L 06/21/22 00:04 MCHC 29.8 g/dL (30.0-36.0) L 06/21/22 00:04 RDW 17.2 % (12.1-15.1) H 06/21/22 00:04 Plt Count 862 10^3/cmm (130-400) H 06/21/22 00:04 MPV 9.1 fL (7.4-10.4) 06/21/22 00:04 Neut % (Auto) 85.5 % 06/21/22 00:04 Lymph % (Auto) 8.5 % 06/21/22 00:04 Converse % (Auto) 4.2 % 06/21/22 00:04 Eos % (Auto) 0.8 % 06/21/22 00:04 Baso % (Auto) 0.3 % 06/21/22 00:04 Neut # (Auto) 25.06 10^3/uL (1.8-7.7) H 06/21/22 00:04 Lymph # (Auto) 2.5 10^3/uL (0.8-4.8) 06/21/22 00:04 Converse # (Auto) 1.2 10^3/uL (0.2-0.9) H 06/21/22 00:04 Eos # (Auto) 0.2 10^3/uL (0.0-0.8) 06/21/22 00:04 Baso # (Auto) 0.1 10^3/uL (0.0-0.1) 06/21/22 00:04 Nucleated RBC % (auto) 0 % 06/21/22 00:04 Nucleated RBCs # 0.0 /100WBC 06/21/22 00:04 Sodium 130 mmol/L (136-145) L 06/21/22 00:04 Potassium 4.1 mmol/L (3.5-5.1) 06/21/22 00:04 Chloride 95 mmol/L (98-107) L 06/21/22 00:04 Carbon Dioxide 24 mmol/L (22-29) 06/21/22 00:04 Anion Gap 15.1 (5-19) 06/21/22 00:04 BUN 9 mg/dL (8-23) 06/21/22 00:04 Creatinine 0.3 mg/dL (0.7-1.2) L 06/21/22 00:04 GFR Calculation 303.8 mL/min (90-130) H 06/21/22 00:04 Glucose 126 mg/dL (65-115) H 06/21/22 00:04 Calculated Osmolality 270 mOsm/kg (285-295) L 06/21/22 00:04 Lactate 0.8 mmol/L (0.5-2.2) 06/21/22 00:25 Calcium 8.9 mg/dL (8.5-10.5) 06/21/22 00:04 Total Bilirubin 0.2 mg/dL (0.15-1.2) 06/21/22 00:04 AST 19 U/L (0-40) 06/21/22 00:04 ALT 15 U/L (0-41) 06/21/22 00:04 Alkaline Phosphatase 170 U/L (40-130) H 06/21/22 00:04 Total Protein 6.5 g/dL (6.6-8.7) L 06/21/22 00:04 Albumin 3.4 g/dL (3.5-5.2) L 06/21/22 00:04 Globulin 3.1 g/dL (1.3-4.6) 06/21/22 00:04 Lipase 1067 U/L (13-60) H 06/21/22 00:04 Ethyl Alcohol < 10 mg/dL (0-10) 06/21/22 00:04 Discharge Plan Discharge Patient Disposition: Xfer Short-Term Hosp Clinical Impression: Pancreatitis Condition: Stable Referrals: Addison Alcaraz DO [Primary Care Provider] - Coding Level of Care Code ED Consulting Engineer for Rachel Machado
[2022-06-21 00:16] LABS: Basophils # 0.1 10^3/uL (0.0-0.1); Basophils % 0.3 %; Eosinophils # 0.2 10^3/uL (0.0-0.8); Eosinophils % 0.8 %; Hematocrit 40.6 % (42.0-52.0); Hemoglobin 12.1 g/dL (11.7-16.6); Lymphocytes # 2.5 10^3/uL (0.8-4.8); Lymphocytes % 8.5 %; Mean Corpuscular HGB Conc 29.8 g/dL (30.0-36.0); Mean Corpuscular Hemoglobin 25.5 pg (28.0-34.0); Mean Corpuscular Volume 85.5 fl (80-94); Mean Platelet Volume 9.1 fL (7.4-10.4); Monocytes # 1.2 10^3/uL (0.2-0.9); Monocytes % 4.2 %; Neutrophils # 25.06 10^3/uL (1.8-7.7); Neutrophils % 85.5 %; Nucleated Red Blood Cells % 0 %; Platelet Count 862 10^3/cmm (130-400); Red Blood Count 4.75 10^6/uL (4.1-5.3); Red Cell Distribution Width 17.2 % (12.1-15.1); White Blood Count 29.3 10^3/uL (4.0-10.0)
--- NOTE | 2022-06-21 00:21 | XRR_ITS ---
PROCEDURE INFORMATION: Exam: XR Chest Exam date and time: 06/21/2022 12:47 AM Age: 61 years old Clinical indication: Shortness of breath; Prior surgery; Surgery type: Coronary angioplasty; Patient HX: C/O SOB. History of copd. ; Additional info: Cp TECHNIQUE: Imaging protocol: Radiologic exam of the chest. Views: 1 view. COMPARISON: CR XR chest 1V portable [id number] 03/22/2022 5:57 PM FINDINGS: Lungs: Emphysematous changes. Bibasilar atelectasis. Pleural spaces: Unremarkable. No pleural effusion. No pneumothorax. Heart/Mediastinum: Unremarkable. No cardiomegaly. Bones/joints: Unremarkable. XR/XR chest 1V portable [id number] IMPRESSION: 1. Emphysematous changes. 2. Bibasilar atelectasis.
[2022-06-21 00:26] LABS: Alanine Aminotransferase 15 U/L (0-41); Albumin Level 3.4 g/dL (3.5-5.2); Alkaline Phosphatase 170 U/L (40-130); Anion Gap 15.1 (5-19); Aspartate Amino Transferase 19 U/L (0-40); Blood Urea Nitrogen 9 mg/dL (8-23); Calcium 8.9 mg/dL (8.5-10.5); Carbon Dioxide 24 mmol/L (22-29); Chloride 95 mmol/L (98-107); Globulin 3.1 g/dL (1.3-4.6); Glomerular Filtration Rate 303.8 mL/min (90-130); Glucose 126 mg/dL (65-115); Osmolality Calculated 270 mOsm/kg (285-295); Potassium 4.1 mmol/L (3.5-5.1); Sodium 130 mmol/L (136-145); Total Bilirubin 0.2 mg/dL (0.15-1.2); Total Protein 6.5 g/dL (6.6-8.7)
[2022-06-21 00:38] LABS: Lipase 1067 U/L (13-60)
[2022-06-21 00:45] LABS: Lactate (Lactic Acid level) 0.8 mmol/L (0.5-2.2)
[2022-06-21] MEDS: HYDROmorphone 1 mg/mL INJ 1 mL IVP ×2 (00:53→05:20)
[2022-06-21 01:20] LABS: Alcohol Level < 10 mg/dL (0-10)
[2022-06-21] MEDS: LORazepam 2 mg/mL INJ 1 mL IVP (01:22)
[2022-06-21] MEDS: iohexol 350 mg/mL 500 mL Btl (per mL) IV (01:46)
--- NOTE | 2022-06-21 02:16 | PC.NURSE ---
PATIENT PLACED ON 2 L NC AFTER ATIVAN DOSING.
[2022-06-21] MEDS: piperacillin-tazobactam 3.375 GM in sodium chloride 0.9% (plus) 50 ML IV (04:03)
[2022-06-21] MEDS: albuterol 2.5 mg/3 mL Neb INHALATION (04:20)
[2022-06-21] MEDS: ipratropium 0.5 mg/2.5 mL Neb INHALATION (04:20)
[2022-06-21] MEDS: LORazepam 2 mg/mL INJ 1 mL 1 MG IVP (05:19)
== END 2022-06-21 08:03 | disposition short-term general hospital (02) ==
PROVIDERS: Emergency Provider Emergency Medicine; PCP Family Medicine
DX: K85.90 Acute pancreatitis without necrosis or infection, unspecified (principal); F17.210 Nicotine dependence, cigarettes, uncomplicated; Z95.5 Presence of coronary angioplasty implant and graft; J44.9 Chronic obstructive pulmonary disease, unspecified; I25.10 Atherosclerotic heart disease of native coronary artery without angina pectoris; I11.0 Hypertensive heart disease with heart failure; I50.9 Heart failure, unspecified; E78.5 Hyperlipidemia, unspecified
CPT/HCPCS: 71045; 74177; 80053; 80307; 83605; 83690; 85025; 94640; 96365; 96375; 96376; 99285; J1170; J2060; J2543; J7613; J7644; Q9967

== ENCOUNTER → 2022-10-11 15:00 | Outpatient (BNVA) | payer MEDICAID, SELFPAY | PROVIDERS: PCP Family Medicine; Visit Provider Internal Medicine Pulmonary Disease | DX: J44.9 Chronic obstructive pulmonary disease, unspecified (principal); Z71.6 Tobacco abuse counseling; F17.210 Nicotine dependence, cigarettes, uncomplicated; F10.90 Alcohol use, unspecified, uncomplicated; I25.10 Atherosclerotic heart disease of native coronary artery without angina pectoris; Z95.5 Presence of coronary angioplasty implant and graft; K55.059 Acute (reversible) ischemia of intestine, part and extent unspecified; Z87.09 Personal history of other diseases of the respiratory system | CPT/HCPCS: 99214 ==

== ENCOUNTER 2022-10-26 13:47 | Outpatient (CLI) | payer MEDICAID, SELFPAY ==
--- NOTE | 2022-10-26 14:15 | USCV_ITS ---
John Diaz Age: 62 Gender: M : 1960 Exam Date: 10/26/2022 14:18 Ordering Phys: Chris Simpson MD Technologist: Exam Location: [facility] [place] Indication: large brach pressure difference in rt arm Risk Factors: Previous Vascular Surgery: Right BP: 60.00 / 50.00 Left BP: 105.00 / 60.00 RIGHT LEFT PSV PSV (cm/s) (cm/s) Waveform Waveform Monophasic 45.0 Subclavian Proximal Biphasic 46.1 Subclavian Distal 109.4 Triphasic Monophasic 25.3 Axillary 83.0 Triphasic Monophasic 33.1 Brachial Mid 89.3 Triphasic Monophasic 39.0 Radial Mid 46.3 Triphasic Monophasic 39.0 Ulnar Mid 25.1 Triphasic .8 Radial/Brachial Index 1.0 .8 Ulnar/Brachial Index 1.0 FINDINGS Reversal of flow was noted in the vertebral and proximal subclavian artery. Monophasic low velocity Doppler waveforms in the axillary, brachial, ulnar and radial arteries on the right side. Resting RBI of 0.8 on the right side and 1.0 on the left side Resting JUSTEN of 0.8 on the right and 1.0 on the left side Triphasic Doppler waveforms in the left subclavian, axillary, brachial, ulnar and radial arteries CONCLUSIONS 1. Features of a high-grade stenosis near to the ostium of the right subclavian artery with reversal of flow in the vertebral artery suggesting subclavian steal. Abnormal resting RBI and UBI also are consistent with proximal arterial obstruction. 2. Normal resting RBI and UBI on the left side with a normal arterial Doppler waveforms, suggesting no significant arterial obstruction. 3. No similar previous studies are available for comparison Dr Paco Gallegos MD [facility] (Electronically Signed) Final Date: 26 October 2022 18:16 S
== END 2022-10-26 13:48 | disposition home or self-care (01) ==
PROVIDERS: PCP Nurse Practitioner Family; Visit Provider Internal Medicine Pulmonary Disease
DX: M79.602 Pain in left arm (principal); M79.601 Pain in right arm; I70.298 Other atherosclerosis of native arteries of extremities, other extremity
CPT/HCPCS: 93930

== ENCOUNTER 2022-11-28 07:34 | Outpatient (CLI) | payer MEDICAID, SELFPAY ==
--- NOTE | 2022-11-28 08:00 | CT_ITS ---
WS: [id number] CT ANGIOGRAM CAROTID ARTERIES HISTORY: Subclavian stenosis TECHNIQUE: CT angiogram is performed of the carotid arteries. During arterial injection imaging is ob tained from the skull base to the aortic arch in 1.25 mm imaging. Coronal and sagittal reformats are submitted, MIP imaging also reviewed. Additional multiplanar reformats of the carotid arteries are genao bmitted. NASCET criteria utilized. All CT scans at [facility] use at least one of these dose optimization techniques: automated exposure control; mA and/or kV adjustment per patient size (includ es targeted exams where dose is matched to clinical indication); or iterative reconstruction. CONTRAST: Omnipaque 350; 100 mL IV. DLP: 260.71 mGy.cm COMPARISON: Duplex ultrasound 10/26/2022 Right carotid: Common carotid artery: Mild plaque. No stenosis. Internal carotid artery: Increasing calcified plaque at the bifurcation extending into the proximal I CA. 50% stenosis proximal cervical ICA. Increasing plaque through the skull base with approaching 70% stenosis involving the petrous portion of the ICA. External carotid artery: Patent. Left carotid: Common carotid artery: Normally arises from the aorta. Scattered plaque with no high-grade stenosis. Internal carotid artery: Increasing plaque at the bifurcation. Near 50% stenosis proximal right ICA. Increasing plaque through the skull base. Near complete occlusion involving the petrous and proximal cavernous carotid artery. External carotid artery: Patent. Right vertebral artery: Small amount of plaque. Normal otherwise. No high-grade stenosis. Left vertebral artery: Small amount of calcified plaque is scattered throughout. No high-grade stenos is. Subclavian arteries: Very high-grade stenosis with dense calcified plaque involving the origin of the right subclavian artery. There is near complete occlusion. Estimated stenosis greater than 90%. Dist al to the high-grade stenosis there is a small amount of scattered plaque. Scattered plaque in the pr oximal left subclavian but no high-grade stenosis. Upper thorax: Paraseptal emphysema. Large bulla and blebs in the upper lung low. Mild ectasia of v isualized thoracic aortic arch. Thyroid gland: Normal. Osseous structures: Unremarkable. Skull base: Small mucous retention cyst in the left maxillary sinus. IMPRESSION: 1. High-grade stenosis with near complete occlusion origin of the right subclavian artery. Stenosis approaching 100%. 2. No significant cervical carotid artery stenosis. 3. Significant amount of calcified plaque in the intracranial carotid arteries. Greatest involving t he left ICA with near complete occlusion through the petrous and proximal cavernous carotid artery. 7 0% stenosis estimated on the right in the petrous ICA.
[2022-11-28 08:32] LABS: Blood Urea Nitrogen 6 mg/dL (8-23); Glomerular Filtration Rate 136.1 mL/min (90-130)
[2022-11-28] MEDS: iohexol 350 mg/mL 500 mL Btl (per mL) IV (08:41)
== END 2022-11-28 07:35 | disposition home or self-care (01) ==
LOC: RAD 07:46
PROVIDERS: PCP Nurse Practitioner Family; Visit Provider Internal Medicine Cardiovascular Disease
DX: I70.8 Atherosclerosis of other arteries (principal); I65.23 Occlusion and stenosis of bilateral carotid arteries
CPT/HCPCS: 70498; 82565; 84520; Q9967

== ENCOUNTER → 2022-12-21 10:12 | Outpatient (BNVA) | payer MEDICAID, SELFPAY | PROVIDERS: PCP Nurse Practitioner Family; Visit Provider Internal Medicine Pulmonary Disease | DX: J44.9 Chronic obstructive pulmonary disease, unspecified (principal); Z71.6 Tobacco abuse counseling; I77.1 Stricture of artery; F17.210 Nicotine dependence, cigarettes, uncomplicated; K55.059 Acute (reversible) ischemia of intestine, part and extent unspecified; F10.10 Alcohol abuse, uncomplicated; Z95.5 Presence of coronary angioplasty implant and graft; I25.10 Atherosclerotic heart disease of native coronary artery without angina pectoris; Z91.148 Patient's other noncompliance with medication regimen for other reason | CPT/HCPCS: 99214 ==

== ENCOUNTER 2023-01-29 09:38 | Outpatient (CLI) | payer MEDICAID, SELFPAY ==
--- NOTE | 2023-01-29 10:00 | CT_ITS ---
WS: [id number] LDCT LUNG CANCER SCREENING TECHNIQUE: Noncontrast CT of the chest with coronal and sagittal reformatted images. CLINICAL INFORMATION: Cancer Screen COMPARISON: CT lung screening 2020 DLP: 64.60 mGy.cm DIvol: Mean CTDIvol: 1.20 (mGy) All CT scans at [facility] use at least one of these dose optimization techniques: automat ed exposure control; mA and/or kV adjustment per patient size (includes targeted exams where dose is matched to clinical indication); or iterative reconstruction. FINDINGS: Advanced chronic emphysematous changes. No acute pulmonary infiltrates. No mediastinal or hilar lymp hadenopathy. Slightly ectatic ascending thoracic aorta unchanged measuring 3.7 cm. No new suspicious pulmonary parenchymal normalities. A few calcified granulomas. Mild aortic calcific ation. Coronary calcification. Splenic granulomas. Bilateral adrenal adenomas. Slight cirrhotic conto ur to the liver. Splenic granulomas. Small esophageal hernia. Cholelithiasis. IMPRESSION: CT/CT lung screening [id number] LUNG-RADS: 2-Benign Appearance or Behavior FOLLOW UP: 12 Month: Continue annual screening with LDCT
== END 2023-01-29 09:39 | disposition home or self-care (01) ==
LOC: RAD 09:38
PROVIDERS: PCP Nurse Practitioner Family; Visit Provider Internal Medicine Pulmonary Disease
DX: Z12.31 Encounter for screening mammogram for malignant neoplasm of breast (principal); F17.210 Nicotine dependence, cigarettes, uncomplicated
CPT/HCPCS: 71271

== ENCOUNTER → 2023-06-04 12:12 | Outpatient (BNVA) | payer MEDICAID, SELFPAY | PROVIDERS: PCP Nurse Practitioner Family; Visit Provider Internal Medicine | DX: I73.9 Peripheral vascular disease, unspecified (principal); I25.10 Atherosclerotic heart disease of native coronary artery without angina pectoris; I10 Essential (primary) hypertension; E78.49 Other hyperlipidemia; F10.90 Alcohol use, unspecified, uncomplicated; F17.210 Nicotine dependence, cigarettes, uncomplicated | CPT/HCPCS: 99214 ==

== ENCOUNTER 2023-06-10 13:50 | Outpatient (CLI) | payer MEDICAID, SELFPAY ==
--- NOTE | 2023-06-10 14:15 | USCV_ITS ---
John Diaz Age: 62 Gender: M : 1960 Exam Date: 06/10/2023 15:05 Ordering Phys: Isidoro Dubon M.D ([email or web address]) Technologist: RAKEL Exam Location: [facility] [place] Indication: CAD, SOB, abdominal distension BP: 142 / 72 HR: 0 Rhythm: Sinus Technical Quality: Adequate MEASUREMENTS (Male / Female) Normal Values 2D ECHO LV Diastolic Diameter PLAX 3.5 cm 4.2 - 5.9 / 3.9 - 5.3 cm IVS Diastolic Thickness 1.5 cm 0.6 - 1.0 / 0.6 - 0.9 cm LVPW Diastolic Thickness 1.1 cm 0.6 - 1.0 / 0.6 - 0.9 cm LVPW Systolic Thickness 1.4 cm LVOT Diameter 2.0 cm LV Ejection Fraction 2D Teich 61.3 % LA Diameter 2.8 cm Aorta at Sinotubular Diameter 3.1 cm IVC Diameter 0.9 cm M-MODE LA Ao Ratio MM 0.8 AV Cusp Separation MM 2.2 cm DOPPLER AV Peak Velocity 101.0 cm/s LVOT Peak Velocity 114.0 cm/s AV Area Cont Eq vti 3.5 cm squared AV Area Cont Eq pk 3.6 cm squared MV Peak Velocity 85.0 cm/s MV Area PHT 5.7 cm squared Mitral E to A Ratio 0.8 TV Peak Velocity 96.0 cm/s TR Peak Velocity 103.0 cm/s TR Peak Gradient 4.2 mmHg TR Mean Velocity 68.0 cm/s TR Mean Gradient 2.2 mmHg TR Velocity Time Integral 18.8 cm TV Peak E Velocity 76.0 cm/s Right Atrial Pressure 3.0 mmHg Pulmonary Artery Systolic Pressu 7.2 mmHg PV Peak Velocity 97.0 cm/s RV Ejection Time 0.3 s FINDINGS Left Ventricle Left ventricle is normal size. LV systolic function is normal with EF of 60 to 65%. No regional wall motion abnormalities seen. Grade 1 diastolic dysfunction. Right Ventricle Normal in size and fucntion Right Atrium Normal in size Left Atrium Normal in size Mitral Valve Structurally normal mitral valve. Mild mitral regurgitation. Aortic Valve Grossly normal aortic valve. No significant stenosis. Trace aortic regurgitation Tricuspid Valve Mild tricuspid regurgitation. Pulmonary artery systolic pressure is normal. Pulmonic Valve Not well visualized Pericardium Normal Aorta Normal in size IVC Appears to be normal CONCLUSIONS LV systolic function is normal with EF of 60 to 65%. Grade 1 diastolic dysfunction. Mild mitral regurgitation. Trace aortic regurgitation Mild tricuspid regurgitation Compared to prior echocardiogram from 2021, no significant changes are seen Isidoro Dubon MD (Electronically Signed) Final Date: 17 June 2023 11:41 S
== END 2023-06-10 13:51 | disposition home or self-care (01) ==
LOC: RAD 13:50
PROVIDERS: PCP Nurse Practitioner Family; Visit Provider Internal Medicine
DX: R06.02 Shortness of breath (principal); I25.10 Atherosclerotic heart disease of native coronary artery without angina pectoris; I08.3 Combined rheumatic disorders of mitral, aortic and tricuspid valves
CPT/HCPCS: 93306

== ENCOUNTER → 2023-06-21 11:17 | Outpatient (BNVA) | payer MEDICAID, SELFPAY | PROVIDERS: PCP Nurse Practitioner Family; Visit Provider Internal Medicine Pulmonary Disease | DX: R06.00 Dyspnea, unspecified (principal); J44.9 Chronic obstructive pulmonary disease, unspecified; Z71.6 Tobacco abuse counseling; Z72.89 Other problems related to lifestyle; I77.1 Stricture of artery | CPT/HCPCS: 99214 ==

== ENCOUNTER → 2023-12-03 14:51 | Outpatient (BNVA) | payer MEDICAID, SELFPAY | PROVIDERS: PCP Nurse Practitioner Family; Visit Provider Internal Medicine | DX: I73.9 Peripheral vascular disease, unspecified (principal); I25.10 Atherosclerotic heart disease of native coronary artery without angina pectoris; I10 Essential (primary) hypertension; E78.49 Other hyperlipidemia; Z72.89 Other problems related to lifestyle; F10.90 Alcohol use, unspecified, uncomplicated; F17.210 Nicotine dependence, cigarettes, uncomplicated | CPT/HCPCS: 99214 ==

== ENCOUNTER → 2024-10-26 10:17 | Outpatient (BNVA) | payer MEDICARE, BC, MEDICAID, SELFPAY | PROVIDERS: PCP Nurse Practitioner Family; Visit Provider Nurse Practitioner Family | DX: I73.9 Peripheral vascular disease, unspecified (principal); I25.10 Atherosclerotic heart disease of native coronary artery without angina pectoris; I10 Essential (primary) hypertension; E78.5 Hyperlipidemia, unspecified; Z79.01 Long term (current) use of anticoagulants; Z79.82 Long term (current) use of aspirin; F17.210 Nicotine dependence, cigarettes, uncomplicated; F10.90 Alcohol use, unspecified, uncomplicated; Z95.5 Presence of coronary angioplasty implant and graft | CPT/HCPCS: 99213 ==

== ENCOUNTER 2024-11-13 12:07 | Outpatient (CLI) | payer OTHER, MEDICAID, SELFPAY ==
--- NOTE | 2024-11-13 12:15 | USCV_ITS ---
John Diaz Age: 64 Gender: M : 1960 Exam Date: 11/13/2024 12:41 Ordering Phys: Gina Acharya NP Technologist: FREDERICK [place] [facility] [place]ication: stenosis RT subclavian steal Risk Factors: Previous Vascular Surgery: Right Brachial BP: / Left Brachial BP: / Right Left Velocity (cm/s) Spectral Plaque Velocity (cm/s) Spectral Plaque Syst/Diast Broadening Syst/Diast Broadening 54.90/ 13.00 Prox CCA 54.00 / 13.20 70.20/ 17.10 Mid CCA 59.00 / 15.30 62.40/ 16.20 Distal CCA 64.40 / 18.40 60.40/ 24.60 Prox ICA 36.30 / 13.40 48.90/ 20.30 Mid ICA 41.90 / 14.00 45.70/ 18.10 Distal ICA 43.50 / 17.90 62.10 ECA 45.70 1.00 ICA/CCA 0.60 Retrograde Vertebral Antegrade 63.80/ 4.50 cm/s 47.10/ 11.60 cm/s [place] Subclavian Bi 48.80 84.40 CONCLUSIONS Scattered atheromatous plaque in both carotid bulbs Right ICA stenosis <50%. Moderate atheromatous plaque right carotid bulb/ICA. Left ICA stenosis <50%. Moderate atheromatous plaque left carotid bulb/ICA. Retrograde Doppler flow noted in the right vertebral artery suspicous for subclavian steal with monophasic subclavian waveform Normal antegrade Doppler flow noted in the left vertebral artery. Rizwan Pearce MD (Electronically Signed) Final Date: 13 November 2024 16:32 S
== END 2024-11-13 12:08 | disposition home or self-care (01) ==
LOC: RAD 12:08
PROVIDERS: PCP Nurse Practitioner Family; Visit Provider Nurse Practitioner Family
DX: I65.23 Occlusion and stenosis of bilateral carotid arteries (principal)
CPT/HCPCS: 93880